=== PATIENT | male | born 1945 | race Caucasian/White ===

== ENCOUNTER 2018-09-30 06:46 | Inpatient (IN) ==
--- NOTE | 2018-09-22 10:57 | Anesthesiology Consultation ---
Date of Service September 22, 2018 Assessment & Plan (1) Encounter for pre-operative examination: Cardiology clearance 09/19/2018: Patient asymptomatic with no prior history of structural or heart disease or symptoms with exercise tolerance well above 5 METS high level exercise capacity. 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 No additional cardiac testing warranted. Proceed with surgery as planned with usual precautions. Chart Review Chart Review: Acceptable Risk for Surgery and Patient seen in Pre Admission Testing Teaching & Discussion Instructed NPO after midnight before surgery, except medications with 15 cc of water. Medication instructions provided according to the PAT guidelines. History Surgery Operation Date: 09/30/18 08:20 Proposed Procedures p Laparoscopic Assisted Low Anterior Resection with Protective Ileostomy - Vivek Roberts MD Height/Weight Height: 6 ft 1 in Weight: 101.4 kg Allergies Allergy/AdvReac Type Severity Reaction Status Date / Time No Known Allergies Allergy Verified 09/17/18 13:45 Medications Home Medications Medication Instructions Recorded Confirmed Last Taken Centrum Silver Men 1 tab PO QAM 05/19/18 09/17/18 Unknown acetaminophen [Acetaminophen Extra 500 mg PO Q4 PRN 05/19/18 09/17/18 05/17/18 Strength] albuterol sulfate [Ventolin HFA] 2 puff INHALATION Q4 PRN 05/19/18 09/17/18 Unknown azelastine 2 spray INTRANASAL Q12H 05/19/18 09/17/18 05/20/18 fluticasone propionate [Flonase 2 spray INTRANASAL BID 05/19/18 09/17/18 05/20/18 08:30 Allergy Relief] [id number]-[id number]-nyl C-Mn 1 cap PO QAM 05/19/18 09/17/18 Unknown guaifenesin [Mucinex] 600 mg PO BID 05/19/18 09/17/18 05/17/18 lansoprazole 15 mg PO QAM 05/19/18 09/17/18 05/20/18 08:30 lisinopril 20 mg PO QAM 05/19/18 09/17/18 05/20/18 08:15 loratadine 10 mg PO QAM 05/19/18 09/17/18 Unknown montelukast 10 mg PO PM 05/19/18 09/17/18 05/19/18 simvastatin 40 mg PO HS 05/19/18 09/17/18 05/19/18 docusate sodium 100 mg capsule 100 mg PO QPM 07/28/18 09/17/18 Unknown Past Medical History Medical History Arthritis (Acute) Asthma inhaler prn, mostly assc with seasonal allergies, has not used since July BPH (benign prostatic hyperplasia) Cervical stenosis of spine Chronic back pain GERD (gastroesophageal reflux disease) Glaucoma History of GI bleed Off and on 2/2 malignancy, no blood transfusions per pt History of IBS History of stomach ulcers Hyperlipidemia Hypertension Osteoarthritis Vertigo Exercise / Class Metabolic Activity III < 4 Walking/Shop/Light housework (Uses walker or two canes for ambulation 2/2 gait instability from spine surgery, denies CP or SOB with ambulation) Past Family History Family History Grandfather (Maternal) , age 73 of bladder cancer No problems noted. Grandmother (Maternal) , age 83 of [place] No problems noted. Grandmother (Paternal) , of heart attack No problems noted. Grandfather (Paternal) , of motor vehicle collision No problems noted. Father , age 69 of heart attack No problems noted. Mother , age 98 of kidney failure No problems noted. Sister Age: 70 Cancer malignant ovarian tumor removed Daughter Age: 44 No problems noted. Daughter Age: 41 Bipolar disorder Other FHx: cancer No family history of adverse response to anesthesia Past Surgical History Surgical History History of colonoscopy History of esophagogastroduodenoscopy (EGD) History of fusion of cervical spine c6-t1; needs support with neck, pt states he can move his neck back History of lumbar spinal fusion History of lumbar surgery TO REMOVE SPINAL CYST History of tonsillectomy and adenoidectomy History of tooth extraction INFECTED TOOTH POST ROOT CANCAL History of wisdom tooth extraction Past Anesthesia History No Hx of Anesthesia Complications and No Family Hx of Anesthesia Complications Some post-op urinary retention. History of PONV No Hx of PONV and No Hx of Motion Sickness Social History Smoking Status: Never smoker Do You Dip or Chew Tobacco: No Hx Alcohol Use: No Hx Substance Use: No substance use type: does not use Review of Systems Pt denies any recent chest pain, shortness of breath, palpitations, cough, fever or URI. +sinus congestion 2/2 allergies Physical Exam Vital Signs BP: 147/79 P: 72bpm SPO2: 94% RA T: 97.7 F R: 16 ENMT Mouth: + dental restorations (many crowns); no dentures, no chipped teeth and no loose teeth Thyromental Distance: > or= 3.5 Finger Breadths (4) Mallampati Class: I Neck normal visual inspection; neck extension not limited Respiratory normal respiratory effort Auscultation: lungs clear to auscultation bilaterally and + diminished lung sounds (R lung base) Cardiovascular Rate/Rhythm: regular rate and regular rhythm Heart Sounds: no murmur Vessels: no carotid bruit Extremities: no edema Testing Laboratory Results 09/22/18 11:24 Blood Type O Positive 09/22/18 11:24 Antibody Screen NEGATIVE 09/22/18 11:24 08/13/18 SODIUM: 139 POTASSIUM: 4.0 CHLORIDE: 106 CO2: 26 BUN: 13 CREATININE: 1.09 GLUCOSE: 103 Electrocardiogram Date: 09/19/18 Findings: + NSR @ (81bpm) Left axis deviation. Septal infarct, age undetermined. *Per Dr. López's interpretation noted in cardiac clearance, "baseline EKG reveals chronic left anterior fascicular block (interpreted as septal infarct) unchanged from March 2014 with past negative stress testing. Chest X-Ray Date: 09/22/18 Findings: + NAD Stress Test Date: 09/24/14 Resting EF: 55-60% Stress echo is negative for inducible ischemia. Occasional PVCs with exercise. Hypertensive BP response to exercise. Average exercise tolerance. At rest, normal LV chamber size and wall thickness. Normal LV systolic function without regional wall motion normality. Grade 1 diastolic dysfunction. Mild mitral regurgitation.
--- NOTE | 2018-09-22 11:00 | PAT Medication Instructions ---
Medication Instructions Date of Service September 22, 2018 Home Medications Centrum Silver Men 1 tab PO QAM acetaminophen [Acetaminophen Extra Strength] 500 mg PO Q4 PRN albuterol sulfate [Ventolin HFA] 2 puff INHALATION Q4 PRN azelastine 2 spray INTRANASAL Q12H fluticasone propionate [Flonase Allergy Relief] 2 spray INTRANASAL BID [id number]-[id number]-gwe C-Mn 1 cap PO QAM guaifenesin [Mucinex] 600 mg PO BID lansoprazole 15 mg PO QAM lisinopril 20 mg PO QAM loratadine 10 mg PO QAM montelukast 10 mg PO PM simvastatin 40 mg PO HS docusate sodium 100 mg capsule 100 mg PO QPM STOP taking 2 weeks before surgery If surgery is within 2 weeks, stop taking as soon as possible. [id number]-[id number]-bub C-Mn 1 cap PO QAM DO NOT take the morning of surgery Centrum Silver Men 1 tab PO QAM guaifenesin [Mucinex] 600 mg PO BID lisinopril 20 mg PO QAM loratadine 10 mg PO QAM Take morning of surgery With a small sip of water, OTHERWISE NOTHING TO EAT OR DRINK AFTER MIDNIGHT: acetaminophen [Acetaminophen Extra Strength] 500 mg PO Q4 PRN (if needed, may be taken up to four hours before surgery) albuterol sulfate [Ventolin HFA] 2 puff INHALATION Q4 PRN (if needed, and bring with you to the hospital) azelastine 2 spray INTRANASAL Q12H fluticasone propionate [Flonase Allergy Relief] 2 spray INTRANASAL BID lansoprazole 15 mg PO QAM Take evening before surgery acetaminophen [Acetaminophen Extra Strength] 500 mg PO Q4 PRN (if needed) albuterol sulfate [Ventolin HFA] 2 puff INHALATION Q4 PRN (if needed) azelastine 2 spray INTRANASAL Q12H fluticasone propionate [Flonase Allergy Relief] 2 spray INTRANASAL BID guaifenesin [Mucinex] 600 mg PO BID montelukast 10 mg PO PM simvastatin 40 mg PO HS docusate sodium 100 mg capsule 100 mg PO QPM Other Notes If you have any questions please call us at [phone] or [phone] or [phone] or [phone]
--- NOTE | 2018-09-22 11:50 | XRay Report ---
XR chest Pre-admission PA/Lat CLINICAL HISTORY: Preoperative chest COMPARISON STUDY: 05/11/2015 FINDINGS: The cardiac and mediastinal contours are normal. There is no evidence of focal pulmonary co nsolidation. There is no evidence of failure. No pleural effusions are visualized.[Moderately advance d degenerative changes are present within the dorsal spine. There are postsurgical changes present wi thin the cervical spine. IMPRESSION: No active disease in the chest. Electronically signed by: Darci Cantor M.D. 09/22/2018 11:49 AM
[2018-09-22 13:37] LABS: Basophils # (auto) 0.03 K/uL (0-0.2); Basophils % (auto) 0.7 %; Eosinophils # (auto) 0.29 K/uL (0-0.5); Eosinophils % (auto) 6.5 %; Hematocrit (blood only) 37.5 % (42-52); Hemoglobin 12.9 g/dL (14.0-18.0); Immature Granulocytes # (auto) 0.01 K/uL (0.00-0.02); Immature Granulocytes % (auto) 0.2 %; Lymphocytes # (auto) 0.73 K/uL (1.2-3.4); Lymphocytes % (auto) 16.3 %; Mean Corpuscular Hemoglobin 27.9 pg (25-34); Mean Corpuscular Hgb Conc 34.4 g/dL (32-36); Mean Platelet Volume 9.2 fL (7.4-10.4); Monocytes # (auto) 0.56 K/uL (0.11-0.59); Monocytes % (auto) 12.5 %; Neutrophils # (auto) 2.85 K/uL (1.4-6.5); Neutrophils % (auto) 63.8 %; Platelet Count 240 K/uL (130-400); RDW Coefficient of Variation 16.5 % (11.5-14.5); RDW Standard Deviation 48.9 fL (36.4-46.3); Red Blood Count 4.63 M/uL (4.7-6.1); White Blood Count 4.47 K/uL (4.8-10.8)
[~2018-09-30 06:46] MED LIST: LR 15ML/HR IV SCH
[2018-09-30] MEDS ORDERED: LIDOCAINE HCL 2% 2 ML VIAL/AMP(20MG/ML) INFIL ONE ×4 (08:22→10:41)
[2018-09-30] MEDS ORDERED: MIDAZOLAM HCL 1 MG/ML 2ML VIAL ONE ×2 (08:22→08:40)
[2018-09-30] MEDS ORDERED: ONDANSETRON INJ 2 MG/ML 2 ML VIAL ONE ×4 (08:22→13:09)
[2018-09-30] MEDS ORDERED: fentaNYL citrate 100 MCG/2 ML VIAL ONE ×4 (08:22→11:25)
[2018-09-30] MEDS ORDERED: DEXAMETHASONE SOD INJ 4 MG/ML VIAL ONE ×3 (08:22→10:41)
[2018-09-30] MEDS ORDERED: PROPOFOL IV EMULSION 10 MG/ML 20 ML VIAL IV ONE ×3 (08:22→10:41)
--- NOTE | 2018-09-30 08:25 | History & Physical Bridge Note ---
Date of Service September 30, 2018 History & Physical Bridge Note I have examined the patient, reviewed the History & Physical and in the interval since the performance of the History & Physical I have noted the following changes of clinical significance: no changes noted so at bedside all questions answered
[2018-09-30] MEDS ORDERED: BUPIVACAINE 0.5 % 5 MG/1 ML MPF 30ML VIAL ONE (09:07)
[2018-09-30] MEDS ORDERED: KETAMINE HCL INJ 50 MG/ML 10 ML VIAL ONE (09:55)
[2018-09-30] MEDS ORDERED: ROCURONIUM BROMIDE 10 MG/ML 5 ML VIAL ONE ×6 (10:04→13:09)
[2018-09-30] MEDS ORDERED: HYDROmorphone INJ 2 MG/ML SYR/VIAL ONE (10:14)
[2018-09-30] MEDS ORDERED: NALOXONE HCL 0.4 MG/1 ML VIAL/CARP IV PRN ×2 (10:28→14:31)
[2018-09-30] MEDS ORDERED: ATROPINE SULFATE 0.1 MG/ML 10ML SYR IV PRN (10:28)
[2018-09-30] MEDS ORDERED: FLUMAZENIL 0.1 MG/1 ML 10 ML VIAL IV PRN (10:28)
[2018-09-30] MEDS ORDERED: PROMETHAZINE HCL 12.5 MG in SODIUM CHLORIDE 0.9% 50 ML IV PRN (10:28)
[2018-09-30] MEDS ORDERED: ePHEDrine sulfate 50 MG/ML AMP IV PRN (10:28)
[2018-09-30] MEDS ORDERED: ONDANSETRON INJ 2 MG/ML 2 ML VIAL IV PRN (10:28)
[2018-09-30] MEDS ORDERED: LABETALOL HCL IV 5 MG/ML 20ML IV ONE (11:04)
[2018-09-30] MEDS ORDERED: NEOSTIGMINE METHYLSULFATE 5 MG/5 ML SYR ONE (12:13)
[2018-09-30] MEDS ORDERED: GLYCOPYRROLATE 0.2 MG/ML VIAL ONE (12:13)
--- NOTE | 2018-09-30 12:39 | Post Operative Brief Note ---
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 Procedure Operation Date: 09/30/18 08:20 Actual Procedures p Laparoscopic Assisted Low Anterior Resection with Protective Ileostomy, Appe ndectomy(Not Applicable) - Vivek Roberts MD Surgeon Vivek Roberts MD Assembler Billiard Table k Rick OWEN, Ariel owen Estimated Blood Loss 200 Findings Consistent with Post-Op Diagnosis Specimens Specimen Description: Fresh A.) descending colon, long suture oakes proximal descending colon Frozen 1.) rectal sigmoid colon, suture is distal line of resection Permanent A.) Appendix Urine 1.) Urine Culture Drains Philipp Drain (19 fr), Martines Catheter (16f) and Sayre Drain (1/4 inch)
[2018-09-30] MEDS ORDERED: cefOXitin 2,000 MG in DEXTROSE 5% 50 ML IV STA (12:51)
--- NOTE | 2018-09-30 12:53 | Operative Report ---
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 Procedure Operation Date: 09/30/18 08:20 Actual Procedures p Laparoscopic Assisted Low Anterior Resection with Protective Ileostomy, Appendectomy(Not Applicable) - Vivek Roberts MD The patient was brought into the operating room theater under general trach anesthesia in lithotomy position Martines catheter been inserted the abdomen was prepped and draped with Betadine solution systemic antibiotics given a timeout was had a small incision supraumbilically sufficient for a Veress needle followed by 5 mm trocar CO2 was insufflated camera was inserted patient was able to identify a very redundant sigmoid colon went down towards the pelvic area could not see any tattooing the patient had a rectal: Lesion we then inspected the abdomen more thoroughly with the scope circumferentially the liver was free of any miliary implants as was the omentum we then placed two 5 mm trochars one in the left upper quadrant one in the right lower quadrant and then we scored a white line of Toldt on the left side freeing up any peritoneal attachments onto the colon with all the way up after almost to the splenic flexure. We then we were able that is once is been added and we had enough mobility I elected at this point just to convert to an open procedure Bookwalter was placed after we made a lower midline incision extending approximately 4 inches long anesthesia we entered the peritoneal cavity once a Bookwalter was inserted we are able to identify the patient has stated a really redundant colon we then were able to mobilize it try to identify the ureters which we did eventually the left and right there was encircled with vessel loop I divided the mesentery order: Right the distal left colon sigmoid area that we had enough mobility. At this point we continued the dissection by dividing the mesentery ligated with 2-0 silk we went down to the bowels are higher as fascia and 3 mobilized all this we then were able to easily palpate the tumor which was the peritoneal reflection or below it. We freed up circumferentially around it dissecting and elevate in the morning the wound till we were able to place a right angle clamp inferior to the area that we felt the limit of the tumor when we divided this to send it to pathology and the grossly centimeter by 4 cm below the tumor. We at this point then the staple line proximally was oversewn but it was still some redundancy and some diverticular problem and that descending sigmoid colon therefore resected the back another 10 cm also used another application of the MORENA oversewn the staple line with 3-0 silk suture we did a side and anastomoses with our layer 3-0 chromic interlayer the anastomosis checked for patency appear satisfactory. We at this point placed a Philipp drain down the pelvic area to the stab wound left lower quadrant attached to skin edge with 2-0 silk the drain was a 19 round. We accomplished this we then turned our attention to an area that we would do the protective ileostomy since the patient had radiation we mobilized the cecum and identified a very redundant long appendix which I divided the mesentery ligating it and ligated appendix with 2-0 silk at its base cauterized the mucosa and diverting a 3 oh pursestring of silk the terminal ileum was followed proximally and about 10 cm x 10 inches from the ileocecal valve we passed a vessel loop with right through the antimesenteric area to spencer the area we then made a 25% piece of skin incision removed jail between the iliac crest and the umbilical area and in the lateral rectus right lower quadrant dissected out enough to accommodate 2 fingers as we divided the cr uciate anterior and posterior fascia. The the vessel loop was then brought through there making sure that we did not twist the loop ileostomy which we control twice and appeared to be in good position at this point we will closed the abdominal incision later running 3-0 chromic for the peritoneum and interrupted #1 PDS idhurj-jk-swqdk for anterior fascia Tripp was placed in the subcu zack for skin edges the colostomy with ileostomy was then matured by making a curvilinear incision in the trap for fashion in the anterior surface after we have placed the plastic bridge underneath the area where the vessel loop was to suspend the ill vessel loop the ileostomy 3-0 chromic was then used circumferentially to tack down the mucosal onto the skin bag was placed the procedure was tolerated well by the patient estimated blood loss 200 cc the patient was taken recovery in good condition addendum Ariel owen and Veronika Carreon were present throughout the procedure and helped with exposure re traction and wound closure and camera work. Surgeon Vivek Roberts MD It Infrastructure Specialist mariaelena OWEN, Ariel owen Estimated Blood Loss 200 Findings Consistent with Post-Op Diagnosis Specimens colon appendix Description of Procedure danielle I attest to the content of the Intraoperative Record and any orders documented therein. Any exceptions are noted below.
[2018-09-30] MEDS: LABETALOL HCL IV 5 MG/ML 20ML IV PRN ×2 (13:20→13:26)
[2018-09-30] MEDS: HYDROmorphone INJ 1 MG/ML SYRINGE IV PRN ×5 (13:20→13:40)
--- NOTE | 2018-09-30 13:51 | Anesthesiology Progress Note ---
Date of Service September 30, 2018 Anesthesia Post Procedure Vital Signs Vital Signs: Temp Pulse Pulse Resp BP Pulse Ox 09/30/18 13:45 36.3 C L 687 H 14 144/88 H 94 09/30/18 13:35 68 14 134/90 98 09/30/18 13:25 70 14 169/92 H 98 09/30/18 13:15 80 12 179/93 H 99 09/30/18 13:05 73 12 174/95 H 98 09/30/18 12:57 36.2 C L 71 12 165/91 H 98 09/30/18 07:32 36.8 C 78 20 95 Pain Intensity Abdomen: Pain Intensity: 6 Transfer of Care Handoff Completed per policy Notes Mental Status: alert / awake / arousable Patient Amnestic to Procedure: Yes Nausea / Vomiting: adequately controlled Pain: adequately controlled Airway Patency, RR, SpO2: stable & adequate BP & HR: stable & adequate Hydration State: stable & adequate Anesthetic Complications: no major complications apparent
[2018-09-30] MEDS ORDERED: ALBUTEROL HFA 8 GM INHALER INH PRN (14:31)
[2018-09-30] MEDS ORDERED: HYDROmorphone HCL 0.5MG/ML 50 ML CASSETTE IV PRN (14:31)
[2018-09-30 15:30] LABS: Hematocrit (blood only) 40.5 % (42-52); Hemoglobin 14.2 g/dL (14.0-18.0); Mean Corpuscular Hemoglobin 28.6 pg (25-34); Mean Corpuscular Hgb Conc 35.1 g/dL (32-36); Mean Corpuscular Volume 81.5 fL (80-100); Mean Platelet Volume 8.8 fL (7.4-10.4); Platelet Count 207 K/uL (130-400); RDW Coefficient of Variation 15.5 % (11.5-14.5); RDW Standard Deviation 45.8 fL (36.4-46.3); Red Blood Count 4.97 M/uL (4.7-6.1); White Blood Count 10.75 K/uL (4.8-10.8)
[2018-09-30 15:39] LABS: INR 1.1 (0.9-1.1); Prothrombin Time 10.8 Seconds (9.0-12.0)
[2018-09-30] MEDS: LACTATED RINGER'S 1,000 ML IV SCH ×2 (16:14→22:08)
[2018-09-30] MEDS: cefOXitin 2,000 MG in DEXTROSE 5% 50 ML IV SCH ×2 (17:20→22:01)
[2018-09-30] MEDS: SODIUM CHLORIDE 0.9% 1000ML 1,000 ML IV SCH (17:24)
[2018-09-30] MEDS: ACETAMINOPHEN 1,000 MG/100 ML VIAL IV PRN (19:33)
[2018-09-30] MEDS: HEPARIN SOD 5,000 UNIT/0.5 ML VIAL SQ SCH (21:56)
[2018-10-01] MEDS: cefOXitin 2,000 MG in DEXTROSE 5% 50 ML IV SCH ×2 (05:05→10:32)
[2018-10-01] MEDS: HEPARIN SOD 5,000 UNIT/0.5 ML VIAL SQ SCH ×3 (05:05→20:51)
[2018-10-01] MEDS: LACTATED RINGER'S 1,000 ML IV SCH ×3 (05:05→20:51)
[2018-10-01 07:19] LABS: Basophils # (auto) 0.01 K/uL (0-0.2); Basophils % (auto) 0.1 %; Hematocrit (blood only) 37.8 % (42-52); Hemoglobin 12.9 g/dL (14.0-18.0); Immature Granulocytes # (auto) 0.02 K/uL (0.00-0.02); Immature Granulocytes % (auto) 0.2 %; Lymphocytes # (auto) 0.82 K/uL (1.2-3.4); Lymphocytes % (auto) 7.5 %; Mean Corpuscular Hemoglobin 27.7 pg (25-34); Mean Corpuscular Hgb Conc 34.1 g/dL (32-36); Mean Corpuscular Volume 81.3 fL (80-100); Mean Platelet Volume 9.1 fL (7.4-10.4); Monocytes # (auto) 1.43 K/uL (0.11-0.59); Monocytes % (auto) 13.1 %; Neutrophils # (auto) 8.66 K/uL (1.4-6.5); Neutrophils % (auto) 79.1 %; Platelet Count 239 K/uL (130-400); RDW Coefficient of Variation 15.6 % (11.5-14.5); RDW Standard Deviation 45.9 fL (36.4-46.3); Red Blood Count 4.65 M/uL (4.7-6.1); White Blood Count 10.94 K/uL (4.8-10.8)
--- NOTE | 2018-10-01 07:43 | Surgery Progress Note ---
Date of Service October 01, 2018 Assessment & Plan (1) Malignant neoplasm of rectosigmoid (colon): Advance diet to clear liquids today Keep goetz catheter for today; urine output improved this AM Will follow up on AM labs Continue to ambulate as tolerated Will ask rn field case manager to evaluate patient for potential placement upon discharge GARRETT to bulb suction Subjective Patient awake/alert this AM, states that he feels well. Has some abdominal/i ncisional pain that is being managed with dilaudid WHEEL TRUER and prn IV Tylenol. He denies any nausea/vomiting. He has already walked two laps in the halls this AM. States that he had some bladder pressure overnight, that is relieved after goetz catheter was adjusted is and now draining. Wishes to speak to a rn field case manager to discuss rehab options upon discharge prior to going home. Physical Exam Constitutional: well developed and well nourished; no acute distress Respiratory: normal respiratory effort (on room air) Gastrointestinal (Abdomen): Inspection/Auscultation: + abdominal surgical incision (Dry dressings over midline incision covering mark. ) and + abdominal surgical drain present (Philipp drain in left abdomen draining serosanguineous output) Ileostomy viable. Ostomy bag with serosang. output Results & Data Vital Signs (Past 12 Hours) Vital Signs Temp Pulse Resp BP Pulse Ox 10/01/18 03:10 37 C 95 H 16 146/72 H 92 09/30/18 23:50 36.8 C 98 H 16 148/79 H 92 09/30/18 20:30 36.7 C 82 18 153/90 H 94 PG Care Time/CCT Total # of Minutes Spent Total Time Spent with Patient: Total time spent is greater than 50% in coordination of care (as documented) at patient's floor/unit and/or counseling patient:
[2018-10-01 07:53] LABS: BUN Creatinine Ratio 9.8 (10-20); Calcium 8.5 mg/dl (8.5-10.1); Creatinine Clr Calc Pharmacy 64.6 ml/min; Est GFR (African American) 65.2; Est GFR (Non-African American) 56.2; Potassium 4.7 mmol/L (3.5-5.1)
--- NOTE | 2018-10-01 08:26 | Anesthesiology Progress Note ---
Date of Service October 01, 2018 Anesthesia Post Procedure Vital Signs Vital Signs: Temp Pulse Pulse Resp BP Pulse Ox Pulse Ox 10/01/18 03:10 37 C 95 H 16 146/72 H 92 09/30/18 23:50 36.8 C 98 H 16 148/79 H 92 09/30/18 20:30 36.7 C 82 18 153/90 H 94 09/30/18 19:23 36.3 C L 98 H 16 164/99 H 96 09/30/18 18:33 36.7 C 92 H 16 153/96 H 96 09/30/18 17:36 36.6 C 93 H 18 153/88 H 98 09/30/18 17:22 36.6 C 90 16 153/95 H 97 09/30/18 16:33 85 20 168/89 H 98 09/30/18 16:23 36.3 C L 87 18 165/98 H 99 09/30/18 15:15 36.3 C L 85 16 163/90 H 99 09/30/18 14:42 72 16 164/95 H 99 09/30/18 14:15 36.5 C 76 18 165/94 H 98 98 09/30/18 13:45 36.3 C L 687 H 14 144/88 H 94 09/30/18 13:35 68 14 134/90 98 09/30/18 13:25 70 14 169/92 H 98 09/30/18 13:15 80 12 179/93 H 99 09/30/18 13:05 73 12 174/95 H 98 09/30/18 12:57 36.2 C L 71 12 165/91 H 98 Pain Intensity Abdomen: Pain Intensity: 6 Notes Mental Status: alert / awake / arousable and participated in evaluation Patient Amnestic to Procedure: Yes Nausea / Vomiting: adequately controlled Pain: adequately controlled Airway Patency, RR, SpO2: stable & adequate BP & HR: stable & adequate Hydration State: stable & adequate Anesthetic Complications: no major complications apparent and Pt Satisfied with anesthetic care
[2018-10-01] MEDS: PANTOprazole 40 MG TAB PO SCH (08:43)
[2018-10-01] MEDS: SODIUM CHLORIDE 0.9% 1000ML 1,000 ML IV SCH (13:38)
[2018-10-01] MEDS: COUGH DROP (SUGAR FREE) LOZ 24 LOZ/1 BOX BUCCAL PRN (16:02)
[2018-10-01] MEDS: ONDANSETRON INJ 2 MG/ML 2 ML VIAL IV PRN (21:00)
[2018-10-02] MEDS: ONDANSETRON INJ 2 MG/ML 2 ML VIAL IV PRN ×4 (02:14→21:21)
[2018-10-02] MEDS: LACTATED RINGER'S 1,000 ML IV SCH ×3 (02:15→18:14)
[2018-10-02] MEDS: HEPARIN SOD 5,000 UNIT/0.5 ML VIAL SQ SCH ×3 (05:39→21:21)
--- NOTE | 2018-10-02 06:49 | Surgery Progress Note ---
Date of Service October 02, 2018 Assessment & Plan (1) Malignant neoplasm of rectosigmoid (colon): POD #2 op findings and rx explained to pt yesterday will back off oral intake for now recheck lab Advance diet to clear liquids today Keep goetz catheter for today; urine output improved this AM Will follow up on AM labs Continue to ambulate as tolerated Will ask human services case manager to evaluate patient for potential placement upon discharge GARRETT to bulb suction Subjective rough night last night had emesis better now Review of Systems Review of Systems: minimal to no nausea drinking some Stephy Priscilla Physical Exam Physical Exam: sitting up in chair no acute issues abd soft with expected tenderness along incision ileostomy viable with bilious drainage Results & Data Vital Signs (Past 12 Hours) Vital Signs Temp Pulse Resp BP Pulse Ox 10/02/18 02:50 36.5 C 103 H 16 161/99 H 91 10/01/18 23:20 37 C 100 H 16 164/95 H 91 10/01/18 21:05 91 H 163/92 H 10/01/18 19:11 36.5 C 105 H 18 174/93 H 92 PG Care Time/CCT Total # of Minutes Spent Total Time Spent with Patient: Total time spent is greater than 50% in coordination of care (as documented) at patient's floor/unit and/or counseling patient:
[2018-10-02 07:37] LABS: Basophils # (auto) 0.02 K/uL (0-0.2); Basophils % (auto) 0.2 %; Eosinophils # (auto) 0.03 K/uL (0-0.5); Eosinophils % (auto) 0.3 %; Hematocrit (blood only) 42.3 % (42-52); Hemoglobin 14.3 g/dL (14.0-18.0); Immature Granulocytes # (auto) 0.05 K/uL (0.00-0.02); Immature Granulocytes % (auto) 0.5 %; Lymphocytes # (auto) 0.67 K/uL (1.2-3.4); Lymphocytes % (auto) 6.4 %; Mean Corpuscular Hemoglobin 27.8 pg (25-34); Mean Corpuscular Hgb Conc 33.8 g/dL (32-36); Mean Corpuscular Volume 82.3 fL (80-100); Mean Platelet Volume 9.1 fL (7.4-10.4); Monocytes # (auto) 1.12 K/uL (0.11-0.59); Monocytes % (auto) 10.7 %; Neutrophils # (auto) 8.57 K/uL (1.4-6.5); Neutrophils % (auto) 81.9 %; Platelet Count 259 K/uL (130-400); RDW Coefficient of Variation 15.4 % (11.5-14.5); RDW Standard Deviation 46.1 fL (36.4-46.3); Red Blood Count 5.14 M/uL (4.7-6.1); White Blood Count 10.46 K/uL (4.8-10.8)
[2018-10-02 08:17] LABS: BUN Creatinine Ratio 11.1 (10-20); Calcium 8.9 mg/dl (8.5-10.1); Creatinine Clr Calc Pharmacy 76.7 ml/min; Est GFR (African American) 80.3; Est GFR (Non-African American) 69.3; Potassium 4.4 mmol/L (3.5-5.1)
[2018-10-02] MEDS: PANTOprazole 40 MG TAB PO SCH (08:44)
[2018-10-02] MEDS: CALCIUM CARBONATE 500 MG CHEWABLE TAB PO PRN (14:14)
[2018-10-02] MEDS: SODIUM CHLORIDE 0.9% 1000ML 1,000 ML IV SCH (14:24)
[2018-10-03] MEDS: LACTATED RINGER'S 1,000 ML IV SCH ×2 (01:56→10:24)
[2018-10-03] MEDS: CALCIUM CARBONATE 500 MG CHEWABLE TAB PO PRN ×2 (04:16→22:35)
[2018-10-03] MEDS: ONDANSETRON INJ 2 MG/ML 2 ML VIAL IV PRN (04:42)
[2018-10-03] MEDS: HEPARIN SOD 5,000 UNIT/0.5 ML VIAL SQ SCH ×3 (05:03→21:05)
[2018-10-03 07:33] LABS: Basophils # (auto) 0.01 K/uL (0-0.2); Basophils % (auto) 0.2 %; Eosinophils # (auto) 0.11 K/uL (0-0.5); Eosinophils % (auto) 1.7 %; Hematocrit (blood only) 38.5 % (42-52); Hemoglobin 13.2 g/dL (14.0-18.0); Immature Granulocytes # (auto) 0.01 K/uL (0.00-0.02); Immature Granulocytes % (auto) 0.2 %; Lymphocytes # (auto) 0.61 K/uL (1.2-3.4); Lymphocytes % (auto) 9.6 %; Mean Corpuscular Hemoglobin 27.9 pg (25-34); Mean Corpuscular Hgb Conc 34.3 g/dL (32-36); Mean Corpuscular Volume 81.4 fL (80-100); Mean Platelet Volume 8.9 fL (7.4-10.4); Monocytes # (auto) 1.41 K/uL (0.11-0.59); Monocytes % (auto) 22.3 %; Neutrophils # (auto) 4.18 K/uL (1.4-6.5); Platelet Count 238 K/uL (130-400); RDW Coefficient of Variation 15.1 % (11.5-14.5); RDW Standard Deviation 44.8 fL (36.4-46.3); Red Blood Count 4.73 M/uL (4.7-6.1); White Blood Count 6.33 K/uL (4.8-10.8)
--- NOTE | 2018-10-03 07:33 | Surgery Progress Note ---
Date of Service October 03, 2018 Assessment & Plan (1) Malignant neoplasm of rectosigmoid (colon): POD 3 lap assisted LAR, protective ileostomy labs pending hold on NG for now, consider KUB/NG later if not making progress restart lisinopril Subjective hiccups, vomited early this morning but ileostomy starting to have output Physical Exam Gastrointestinal (Abdomen): Inspection/Auscultation: + abdominal surgical incision (some mark drainage, no erythema) and + abdominal surgical drain present (330 cc overnight mostly serous); abdomen not distended Percussion/Palpation: abdomen soft UOP 550 overnight Results & Data Vital Signs (Past 12 Hours) Vital Signs Temp Pulse Resp BP Pulse Ox 10/03/18 04:05 37.0 C 100 H 16 152/91 H 92 10/02/18 23:03 37.4 C 89 16 145/92 H 92 10/02/18 22:08 99 H 155/97 H 10/02/18 20:18 36.8 C 118 H 18 163/77 H 93 PG Care Time/CCT Total # of Minutes Spent Total Time Spent with Patient: Total time spent is greater than 50% in coordination of care (as documented) at patient's floor/unit and/or counseling patient:
[2018-10-03 08:01] LABS: BUN Creatinine Ratio 12.1 (10-20); Calcium 8.7 mg/dl (8.5-10.1); Creatinine Clr Calc Pharmacy 69.5 ml/min; Est GFR (African American) 71.3; Est GFR (Non-African American) 61.5; Potassium 4.7 mmol/L (3.5-5.1)
[2018-10-03] MEDS: PANTOprazole 40 MG TAB PO SCH (08:56)
[2018-10-03] MEDS: LISINOPRIL 20 MG TAB PO SCH (10:23)
[2018-10-03] MEDS: SODIUM CHLOR 0.45% + 20MEQ KCL 20 MEQ/1,000 ML BAG IV SCH ×2 (13:48→20:57)
[2018-10-03] MEDS: SODIUM CHLORIDE 0.9% 1000ML 1,000 ML IV SCH (13:55)
--- NOTE | 2018-10-03 14:20 | XRay Report ---
XR KUB/Abdomen 1 view CLINICAL HISTORY: Bowel distention. Possible postoperative ileus COMPARISON STUDY: No previous studies for comparison. FINDINGS: There are pelvic zack. There is a pelvic drain present. There are postsurgical changes p resent within the lumbar spine. There is a dilated mid abdominal small bowel measuring 5 cm. There is a relative paucity of colonic gas. IMPRESSION: Nonspecific bowel gas pattern with mildly dilated small bowel loops measuring up to 5 cm in diameter Electronically signed by: Darci Cantor M.D. 10/03/2018 2:19 PM
[2018-10-03] MEDS ORDERED: MONTELUKAST SODIUM 10 MG TABLET PO SCH (21:00)
[2018-10-03] MEDS: guaiFENesin 600 MG TABCR PO SCH (21:02)
[2018-10-03] MEDS: FLUTICASONE PROPIONATE NA SPR 16 GM BTL NAE SCH (21:02)
[2018-10-04] MEDS: ONDANSETRON INJ 2 MG/ML 2 ML VIAL IV PRN ×2 (00:50→04:19)
[2018-10-04] MEDS: SODIUM CHLOR 0.45% + 20MEQ KCL 20 MEQ/1,000 ML BAG IV SCH (05:05)
[2018-10-04] MEDS: CALCIUM CARBONATE 500 MG CHEWABLE TAB PO PRN (05:05)
[2018-10-04] MEDS ORDERED: PROMETHAZINE HCL 25 MG in SODIUM CHLORIDE 0.9% 50 ML IV PRN (05:17)
[2018-10-04] MEDS ORDERED: ONDANSETRON INJ 2 MG/ML 2 ML VIAL IV PRN (05:19)
[2018-10-04] MEDS: HEPARIN SOD 5,000 UNIT/0.5 ML VIAL SQ SCH ×3 (05:34→20:46)
[2018-10-04 08:17] LABS: BUN Creatinine Ratio 14.9 (10-20); Creatinine Clr Calc Pharmacy 74.6 ml/min; Est GFR (African American) 77.6; Potassium 4.8 mmol/L (3.5-5.1)
[2018-10-04 08:20] LABS: Albumin Globulin Ratio 0.8 (0.9-2); Bilirubin,Total 0.7 mg/dl (0.2-1); Globulin 3.8 gm/dl (2.5-4.0); Total Protein 6.8 gm/dl (6.4-8.2)
--- NOTE | 2018-10-04 08:27 | XRay Report ---
XR chest 1V portable CLINICAL HISTORY: Acute mental status change, rales. Status post low anterior resection September 30. COMPARISON STUDY: Chest radiograph September 22, 2018. FINDINGS: Spinal fusion hardware is partially imaged. Lung volumes are diminished. There is mild left basilar opacity. There is no evidence for pulmonary edema. No pneumothorax or pleural effusion is no godfrey. Enlargement of the cardiac silhouette is accentuated on this hypoventilatory exam. There may be trace pneumoperitoneum. IMPRESSION: 1. Low lung volumes with left basilar opacity which may reflect atelectasis or consolidation. 2. Suspected trace pneumoperitoneum which is not unexpected given recent abdominal surgery. 3. No evidence for pulmonary edema. Electronically signed by: Masood Villanueva M.D. 10/04/2018 8:25 AM
[2018-10-04] MEDS ORDERED: CONSULT PHARMACY STA (08:30)
[2018-10-04] MEDS: SODIUM CHLORIDE 0.9% 1000ML 1,000 ML IV SCH ×2 (08:30→11:53)
[2018-10-04 08:36] LABS: Base Excess ABG -1.4 mEq/L (-9-1.8); HCO3 ABG 21 mmol/L (19-24); Oxygen Saturation ABG 95.6 % (90-95); PCO2 ABG 30 mmHg (35-46); PO2 ABG 76 mm/Hg (80-95); pH ABG 7.46 (7.35-7.45)
[2018-10-04] MEDS ORDERED: FUROSEMIDE 40 MG/4 ML VIAL IV ONE (08:39)
[2018-10-04] MEDS ORDERED: PIPERACILLIN/TAZOBACTAM 4.5 GM in DEXTROSE 5% 100 ML IV ONE (08:45)
[2018-10-04] MEDS ORDERED: PIPERACILL/TAZOBAC CONSULT ACTIVE PRN (08:51)
[2018-10-04] MEDS ORDERED: VANCOMYCIN CONSULT ACTIVE PRN (08:52)
[2018-10-04] MEDS ORDERED: fentaNYL citrate 100 MCG/2 ML VIAL ONE (08:57)
[2018-10-04] MEDS ORDERED: MIDAZOLAM HCL 1 MG/ML 2ML VIAL ONE (08:57)
[2018-10-04] MEDS ORDERED: NiCARDipine HCL INJ 2.5 MG/ML 10 ML AMP ONE (08:58)
[2018-10-04] MEDS ORDERED: NITROGLYCERIN/D5W 100MCG/ML 20ML SYR ONE (08:58)
[2018-10-04] MEDS ORDERED: HEPARIN (PORCINE) 1000 UNIT/ML 10 ML (CATH LAB USE ONLY) ONE (08:58)
[2018-10-04] MEDS ORDERED: LORATADINE 10 MG TAB PO SCH (09:00)
--- NOTE | 2018-10-04 09:04 | Consultation ---
Date of Consultation October 04, 2018 Assessment & Plan (1) Sepsis: Clinical picture is consistent with sepsis. Likely source is hospital- acquired pneumonia, however, an intra-abdominal process such as abscess is possible. He had evidence of a post-op ileus yesterday, however, no NGT was pl aced and he subsequently had persistent nausea overnight. He has hiccups currently, which was noted yesterday on notes. He has had emesis over the last couple of days, but no known emesis overnight. Other cause considered was PE. Blood cultures pending, CBC pending, troponin negative, blood gas is consistent with tachypnea and hypoxia in setting of pneumonia. Lactate was 1.6. CT chest to rule out PE and CT abd/pelvis with IV contrast are pending. Surgery is aware and Dr. Roberts was notified. Various providers attempted to contact this morning with no answer. He was transferred to the ICU for further management. (2) Hospital acquired PNA: Vanc/Zosyn, blood cultures pending. Cont sepsis treatment in the ICU. (3) Acute metabolic encephalopathy: 2/2 infectious process above. (4) Post-operative state: POD 4 with a known post-op ileus seen yesterday on KUB and persistent nausea without vomiting overnight. Surgery is aware of the case. No NGT indicated at this time as he is not vomiting. CT abd/pelvis pending. (5) Malignant neoplasm of rectosigmoid (colon): s/p protective ileostomy POD 4 in the setting of h/o XRT treatment. (6) DVT prophylaxis: heparin Full Code Dispo-[facility] History of Present Illness Reason for Consultation: encephalopathy Attending Physician: Vivek Roberts MD History of Present Illness 73 yo M with acute mental status change overnight is now tachypneic, febrile (40 6 C) and tachycardic with a rate in the 140s. He is POD 4 s/p laparoscopic-assisted low anterior resection with protective ileostomy for adenocarcinoma of the colon. The operation was performed by Dr. Roberts and the operation was uneventful so he had radiation as the lower radiation was not like to call with an estimated blood loss of 200 cc. The following day he was doing well and was ambulating independently. He had some emesis and diet was decreased to clear liquids on POD 2. On postop day 3 he persistently had hiccups and emesis and a KUB was performed revealing some dilated loops of small bowel consistent with a postoperative ileus. Overnight he received 2 doses of Zofran that were ineffective for his nausea and subsequently received Phenergan around 530 this morning. Per nursing around 7 AM he became diaphoretic was doubled over on the side of the bed and was ill-appearing. Vitals at that time revealed an afebrile patient with a pulse of 110 and a blood pressure of 137/89. Oxygen saturation was not reported, however he subsequently became hypoxic. On arrival to the bedside he is unable to give an history secondary to encephalopathy. He is ill-appearing, diaphoretic with a heart rate of 140. He is febrile and hypoxic. A code purple was called. He was bolused 1 L of normal saline and lab work was ordered. Broad-spectrum antibiotics including vancomycin and Zosyn were started. The ICU was notified. An EKG revealed a possible inferior injury pattern and a heart alert was called, however, this was canceled after the extractor operator reviewed the EKG and felt this was inconsistent with ischemia. A chest x-ray was performed revealing a left lower lobe consolidation. He was transferred to the ICU for further care. Allergies Allergy/AdvReac Type Severity Reaction Status Date / Time pollen extracts Allergy Unknown Verified 09/30/18 11:44 Home Medications Home Medications Medication Instructions Recorded Confirmed Type Centrum Silver Men 1 tab PO QAM 05/19/18 09/30/18 History acetaminophen [Acetaminophen Extra 500 mg PO Q4 PRN 05/19/18 09/30/18 History Strength] albuterol sulfate [Ventolin HFA] 2 puff INHALATION Q4 PRN 05/19/18 09/30/18 History azelastine 2 spray INTRANASAL Q12H 05/19/18 09/30/18 History fluticasone propionate [Flonase 2 spray INTRANASAL BID 05/19/18 09/30/18 History Allergy Relief] [id number] C-Mn 1 cap PO QAM 05/19/18 09/30/18 History guaifenesin [Mucinex] 600 mg PO BID 05/19/18 09/30/18 History lansoprazole 15 mg PO QAM 05/19/18 09/30/18 History lisinopril 20 mg PO QAM 05/19/18 09/30/18 History loratadine 10 mg PO QAM 05/19/18 09/30/18 History montelukast 10 mg PO PM 05/19/18 09/30/18 History simvastatin 40 mg PO HS 05/19/18 09/30/18 History docusate sodium 100 mg capsule 100 mg PO QPM 07/28/18 09/30/18 History Patient History Medical History History of GI bleed Off and on 2/2 malignancy, no blood transfusions per pt History of IBS Arthritis (Acute) Asthma inhaler prn, mostly assc with seasonal allergies, has not used since July BPH (benign prostatic hyperplasia) Cervical stenosis of spine Chronic back pain GERD (gastroesophageal reflux disease) Glaucoma History of stomach ulcers Hyperlipidemia Hypertension Osteoarthritis Vertigo Surgical History History of colonoscopy History of esophagogastroduodenoscopy (EGD) History of fusion of cervical spine c6-t1; needs support with neck, pt states he can move his neck back History of lumbar spinal fusion History of lumbar surgery TO REMOVE SPINAL CYST History of tonsillectomy and adenoidectomy History of tooth extraction INFECTED TOOTH POST ROOT CANCAL History of wisdom tooth extraction S/P colon resection Laparoscopic Assisted Low Anterior Resection with Protective Ileostomy, Appendectomy Dr. Roberts 09/30/18 Family History Grandfather (Maternal) , age 73 of bladder cancer No problems noted. Grandmother (Maternal) , age 83 of [place] No problems noted. Grandmother (Paternal) , of heart attack No problems noted. Grandfather (Paternal) , of motor vehicle collision No problems noted. Father , age 69 of heart attack No problems noted. Mother , age 98 of kidney failure No problems noted. Sister Age: 70 Cancer malignant ovarian tumor removed Daughter Age: 44 No problems noted. Daughter Age: 41 Bipolar disorder Other FHx: cancer No family history of adverse response to anesthesia Social History Preferred Language: Faroese Communication Ability: Effective Utility Operator Required: No Beliefs That Will Affect Care: None marital status: Current Living Situation: Spouse and Family Current Living Situation Comment: Lives with and daughter Feels Safe at Home: Yes Safety Concerns: Feels Safe At This Time Smoking Status: Never smoker Do You Dip or Chew Tobacco: No ; Second Hand Exposure: Yes ; Hx Alcohol Use: No Hx Substance Use: No Review of Systems 2 Review of Systems: Unobtainable due to cognitive status Physical Exam Physical Exam: CONSTITUTIONAL: WNWD, vitals as above, generally ill- appearing, diaphoretic EYES: pupils are equal and reactive bilaterally, normal conjunctivae, no scleral icterus ENT: Oxymask in place NECK: trachea midline RESPIRATORY: increased respiratory effort, good air movement with limited exam as patient not able to follow instructions, some rhonchi heard at the bases (limited exam) CARDIOVASCULAR: tachy rate and reg rhythm, S1 and 2 heard without murmurs, gallops or rubs, no JVD, no peripheral edema CHEST: inspection of chest was normal GASTROINTESTINAL: soft, slightly distended, ileostomy in place with output noted, stoma appears normal MUSCULOSKELETAL: head is normocephalic and atraumatic SKIN: warm and diaphoretic NEUROLOGIC: altered, making unintelligible Results & Data Vital Signs (Past 12 Hours) Vital Signs Temp Pulse Resp BP Pulse Ox 10/04/18 06:55 36.4 C L 110 H 18 157/89 H 10/04/18 02:49 36.9 C 63 16 136/71 91 10/03/18 23:15 36.9 C 91 H 16 114/72 94 Laboratory Results Short CBC 09/22/18 Range/Units 11:24 Blood Type O Positive Antibody Screen NEGATIVE BMP 10/04/18 07:38 Sodium 131 L Potassium 4.8 Chloride 96 L Carbon Dioxide 27 BUN 16 Creatinine 1.09 Glucose 114 H Calcium 9.0 Cardiac Enzymes 10/04/18 Range/Units 08:32 Troponin I < 0.015 (0-0.045) ng/ml Liver Function 10/04/18 Range/Units 07:38 Total Bilirubin 0.7 (0.2-1) mg/dl AST 17 (15-37) U/L ALT 16 (12-78) U/L Alkaline Phosphatase 73 (45-117) U/L Albumin 3.0 L (3.4-5.0) gm/dl Diagnostic Findings XR chest 1V portable CLINICAL HISTORY: Acute mental status change, rales. Status post low anterior resection September 30, 2018. COMPARISON STUDY: Chest radiograph September 22, 2018. FINDINGS: Spinal fusion hardware is partially imaged. Lung volumes are diminished. There is mild left basilar opacity. There is no evidence for pulmonary edema. No pneumothorax or pleural effusion is noted. Enlargement of the cardiac silhouette is accentuated on this hypoventilatory exam. There may be trace pneumoperitoneum. IMPRESSION: 1. Low lung volumes with left basilar opacity which may reflect atelectasis or consolidation. 2. Suspected trace pneumoperitoneum which is not unexpected given recent ab dominal surgery. 3. No evidence for pulmonary edema. ECG Additional Comments: inferior injury pattern with 1mm ST elevation in inferior leads, incomplete RBBB and known LAFB.
[2018-10-04] MEDS ORDERED: FUROSEMIDE 40 MG/4 ML VIAL IV STA (09:08)
[2018-10-04] MEDS ORDERED: OPTIRAY 320 125ml IV PRN (09:12)
[2018-10-04] MEDS ORDERED: VANCOMYCIN HCL 2,500 MG in SODIUM CHLORIDE 0.9% 500 ML IV SCH (09:15)
[2018-10-04 09:20] LABS: Allen Test Pos (Pos)
--- NOTE | 2018-10-04 09:27 | CT Scan Report ---
CT ANGIOGRAPHY OF THE CHEST, PULMONARY EMBOLUS PROTOCOL CLINICAL HISTORY: Mental status change. Recent surgery. Chest CT June 11, 2018. COMPARISON STUDY: Chest radiograph September 22, 2018 and October 04, 2018. TECHNIQUE: Following IV administration of Optiray-320, helical axial images of the chest were obtaine d utilizing the pulmonary embolus protocol. Maximal intensity projections and sagittal and coronal r eformats were viewed on an independent 3D workstation. IV contrast was administered without complica tion. Automated exposure control was utilized for the study. A dose lowering technique was utilized adhering to the principles of ALARA. CT DOSE: 2412.28 mGy.cm FINDINGS: No pulmonary emboli are identified although the segmental and subsegmental pulmonary arter ies are suboptimally assessed due to respiratory motion. The heart is mildly enlarged. There is no pe ricardial effusion. No enlarged thoracic lymph nodes are present. Postoperative findings within the c ervicothoracic spine are noted. Small left pleural effusion is noted. There is no pneumothorax. There is extensive left lower lobe consolidation. Subpleural right lower lobe opacity favors atelectasis. There are suspected secretions within the left lower lobe bronchus and segmental bronchi of the left lower lobe. Lungs are suboptimally assessed given respiratory motion. Bony thorax is unremarkable. Sm all amount of pneumoperitoneum is noted. IMPRESSION: 1. No pulmonary emboli identified although segmental and subsegmental pulmonary arteries suboptimally assessed given respiratory motion. 2. Extensive left lower lobe consolidation which favors pneumonia. Secretions within the left lower l obe bronchus and segmental bronchi of the left lower lobe raise the possibility of aspiration. 3. Mild cardiomegaly. 4. Pneumoperitoneum which is expected in the early postoperative setting. Electronically signed by: Masood Villanueva M.D. 10/04/2018 9:25 AM
--- NOTE | 2018-10-04 09:39 | CT Scan Report ---
CT OF THE ABDOMEN AND PELVIS WITH CONTRAST CLINICAL HISTORY: Tachycardia and rigors status post low anterior resection COMPARISON STUDY: CT of the abdomen and pelvis May 29, 2018. TECHNIQUE: Following IV administration of Optiray-320, axial images of the abdomen and pelvis were ob tained from the lung bases to the proximal femurs. Images were reviewed in the axial, sagittal, and c oronal planes. IV contrast was administered without complication. Automated exposure control was uti lized for the study. A dose lowering technique was utilized adhering to the principles of ALARA. FINDINGS: Please note that the chest will be reported separately. Extensive left basilar consolidatio n is noted. There are secretions within the left lower lobe bronchi. Small amount of pneumoperitoneum is noted. A few hypodense hepatic lesions are unchanged since CT of May 29, 2018. These are benign . Stomach is moderately distended. Several loops of mildly dilated fluid-filled jejunum are noted. No discrete transition point is identified. The spleen, adrenal glands, kidneys and pancreas are normal . There is no biliary or pancreatic ductal dilatation. The patient is status post low anterior resect ion with right lower quadrant ileostomy. Surgical drains are in place. There is no rim-enhancing flui d collection to suggest abscess. Perirectal infiltration fluid and trace gas is expected in the early postoperative setting. A small amount of gas within the left inguinal canal and adjacent to the peni s is postsurgical. There is no portal venous gas. No pneumatosis is present. There is slight enlargem ent of the rectus sheaths. No suspicious osseous lesions are noted. Postoperative findings within the lumbar spine are present. IMPRESSION: 1. Status post low anterior resection with right lower quadrant ileostomy. No abscess. Small pneumope ritoneum and infiltration and fluid within the operative bed which are expected in the early postoper ative setting. 2. Mildly dilated fluid-filled jejunal loops without discrete transition point. An ileus is favored. A partial small bowel obstruction could appear similar although is considered less likely. Moderate d istention of the stomach. 3. Left basilar consolidation which favors pneumonia. 4. Mild enlargement of the rectus sheaths. This may be due to small rectus sheath hematomas or edema. Electronically signed by: Masood Villanueva M.D. 10/04/2018 9:38 AM
[2018-10-04 09:44] LABS: Basophils # (auto) 0.01 K/uL (0-0.2); Basophils % (auto) 0.3 %; Eosinophils # (auto) 0.04 K/uL (0-0.5); Eosinophils % (auto) 1.1 %; Hematocrit (blood only) 38.1 % (42-52); Hemoglobin 13.4 g/dL (14.0-18.0); Immature Granulocytes # (auto) 0.05 K/uL (0.00-0.02); Immature Granulocytes % (auto) 1.3 %; Lymphocytes # (auto) 0.33 K/uL (1.2-3.4); Lymphocytes % (auto) 8.8 %; Mean Corpuscular Hemoglobin 28.4 pg (25-34); Mean Corpuscular Volume 80.7 fL (80-100); Mean Platelet Volume 9.3 fL (7.4-10.4); Monocytes # (auto) 0.36 K/uL (0.11-0.59); Monocytes % (auto) 9.6 %; Neutrophils # (auto) 2.97 K/uL (1.4-6.5); Neutrophils % (auto) 78.9 %; Platelet Count 258 K/uL (130-400); RDW Coefficient of Variation 14.8 % (11.5-14.5); RDW Standard Deviation 43.8 fL (36.4-46.3); Red Blood Count 4.72 M/uL (4.7-6.1); White Blood Count 3.76 K/uL (4.8-10.8)
[2018-10-04 09:52] LABS: Mean Corpuscular Hgb Conc 35.2 g/dL (32-36)
[2018-10-04] MEDS ORDERED: ACETAMINOPHEN 1,000 MG/100 ML VIAL IV STA (09:56)
[2018-10-04] MEDS ORDERED: LACTATED RINGER'S 1,000 ML IV ONE ×2 (10:01→14:16)
--- NOTE | 2018-10-04 10:42 | Critical Care Consultation ---
Date of Consultation October 04, 2018 Assessment & Plan (1) Admitted to intensive care unit: Patient is currently in the ICU. Continue broad-spectrum antibiotics with vancomycin and Zosyn. Patient likely developed a postoperative pneumonia on the left side. There may be some component of aspiration, however, this would be unusual for left-sided infiltrate. Cardiology reviewed the EKG and does not feel that there is any evidence of acute ischemia currently. Troponin pending. Lactate is negative. 1 L fluids given on the floor. Will give another liter of fluids here. IV bolus fluids as needed. IV Tylenol as needed for high-grade fever. Blood cultures, urine cultures, sputum cultures ordered. Hold all mind altering medications due to acute metabolic encephalopathy that is secondary to sepsis. Stop DETECTIVE CAPTAIN drip. If any evidence of bowel obstruction on CT abdomen, will place NGT to intermittent suction. Keep n.p.o. Continue heparin 3 times daily for DVT prophylaxis. Family was contacted by surgery and internal medicine. No family immediately available at bedside. Present on Admission?: No (2) Hospital acquired PNA: Present on Admission?: No (3) Sepsis: Present on Admission?: No (4) Post-operative state: Present on Admission?: No (5) Acute hypoxemic respiratory failure: History of Present Illness Attending Physician: Vivek Roberts MD 73-year-old male with past medical history of adenocarcinoma of the colon who is postop day 4 status post laparoscopic assisted lower anterior resection with protective ileostomy. I was called by surgery to evaluate the patient for ICU transfer due to altered mental status and tachycardia. Upon evaluation the patient, he appeared to be diaphoretic, tachypneic and confused. He had an oxygen mask on at 15 L and was saturating in the low 90s. His heart rate was 140 and blood pressure was 130s over 70s. He was receiving 1 L of fluids. Vancomycin and Zosyn was ordered. Patient was unable to give much history due to encephalopathy. Apparently yesterday he had some persistent nausea. There was some mention of possible dilated bowel loops on a prior ab dominal x-ray. He has had no emesis overnight. Today he has a fever of 104. Chest x-ray shows some cardiomegaly, vascular congestion and left lower lobe infiltrate. CT chest does not show any obvious PE on my interpretation. There is a left lower lobe consolidation. There is some pneumoperitoneum noted on the x-ray prior to the CT. CT abdomen interpretation is pending lactate is 1.6. CBC with no evidence of leukocytosis. Blood gas demonstrating a respiratory alkalosis with hypoxemia. Blood cultures were drawn. He has settled out admit in ICU and his heart rate is starting to trend down. Of note, on the floor heart code was called due to concerns of inferior wall ischemia pattern on the EKG. Cardiology evaluated EKG did not feel there was any acute ischemia. Troponin was ordered. Allergies Allergy/AdvReac Type Severity Reaction Status Date / Time pollen extracts Allergy Unknown Verified 09/30/18 11:44 Home Medications Home Medications Medication Instructions Recorded Confirmed Type Centrum Silver Men 1 tab PO QAM 05/19/18 09/30/18 History acetaminophen [Acetaminophen Extra 500 mg PO Q4 PRN 05/19/18 09/30/18 History Strength] albuterol sulfate [Ventolin HFA] 2 puff INHALATION Q4 PRN 05/19/18 09/30/18 History azelastine 2 spray INTRANASAL Q12H 05/19/18 09/30/18 History fluticasone propionate [Flonase 2 spray INTRANASAL BID 05/19/18 09/30/18 History Allergy Relief] [id number] C-Mn 1 cap PO QAM 05/19/18 09/30/18 History guaifenesin [Mucinex] 600 mg PO BID 05/19/18 09/30/18 History lansoprazole 15 mg PO QAM 05/19/18 09/30/18 History lisinopril 20 mg PO QAM 05/19/18 09/30/18 History loratadine 10 mg PO QAM 05/19/18 09/30/18 History montelukast 10 mg PO PM 05/19/18 09/30/18 History simvastatin 40 mg PO HS 05/19/18 09/30/18 History docusate sodium 100 mg capsule 100 mg PO QPM 07/28/18 09/30/18 History Patient History Medical History History of GI bleed Off and on 2/2 malignancy, no blood transfusions per pt History of IBS Arthritis (Acute) Asthma inhaler prn, mostly assc with seasonal allergies, has not used since July BPH (benign prostatic hyperplasia) Cervical stenosis of spine Chronic back pain GERD (gastroesophageal reflux disease) Glaucoma History of stomach ulcers Hyperlipidemia Hypertension Osteoarthritis Vertigo Surgical History History of colonoscopy History of esophagogastroduodenoscopy (EGD) History of fusion of cervical spine c6-t1; needs support with neck, pt states he can move his neck back History of lumbar spinal fusion History of lumbar surgery TO REMOVE SPINAL CYST History of tonsillectomy and adenoidectomy History of tooth extraction INFECTED TOOTH POST ROOT CANCAL History of wisdom tooth extraction S/P colon resection Laparoscopic Assisted Low Anterior Resection with Protective Ileostomy, Appendectomy Dr. Roberts 09/30/18 Family History Grandfather (Maternal) , age 73 of bladder cancer No problems noted. Grandmother (Maternal) , age 83 of [place] No problems noted. Grandmother (Paternal) , of heart attack No problems noted. Grandfather (Paternal) , of motor vehicle collision No problems noted. Father , age 69 of heart attack No problems noted. Mother , age 98 of kidney failure No problems noted. Sister Age: 70 Cancer malignant ovarian tumor removed Daughter Age: 44 No problems noted. 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 Beliefs That Will Affect Care: None marital status: Current Living Situation: Spouse and Family Current Living Situation Comment: Lives with and daughter Feels Safe at Home: Yes Safety Concerns: Feels Safe At This Time Smoking Status: Never smoker Do You Dip or Chew Tobacco: No ; Second Hand Exposure: Yes ; Hx Alcohol Use: No Hx Substance Use: No Review of Systems Review of Systems: Unobtainable due to reduced consciousness Results & Data Vital Signs (Past 12 Hours) Vital Signs Temp Pulse Resp BP Pulse Ox 10/04/18 08:30 104.0 F H 140 H 127/76 94 10/04/18 08:15 143 H 22 94 10/04/18 08:00 103.8 F H 140 H 149/99 H 84 L 10/04/18 06:55 97.5 F L 110 H 18 157/89 H 10/04/18 02:49 98.4 F 63 16 136/71 91 10/03/18 23:15 98.4 F 91 H 16 114/72 94 Laboratory Results 10/04/18 08:22 10/04/18 07:[address] chest reviewed which demonstrates left lower lobe pneumonia. No pulmonary embolism seen. PG Care Time/CCT Total # of Minutes Spent Total Time Spent with Patient: Total time spent is greater than 50% in coordination of care (as documented) at patient's floor/unit and/or counseling patient: 45 min (1) Sepsis Sepsis type: sepsis due to unspecified organism Sepsis acute organ dysfunction status: with acute organ dysfunction Severe sepsis acute organ dysfunction type: acute respiratory failure
[2018-10-04] MEDS ORDERED: LACTATED RINGER'S 500 ML IV ONE (10:47)
--- NOTE | 2018-10-04 11:15 | Surgery Progress Note ---
Date of Service October 04, 2018 Assessment & Plan (1) Malignant neoplasm of rectosigmoid (colon): Postoperative day 4 status post low anterior resection with protective ileostomy Patient developed sepsis syndrome CT of the abdomen does not demonstrate an intra-abdominal source however CT of the chest and chest x-ray are suggestive of left lower lobe pneumonia with a CT suggestive of possible aspiration. I consulted Dr. Valle. Because of his hypoxia and tachycardia he was transferred to the intensive care unit. Was placed on IV antibiotics. Would keep n.p.o. for now Respiratory care as per intensive care unit team Subjective Postoperative day #4 status post low anterior resection with formation of contact of ileostomy Nursing reports that around 530 this morning he was responsive and answering questions appropriately. With her next visit however he appeared confused. He was noted to have pulse oximeter reading is on room air of 84% and his heart rate increased to between 120 and 140. He was lethargic at that time. Upon my arrival his condition was as described above. His ileostomy did begin functioning yesterday but the nurses report that he had been burping. His temperature was noted to increase to 40 C Physical Exam Respiratory: normal respiratory effort Auscultation: + rhonchi (Scattered throughout) Gastrointestinal (Abdomen): Inspection/Auscultation: + abdominal surgical incision (Clean, dry and intact) Percussion/Palpation: abdomen soft; abdomen nontender Results & Data Vital Signs (Past 12 Hours) Vital Signs Temp Pulse Resp BP Pulse Ox 10/04/18 08:30 40.0 C H 140 H 127/76 94 10/04/18 08:15 143 H 22 94 10/04/18 08:00 39.9 C H 140 H 149/99 H 84 L 10/04/18 06:55 36.4 C L 110 H 18 157/89 H 10/04/18 02:49 36.9 C 63 16 136/71 91 10/03/18 23:15 36.9 C 91 H 16 114/72 94 Laboratory Results 10/04/18 10/04/18 10/04/18 Range/Units 10:32 09:30 08:44 WBC (4.8-10.8) K/uL RBC (4.7-6.1) M/uL Hgb (14.0-18.0) g/dL Hct (42-52) % MCV (80-100) fL MCH (25-34) pg MCHC (32-36) g/dL RDW Std Deviation (36.4-46.3) fL RDW Coeff of Jean-Claude (11.5-14.5) % Plt Count (130-400) K/uL MPV (7.4-10.4) fL Immature Gran % (Auto) % Neut % (Auto) % Lymph % (Auto) % Sawyer % (Auto) % Eos % (Auto) % Baso % (Auto) % Immature Gran # (Auto) (0.00-0.02) K/uL Neut # (Auto) (1.4-6.5) K/uL Lymph # (Auto) (1.2-3.4) K/uL [place]yer # (Auto) (0.11-0.59) K/uL Eos # (Auto) (0-0.5) K/uL Baso # (Auto) (0-0.2) K/uL ABG pH (7.35-7.45) ABG pCO2 (35-46) mmHg ABG pO2 (80-95) mm/Hg ABG HCO3 (19-24) mmol/L ABG O2 Saturation (90-95) % ABG Base Excess (-9-1.8) mEq/L Titi Test (Pos) Barometric Pressure mm/Hg Oxygen Given Sodium (136-145) mmol/L Potassium (3.5-5.1) mmol/L Chloride (98-107) mmol/L Carbon Dioxide (21-32) mmol/L Anion Gap (3-11) BUN (7-18) mg/dl Creatinine (0.6-1.4) mg/dl Est Cr Clr Drug Dosing ml/min Est GFR ( Amer) Est GFR (Non-Af Amer) BUN/Creatinine Ratio (10-20) Glucose (70-99) mg/dl POC Glucose (70-99) Lactate 1.6 (0.4-2.0) mmol/L Calcium (8.5-10.1) mg/dl Total Bilirubin (0.2-1) mg/dl AST (15-37) U/L ALT (12-78) U/L Alkaline Phosphatase (45-117) U/L Troponin I (0-0.045) ng/ml Total Protein (6.4-8.2) gm/dl Albumin (3.4-5.0) gm/dl Globulin (2.5-4.0) gm/dl Albumin/Globulin Ratio (0.9-2) Procalcitonin Pending Nasal Screen MRSA (PCR) Pending 10/04/18 10/04/18 10/04/18 Range/Units 08:32 08:31 08:22 WBC 3.76 L (4.8-10.8) K/uL RBC 4.72 (4.7-6.1) M/uL Hgb 13.4 L (14.0-18.0) g/dL Hct 38.1 L (42-52) % MCV 80.7 (80-100) fL MCH 28.4 (25-34) pg MCHC 35.2 (32-36) g/dL RDW Std Deviation 43.8 (36.4-46.3) fL RDW Coeff of Jean-Claude 14.8 H (11.5-14.5) % Plt Count 258 (130-400) K/uL MPV 9.3 (7.4-10.4) fL Immature Gran % (Auto) 1.3 % Neut % (Auto) 78.9 % Lymph % (Auto) 8.8 % Sawyer % (Auto) 9.6 % Eos % (Auto) 1.1 % Baso % (Auto) 0.3 % Immature Gran # (Auto) 0.05 H (0.00-0.02) K/uL Neut # (Auto) 2.97 (1.4-6.5) K/uL Lymph # (Auto) 0.33 L (1.2-3.4) K/uL Sawyer # (Auto) 0.36 (0.11-0.59) K/uL Eos # (Auto) 0.04 (0-0.5) K/uL Baso # (Auto) 0.01 (0-0.2) K/uL ABG pH (7.35-7.45) ABG pCO2 (35-46) mmHg ABG pO2 (80-95) mm/Hg ABG HCO3 (19-24) mmol/L ABG O2 Saturation (90-95) % ABG Base Excess (-9-1.8) mEq/L Titi Test (Pos) Barometric Pressure mm/Hg Oxygen Given Sodium (136-145) mmol/L Potassium (3.5-5.1) mmol/L Chloride (98-107) mmol/L Carbon Dioxide (21-32) mmol/L Anion Gap (3-11) BUN (7-18) mg/dl Creatinine (0.6-1.4) mg/dl Est Cr Clr Drug Dosing ml/min Est GFR ( Amer) Est GFR (Non-Af Amer) BUN/Creatinine Ratio (10-20) Glucose (70-99) mg/dl POC Glucose 133 H (70-99) Lactate (0.4-2.0) mmol/L Calcium (8.5-10.1) mg/dl Total Bilirubin (0.2-1) mg/dl AST (15-37) U/L ALT (12-78) U/L Alkaline Phosphatase (45-117) U/L Troponin I < 0.015 (0-0.045) ng/ml Total Protein (6.4-8.2) gm/dl Albumin (3.4-5.0) gm/dl Globulin (2.5-4.0) gm/dl Albumin/Globulin Ratio (0.9-2) Procalcitonin Nasal Screen MRSA (PCR) 10/04/18 10/04/18 Range/Units 08:22 07:38 WBC (4.8-10.8) K/uL RBC (4.7-6.1) M/uL Hgb (14.0-18.0) g/dL Hct (42-52) % MCV (80-100) fL MCH (25-34) pg MCHC (32-36) g/dL RDW Std Deviation (36.4-46.3) fL RDW Coeff of Jean-Claude (11.5-14.5) % Plt Count (130-400) K/uL MPV (7.4-10.4) fL Immature Gran % (Auto) % Neut % (Auto) % Lymph % (Auto) % Sawyer % (Auto) % Eos % (Auto) % Baso % (Auto) % Immature Gran # (Auto) (0.00-0.02) K/uL Neut # (Auto) (1.4-6.5) K/uL Lymph # (Auto) (1.2-3.4) K/uL [place]yer # (Auto) (0.11-0.59) K/uL Eos # (Auto) (0-0.5) K/uL Baso # (Auto) (0-0.2) K/uL ABG pH 7.46 H (7.35-7.45) ABG pCO2 30 L (35-46) mmHg ABG pO2 76 L (80-95) mm/Hg ABG HCO3 21 (19-24) mmol/L ABG O2 Saturation 95.6 H (90-95) % ABG Base Excess -1.4 (-9-1.8) mEq/L Titi Test Pos (Pos) Barometric Pressure 738.0 mm/Hg Oxygen Given 15 Sodium 131 L (136-145) mmol/L Potassium 4.8 (3.5-5.1) mmol/L Chloride 96 L (98-107) mmol/L Carbon Dioxide 27 (21-32) mmol/L Anion Gap 7.0 (3-11) BUN 16 (7-18) mg/dl Creatinine 1.09 (0.6-1.4) mg/dl Est Cr Clr Drug Dosing 74.6 ml/min Est GFR ( Amer) 77.6 Est GFR (Non-Af Amer) 67.0 BUN/Creatinine Ratio 14.9 (10-20) Glucose 114 H (70-99) mg/dl POC Glucose (70-99) Lactate (0.4-2.0) mmol/L Calcium 9.0 (8.5-10.1) mg/dl Total Bilirubin 0.7 (0.2-1) mg/dl AST 17 (15-37) U/L ALT 16 (12-78) U/L Alkaline Phosphatase 73 (45-117) U/L Troponin I (0-0.045) ng/ml Total Protein 6.8 (6.4-8.2) gm/dl Albumin 3.0 L (3.4-5.0) gm/dl Globulin 3.8 (2.5-4.0) gm/dl Albumin/Globulin Ratio 0.8 L (0.9-2) Procalcitonin Nasal Screen MRSA (PCR) Diagnostic Findings CXR FINDINGS: Spinal fusion hardware is partially imaged. Lung volumes are diminished. There is mild left basilar opacity. There is no evidence for pulmonary edema. No pneumothorax or pleural effusion is noted. Enlargement of the cardiac silhouette is accentuated on this hypoventilatory exam. There may be trace pneumoperitoneum. IMPRESSION: 1. Low lung volumes with left basilar opacity which may reflect atelectasis or consolidation. 2. Suspected trace pneumoperitoneum which is not unexpected given recent abdominal surgery. 3. No evidence for pulmonary edema. CT ABDOMEN AND PELVIS WITH IV CONTRAST FINDINGS: Please note that the chest will be reported separately. Extensive left basilar consolidation is noted. There are secretions within the left lower lobe bronchi. Small amount of pneumoperitoneum is noted. A few hypodense hepatic lesions are unchanged since CT of May 29, 2018. These are benign. Stomach is moderately distended. Several loops of mildly dilated fluid-filled jejunum are noted. No discrete transition point is identified. The spleen, adrenal glands, kidneys and pancreas are normal. There is no biliary or pancreatic ductal dilatation. The patient is status post low anterior resection with right lower quadrant ileostomy. Surgical drains are in place. There is no rim-enhancing fluid collection to suggest abscess. Perirectal infiltration fluid and trace gas is expected in the early postoperative setting. A small amount of gas within the left inguinal canal and adjacent to the penis is postsurgical. There is no portal venous gas. No pneumatosis is present. There is slight enlargement of the rectus sheaths. No suspicious osseous lesions are noted. Postoperative findings within the lumbar spine are present. IMPRESSION: 1. Status post low anterior resection with right lower quadrant ileostomy. No abscess. Small pneumoperitoneum and infiltration and fluid within the operative bed which are expected in the early postoperative setting. 2. Mildly dilated fluid-filled jejunal loops without discrete transition point. An ileus is favored. A partial small bowel obstruction could appear similar although is considered less likely. Moderate distention of the stomach. 3. Left basilar consolidation which favors pneumonia. 4. Mild enlargement of the rectus sheaths. This may be due to small rectus sheath hematomas or edema. CT CHEST FINDINGS: No pulmonary emboli are identified although the segmental and subsegmental pulmonary arteries are suboptimally assessed due to respiratory motion. The heart is mildly enlarged. There is no pericardial effusion. No enlarged thoracic lymph nodes are present. Postoperative findings within the cervicothoracic spine are noted. Small left pleural effusion is noted. There is no pneumothorax. There is extensive left lower lobe consolidation. Subpleural right lower lobe opacity favors atelectasis. There are suspected secretions within the left lower lobe bronchus and segmental bronchi of the left lower lobe. Lungs are suboptimally assessed given respiratory motion. Bony thorax is unremarkable. Small amount of pneumoperitoneum is noted. IMPRESSION: 1. No pulmonary emboli identified although segmental and subsegmental pulmonary arteries suboptimally assessed given respiratory motion. 2. Extensive left lower lobe consolidation which favors pneumonia. Secretions within the left lower lobe bronchus and segmental bronchi of the left lower lobe raise the possibility of aspiration. 3. Mild cardiomegaly. 4. Pneumoperitoneum which is expected in the early postoperative setting.
[2018-10-04] MEDS: FLUTICASONE PROPIONATE NA SPR 16 GM BTL NAE SCH ×2 (11:53→20:45)
[2018-10-04] MEDS: PANTOprazole 40 MG TAB PO SCH (12:07)
[2018-10-04] MEDS: LISINOPRIL 20 MG TAB PO SCH (12:07)
[2018-10-04] MEDS: guaiFENesin 600 MG TABCR PO SCH (12:07)
[2018-10-04 12:50] LABS: Appearance Urine Clear (Clear); Bilirubin Urine Negative (Negative); Blood Urine Negative (Negative); Color Urine Yellow; Glucose Urine UA Negative (Negative); Ketones Urine Negative (Negative); Leukocyte Esterase Urine Negative (Negative); Nitrite Urine Negative (Negative); Protein Urine Negative (Negative); Specific Gravity Urine > 1.045 (1.000-1.030); Urobilinogen Urine Negative (Negative)
[2018-10-04] MEDS: PIPERACILLIN/TAZOBACTAM 4.5 GM in DEXTROSE 5% 100 ML IV SCH ×2 (15:02→21:00)
[2018-10-04] MEDS: NOREPINEPHRINE (Adult) 8 MG in DEXTROSE 5% 500 ML IV SCH (17:03)
[2018-10-04] MEDS: VANCOMYCIN HCL 1,500 MG in SODIUM CHLORIDE 0.9% 500 ML IV SCH (18:07)
[2018-10-04] MEDS: ACETAMINOPHEN 1,000 MG/100 ML VIAL IV PRN (20:45)
[2018-10-05 04:26] LABS: Basophils # (auto) 0.01 K/uL (0-0.2); Basophils % (auto) 0.1 %; Eosinophils # (auto) 0.27 K/uL (0-0.5); Hematocrit (blood only) 35.3 % (42-52); Hemoglobin 11.9 g/dL (14.0-18.0); Immature Granulocytes # (auto) 0.13 K/uL (0.00-0.02); Immature Granulocytes % (auto) 1.4 %; Lymphocytes # (auto) 0.55 K/uL (1.2-3.4); Lymphocytes % (auto) 6.1 %; Mean Corpuscular Hemoglobin 27.7 pg (25-34); Mean Corpuscular Hgb Conc 33.7 g/dL (32-36); Mean Corpuscular Volume 82.1 fL (80-100); Mean Platelet Volume 9.2 fL (7.4-10.4); Monocytes # (auto) 1.03 K/uL (0.11-0.59); Monocytes % (auto) 11.4 %; Neutrophils # (auto) 7.06 K/uL (1.4-6.5); Platelet Count 233 K/uL (130-400); RDW Coefficient of Variation 15.2 % (11.5-14.5); RDW Standard Deviation 45.6 fL (36.4-46.3); White Blood Count 9.05 K/uL (4.8-10.8)
[2018-10-05] MEDS: COUGH DROP (SUGAR FREE) LOZ 24 LOZ/1 BOX BUCCAL PRN (04:39)
[2018-10-05 04:44] LABS: Est GFR (African American) 68.4; Potassium 4.5 mmol/L (3.5-5.1)
[2018-10-05 04:45] LABS: Calcium 8.8 mg/dl (8.5-10.1); Creatinine Clr Calc Pharmacy 67.2 ml/min; Phosphorus 3.7 mg/dl (2.5-4.9)
[2018-10-05] MEDS: VANCOMYCIN HCL 1,500 MG in SODIUM CHLORIDE 0.9% 500 ML IV SCH ×2 (04:45→17:03)
[2018-10-05] MEDS: PIPERACILLIN/TAZOBACTAM 4.5 GM in DEXTROSE 5% 100 ML IV SCH ×3 (04:46→22:04)
[2018-10-05] MEDS: ACETAMINOPHEN 1,000 MG/100 ML VIAL IV PRN ×3 (04:46→20:44)
[2018-10-05] MEDS ORDERED: ALBUT/IPRATROP 3MG/0.5MG NEB 3 ML VIAL NEB PRN (04:56)
[2018-10-05] MEDS: NORMOSOL-R 1,000 ML IV SCH ×3 (05:04→22:04)
[2018-10-05] MEDS ORDERED: ICU PROTOCOL FOR HYPERGLYCEMIA PRN (05:32)
[2018-10-05] MEDS ORDERED: NORMOSOL-R 500 ML IV ONE ×3 (05:38→06:40)
[2018-10-05] MEDS: ONDANSETRON HCL 8 MG in DEXTROSE 5% 50 ML IV PRN (05:48)
[2018-10-05] MEDS: HEPARIN SOD 5,000 UNIT/0.5 ML VIAL SQ SCH ×3 (05:58→20:19)
[2018-10-05] MEDS ORDERED: KETOROLAC TROMETHAMINE 15 MG/ML VIAL IV ONE (06:40)
[2018-10-05] MEDS ORDERED: KETOROLAC TROMETHAMINE 15 MG/ML VIAL ONE (06:42)
--- NOTE | 2018-10-05 07:10 | XRay Report ---
XR chest 1V portable, XR KUB/Abdomen 1 view HISTORY: 73 years-old Male f/u follow-up study in a patient with acute shortness of breath COMPARISON: Chest radiograph and CT abdomen and pelvis 10/04/2018 TECHNIQUE: Portable AP view of the chest with KUB radiograph FINDINGS: Cardiac silhouette is mildly enlarged. Mild pulmonary vascular congestion with progressive bibasilar and right perihilar opacities. No pneumothorax, pleural effusion or overt pulmonary edema. Degenerati ve changes of the shoulders and spine. Fusion hardware of the cervical spine with inferior left pedic le screw possibly fractured along its midportion. Enteric tube is present. KUB: Dilated air-filled loops of small bowel are noted measuring up to 4.4 cm which appears generally stab le from comparison. Small amount pneumoperitoneum redemonstrated. Enteric tube distal tip terminates in the region of the stomach. Surgical drainage catheter with skin zack noted about the pelvis. Fu primo hardware of the lower lumbar spine. No urolith. No pneumatosis. IMPRESSION: 1. Progressive bibasilar and right perihilar opacities suggestive of an admixture of atelectasis with pneumonia. 2. Cardiomegaly with pulmonary vascular congestion. 3. Enteric tube distal tip terminates in the region of the stomach. 4. Persistent dilated air-filled loops of small bowel suggestive of probable postoperative ileus. Con tinued follow-up recommended. 5. Pneumoperitoneum. The above report was generated using voice recognition software. It may contain grammatical, syntax o r spelling errors. Electronically signed by: Julio Thakur M.D. 10/05/2018 7:08 AM
[2018-10-05] MEDS: NOREPINEPHRINE (Adult) 8 MG in DEXTROSE 5% 500 ML IV SCH ×2 (07:17→18:45)
--- NOTE | 2018-10-05 09:18 | Critical Care Progress Note ---
Date of Service October 05, 2018 Assessment & Plan (1) Admitted to intensive care unit: Patient has MRSA screen that is positive. Continue vancomycin and Zosyn. He likely has postop aspiration pneumonia. He also has some degree of ileus and currently has a nasogastric tube. Continue low intermittent suction. Appreciate surgery assistance. Continue IV fluids for now. He is going to have significant insensible loss with his high-grade fevers. He continues to have episodes of tachycardia and confusion during his febrile episodes. Obtain liver function tests and lipase. Repeat procalcitonin tomorrow morning. Given his condition I think it is prudent to keep him in the ICU for at least another day.. (2) Hospital acquired PNA: (3) Sepsis: (4) Post-operative state: (5) Acute hypoxemic respiratory failure: (6) Postoperative ileus: Subjective Patient is awake and bit more alert today. He still seems lethargic. He denies any significant cough. He denies any nausea but reportedly per the nursing staff he did vomit and a nasogastric tube was placed. He had 2 L of output from the nasogastric tube. He was febrile overnight to 104 F. He continues to have ostomy output and had about 200 mL's out this morning. Physical Exam Constitutional: + ill appearing Eyes: PERRL, conjunctivae normal, anicteric sclerae no conjunctival abnor mality ENMT: Nasogastric tube in place. Otherwise normal oropharynx. Neck: trachea midline, no thyromegaly Respiratory: Bibasilar crackles noted. Mild tachypnea. Cardiovascular: Rate/Rhythm: + tachycardic No murmurs rubs or gallops. Gastrointestinal (Abdomen): Colostomy bag attached ostomy site. Bandages over abdominal incision noted. No obvious drainage. No tenderness on palpation. Musculoskeletal: no cyanosis or clubbing, extremities motor strength 5/5 Neurologic: CN's II-XI intact bilaterally Results & Data Vital Signs (Past 12 Hours) Vital Signs Temp Pulse Pulse Resp BP Pulse Ox 10/05/18 06:31 132 H 29 H 129/79 96 10/05/18 06:01 135 H 28 H 133/75 96 10/05/18 05:31 140 H 20 124/71 94 10/05/18 05:18 113 H 20 91 10/05/18 05:01 99 H 27 H 152/76 H 96 10/05/18 04:38 115 H 24 151/85 H 96 10/05/18 04:31 115 H 25 H 186/147 H 96 10/05/18 04:01 103 H 24 129/72 96 10/05/18 03:31 100 H 28 H 147/75 H 95 10/05/18 03:01 92 H 28 H 136/68 95 10/05/18 02:31 96 H 32 H 142/86 H 94 10/05/18 02:01 91 H 23 140/73 92 10/05/18 01:31 91 H 22 122/68 90 10/05/18 01:01 90 26 H 123/64 95 10/05/18 00:31 93 H 26 H 114/58 L 96 10/05/18 00:01 98.2 F 96 H 21 124/63 96 10/05/18 00:00 94 H 10/04/18 23:32 97 H 14 136/72 91 10/04/18 23:01 94 H 25 H 110/65 94 10/04/18 22:31 92 H 23 121/72 95 10/04/18 22:01 96 H 14 128/66 96 10/04/18 21:31 96 H 14 107/67 95 Laboratory Results 10/05/18 04:13 10/05/18 04:13 Diagnostic Findings Chest x-ray and KUB reviewed. Normal infiltrates on the right lung consistent with bilateral aspiration. He has persistent dilated air filled loops of small bowel likely suggestive of an ileus. PG Care Time/CCT Total # of Minutes Spent Total Time Spent with Patient: Total time spent is greater than 50% in c oordination of care (as documented) at patient's floor/unit and/or counseling patient: 32 (1) Sepsis Sepsis type: sepsis due to unspecified organism Sepsis acute organ dysfunction status: with acute organ dysfunction Severe sepsis acute organ dys function type: acute respiratory failure
--- NOTE | 2018-10-05 09:42 | Surgery Progress Note ---
Date of Service October 05, 2018 Assessment & Plan (1) Malignant neoplasm of rectosigmoid (colon): Postoperative day #5, status post low anterior resection with formation of ileostomy Sepsis syndrome successfully treated This may be related to aspiration pneumonia Appears that may have ileus as well although the ileostomy is functioning Would continue NG tube for now Follow respiratory status with management as per rn field team Subjective Postoperative day #5 status post low anterior resection with formation of ileostomy Mental status greatly improved. He is awake and oriented. NG tube had 2 L of bilious material out initially Ileostomy has had 500 cc of clear green output over the last 8 hours Physical Exam Gastrointestinal (Abdomen): Inspection/Auscultation: + abdomen distended (Mild), + abdominal surgical incision (Clean, dry and intact) and + hypoactive bowel sounds (Absent) Percussion/Palpation: abdomen soft Results & Data Vital Signs (Past 12 Hours) Vital Signs Temp Pulse Pulse Resp BP Pulse Ox 10/05/18 06:31 132 H 29 H 129/79 96 10/05/18 06:01 135 H 28 H 133/75 96 10/05/18 05:31 140 H 20 124/71 94 10/05/18 05:18 113 H 20 91 10/05/18 05:01 99 H 27 H 152/76 H 96 10/05/18 04:38 115 H 24 151/85 H 96 10/05/18 04:31 115 H 25 H 186/147 H 96 10/05/18 04:01 103 H 24 129/72 96 10/05/18 03:31 100 H 28 H 147/75 H 95 10/05/18 03:01 92 H 28 H 136/68 95 10/05/18 02:31 96 H 32 H 142/86 H 94 10/05/18 02:01 91 H 23 140/73 92 10/05/18 01:31 91 H 22 122/68 90 10/05/18 01:01 90 26 H 123/64 95 10/05/18 00:31 93 H 26 H 114/58 L 96 10/05/18 00:01 36.8 C 96 H 21 124/63 96 10/05/18 00:00 94 H 10/04/18 23:32 97 H 14 136/72 91 10/04/18 23:01 94 H 25 H 110/65 94 10/04/18 22:31 92 H 23 121/72 95 10/04/18 22:01 96 H 14 128/66 96 Laboratory Results 10/05/18 10/05/18 10/04/18 Range/Units 04:13 04:13 23:18 WBC 9.05 (4.8-10.8) K/uL RBC 4.30 L (4.7-6.1) M/uL Hgb 11.9 L (14.0-18.0) g/dL Hct 35.3 L (42-52) % MCV 82.1 (80-100) fL MCH 27.7 (25-34) pg MCHC 33.7 (32-36) g/dL RDW Std Deviation 45.6 (36.4-46.3) fL RDW Coeff of Jean-Claude 15.2 H (11.5-14.5) % Plt Count 233 (130-400) K/uL MPV 9.2 (7.4-10.4) fL Immature Gran % (Auto) 1.4 % Neut % (Auto) 78.0 % Lymph % (Auto) 6.1 % [facility] % (Auto) 11.4 % Eos % (Auto) 3.0 % Baso % (Auto) 0.1 % Immature Gran # (Auto) 0.13 H (0.00-0.02) K/uL Neut # (Auto) 7.06 H (1.4-6.5) K/uL Lymph # (Auto) 0.55 L (1.2-3.4) K/uL [facility] # (Auto) 1.03 H (0.11-0.59) K/uL Eos # (Auto) 0.27 (0-0.5) K/uL Baso # (Auto) 0.01 (0-0.2) K/uL Sodium 133 L (136-145) mmol/L Potassium 4.5 (3.5-5.1) mmol/L Chloride 98 (98-107) mmol/L Carbon Dioxide 29 (21-32) mmol/L Anion Gap 6.0 (3-11) BUN 18 (7-18) mg/dl Creatinine 1.21 (0.6-1.4) mg/dl Est Cr Clr Drug Dosing 67.2 ml/min Est GFR ( Amer) 68.4 Est GFR (Non-Af Amer) 59.0 BUN/Creatinine Ratio 15.0 (10-20) Glucose 111 H (70-99) mg/dl POC Glucose 110 H (70-99) Calcium 8.8 (8.5-10.1) mg/dl Phosphorus 3.7 (2.5-4.9) mg/dl Magnesium 2.0 (1.8-2.4) mg/dl Procalcitonin (0-0.5) ng/ml Urine Color Urine Appearance (Clear) Urine pH (4.5-7.5) Ur Specific [place] (1.000-1.030) Urine Protein (Negative) Urine Glucose (UA) (Negative) Urine Ketones (Negative) Urine Blood (Negative) Urine Nitrite (Negative) Urine Bilirubin (Negative) Urine Urobilinogen (Negative) Ur Leukocyte Esterase (Negative) Nasal Screen MRSA (PCR) (Negative) 10/04/18 10/04/18 10/04/18 Range/Units 17:19 12:32 10:32 WBC (4.8-10.8) K/uL RBC (4.7-6.1) M/uL Hgb (14.0-18.0) g/dL Hct (42-52) % MCV (80-100) fL MCH (25-34) pg MCHC (32-36) g/dL RDW Std Deviation (36.4-46.3) fL RDW Coeff of Jean-Claude (11.5-14.5) % Plt Count (130-400) K/uL MPV (7.4-10.4) fL Immature Gran % (Auto) % Neut % (Auto) % Lymph % (Auto) % [facility] % (Auto) % Eos % (Auto) % Baso % (Auto) % Immature Gran # (Auto) (0.00-0.02) K/uL Neut # (Auto) (1.4-6.5) K/uL Lymph # (Auto) (1.2-3.4) K/uL [facility] # (Auto) (0.11-0.59) K/uL Eos # (Auto) (0-0.5) K/uL Baso # (Auto) (0-0.2) K/uL Sodium (136-145) mmol/L Potassium (3.5-5.1) mmol/L Chloride (98-107) mmol/L Carbon Dioxide (21-32) mmol/L Anion Gap (3-11) BUN (7-18) mg/dl Creatinine (0.6-1.4) mg/dl Est Cr Clr Drug Dosing ml/min Est GFR ( Amer) Est GFR (Non-Af Amer) BUN/Creatinine Ratio (10-20) Glucose (70-99) mg/dl POC Glucose 116 H (70-99) Calcium (8.5-10.1) mg/dl Phosphorus (2.5-4.9) mg/dl Magnesium (1.8-2.4) mg/dl Procalcitonin 14.68 H (0-0.5) ng/ml Urine Color Yellow Urine Appearance Clear (Clear) Urine pH 6.0 (4.5-7.5) Ur Specific [place] > 1.045 H (1.000-1.030) Urine Protein Negative (Negative) Urine Glucose (UA) Negative (Negative) Urine Ketones Negative (Negative) Urine Blood Negative (Negative) Urine Nitrite Negative (Negative) Urine Bilirubin Negative (Negative) Urine Urobilinogen Negative (Negative) Ur Leukocyte Esterase Negative (Negative) Nasal Screen MRSA (PCR) (Negative) 10/04/18 10/04/18 Range/Units 09:30 08:22 WBC 3.76 L (4.8-10.8) K/uL RBC 4.72 (4.7-6.1) M/uL Hgb 13.4 L (14.0-18.0) g/dL Hct 38.1 L (42-52) % MCV 80.7 (80-100) fL MCH 28.4 (25-34) pg MCHC 35.2 (32-36) g/dL RDW Std Deviation 43.8 (36.4-46.3) fL RDW Coeff of Jean-Claude 14.8 H (11.5-14.5) % Plt Count 258 (130-400) K/uL MPV 9.3 (7.4-10.4) fL Immature Gran % (Auto) 1.3 % Neut % (Auto) 78.9 % Lymph % (Auto) 8.8 % [facility] % (Auto) 9.6 % Eos % (Auto) 1.1 % Baso % (Auto) 0.3 % Immature Gran # (Auto) 0.05 H (0.00-0.02) K/uL Neut # (Auto) 2.97 (1.4-6.5) K/uL Lymph # (Auto) 0.33 L (1.2-3.4) K/uL [facility] # (Auto) 0.36 (0.11-0.59) K/uL Eos # (Auto) 0.04 (0-0.5) K/uL Baso # (Auto) 0.01 (0-0.2) K/uL Sodium (136-145) mmol/L Potassium (3.5-5.1) mmol/L Chloride (98-107) mmol/L Carbon Dioxide (21-32) mmol/L Anion Gap (3-11) BUN (7-18) mg/dl Creatinine (0.6-1.4) mg/dl Est Cr Clr Drug Dosing ml/min Est GFR ( Amer) Est GFR (Non-Af Amer) BUN/Creatinine Ratio (10-20) Glucose (70-99) mg/dl POC Glucose (70-99) Calcium (8.5-10.1) mg/dl Phosphorus (2.5-4.9) mg/dl Magnesium (1.8-2.4) mg/dl Procalcitonin (0-0.5) ng/ml Urine Color Urine Appearance (Clear) Urine pH (4.5-7.5) Ur Specific [place] (1.000-1.030) Urine Protein (Negative) Urine Glucose (UA) (Negative) Urine Ketones (Negative) Urine Blood (Negative) Urine Nitrite (Negative) Urine Bilirubin (Negative) Urine Urobilinogen (Negative) Ur Leukocyte Esterase (Negative) Nasal Screen MRSA (PCR) Positive A (Negative)
[2018-10-05] MEDS: FLUTICASONE PROPIONATE NA SPR 16 GM BTL NAE SCH ×2 (09:49→20:19)
[2018-10-05 10:59] LABS: Albumin Level 2.1 gm/dl (3.4-5.0); Bilirubin Direct 0.3 mg/dl (0-0.2); Bilirubin,Total 0.8 mg/dl (0.2-1); Total Protein 5.4 gm/dl (6.4-8.2)
--- NOTE | 2018-10-05 16:52 | Pharmacy Report ---
Pharmacy Abx Initial Consult - Date of Service October 05, 2018 - Pharmacy Dosing Scope Date of Consult: 10/04/18 Consultation requested by: Dr. Valle Pharmacy is consulted to initiate Vancomycin and Zosyn IV dosing therapy, order appropriate labs and adjust drug dose/frequency. - Subjective The patient is a 73 year old M admitted on 09/30/18 13:05. - Objective Height: 6 ft 1 in Weight: 98.7 kg Vital Signs (Past 12hrs): Vital Signs Pulse Pulse Resp BP Pulse Ox 10/05/18 08:00 107 H 10/05/18 06:31 132 H 29 H 129/79 96 10/05/18 06:01 135 H 28 H 133/75 96 10/05/18 05:31 140 H 20 124/71 94 10/05/18 05:18 113 H 20 91 10/05/18 05:01 99 H 27 H 152/76 H 96 Lab Results (24hrs): Laboratory Tests (24 Hours) 10/05/18 10/05/18 04:13 04:13 WBC 9.05 Neut # (Auto) 7.06 H Creatinine 1.21 Est Cr Clr Drug Dosing 67.2 Micro Results: 09/30/18 Unknown Urine Culture - Final Urine,Straight Cath No growth - less than 1,000 colonies/mL. - Assessment & Plan Assessment 73 year old M having episodes of tachycardia and confusion during febrile episodes. Most likely due to postop aspiration pneumonia. MRSA nasal swab is + Plan Vancomycin and Zosyn for treatment of Aspiration PNA with +MRSA nasal swab Vancomycin IV * Estimated PK Parameters: Vd 0.7 L/kg, Jarad 0.06 hr-1, t1/2 11.5 hr * Loading dose: 2500 mg (25 mg/kg) * Maintenance dose: 1500 mg IV (15 mg/kg) every 12 hours * Goal trough level for PNA: 15 to 20 mcg/mL * Trough level ordered for 10/06/18 at 0530 Piperacillin/tazobactam * 4.5 g bolus administered over 30 minutes, then 4.5 g IV extended infusion every 8 hours for CrCl greater than 20 mL/min Pharmacy will continue to follow and will adjust dose/frequency as necessary. Thank you.
--- NOTE | 2018-10-05 19:42 | Hospitalist Progress Note ---
Date of Service October 05, 2018 Assessment & Plan (1) Sepsis: Sepsis Sepsis probably due to pneumonia (multi-lobar, hospital-acquired, possible aspiration). Cultures pending. Management per CCM. Receiving IV vancomycin and piperacillin / tazobactam. Altered mental status Probable encephalopathy secondary to sepsis. Postop ileus Management per Surgery. Nutrition Consider TPN if ileus does not improve. 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 VTE prophylaxis Receiving SQ heparin. Disposition To be determined. Family Medicine follow-up with Dr. Leon. Thank you for this consultation. We will follow the patient with you during their hospital stay. My cell # is [phone]. You can reach a member of the [facility] Medicine Team 03/09 via pager @ [phone]. Subjective Recheck for multiple problems. Patient seen in their room around 1500. Transferred to ICU yesterday for sepsis, probably secondary to pneumonia. Somnolent at time of my assessment. Received update from RN. Runs of narrow-complex tachycardia on monitor. Maintaining O2 sats with NC. Experiencing hiccoughs earlier. Review of Systems Review of Systems: Unobtainable due to cognitive status Physical Exam Constitutional: + ill appearing and + lethargic; no acute distress Eyes: + anicteric sclerae ENMT: Nose: + external nose abnormality (NGT) Respiratory: + tachypneic; no respiratory distress Auscultation: + rhonchi Cardiovascular: Rate/Rhythm: + tachycardic Heart Sounds: no gallop Vessels: no JVD Extremities: no calf tenderness and no edema Gastrointestinal (Abdomen): Inspection/Auscultation: + abdomen distended; + abdomen abnormal to inspection (right-sided ostomy; surgical dressing mid abdomen) and + abnormal bowel sounds (quiet) Musculoskeletal: Extremities: extremities normal to inspection (SCD's applied); no cyanosis Skin: no rashes, warm and dry Psychiatric: Orientation: + not alert Results & Data Vital Signs (Past 12 Hours) Vital Signs Pulse Resp BP Pulse Ox 10/05/18 17:00 129 H 16 103/59 L 90 10/05/18 16:00 108 H 13 107/62 93 10/05/18 15:00 105 H 15 114/60 94 10/05/18 14:00 111 H 16 117/53 L 91 10/05/18 13:00 94 H 25 H 124/67 96 10/05/18 12:00 114 H 18 131/65 96 10/05/18 11:00 110 H 16 146/96 H 95 10/05/18 10:00 112 H 23 113/64 95 10/05/18 09:00 97 H 16 120/70 95 10/05/18 08:00 114 H 16 108/69 93 Laboratory Results Laboratory Results - last 24 hr 10/04/18 10/05/18 10/05/18 23:18 04:13 04:13 WBC 9.05 RBC 4.30 L Hgb 11.9 L Hct 35.3 L MCV 82.1 MCH 27.7 MCHC 33.7 RDW Std Deviation 45.6 RDW Coeff of Jean-Claude 15.2 H Plt Count 233 MPV 9.2 Immature Gran % (Auto) 1.4 Neut % (Auto) 78.0 Lymph % (Auto) 6.1 [place] % (Auto) 11.4 Eos % (Auto) 3.0 Baso % (Auto) 0.1 Immature Gran # (Auto) 0.13 H Neut # (Auto) 7.06 H Lymph # (Auto) 0.55 L [place] # (Auto) 1.03 H Eos # (Auto) 0.27 Baso # (Auto) 0.01 Sodium 133 L Potassium 4.5 Chloride 98 Carbon Dioxide 29 Anion Gap 6.0 BUN 18 Creatinine 1.21 Est Cr Clr Drug Dosing 67.2 Est GFR ( Amer) 68.4 Est GFR (Non-Af Amer) 59.0 BUN/Creatinine Ratio 15.0 Glucose 111 H POC Glucose 110 H Calcium 8.8 Phosphorus 3.7 Magnesium 2.0 Total Bilirubin Direct Bilirubin AST ALT Alkaline Phosphatase Total Protein Albumin Lipase 10/05/18 10:02 WBC RBC Hgb Hct MCV MCH MCHC RDW Std Deviation RDW Coeff of Jean-Claude Plt Count MPV Immature Gran % (Auto) Neut % (Auto) Lymph % (Auto) [place] % (Auto) Eos % (Auto) Baso % (Auto) Immature Gran # (Auto) Neut # (Auto) Lymph # (Auto) [place] # (Auto) Eos # (Auto) Baso # (Auto) Sodium Potassium Chloride Carbon Dioxide Anion Gap BUN Creatinine Est Cr Clr Drug Dosing Est GFR ( Amer) Est GFR (Non-Af Amer) BUN/Creatinine Ratio Glucose POC Glucose Calcium Phosphorus Magnesium Total Bilirubin 0.8 Direct Bilirubin 0.3 H AST 11 L ALT 12 Alkaline Phosphatase 65 Total Protein 5.4 L D Albumin 2.1 L Lipase 61 L Diagnostic Findings PORTABLE CHEST X-RAY + KUB FINDINGS: Cardiac silhouette is mildly enlarged. Mild pulmonary vascular congestion with progressive bibasilar and right perihilar opacities. No pneumothorax, pleural effusion or overt pulmonary edema. Degenerative changes of the shoulders and spine. Fusion hardware of the cervical spine with inferior left pedicle screw possibly fractured along its midportion. Enteric tube is present. KUB: Dilated air-filled loops of small bowel are noted measuring up to 4.4 cm which appears generally stable from comparison. Small amount pneumoperitoneum redemonstrated. Enteric tube distal tip terminates in the region of the stomach. Surgical drainage catheter with skin zack noted about the pelvis. Fusion hardware of the lower lumbar spine. No urolith. No pneumatosis. IMPRESSION: 1. Progressive bibasilar and right perihilar opacities suggestive of an admixture of atelectasis with pneumonia. 2. Cardiomegaly with pulmonary vascular congestion. 3. Enteric tube distal tip terminates in the region of the stomach. 4. Persistent dilated air-filled loops of small bowel suggestive of probable postoperative ileus. Continued follow-up recommended. 5. Pneumoperitoneum. The above report was generated using voice recognition software. It may contain grammatical, syntax or spelling errors. Electronically signed by: Julio Thakur M.D. 10/05/2018 7:08 AM (1) Sepsis Sepsis acute organ dysfunction status: with acute organ dysfunction Sepsis type: sepsis due to unspecified organism Severe sepsis acute organ dysfunction type: acute respiratory failure
[2018-10-06] MEDS: PIPERACILLIN/TAZOBACTAM 4.5 GM in DEXTROSE 5% 100 ML IV SCH ×3 (05:20→21:20)
[2018-10-06] MEDS: ACETAMINOPHEN 1,000 MG/100 ML VIAL IV PRN ×3 (05:20→20:59)
[2018-10-06] MEDS: HEPARIN SOD 5,000 UNIT/0.5 ML VIAL SQ SCH ×3 (05:23→20:59)
[2018-10-06] MEDS: NOREPINEPHRINE (Adult) 8 MG in DEXTROSE 5% 500 ML IV SCH (05:24)
[2018-10-06] MEDS ORDERED: VANCOMYCIN TROUGH ONE (05:30)
[2018-10-06 05:52] LABS: Basophils # (auto) 0.02 K/uL (0-0.2); Basophils % (auto) 0.2 %; Eosinophils # (auto) 0.53 K/uL (0-0.5); Eosinophils % (auto) 4.7 %; Hematocrit (blood only) 30.4 % (42-52); Hemoglobin 10.3 g/dL (14.0-18.0); Immature Granulocytes # (auto) 0.22 K/uL (0.00-0.02); Lymphocytes # (auto) 0.66 K/uL (1.2-3.4); Lymphocytes % (auto) 5.9 %; Mean Corpuscular Hemoglobin 27.8 pg (25-34); Mean Corpuscular Hgb Conc 33.9 g/dL (32-36); Mean Corpuscular Volume 81.9 fL (80-100); Mean Platelet Volume 9.3 fL (7.4-10.4); Monocytes # (auto) 1.21 K/uL (0.11-0.59); Monocytes % (auto) 10.8 %; Neutrophils # (auto) 8.61 K/uL (1.4-6.5); Neutrophils % (auto) 76.4 %; Platelet Count 233 K/uL (130-400); RDW Coefficient of Variation 15.2 % (11.5-14.5); RDW Standard Deviation 45.2 fL (36.4-46.3); Red Blood Count 3.71 M/uL (4.7-6.1); White Blood Count 11.25 K/uL (4.8-10.8)
--- NOTE | 2018-10-06 06:06 | Critical Care Progress Note ---
Date of Service October 06, 2018 Assessment & Plan (1) Acute hypoxemic respiratory failure: Reason Critically Ill: 73-year-old male here with a PMHx significant for colon adenocarcinoma w/ intermittent GIB s/p lap low anterior resection and ileostomy on 10/01/18, asthma, GERD, glaucoma, stomach ulcers, HLD, HTN, and osteoarthritis who presented with post operative altered mental status, tachycardia, diaphoresis, and hypoxemic respiratory alkalosis and who was admitted to the ICU for L postoperative pneumonia. Neuro - [facility] ICU: NEGATIVE Previously lethargic, with AMS. Mental status improved, oriented x3 Appears at/near mental baseline today Cardiac - Atrial tachycardia overnight. Asymptomatic, but may benefit from low dose B- frederic once clinically stable. 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 - NGT draining ~300cc - Ileostomy <100cc output Q8H, 825cc total overnight - No nutrition since 10/01. Hesitant to start TPN in setting of acute infection, defer until after upper GI series as below - Upper GI w/ small bowel follow-through today, Normosol 100cc/hr GERD/Hx GIB in setting of adenocarcinoma - Clinically stable, no signs of GIB at this time - CBC daily - NPO, protonix IV restriction due to shortage. No evidence of acute GIB RENAL/LYTES - Hypophosphatemia to 2.0 - neutraphos 15mm IV x1 Potassium 3.6 - KCL IV 10meq x2 -Replace lytes as needed. - Maldonado in place, draining clear yellow urine. 1365cc out per 24 hrs ENDO - BSG wnl. No acute concerns HEME - - Hgb 10.3, tending down from 11.9, 13.4 - CBC daily - Will monitor for any drops in the setting of Heparin prophylaxis ID - LLL Pneumonia, suspect postop aspiration - MRSA screen positive - CT-C LLL consolidation/infiltrate - Continue Vanc/Zosyn abx day Abx Day #2/7 Febrile to 40*C overnight. Continue APAP 1g Q8H IV PRN for fever/discomfort Monitor fever curve. INTEGUMENTARY - No acute concerns. Ostomy bag in place and surgical incisions c/d/i as above. LINES/IV ACCESS - 2x upper extremity (1x left, 1x right) PIVs intact. DVT PROPHYLAXIS - Continue heparin SQ 5000u Q8H Thank you for allowing us to be part of this patient's care. Please refer to Dr. Mcmahon's documentation for any further recommendations. (2) Admitted to intensive care unit: (3) Acute metabolic encephalopathy: (4) DVT prophylaxis: (5) Hospital acquired PNA: (6) Postoperative ileus: (7) Sepsis: (8) Post-operative state: Supervising Physician Co-Signing Physician Notes Dr. Hunter was resident physician during care of patient. I separately evaluated patient for mcknight portions of the history and the exam. I was present during the critical portion of medical decision making, and I discussed the case with the resident. I generally agree with the findings and plan. Patient still has high NG output but this is decreasing as well as ileostomy output. He is going to go for a small bowel follow-through study today. Discussed parenteral nutrition with Dr. Red Roca, we are holding off at this time. Patient continues to be febrile sent fungal cultures as well as repeat blood cultures however anticipate blood cultures being sterile given Zosyn administration along with vancomycin however fungal culture obtained prior to Diflucan and starting Diflucan today. I have personally spent 40 minutes of critical care time in the direct management of this patient. This is a life/limb threatening event. This includes time spent evaluating patient, direct bedside care, chart review, placing orders, interpretation of diagnostic studies, discussion with consultants, patient, and/or family members regarding treatment decisions, as well as other required patient management activities. This time is exclusive of all separately billable procedures, and teaching time and separate from and in addition to any other critical care service time. Subjective Juan Manuel reports he feels more alert today. He is mildly nauseus and has some hiccupts/belching. No emesis, NGT placed to intermittent suction. atrial tachycardia overnight per tele. He denies chest pain, chest pressure, lightheadedness, dizziness, syncope, presyncope, abdominal pain. BM drainng dark brown/green fluid. No SoB laying in bed at rest. Review of Systems Review of Systems: Constitutional: Denies fever, chills Eyes: Denies vision change ENT: Denies hearing difficulty, endorses some irritation by NGT. Cardiovascular: Denies Chest pain, chest pressure, palpitations, extremity swelling Respiratory: Denies shortness of breath, cough, difficulty breathing Gastrointestinal: Denies abdominal pain, vomiting. Endorses nausea Genitourinary: Maldonado in place. No low pelvic pain or dysuria. Musculoskeletal: Denies weakness, muscle aches/pain, joint aches/pain Integumentary:Denies rash, lesions Neurological: Denies headache, focal weakness Physical Exam Physical Exam: General: A&Ox3. NAD. Cooperative. HEENT: Atraumatic, normocephalic. NGT in place, 350cc output/8hr Pulm: Bilateral lower lobe rales. -wheezes, -rhonchi. On 2L NCO2, Symmetrical chest rise. No increase work of breathing. No respiratory distress. Cardiac: tachycardic with regular rate, rhythm -mrg. Radial pulses intact and symmetrical. Per tele atrial tach overnight. No JVD. Abdominal: Nontender, nondistended, soft. hypoactive bowel sounds. Ileostomy bag in place, <100cc dark green/brown fluid with 825cc overnight per report. Dressing in place, surgical incision C/D/I. Extremity: Warm, dry. Strength 5/5 in all distal extremities. Bilateral lower arm IVs in place. Results & Data Vital Signs (Past 12 Hours) Vital Signs Temp Pulse Resp BP Pulse Ox 10/06/18 03:30 100 H 24 95 10/06/18 03:01 120 H 22 140/70 97 10/06/18 02:01 108 H 14 126/60 94 10/06/18 01:01 101 H 22 112/74 92 10/06/18 00:01 121 H 17 122/92 91 10/06/18 00:00 125 H 10/05/18 23:01 104 H 15 111/77 92 10/05/18 22:01 100 H 21 133/69 90 10/05/18 21:01 122 H 31 H 118/80 91 10/05/18 20:01 109 H 23 127/61 91 10/05/18 19:01 36.8 C 111 H 26 H 129/72 95 PG Care Time/CCT Total # of Minutes Spent Total Time Spent with Patient: Total time spent is greater than 50% in coordination of care (as documented) at patient's floor/unit and/or counseling patient: Resident Activity Tracking Resident Involvement: Resident Care Provided Care Provided: Adult Hospital Medicine (1) Sepsis Sepsis acute organ dysfunction status: with acute organ dysfunction Sepsis type: sepsis due to unspecified organism Severe sepsis acute organ dysfunction type: acute respiratory failure
[2018-10-06 06:30] LABS: Albumin Level 1.9 gm/dl (3.4-5.0); BUN Creatinine Ratio 15.1 (10-20); Bilirubin Direct 0.2 mg/dl (0-0.2); Bilirubin,Total 0.6 mg/dl (0.2-1); Creatinine Clr Calc Pharmacy 96.8 ml/min; Est GFR (African American) 100.7; Est GFR (Non-African American) 86.9; Magnesium 2.1 mg/dl (1.8-2.4); Potassium 3.6 mmol/L (3.5-5.1); Total Protein 5.2 gm/dl (6.4-8.2)
[2018-10-06] MEDS: VANCOMYCIN HCL 1,500 MG in SODIUM CHLORIDE 0.9% 500 ML IV SCH (06:37)
[2018-10-06] MEDS: NORMOSOL-R 1,000 ML IV SCH ×2 (06:39→17:30)
[2018-10-06] MEDS ORDERED: POTASSIUM PHOS 3 MMOL/1 ML INFUSION IV STA (07:19)
--- NOTE | 2018-10-06 07:39 | Hospitalist Progress Note ---
Date of Service October 06, 2018 Assessment & Plan (1) Sepsis: Sepsis Sepsis probably due to pneumonia (multi-lobar, hospital-acquired, possible aspiration). Cultures pending, negative so far. Hemodynamically stable. Today's procalcitonin pending. Management per [facility]. Receiving IV vancomycin and piperacillin / tazobactam. Altered mental status Probable encephalopathy secondary to sepsis. Improved. 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 Postop ileus Management per Surgery. Nutrition Consider TPN if ileus does not improve. Arrhythmias Runs of narrow-complex tachycardia, suspect PAT. Asymptomatic. Lytes OK. Consider starting beta frederic if hemodynamics allow. GI prophylaxis Famotidine. VTE prophylaxis Receiving SQ heparin. Disposition To be determined. Family Medicine follow-up with Dr. Leon. Thank you for this consultation. We will follow the patient with you during their hospital stay. My cell # is [phone]. You can reach a member of the [facility] Medicine Team 03/09 via pager @ [phone]. Subjective Recheck for multiple problems. Patient seen in their room around 0700. Doing better. Temp down. Cough improved. Has some postop abdominal discomfort. Still has NG tube. Nauseated. Not passing any flatus or stool yet. More alert. Review of Systems: Constitutional- as noted above. Cardiac- no chest pain. Pulmonary- as noted above. GI- as noted above. - Martines cath. Otherwise, as noted above. Physical Exam Constitutional: no acute distress Eyes: + anicteric sclerae ENMT: Nose: + external nose abnormality (NGT) Respiratory: no respiratory distress Auscultation: + rales (coarse, bibasilar) Cardiovascular: Rate/Rhythm: regular rate and regular rhythm Heart Sounds: no gallop Vessels: no JVD Extremities: no calf tenderness and no edema Gastrointestinal (Abdomen): Inspection/Auscultation: + abdomen distended; + abdomen abnormal to inspection (right-sided ostomy; surgical dressing mid abdomen) and + abnormal bowel sounds (quiet) Musculoskeletal: Extremities: extremities normal to inspection (SCD's applied); no cyanosis Skin: no rashes, warm and dry Psychiatric: Orientation: alert and oriented x 3 Results & Data Vital Signs (Past 12 Hours) Vital Signs Pulse Resp BP Pulse Ox 10/06/18 06:01 134 H 17 139/82 95 10/06/18 05:01 113 H 18 157/77 H 95 10/06/18 04:01 130 H 15 142/77 H 96 10/06/18 03:30 100 H 24 95 10/06/18 03:01 120 H 22 140/70 97 10/06/18 02:01 108 H 14 126/60 94 10/06/18 01:01 101 H 22 112/74 92 10/06/18 00:01 121 H 17 122/92 91 10/06/18 00:00 125 H 10/05/18 23:01 104 H 15 111/77 92 10/05/18 22:01 100 H 21 133/69 90 10/05/18 21:01 122 H 31 H 118/80 91 10/05/18 20:01 109 H 23 127/61 91 Laboratory Results Laboratory Results - last 24 hr 10/05/18 10/05/18 10/06/18 10:02 20:47 05:39 WBC RBC Hgb Hct MCV MCH MCHC RDW Std Deviation RDW Coeff of Jean-Claude Plt Count MPV Immature Gran % (Auto) Neut % (Auto) Lymph % (Auto) [place] % (Auto) Eos % (Auto) Baso % (Auto) Immature Gran # (Auto) Neut # (Auto) Lymph # (Auto) [place] # (Auto) Eos # (Auto) Baso # (Auto) Sodium Potassium Chloride Carbon Dioxide Anion Gap BUN Creatinine Est Cr Clr Drug Dosing Est GFR ( Amer) Est GFR (Non-Af Amer) BUN/Creatinine Ratio Glucose POC Glucose 84 Calcium Phosphorus Magnesium Total Bilirubin 0.8 Direct Bilirubin 0.3 H AST 11 L ALT 12 Alkaline Phosphatase 65 Total Protein 5.4 L D Albumin 2.1 L Lipase 61 L Procalcitonin Vancomycin Trough 13.4 10/06/18 10/06/18 10/06/18 05:39 05:39 05:39 WBC 11.25 H RBC 3.71 L Hgb 10.3 L Hct 30.4 L MCV 81.9 MCH 27.8 MCHC 33.9 RDW Std Deviation 45.2 RDW Coeff of Jean-Claude 15.2 H Plt Count 233 MPV 9.3 Immature Gran % (Auto) 2.0 Neut % (Auto) 76.4 Lymph % (Auto) 5.9 [place] % (Auto) 10.8 Eos % (Auto) 4.7 Baso % (Auto) 0.2 Immature Gran # (Auto) 0.22 H Neut # (Auto) 8.61 H Lymph # (Auto) 0.66 L [place] # (Auto) 1.21 H Eos # (Auto) 0.53 H Baso # (Auto) 0.02 Sodium 135 L Potassium 3.6 D Chloride 100 Carbon Dioxide 26 Anion Gap 9.0 BUN 13 Creatinine 0.84 D Est Cr Clr Drug Dosing 96.8 Est GFR ( Amer) 100.7 Est GFR (Non-Af Amer) 86.9 BUN/Creatinine Ratio 15.1 Glucose 86 POC Glucose Calcium 8.0 L Phosphorus 2.0 L D Magnesium 2.1 Total Bilirubin 0.6 Direct Bilirubin 0.2 AST 7 L ALT 10 L Alkaline Phosphatase 65 Total Protein 5.2 L Albumin 1.9 L Lipase Procalcitonin Pending Vancomycin Trough Microbiology 10/04/18 08:49 Blood Aerobic Blood Culture - Preliminary No growth in Aerobic bottle after 24 hours. 10/04/18 08:49 Blood Anaerobic Blood Culture - Preliminary No growth in Anaerobic bottle after 24 hours. 10/04/18 08:44 Blood Aerobic Blood Culture - Preliminary No growth in Aerobic bottle after 24 hours. 10/04/18 08:44 Blood Anaerobic Blood Culture - Preliminary No growth in Anaerobic bottle after 24 hours. 09/30/18 Unknown Urine,Straight Cath Urine Culture - Final No growth - less than 1,000 colonies/mL. (1) Sepsis Sepsis type: sepsis due to unspecified organism Sepsis acute organ dysfunction status: with acute organ dysfunction Severe sepsis acute organ dysfunction type: acute respiratory failure
[2018-10-06] MEDS ORDERED: POTASSIUM PHOSPHATE 15 MMOL in SODIUM CHLORIDE 0.9% 250 ML IV ONE (07:45)
[2018-10-06] MEDS: FAMOTIDINE 20 MG in SYRINGE 3 ML IV SCH ×2 (07:55→20:02)
[2018-10-06] MEDS: FLUTICASONE PROPIONATE NA SPR 16 GM BTL NAE SCH ×2 (07:55→20:02)
--- NOTE | 2018-10-06 07:57 | Surgery Progress Note ---
Date of Service October 06, 2018 Assessment & Plan (1) Malignant neoplasm of rectosigmoid (colon): POD #6 path discussed with pt events since last seen saturday reviewed discussed case yesterday with Dr Simon(who was covering) at this time will irrigate NG tube get UGI with SBFT discussed case with intensive team may hold off hyper al today pending UGI with SBFT suspect issues related to ileus post (not unexpected) but r/o possibility of bowel obstruction intermittent all plans discussed with pt POD 3 lap assisted LAR, protective ileostomy labs pending hold on NG for now, consider KUB/NG later if not making progress restart lisinopril Subjective pt feels fine no acute issues except hiccups Review of Systems Review of Systems: no abd discomfort, no productive coughing, hiccups Physical Exam Physical Exam: alert coherent in no distress ng in place(drained 400cc over night none since canister emptied hiccupping abd soft minimally distended incision intact no cellulitis sub cut drain removed ileostomy with bilious drainage eric 100cc in bag recently emptied Results & Data Vital Signs (Past 12 Hours) Vital Signs Pulse Resp BP Pulse Ox 10/06/18 07:00 108 H 13 111/64 95 10/06/18 06:01 134 H 17 139/82 95 10/06/18 05:01 113 H 18 157/77 H 95 10/06/18 04:01 130 H 15 142/77 H 96 10/06/18 03:30 100 H 24 95 10/06/18 03:01 120 H 22 140/70 97 10/06/18 02:01 108 H 14 126/60 94 10/06/18 01:01 101 H 22 112/74 92 10/06/18 00:01 121 H 17 122/92 91 10/06/18 00:00 125 H 10/05/18 23:01 104 H 15 111/77 92 10/05/18 22:01 100 H 21 133/69 90 10/05/18 21:01 122 H 31 H 118/80 91 10/05/18 20:01 109 H 23 127/61 91 PG Care Time/CCT Total # of Minutes Spent Total Time Spent with Patient: Total time spent is greater than 50% in coordination of care (as documented) at patient's floor/unit and/or counseling patient:
[2018-10-06] MEDS: POTASSIUM CHLORIDE / WTR 10 MEQ/100 ML PLCT IV SCH ×2 (08:29→09:43)
--- NOTE | 2018-10-06 08:43 | Pharmacy Report ---
Pharmacy Abx Dose Short Note - Date of Service October 06, 2018 - Assessment & Plan Assessment 73 year old M receiving vancomycin/zosyn for treatment of pneumonia Day # 3 of antimicrobial therapy. Plan Vancomycin * Trough level of 13.4 mcg/mL is subtherapeutic, however previous dose was given ~ 1 hour earlier, trough at 12.5 hours, reviewing admin times, administration has not been consistent 12 hours, as patient continues to be febrile with increasing white count, will adjust dose with close monitoring * Change to 1500 mg IV every 10 hours * Goal trough level 15-20 mcg/mL * Trough ordered for 10/07 @0230 Pharmacy will continue to follow and will adjust dose/frequency as necessary. Thank you.
--- NOTE | 2018-10-06 12:54 | Fluoroscopy Report ---
FL GI w/air small bowel RTN CLINICAL HISTORY: 73 years-old Male presenting with right lower quadrant ileostomy, post op ileus vs obstruction. 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 Subsequently, a modified water-soluble cont rast upper GI series was then performed. Spot images of the esophagus, stomach, and small bowel were recorded in multiple obliquities with upright and prone. COMPARISON: CT from 10/04/2018. FINDINGS: The abdominal bee farmer radiograph demonstrates a nonobstructive bowel gas pattern. Nasogastric tube and sidehole terminating in the gastric lumen within the gastric body. A surgical drain projects over the left lower quadrant. Skin zack in place in the midline. A temperature probe may be in place withi n the urinary bladder or rectum. Fusion hardware noted in the lumbar spine. The patient was administered water-soluble non-diluted contrast in the nasogastric tube. The stomach is normal in configuration and demonstrates normal distensibility. No mass or ulceration is identifie d. There was slight delayed emptying of the contrast in the stomach. The duodenal sweep opacified tho ugh in a slightly delayed fashion. Jejunum noted to be dilated with progressive dilution of oral cont rast as a consequence of fluid retained in the dilated small bowel. The degree of small bowel distent ion appears slightly increased since most recent CT though this could be affected by magnification. On the small bowel follow-through, at 1 hour, mid to distal small bowel was opacified with contrast. Contrast appeared dilute degrading evaluation. Contrast did not reach the ileostomy at the terminatio n of the exam. Fluoroscopy dosage (mGy): Not available. Fluoroscopy time: 1.3 minutes. Number or time of high level fluoroscopy (HLF), digital spot, or digital subtraction images: 21. IMPRESSION: Persistent small bowel distention most compatible with ileus as seen on recent CT. Due to the degree of small bowel distention and intraluminal fluid, resulting in dilution of contrast resulted in a deg raded examination. A small bowel obstruction cannot be excluded based on this exam. Overall the degre e of distention is stable to worsened from prior though magnification may result in exaggerated sever ity of small bowel distention. Electronically signed by: Jamel Miguel M.D. 10/06/2018 12:52 PM
[2018-10-06] MEDS: FLUCONAZOLE 200 MG/100 ML BAG IV SCH ×2 (16:35→17:28)
[2018-10-06] MEDS ORDERED: VANCOMYCIN HCL 1,500 MG in SODIUM CHLORIDE 0.9% 500 ML IV SCH (17:00)
--- NOTE | 2018-10-06 22:42 | Ultrasound Report ---
US venous doppler LE BI HISTORY: Pain. Edema. eval for dvt COMPARISON STUDY: None. FINDINGS: There is normal compressibility, flow, and augmentation within the bilateral lower extremit y deep venous systems. IMPRESSION: No DVT within the right or left lower extremity. The above report was generated using voice recognition software. It may contain grammatical, syntax or spelling errors. Electronically signed by: Cordell Apple M.D. 10/06/2018 10:40 PM
[2018-10-07] MEDS ORDERED: VANCOMYCIN TROUGH ONE (02:30)
[2018-10-07 02:47] LABS: Hematocrit (blood only) 29.5 % (42-52); Mean Corpuscular Hemoglobin 27.9 pg (25-34); Mean Corpuscular Hgb Conc 33.9 g/dL (32-36); Mean Corpuscular Volume 82.2 fL (80-100); Mean Platelet Volume 9.2 fL (7.4-10.4); Platelet Count 247 K/uL (130-400); RDW Coefficient of Variation 15.2 % (11.5-14.5); RDW Standard Deviation 46.5 fL (36.4-46.3); Red Blood Count 3.59 M/uL (4.7-6.1); White Blood Count 13.54 K/uL (4.8-10.8)
[2018-10-07 03:09] LABS: Calcium 8.1 mg/dl (8.5-10.1); Creatinine Clr Calc Pharmacy 98.4 ml/min; Est GFR (African American) 100.7; Est GFR (Non-African American) 86.9; Potassium 3.8 mmol/L (3.5-5.1)
[2018-10-07 03:11] LABS: Albumin Globulin Ratio 0.6 (0.9-2); Bilirubin,Total 0.5 mg/dl (0.2-1); Globulin 3.5 gm/dl (2.5-4.0); Total Protein 5.5 gm/dl (6.4-8.2)
[2018-10-07 03:18] LABS: Basophils # (auto) 0.05 K/uL (0-0.2); Basophils % (auto) 0.4 %; Dohle Bodies 1+; Eosinophils % (auto) 5.2 %; Immature Granulocytes # (auto) 0.94 K/uL (0.00-0.02); Immature Granulocytes % (auto) 6.9 %; Lymphocytes # (auto) 0.63 K/uL (1.2-3.4); Lymphocytes % (auto) 4.7 %; Monocytes % (auto) 11.8 %; Neutrophils # (auto) 9.62 K/uL (1.4-6.5); Toxic Granulation 1+; Toxic Vacuolation 1+
[2018-10-07] MEDS: NORMOSOL-R 1,000 ML IV SCH ×2 (04:11→14:22)
[2018-10-07 04:57] LABS: Magnesium 2.2 mg/dl (1.8-2.4); Phosphorus 2.2 mg/dl (2.5-4.9)
[2018-10-07] MEDS: PIPERACILLIN/TAZOBACTAM 4.5 GM in DEXTROSE 5% 100 ML IV SCH ×3 (05:12→21:50)
[2018-10-07] MEDS: ACETAMINOPHEN 1,000 MG/100 ML VIAL IV PRN ×3 (05:33→23:42)
[2018-10-07] MEDS: HEPARIN SOD 5,000 UNIT/0.5 ML VIAL SQ SCH ×3 (05:34→21:57)
--- NOTE | 2018-10-07 06:01 | Critical Care Progress Note ---
Date of Service October 07, 2018 Assessment & Plan (1) Acute hypoxemic respiratory failure: Reason Critically Ill: 73-year-old male here with a PMHx significant for colon adenocarcinoma w/ intermittent GIB s/p lap low anterior resection and ileostomy on 10/01/18, asthma, GERD, glaucoma, stomach ulcers, HLD, HTN, and osteoarthritis who presented with post operative altered mental status, tachycardia, diaphoresis, and hypoxemic respiratory alkalosis and who was admitted to the ICU for L postoperative pneumonia. Neuro - [facility] ICU: NEGATIVE No acute mentation concerns Cardiac - Hx Atrial arrythmia - Asymptomatic, without hemodynamic compromise - Normal rate this morning History of HTN - [employer] lisinopril 20mg qAM HLD - [employer] simvastatin 40mg qHS Respiratory - Acute hypoxic RF, suspect post operative aspiration pneumonia - LLL consolidation/infiltrate noted on CT-C - Weaned to room air with SpO2 > 90% - Abx as below Hx Asthma - Albuterol Q4H PRN - [employer] montelukast 10mg qPM GI - Post-operative Ileus 2/2 anterior colon resection with ileostomy 10/01 due to adenocarcinoma - NGT with decreasing output (890/24hr, 100cc since midnight), ileostomy with increasing output (1.5L/24hr, 700cc overnight) - Hypoactive bowel sounds on exam. - Clears started per GI - Normosol 50cc/hr - Parental nutrition orders place by primary surgical service GERD/Hx GIB in setting of adenocarcinoma - Clinically stable, no signs of GIB at this time - CBC daily - NPO, protonix IV restriction due to shortage. No evidence of acute GIB RENAL/LYTES - Hypophosphatemia to 2.2 - KPhos 18mmol x1 Potassium 3.8 -Replace lytes as needed. - Martines in place, draining clear yellow urine. - I:4.4L, O:3.3L, net +1.3L with .42mL/kg/hr UOP ENDO - BSG wnl. No acute concerns HEME - - Hgb stable at 10.0 - CBC daily - Monitor for any drops in the setting of Heparin prophylaxis ID - LLL Pneumonia, suspect postop aspiration ?fungal etiology - MRSA screen positive - CT-C LLL consolidation/infiltrate - Continue Vanc/Zosyn abx total course 7 days - Continue diflucan 400mg QD total course 7 days - Continues to be febrile, Monitor fever curve. - Fungitell ordered - Procal 21.3 from 33.8 INTEGUMENTARY - No acute concerns. Ostomy bag in place and surgical incisions c/d/i as above. LINES/IV ACCESS - 2x upper extremity (1x left, 1x right) PIVs intact. DVT PROPHYLAXIS - Continue heparin SQ 5000u Q8H Disposition: Stable for downgrade Thank you for allowing us to be part of this patient's care. Please refer to Dr. Mcmahon's documentation for any further recommendations. Supervising Physician Co-Signing Physician Notes Dr. Hunter was resident physician during care of patient. I separately evaluated patient for mcknight portions of the history and the exam. I was present during the critical portion of medical decision making, and I discussed the case with the resident. I generally agree with the findings and plan. NG tube discontinued by general surgery, there was a definite decrease in amount of NG output. Patient was up to chair and ambulated yesterday as well as today. Patient feels much improved, still continues with fevers. Venous duplexes are negative. Blood cultures remain negative, patient remains febrile, no obvious leak on small bowel follow-through, technically limited study. Patient has been started on clears per general surgery this morning. White count increasing, no oxygen requirement, Martines still present, would discontinue today. Patient has known tachyarrhythmia, he does not feel the tach arrhythmia however is not causing hemodynamic embarrassment. Orders for TPN placed by general surgery. In my opinion parenteral nutrition not supported by risk- benefit ratio. Patient stable for downgrade out of ICU. Would continue antibiotics for 7 days empirically as well as antifungals. Jami Zambrano is seen at the bedside this morning. He reports he still has hiccups, but they are less intense than yesterday. Endorses mild incisional pain at his surgical site, otherwise denies abdominal pain, cramping, stomach pain, nausea, vomiting this morning. No fevers, chills, sweats overnight. Occasional nonproductive cough. He inquires about increasing PT and ambulation. No other questions/concerns at time of visit. Review of Systems Review of Systems: Constitutional: Denies fever, chills Eyes: Denies vision change ENT: Continues to have some irritation by NGT. Cardiovascular: Denies chest pain, chest pressure, palpitations, extremity swelling Respiratory: Denies shortness of breath, cough, difficulty breathing Gastrointestinal: Endorses incisional pain as noted in HPI, otherwise denies pain/nausa this morning. Genitourinary: Martines in place. No low pelvic pain or dysuria. Musculoskeletal: Denies weakness, muscle aches/pain, joint aches/pain Integumentary:Denies rash, lesions Neurological: Denies headache, focal weakness Physical Exam Physical Exam: General: A&Ox3. NAD. Cooperative. HEENT: Atraumatic, normocephalic. NGT in place Pulm: Bilateral lower lobe crackles. -wheezes, -rhonchi. On room air. Symmetrical chest rise. No increase work of breathing. No respiratory distress. Cardiac: tachycardic with regular rate, rhythm -mrg. Radial pulses intact and symmetrical. Abdominal: Nontender, nondistended, soft. hypoactive bowel sounds. Ileostomy bag in place. Dressing in place, surgical incision C/D/I. GARRETT drain in place, minimal serosanguinous fluid. Extremity: Warm, dry. Strength 5/5 in all distal extremities. Bilateral lower arm IVs in place. Results & Data Vital Signs (Past 12 Hours) Vital Signs Temp Pulse Resp BP Pulse Ox 10/07/18 04:00 38 C H 89 22 147/73 H 95 10/07/18 02:01 84 18 136/74 92 10/07/18 00:00 37.4 C 82 20 167/99 H 94 10/06/18 22:00 38 C H 82 17 144/81 H 93 10/06/18 20:00 38.1 C H 84 24 159/73 H 95 PG Care Time/CCT Total # of Minutes Spent Total Time Spent with Patient: Total time spent is greater than 50% in coordination of care (as documented) at patient's floor/unit and/or counseling patient: Resident Activity Tracking Resident Involvement: Resident Care Provided Care Provided: Adult Hospital Medicine
--- NOTE | 2018-10-07 06:39 | Surgery Progress Note ---
Date of Service October 07, 2018 Assessment & Plan (1) Malignant neoplasm of rectosigmoid (colon): POD #7 will pull ng tube and start liquid will ask for PIC line for hyperal since i suspect pt may need few more days before gi function maximized and also pt has poor veins discussed with intensive team will reevaluate later this pm for possible transfer to step down unit POD #6 path discussed with pt events since last seen saturday reviewed discussed case yesterday with Dr Simon(who was covering) at this time will irrigate NG tube get UGI with SBFT discussed case with intensive team may hold off hyper al today pending UGI with SBFT suspect issues related to ileus post (not unexpected) but r/o possibility of bowel obstruction intermittent all plans discussed with pt POD 3 lap assisted LAR, protective ileostomy labs pending hold on NG for now, consider KUB/NG later if not making progress restart lisinopril Subjective feels fine had a good night no further hiccups no abd pain Physical Exam Physical Exam: alert coherent wants to get out of bed and looking forward to pt well hydrated abd completely benign minimal luis fernando drainage ng output 100 cc overnight and 100 cc prior shift ileostomy 400cc ext neg Results & Data Vital Signs (Past 12 Hours) Vital Signs Temp Pulse Resp BP Pulse Ox 10/07/18 06:00 38.2 C H 89 18 150/68 H 93 10/07/18 04:00 38 C H 89 22 147/73 H 95 10/07/18 02:01 84 18 136/74 92 10/07/18 00:00 37.4 C 82 20 167/99 H 94 10/06/18 22:00 38 C H 82 17 144/81 H 93 10/06/18 20:00 38.1 C H 84 24 159/73 H 95 ugi with sbft used gastro and poor quality no definite obstruction but contrast diluted out before reaching ileostomy PG Care Time/CCT Total # of Minutes Spent Total Time Spent with Patient: Total time spent is greater than 50% in coordination of care (as documented) at patient's floor/unit and/or counseling patient:
[2018-10-07] MEDS: VANCOMYCIN HCL 1,500 MG in SODIUM CHLORIDE 0.9% 500 ML IV SCH ×3 (07:41→17:15)
[2018-10-07] MEDS: FLUTICASONE PROPIONATE NA SPR 16 GM BTL NAE SCH ×2 (07:43→20:04)
[2018-10-07] MEDS: FAMOTIDINE 20 MG in SYRINGE 3 ML IV SCH ×2 (07:44→20:05)
--- NOTE | 2018-10-07 07:44 | XRay Report ---
XR chest 1V portable CLINICAL HISTORY: 73 years-old Male presenting with f/u. TECHNIQUE: Portable upright AP view of the chest was obtained. COMPARISON: 10/05/2018. FINDINGS: Nasogastric tube descends below the diaphragm, terminus not visualized. Cardiac silhouette borderline enlarged. Pulmonary vascular prominence similar to prior. Bronchial wall cuffing is also suggested. Stable perihilar predominant and bibasilar opacities. Heterogeneity of lung parenchyma. No large effu primo or pneumothorax. Cervical fusion hardware noted. Lucency subjacent to the right hemidiaphragm as on prior exam concerning for pneumoperitoneum. IMPRESSION: 1. Pneumoperitoneum. Please correlate with the recent history of surgery. 2. Stable degree of volume overload and congestive change with perihilar predominant edema. 3. Nasogastric tube descends below the diaphragm, terminus now visualized. Electronically signed by: Jamel Miguel M.D. 10/07/2018 7:43 AM
[2018-10-07] MEDS ORDERED: POTASSIUM PHOSPHATE 18 MMOL in SODIUM CHLORIDE 0.9% 500 ML IV ONE (09:00)
[2018-10-07] MEDS ORDERED: TPN/PPN CONSULT PHARMACY PRN (09:37)
[2018-10-07] MEDS ORDERED: DEXTROSE 10% 1,000 ML IV SCH ×2 (13:30)
--- NOTE | 2018-10-07 14:03 | Pharmacy Report ---
Pharmacy PN Initial Consult - Date of Service October 07, 2018 - Scope Pharmacy has been consulted to manage parenteral nutrition orders and order appropriate labs. As part of the Nutrition Support Team guidelines, pharmacy will work in conjunction with dietary when determining the patients caloric needs. - Subjective The patient is a 73 year old M admitted on 09/30/18 13:05 for Adenocarinoma Colon. Patient is to receive parenteral nutrition for npo status >7 days, possible ileus. Pertinent PMH: Laparoscopic Assisted Low Anterior Resection with Protective Ileostomy, POD #7 - Objective Height: 6 ft 1 in Weight: 105.4 kg Intake & Output (Last 24Hrs): Intake & Output 10/05/18 10/06/18 10/07/18 10/08/18 06:59 06:59 06:59 06:59 Intake Total 6760.667 / 6760.667 5146.666 / 5146.666 4290.000 / 4290.000 650 / 650 Output Total 4485 / 4485 4060 / 4060 4255 / 4255 725 / 725 Balance 2275.667 / 2275.667 1086.666 / 1086.666 35.000 / 35.000 -75 / -75 Weight 98.7 kg 102.1 kg 105.4 kg 105.4 kg Laboratory Data (Last 24 Hrs):: 10/07/18 02:35 Sodium 138 Potassium 3.8 Chloride 102 Carbon Dioxide 28 BUN 11 Creatinine 0.84 Glucose 90 Calcium 8.1 L Phosphorus 2.2 L Magnesium 2.2 Total Bilirubin 0.5 AST 11 L ALT 12 Alkaline Phosphatase 75 Albumin 2.0 L Nutrition Assessment:: Please refer to the Notes section of the EMR for the most recent racing car driver note. - Assessment 73 year old male post-op day 7 s/p colon resection with ileostomy. Patient has been NPO for 7 days, starting clears today. TPN ordered per general surgery. Patient is currently on fluconazole, vancomycin,cefepime for possible infection. Risks of starting tpn were discussed with general surgery prior to starting, who would still like to proceed. PICC line placed. F: Normosol @100 ml/hr E: WNL except phos 2.2- replaced with 18 mmol kphos N: NPO previous 7 days, started clears this morning Plan: Nutrition goal for TPN per racing car driver 125 gm AA, 200 gm dextrose, 50 gm lipids. to provide ~1680 kcal. Will initiate TPN ~50% of goal. Per Dr. Roberts wants to start tpn at 50 ml/hr and adjust additional fluid to maintain 100 ml/hr. Will start tpn with 75 gm AA, 100 gm dextrose, 25 gm lipids @ 50 ml/hr and adjust normosol to 50 ml/hr when tpn starts. - Plan For day 1 of PN administration, the following will be ordered: Macronutrients Amino acids [] grams/day Dextrose [] grams/day Lipids [] grams/day Micronutrients Combined electrolytes [ ] mL - contains 35 mEq Na, 20 meq K, 4.5 mEq Ca, 5 mEq Mg, 35 mEq Cl, 29.5 mEq acetate per 20 mL Sodium phosphate [] MMol Sodium chloride [] mEq Sodium acetate [] mEq Potassium phosphate [] mMol Potassium chloride [] mEq Potassium acetate [] mEq Magnesium sulfate [] mEq Calcium gluconate [] mEq Multivitamins 10 mL Trace Elements 10 mL Additional additives: Total volume [] mL to be infused over [] hrs will provide [] kcal/day Final osmolarity [] mOsm/L (maximum for PPN is 900 mOsm/L) Labs to be ordered per PN order protocol Pharmacy will follow and adjust parenteral nutrition orders on a daily basis. Thank you.
--- NOTE | 2018-10-07 15:11 | Pharmacy Report ---
Pharmacy Abx Dose Short Note - Date of Service October 07, 2018 - Assessment & Plan Assessment 73 year old M receiving vancomycin/zosyn/fluconazole for possible infection/sepsis Day # 05/18 of antimicrobial therapy of vancomycin/zosyn, 03/20 for fluconazole Patient's white count continues to increases, have been intermittently febrile, tmax 38.6 Plan Vancomycin * Trough level of 13.8 mcg/ml is slightly therapeutic, this was drawn at 10 hours, however this was after one dose at this timeframe and dosing has been variably. Unfortunately the order fell off and patient was delayed getting next dose, therefore will continue current frequency and recheck trough after 3 doses. * Continue dose of 1500 mg q10H * Goal trough level 15-20mcg/mL * Trough ordered for 10/08 @1230 Pharmacy will continue to follow and will adjust dose/frequency as necessary. Thank you.
[2018-10-07] MEDS: FLUCONAZOLE 200 MG/100 ML BAG IV SCH ×2 (17:57→19:09)
--- NOTE | 2018-10-07 22:20 | Hospitalist Progress Note ---
Date of Service October 07, 2018 Assessment & Plan (1) Sepsis: Sepsis Sepsis probably due to pneumonia (multi-lobar, hospital-acquired, possible aspiration). Blood cultures pending, negative so far. Hemodynamically stable. Receiving IV vancomycin and piperacillin / tazobactam. Altered mental status Probable encephalopathy secondary to sepsis. Resolved. Malignant neoplasm of rectosigmoid (colon) S/P resection, POD # 7. Postop ileus Management per Surgery. Nutrition Starting clear liquids. Arrhythmias Runs of narrow-complex tachycardia, suspect PAT. Asymptomatic. Lytes OK. Discussed starting beta frederic with patient; he would like to discuss with Cardiology. Hypertension Usually takes lisinopril at home, which is being held. Consider beta frederic for hypertension + PAT. GI prophylaxis Famotidine. VTE prophylaxis Receiving SQ heparin. Ambulate as able. Disposition To be determined. Family Medicine follow-up with Dr. Leon. Thank you for this consultation. We will follow the patient with you during their hospital stay. My cell # is [phone]. You can reach a member of the [facility] Team 03/09 via pager @ [phone]. Subjective Recheck for multiple problems. Patient seen in their room around 1640. Doing better, but fatigued. Still having fevers. Passing flatus and stool via ostomy. NGT removed. Started on clear liquids for lunch. Transferred from ICU to Telemetry Unit. Still having frequent runs of PAT- no associated CP, SOB, lightheadedness Review of Systems: Constitutional- as noted above. Cardiac- as noted above. Pulmonary- as noted above. GI- as noted above. - Martines cath. Otherwise, as noted above. Physical Exam Constitutional: no acute distress Eyes: + anicteric sclerae Respiratory: no respiratory distress Auscultation: + rales (coarse, bibasilar) Cardiovascular: Rate/Rhythm: regular rate, regular rhythm and + tachycardic (intermittent runs) Heart Sounds: no gallop Vessels: no JVD Extremities: no calf tenderness and no edema Gastrointestinal (Abdomen): Inspection/Auscultation: + abdomen distended (less) and normal bowel sounds; + abdomen abnormal to inspection (right-sided ostomy; surgical dressing mid abdomen) Percussion/Palpation: abdomen soft Musculoskeletal: Extremities: extremities normal to inspection (SCD's applied); no cyanosis Skin: no rashes, warm and dry Psychiatric: Orientation: alert and oriented x 3 Results & Data Vital Signs (Past 12 Hours) Vital Signs Temp Pulse Pulse Resp BP BP BP 10/07/18 19:55 37.6 C H 10/07/18 19:21 90 18 167/93 H 10/07/18 16:30 82 10/07/18 16:15 71 18 169/82 H 10/07/18 15:13 86 10/07/18 15:00 90 21 147/75 H 10/07/18 14:00 101 H 21 128/89 10/07/18 13:00 91 H 23 163/81 H 10/07/18 12:00 83 17 180/100 H 10/07/18 11:10 81 34 H 173/113 H Pulse Ox 10/07/18 19:55 10/07/18 19:21 93 10/07/18 16:30 10/07/18 16:15 94 10/07/18 15:13 10/07/18 15:00 93 10/07/18 14:00 94 10/07/18 13:00 94 10/07/18 12:00 98 10/07/18 11:10 96 Laboratory Results 10/07/18 02:35 10/07/18 02:35 (1) Sepsis Sepsis acute organ dysfunction status: with acute organ dysfunction Sepsis type: sepsis due to unspecified organism Severe sepsis acute organ dysfunction type: acute respiratory failure
[2018-10-08] MEDS: NORMOSOL-R 1,000 ML IV SCH ×2 (02:00→21:36)
[2018-10-08] MEDS: VANCOMYCIN HCL 1,500 MG in SODIUM CHLORIDE 0.9% 500 ML IV SCH ×4 (02:00→22:00)
[2018-10-08] MEDS: PIPERACILLIN/TAZOBACTAM 4.5 GM in DEXTROSE 5% 100 ML IV SCH ×3 (05:15→21:39)
[2018-10-08] MEDS: HEPARIN SOD 5,000 UNIT/0.5 ML VIAL SQ SCH ×3 (05:16→21:37)
[2018-10-08 06:52] LABS: Hemoglobin 10.9 g/dL (14.0-18.0); Mean Corpuscular Hemoglobin 27.8 pg (25-34); Mean Corpuscular Hgb Conc 34.1 g/dL (32-36); Mean Corpuscular Volume 81.6 fL (80-100); Mean Platelet Volume 8.9 fL (7.4-10.4); Platelet Count 257 K/uL (130-400); RDW Coefficient of Variation 15.4 % (11.5-14.5); RDW Standard Deviation 45.7 fL (36.4-46.3); Red Blood Count 3.92 M/uL (4.7-6.1); White Blood Count 13.15 K/uL (4.8-10.8)
--- NOTE | 2018-10-08 07:22 | Surgery Progress Note ---
Date of Service October 08, 2018 Assessment & Plan (1) Malignant neoplasm of rectosigmoid (colon): POD#8 will get acute abd series may need ugi with SBFT with Barium i am concerned why pt still has ileus vs partial bowel obstruction hopefully will not need reoperation will keep npo except meds POD #7 will pull ng tube and start liquid will ask for PIC line for hyperal since i suspect pt may need few more days before gi function maximized and also pt has poor veins discussed with intensive team will reevaluate later this pm for possible transfer to step down unit POD #6 path discussed with pt events since last seen saturday reviewed discussed case yesterday with Dr Simon(who was covering) at this time will irrigate NG tube get UGI with SBFT discussed case with intensive team may hold off hyper al today pending UGI with SBFT suspect issues related to ileus post (not unexpected) but r/o possibility of bowel obstruction intermittent all plans discussed with pt POD 3 lap assisted LAR, protective ileostomy labs pending hold on NG for now, consider KUB/NG later if not making progress restart lisinopril Subjective feels ok this am had some pressure last night lower abd and catheter repositioned no nausea Review of Systems Review of Systems: no nausea yesterday ileostomy working well no abd pain other than what mentioned above Physical Exam Physical Exam: was sleeping when i saw him this am no hiccups once awakened after a while started hiccups he is alert coherent in no distress no abd pain abd softly distended incision intact no tenderness ileostomy with bilious output +1 pedal edema Results & Data Vital Signs (Past 12 Hours) Vital Signs Temp Pulse Resp BP Pulse Ox 10/08/18 03:40 37.4 C 88 19 151/94 H 91 10/08/18 01:27 37.2 C 10/07/18 23:20 37.8 C H 89 18 148/42 H 92 10/07/18 19:55 37.6 C H 10/07/18 19:21 90 18 167/93 H 93 PG Care Time/CCT Total # of Minutes Spent Total Time Spent with Patient: Total time spent is greater than 50% in coordination of care (as documented) at patient's floor/unit and/or counseling patient:
[2018-10-08 07:27] LABS: Albumin Level 1.9 gm/dl (3.4-5.0); BUN Creatinine Ratio 9.5 (10-20); Creatinine Clr Calc Pharmacy 101.6 ml/min; Est GFR (African American) 101.7; Est GFR (Non-African American) 87.7; Magnesium 2.2 mg/dl (1.8-2.4); Potassium 3.6 mmol/L (3.5-5.1)
[2018-10-08 07:30] LABS: Albumin Globulin Ratio 0.5 (0.9-2); Bilirubin,Total 0.5 mg/dl (0.2-1); Globulin 3.7 gm/dl (2.5-4.0); Total Protein 5.6 gm/dl (6.4-8.2)
[2018-10-08 07:46] LABS: ALC (manual) 0.57 K/uL (1.2-3.4); ANC (manual) 9.03 K/uL (1.4-6.5); Basophils # (manual) 0.12 K/uL (0-0.2); Basophils % (manual) 0.9 %; Dohle Bodies 1+; Eosinophils # (manual) 0.92 K/uL (0-0.5); Lymphocytes # (manual) 0.57 K/uL (1.2-3.4); Lymphocytes % (manual) 4.3 %; Metamyelocytes # (manual) 0.68 K/uL (0-0); Metamyelocytes % (manual) 5.2 %; Monocytes # (manual) 1.37 K/uL (0.11-0.59); Monocytes % (manual) 10.4 %; Myelocytes # (manual) 0.46 K/uL (0-0); Myelocytes % (manual) 3.5 %; Neutrophils # (manual) 9.03 K/uL (1.4-6.5); Neutrophils % (manual) 68.7 %; Toxic Granulation 1+; Toxic Vacuolation 1+
[2018-10-08] MEDS ORDERED: POTASSIUM PHOS 3 MMOL/1 ML INFUSION IV STA (08:12)
[2018-10-08] MEDS ORDERED: POTASSIUM PHOSPHATE 15 MMOL in SODIUM CHLORIDE 0.9% 250 ML IV ONE (08:30)
--- NOTE | 2018-10-08 08:45 | XRay Report ---
XR abdomen min 2V CLINICAL HISTORY: 73 years-old Male presenting with post op ileus. TECHNIQUE: Single supine view of the abdomen was obtained. COMPARISON: 10/05/2018. FINDINGS: Gaseous distention of small bowel in the left midabdomen with an apparent diameter of over 4 cm thoug h this is likely affected by magnification. The degree of distention is similar to prior. There is murphy ggestion of small bowel wall thickening, which is new from prior. Skin zack in place in the midlin e of the lower abdomen as on prior exam. A surgical drain remains within the superior pelvis. Tempera ture probe projects over the pelvis. Small pneumoperitoneum is suggested on left lateral decubitus vi ew. Allowing for bowel gas and stool, no calcifications to suggest nephrolithiasis. Degenerative changes of the spine. Posterior lumbar fusion hardware. Coarsened lung markings at the l michelle bases could suggest scarring or chronic lung disease. IMPRESSION: 1. Persistent small bowel distention unchanged in severity. This could represent ileus or obstructio n. 2. New small bowel wall thickening suggested concerning for nonspecific edema or enteritis. 3. Small pneumoperitoneum, which could be consistent with the postoperative setting depending on the time course of recent surgery. Electronically signed by: Jamel Miguel M.D. 10/08/2018 8:44 AM
[2018-10-08] MEDS: FLUTICASONE PROPIONATE NA SPR 16 GM BTL NAE SCH ×2 (08:48→20:18)
[2018-10-08 08:54] LABS: Albumin Level 1.9 gm/dl (3.4-5.0); Bilirubin Direct 0.1 mg/dl (0-0.2); Bilirubin,Total 0.3 mg/dl (0.2-1); Total Protein 5.4 gm/dl (6.4-8.2)
[2018-10-08] MEDS: FAMOTIDINE 20 MG in SYRINGE 3 ML IV SCH ×2 (08:55→20:17)
--- NOTE | 2018-10-08 10:47 | Cardiology Consultation ---
Date of Consultation October 08, 2018 Assessment & Plan (1) Paroxysmal atrial tachycardia: Patient is setting of acute illness postsurgical state had paroxysmal atrial tachycardia documented. No recent recurrence sotalol chronic hypertension is elevated. Remains unable to take oral medications. Blood pressure previously well controlled with lisinopril. Given transient atrial arrhythmias would recommend initiating IV metoprolol at 2.5 mg every 4 hours for blood pressure and rhythm control Would recommend supplementing potassium to greater than 4 Continue treating underlying medical issues and pulmonary issues We will follow in hospital History of Present Illness Attending Physician: Vivek Roberts MD History of Present Illness Patient is a 73-year-old male his past history is notable for 1. Hypertension controlled with lisinopril and 2. Left anterior fascicular block 3. Hyperlipidemia on therapy Patient is referred now postoperatively having undergone bowel resection for colon malignancy course complicated by pneumonia slow bowel return to function. During the course of treatments patient had asymptomatic runs of paroxysmal atrial tachycardia observed. Last episode 1300 on 10/06/2018 Patient without cardiac complaint currently. No dizziness or lightness. Receiving IV antibiotics and parenteral nutrition. Denies chest pains worsening shortness of breath still with low-grade cough but improving. No fevers chills. No abdominal pain or discomfort other than 3 incisional discomfort Allergies Allergy/AdvReac Type Severity Reaction Status Date / Time pollen extracts Allergy Unknown Verified 09/30/18 11:44 Home Medications Home Medications Medication Instructions Recorded Confirmed Type Centrum Silver Men 1 tab PO QAM 05/19/18 09/30/18 History acetaminophen [Acetaminophen Extra 500 mg PO Q4 PRN 05/19/18 09/30/18 History Strength] albuterol sulfate [Ventolin HFA] 2 puff INHALATION Q4 PRN 05/19/18 09/30/18 History azelastine 2 spray INTRANASAL Q12H 05/19/18 09/30/18 History fluticasone propionate [Flonase 2 spray INTRANASAL BID 05/19/18 09/30/18 History Allergy Relief] [id number] C-Mn 1 cap PO QAM 05/19/18 09/30/18 History guaifenesin [Mucinex] 600 mg PO BID 05/19/18 09/30/18 History lansoprazole 15 mg PO QAM 05/19/18 09/30/18 History lisinopril 20 mg PO QAM 05/19/18 09/30/18 History loratadine 10 mg PO QAM 05/19/18 09/30/18 History montelukast 10 mg PO PM 05/19/18 09/30/18 History simvastatin 40 mg PO HS 05/19/18 09/30/18 History docusate sodium 100 mg capsule 100 mg PO QPM 07/28/18 09/30/18 History Patient History Medical History History of GI bleed Off and on 2/2 malignancy, no blood transfusions per pt History of IBS Arthritis (Acute) Asthma inhaler prn, mostly assc with seasonal allergies, has not used since July BPH (benign prostatic hyperplasia) Cervical stenosis of spine Chronic back pain GERD (gastroesophageal reflux disease) Glaucoma History of stomach ulcers Hyperlipidemia Hypertension Osteoarthritis Vertigo Surgical History History of colonoscopy History of esophagogastroduodenoscopy (EGD) History of fusion of cervical spine c6-t1; needs support with neck, pt states he can move his neck back History of lumbar spinal fusion History of lumbar surgery TO REMOVE SPINAL CYST History of tonsillectomy and adenoidectomy History of tooth extraction INFECTED TOOTH POST ROOT CANCAL History of wisdom tooth extraction S/P colon resection Laparoscopic Assisted Low Anterior Resection with Protective Ileostomy, Appendectomy Dr. Roberts 09/30/18 Family History Grandfather (Maternal) , age 73 of bladder cancer No problems noted. Grandmother (Maternal) , age 83 of MS No problems noted. Grandmother (Paternal) , of heart attack No problems noted. Grandfather (Paternal) , of motor vehicle collision No problems noted. Father , age 69 of heart attack No problems noted. Mother , age 98 of kidney failure No problems noted. Sister Age: 70 Cancer malignant ovarian tumor removed Daughter Age: 44 No problems noted. Daughter Age: 41 Bipolar disorder Other FHx: cancer No family history of adverse response to anesthesia Social History Preferred Language: Arabic Communication Ability: Effective Weatherization Technician Required: No Beliefs That Will Affect Care: None marital status: Current Living Situation: Spouse and Family Current Living Situation Comment: Lives with and daughter Feels Safe at Home: Yes Safety Concerns: Feels Safe At This Time Smoking Status: Never smoker Do You Dip or Chew Tobacco: No ; Second Hand Exposure: Yes ; Hx Alcohol Use: No Hx Substance Use: No Review of Systems Review of Systems: All systems reviewed & are unremarkable except as noted in HPI & below Physical Exam Constitutional: WD/WN, vitals as above Eyes: PERRL, conjunctivae normal, anicteric sclerae ENMT: NG in place Neck: trachea midline, no thyromegaly Respiratory: Few crackles at left base mildly diminished breath sounds otherwise clear Cardiovascular: RRR, no murmur, no edema Extremities: no edema Chest (Breasts): Chest: normal inspection of chest Gastrointestinal (Abdomen): Inspection/Auscultation: + abnormal bowel sounds Percussion/Palpation: abdomen soft Ostomy in right lower quadrant pink Results & Data Vital Signs (Past 12 Hours) Vital Signs Temp Pulse Resp BP Pulse Ox 10/08/18 07:49 37.4 C 80 20 150/81 H 93 10/08/18 03:40 37.4 C 88 19 151/94 H 91 10/08/18 01:27 37.2 C 10/07/18 23:20 37.8 C H 89 18 148/42 H 92 Laboratory Results Laboratory Results - last 24 hr 10/07/18 10/07/18 10/07/18 11:27 11:55 16:55 WBC RBC Hgb Hct MCV MCH MCHC RDW Std Deviation RDW Coeff of Jean-Claude Plt Count MPV Neutrophils % (Manual) Lymphocytes % (Manual) Monocytes % (Manual) Eosinophils % (Manual) Basophils % (Manual) Metamyelocytes % (Man) Myelocytes % (Man) Neutrophils # (Manual) Total Absolute Neuts Lymphocytes # (Manual) Total Abs Lymphocytes Monocytes # (Manual) Eosinophils # (Manual) Basophils # (Manual) Metamyelocytes # (Man) Myelocytes # (Manual) Toxic Granulation Toxic Vacuolation Dohle Bodies Sodium Potassium Chloride Carbon Dioxide Anion Gap BUN Creatinine Est Cr Clr Drug Dosing Est GFR ( Amer) Est GFR (Non-Af Amer) BUN/Creatinine Ratio Glucose POC Glucose 124 H 105 H Calcium Phosphorus Magnesium Total Bilirubin Direct Bilirubin AST ALT Alkaline Phosphatase Total Protein Albumin Globulin Albumin/Globulin Ratio Triglycerides Beta-(1,3)-D-Glucan Pending B-(1,3)-D-Glucan Intrp Pending 10/07/18 10/08/18 10/08/18 23:59 05:11 06:41 WBC 13.15 H RBC 3.92 L Hgb 10.9 L Hct 32.0 L MCV 81.6 MCH 27.8 MCHC 34.1 RDW Std Deviation 45.7 RDW Coeff of Jean-Claude 15.4 H Plt Count 257 MPV 8.9 Neutrophils % (Manual) 68.7 Lymphocytes % (Manual) 4.3 Monocytes % (Manual) 10.4 Eosinophils % (Manual) 7.0 Basophils % (Manual) 0.9 Metamyelocytes % (Man) 5.2 Myelocytes % (Man) 3.5 Neutrophils # (Manual) 9.03 H Total Absolute Neuts 9.03 H Lymphocytes # (Manual) 0.57 L Total Abs Lymphocytes 0.57 L Monocytes # (Manual) 1.37 H Eosinophils # (Manual) 0.92 H Basophils # (Manual) 0.12 Metamyelocytes # (Man) 0.68 H Myelocytes # (Manual) 0.46 H Toxic Granulation 1+ Toxic Vacuolation 1+ Dohle Bodies 1+ Sodium Potassium Chloride Carbon Dioxide Anion Gap BUN Creatinine Est Cr Clr Drug Dosing Est GFR ( Amer) Est GFR (Non-Af Amer) BUN/Creatinine Ratio Glucose POC Glucose 132 H 138 H Calcium Phosphorus Magnesium Total Bilirubin Direct Bilirubin AST ALT Alkaline Phosphatase Total Protein Albumin Globulin Albumin/Globulin Ratio Triglycerides Beta-(1,3)-D-Glucan B-(1,3)-D-Glucan Intrp 10/08/18 10/08/18 06:41 06:41 WBC RBC Hgb Hct MCV MCH MCHC RDW Std Deviation RDW Coeff of Jean-Claude Plt Count MPV Neutrophils % (Manual) Lymphocytes % (Manual) Monocytes % (Manual) Eosinophils % (Manual) Basophils % (Manual) Metamyelocytes % (Man) Myelocytes % (Man) Neutrophils # (Manual) Total Absolute Neuts Lymphocytes # (Manual) Total Abs Lymphocytes Monocytes # (Manual) Eosinophils # (Manual) Basophils # (Manual) Metamyelocytes # (Man) Myelocytes # (Manual) Toxic Granulation Toxic Vacuolation Dohle Bodies Sodium 139 Potassium 3.6 Chloride 105 Carbon Dioxide 28 Anion Gap 6.0 BUN 8 Creatinine 0.82 Est Cr Clr Drug Dosing 101.6 Est GFR ( Amer) 101.7 Est GFR (Non-Af Amer) 87.7 BUN/Creatinine Ratio 9.5 L Glucose 137 H POC Glucose Calcium 8.0 L Phosphorus 2.0 L Magnesium 2.2 Total Bilirubin 0.5 0.3 Direct Bilirubin 0.1 AST 13 L 14 L ALT 13 13 Alkaline Phosphatase 86 83 Total Protein 5.6 L 5.4 L Albumin 1.9 L 1.9 L Globulin 3.7 Albumin/Globulin Ratio 0.5 L Triglycerides 197 H Beta-(1,3)-D-Glucan B-(1,3)-D-Glucan Intrp
[2018-10-08] MEDS: METOPROLOL TARTRATE 1 MG/ML VIAL IV SCH ×4 (12:06→23:42)
[2018-10-08] MEDS ORDERED: VANCOMYCIN TROUGH ONE (12:30)
--- NOTE | 2018-10-08 12:52 | Hospitalist Progress Note ---
Date of Service October 08, 2018 Assessment & Plan (1) Sepsis: Possible secondary to pneumonia (multi-lobar, hospital-acquired, possible aspiration) CT chest extensive left lower lobe consolidation which favors pneumonia, possible aspiration precaution Blood cultures negative so far Continue IV vancomycin and piperacillin / tazobactam. Clinically stable Altered mental status Probable encephalopathy secondary to sepsis. Resolved. Malignant neoplasm of rectosigmoid (colon) S/P resection, POD # 8 Postop ileus KUB showed persistent small bowel distention unchanged in severity. Continue NG tube Will keep NPO except meds for now Management per Surgery. Arrhythmias Runs of narrow-complex tachycardia, suspect PAT. Asymptomatic. cardiology on board starting on low dose beta frederic Will keep K above 4 and Mg above 2 Continue monitor in tele Hypertension Will resume Lisinopril Continue monitor BP GI prophylaxis Famotidine. VTE prophylaxis Receiving SQ heparin. Ambulate as able. Disposition To be determined. Family Medicine follow-up with Dr. Leon. Thank you for this consultation. We will follow the patient with you during their hospital stay. You can reach a member of the [facility] Medicine Team 03/09 via pager @ [phone]. Subjective Pt was seen and examined Lying in bed with no distress Pt said that he is passing a lot of gas He said that he has not had a BM yet Denies any chest pain, palpitation and SOB Physical Exam Physical Exam: General- No acute distress Head- atraumatic Eyes- PERRL, EOMI, ENT- NG tube in place Neck- supple, no JVD Lungs- clear to auscultation Heart- regular rhythm; no murmur Abdomen- +mild abdomen distended, +right-sided ostomy with surgical dressing Extremities- no calf tenderness Neuro- alert, oriented x 3; PERRL, EOMI; no facial palsy; no dysarthria Skin- warm & dry Results & Data Vital Signs (Past 12 Hours) Vital Signs Temp Pulse Pulse Resp BP BP Pulse Ox 10/08/18 12:06 93 H 158/90 H 10/08/18 12:04 37.7 C H 93 H 18 158/90 H 94 10/08/18 07:49 37.4 C 80 20 150/81 H 93 10/08/18 03:40 37.4 C 88 19 151/94 H 91 10/08/18 01:27 37.2 C (1) Sepsis Sepsis acute organ dysfunction status: with acute organ dysfunction Sepsis type: sepsis due to unspecified organism Severe sepsis acute organ dysfunction type: acute respiratory failure
--- NOTE | 2018-10-08 14:44 | Pharmacy Report ---
Pharmacy Abx Dose Short Note - Date of Service October 08, 2018 - Assessment & Plan Assessment * 73 year old M receiving VANCOMYCIN + ZOSYN + FLUCONAZOLE IV for treatment of sepsis likely secondary to pneumonia, possible intraab infxn * Day #5 of VANCOMYCIN + ZOSYN, Day # 3 FLUCONAZOLE * No growth in cx's thus far, + fever * + MRSA nasal swab * Renal fxn stable; UOP has increased Plan Vancomycin * Currently receiving 1500mg IV Q 10 hrs * Trough level of 12.9 mcg/mL is subtherapeutic. * Change to 1500 mg (~15mg/kg) IV every 8 hours * Goal trough level for pulm infxn / sepsis : 15 to 20 mcg/mL * Trough level ordered for: 10/10/18 w/ AM dose Zosyn * continue more aggressive regimen of 4.5gm IV ext-infusion Q 8 hrs, eCrCl > 20 Pharmacy will continue to follow and will adjust dose/frequency as necessary. Thank you.
[2018-10-08] MEDS: FLUCONAZOLE 200 MG/100 ML BAG IV SCH ×2 (16:33→17:39)
[2018-10-08] MEDS: ACETAMINOPHEN 1,000 MG/100 ML VIAL IV PRN (18:32)
[2018-10-09] MEDS ORDERED: PANTOprazole 40 MG in SYRINGE 0 ML IV ONE (00:15)
[2018-10-09] MEDS: METOPROLOL TARTRATE 1 MG/ML VIAL IV SCH ×2 (04:58→07:54)
[2018-10-09] MEDS: HEPARIN SOD 5,000 UNIT/0.5 ML VIAL SQ SCH ×3 (06:06→21:42)
[2018-10-09] MEDS: PIPERACILLIN/TAZOBACTAM 4.5 GM in DEXTROSE 5% 100 ML IV SCH ×3 (06:06→21:42)
[2018-10-09] MEDS: VANCOMYCIN HCL 1,500 MG in SODIUM CHLORIDE 0.9% 500 ML IV SCH ×3 (06:06→21:42)
--- NOTE | 2018-10-09 06:29 | Surgery Progress Note ---
Date of Service October 09, 2018 Assessment & Plan (1) Malignant neoplasm of rectosigmoid (colon): POD#9 starting to immobilize fluids(had eric 2 liter per goetz last night) will increase hyperal start clear liquids need to watch fluid status from ileostomy output will go slow with diet increase over next few days POD#8 will get acute abd series may need ugi with SBFT with Barium i am concerned why pt still has ileus vs partial bowel obstruction hopefully will not need reoperation will keep npo except meds POD #7 will pull ng tube and start liquid will ask for PIC line for hyperal since i suspect pt may need few more days before gi function maximized and also pt has poor veins discussed with intensive team will reevaluate later this pm for possible transfer to step down unit POD #6 path discussed with pt events since last seen saturday reviewed discussed case yesterday with Dr Simon(who was covering) at this time will irrigate NG tube get UGI with SBFT discussed case with intensive team may hold off hyper al today pending UGI with SBFT suspect issues related to ileus post (not unexpected) but r/o possibility of bowel obstruction intermittent all plans discussed with pt POD 3 lap assisted LAR, protective ileostomy labs pending hold on NG for now, consider KUB/NG later if not making progress restart lisinopril Subjective feels better had good night occ hiccup no nausea Physical Exam Physical Exam: alert coherent in no distress tongue moist abd softer than yesterday no tenderness incision solid ileostomy with good output serous drainage per luis fernando drain ankle no pedal edema Results & Data Vital Signs (Past 12 Hours) Vital Signs Temp Pulse Pulse Resp BP BP Pulse Ox 10/09/18 04:58 177/97 H 10/09/18 03:24 36.8 C 86 19 146/89 H 94 10/08/18 23:42 162/92 H 10/08/18 23:36 36.8 C 82 18 162/92 H 96 10/08/18 22:20 74 10/08/18 19:08 37.7 C H 77 18 160/85 H 94 PG Care Time/CCT Total # of Minutes Spent Total Time Spent with Patient: Total time spent is greater than 50% in coordination of care (as documented) at patient's floor/unit and/or counseling patient:
[2018-10-09 07:08] LABS: Hematocrit (blood only) 32.6 % (42-52); Hemoglobin 10.9 g/dL (14.0-18.0); Mean Corpuscular Hemoglobin 27.5 pg (25-34); Mean Corpuscular Hgb Conc 33.4 g/dL (32-36); Mean Corpuscular Volume 82.1 fL (80-100); Mean Platelet Volume 9.3 fL (7.4-10.4); Platelet Count 265 K/uL (130-400); RDW Coefficient of Variation 15.5 % (11.5-14.5); RDW Standard Deviation 46.2 fL (36.4-46.3); Red Blood Count 3.97 M/uL (4.7-6.1); White Blood Count 12.05 K/uL (4.8-10.8)
[2018-10-09 07:34] LABS: ALC (manual) 0.63 K/uL (1.2-3.4); ANC (manual) 9.77 K/uL (1.4-6.5); Eosinophils # (manual) 0.72 K/uL (0-0.5); Lymphocytes # (manual) 0.63 K/uL (1.2-3.4); Lymphocytes % (manual) 5.2 %; Monocytes # (manual) 0.52 K/uL (0.11-0.59); Monocytes % (manual) 4.3 %; Myelocytes # (manual) 0.41 K/uL (0-0); Myelocytes % (manual) 3.4 %; Neutrophils # (manual) 9.77 K/uL (1.4-6.5); Neutrophils % (manual) 81.1 %; Toxic Granulation 1+
[2018-10-09 07:49] LABS: BUN Creatinine Ratio 14.6 (10-20); Calcium 8.1 mg/dl (8.5-10.1); Creatinine Clr Calc Pharmacy 122.5 ml/min; Est GFR (African American) 109.8; Est GFR (Non-African American) 94.7; Potassium 3.7 mmol/L (3.5-5.1)
[2018-10-09] MEDS: FAMOTIDINE 20 MG in SYRINGE 3 ML IV SCH ×2 (07:51→19:39)
[2018-10-09 07:52] LABS: Albumin Globulin Ratio 0.6 (0.9-2); Bilirubin,Total 0.6 mg/dl (0.2-1); Globulin 3.5 gm/dl (2.5-4.0); Phosphorus 2.3 mg/dl (2.5-4.9); Total Protein 5.5 gm/dl (6.4-8.2)
[2018-10-09] MEDS: FLUTICASONE PROPIONATE NA SPR 16 GM BTL NAE SCH ×2 (07:52→19:40)
--- NOTE | 2018-10-09 09:05 | Cardiology Progress Note ---
Date of Service October 09, 2018 Assessment & Plan (1) Paroxysmal atrial tachycardia: Patient is setting of acute illness postsurgical state had paroxysmal atrial tachycardia documented. Brief run of SVT this morning, asymptomatic Now slowly increasing p.o. intake Plan: Discontinue IV metoprolol begin oral metoprolol 25 mg p.o. twice daily. Resume antihypertensive therapy with lisinopril at reduced dose of 5 mg p.o. daily Subjective Patient seen and examined, chart, telemetry, medications reviewed. No cardiac symptoms overnight. Had liquid breakfast today with only complaints of hiccups. Is having ostomy output. Telemetry revealed one short run less than 10 beats of SVT at 707 this morning, asymptomatic Blood pressures are trending higher Urinary outputs are increasing Physical Exam Constitutional: WD/WN, vitals as above Eyes: PERRL, conjunctivae normal, anicteric sclerae Neck: trachea midline, no thyromegaly Cardiovascular: RRR, no murmur, no edema Extremities: no edema Chest (Breasts): Chest: normal inspection of chest Gastrointestinal (Abdomen): Percussion/Palpation: abdomen soft; abdomen nontender Ostomy pink with output Results & Data Vital Signs (Past 12 Hours) Vital Signs Temp Pulse Pulse Resp BP BP Pulse Ox 10/09/18 08:13 37.8 C H 93 H 16 163/82 H 93 10/09/18 07:54 86 177/97 H 10/09/18 04:58 177/97 H 10/09/18 03:24 36.8 C 86 19 146/89 H 94 10/08/18 23:42 162/92 H 10/08/18 23:36 36.8 C 82 18 162/92 H 96 10/08/18 22:20 74
[2018-10-09] MEDS: LISINOPRIL 5 MG TAB PO SCH (10:00)
[2018-10-09] MEDS: METOPROLOL TARTRATE 25 MG TAB PO SCH ×2 (10:00→19:39)
--- NOTE | 2018-10-09 11:03 | Pharmacy Report ---
PHA: Parenteral Nutrition Con - Date of Service October 09, 2018 - Scope Pharmacy was consulted on 10/07/18 to manage parenteral nutrition orders for this patient. - Subjective The patient is currently on day # 3 of central parenteral nutrition for prolonged NPO s/p lap assisted LAR, protective ileostomy - Objective Height: 6 ft 1 in Weight: 104 kg Diet: Clear Liquid (not tolerating very well) Vascular Access:: PICC Intake & Output (24hrs):: Intake & Output 10/07/18 10/08/18 10/09/18 10/10/18 06:59 06:59 06:59 06:59 Intake Total 4290.000 / 4290.000 4887.667 / 4887.667 3355 / 3355 650 / 650 Output Total 4255 / 4255 4240 / 4240 5360 / 5360 Balance 35.000 / 35.000 647.667 / 647.667 -2004 / 650 / 650 Weight 105.4 kg 104 kg Additional Fluid Losses/Gains:: Significant GI losses Laboratory Data (Last 24 Hr):: 10/09/18 06:52 Sodium 138 Potassium 3.7 Chloride 105 Carbon Dioxide 27 BUN 10 Creatinine 0.68 Glucose 151 H Calcium 8.1 L Phosphorus 2.3 L Magnesium 2.0 Total Bilirubin 0.6 AST 22 ALT 21 Alkaline Phosphatase 101 Albumin 2.0 L Nutrition Assessment:: Please refer to the Notes section of the EMR for the most recent dairy chemist note. - Assessment * Discussed nutrition with Dr Roberts - he would like macros advanced to goal. He said that he wanted the TPN to run at 100ml/hr but this would just increase the amount of sterile water in the bag and not necessarily macros. He just wants goal macros. * for micronutrients: * K+ should be maintained above 4 * Mg should be maintained above 2 * this is to prevent exacerbation of cardiac arrhythmias * Will adjust accordingly to daily labs - Plan For day # 3of PN administration, the following will be ordered: Macronutrients Amino acids 125 grams/day Dextrose 200 grams/day Lipids 50 grams/day Micronutrients Combined electrolytes 20 mL - contains 35 mEq Na, 20 meq K, 4.5 mEq Ca, 5 mEq Mg, 35 mEq Cl, 29.5 mEq acetate per 20 mL Sodium phosphate 15 MMol Sodium chloride 50 mEq Sodium acetate 10 mEq Potassium phosphate 30 mMol Potassium chloride 30 mEq Magnesium sulfate 8.12 mEq Multivitamins 10 mL Trace Elements 1 mL Additional additives: Total volume 1873.71 mL to be infused over 24 hrs will provide 1680 kcal/day Pt is also receiving Normosol @ 50ml/hr Labs, as indicated, will be ordered per protocol Pharmacy will continue to follow and adjust parenteral nutrition orders on a daily basis. Thank you for allowing us to participate in the care of this patient.
[2018-10-09] MEDS: ONDANSETRON HCL 8 MG in DEXTROSE 5% 50 ML IV PRN (12:05)
[2018-10-09] MEDS: TRIAMCINOLONE ACET 0.025% CR 15 GM TUBE EXT SCH ×2 (14:10→19:40)
--- NOTE | 2018-10-09 15:02 | Hospitalist Progress Note ---
Date of Service October 09, 2018 Assessment & Plan (1) Sepsis: Possible secondary to pneumonia (multi-lobar, hospital-acquired, possible aspiration) CT chest extensive left lower lobe consolidation which favors pneumonia, possible aspiration precaution Blood cultures negative so far Continue IV vancomycin and piperacillin / tazobactam. Clinically stable Altered mental status Probable encephalopathy secondary to sepsis. Resolved. 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 NG tube removed Starting on clear liquid diet Management per Surgery. Arrhythmias Runs of narrow-complex tachycardia, suspect PAT. Asymptomatic. cardiology on board starting on low dose beta frederic Continue monitor in tele Hypertension Continue Lisinopril Continue monitor BP GI prophylaxis Famotidine. VTE prophylaxis Receiving SQ heparin. Ambulate as able. Disposition To be determined. Family Medicine follow-up with Dr. Leon. Thank you for this consultation. We will follow the patient with you during their hospital stay. You can reach a member of the [facility] Medicine Team 03/09 via pager @ [phone]. Subjective Pt was seen and examined Sitting in the chair with no distress He said that his abdominal discomfort improves He had a small BM today that was diarrhea He said that he develops a rash in his back since Saturday He had a brief run SVT this morning Denies any chest pain, palpitation, dizziness and SOB Physical Exam Physical Exam: General- No acute distress Head- atraumatic Eyes- PERRL, EOMI, ENT- oropharynx clear Neck- supple, no JVD Lungs- clear to auscultation Heart- regular rhythm; no murmur Abdomen- normal bowel sounds, soft, nontender Extremities- no calf tenderness Neuro- alert, oriented x 3; PERRL, EOMI; no facial palsy; no dysarthria Skin- warm & dry Results & Data Vital Signs (Past 12 Hours) Vital Signs Temp Pulse Pulse Resp BP BP Pulse Ox 10/09/18 11:39 36.7 C 72 18 147/90 H 92 10/09/18 08:13 37.8 C H 93 H 16 163/82 H 93 10/09/18 07:54 86 177/97 H 10/09/18 04:58 177/97 H 10/09/18 03:24 36.8 C 86 19 146/89 H 94 (1) Sepsis Sepsis acute organ dysfunction status: with acute organ dysfunction Sepsis type: sepsis due to unspecified organism Severe sepsis acute organ dysfunction type: acute respiratory failure
[2018-10-09] MEDS ORDERED: POTASSIUM PHOS 3 MMOL/1 ML INFUSION IV STA (15:40)
[2018-10-09] MEDS ORDERED: POTASSIUM PHOSPHATE 15 MMOL in SODIUM CHLORIDE 0.9% 250 ML IV ONE (15:45)
[2018-10-09] MEDS: FLUCONAZOLE 200 MG/100 ML BAG IV SCH ×2 (17:13→18:07)
[2018-10-09 17:53] LABS: Fungitell (1-3)-B-D-Glucan 104 pg/mL
[2018-10-09] MEDS: NORMOSOL-R 1,000 ML IV SCH (18:06)
[2018-10-09] MEDS: ACETAMINOPHEN 1,000 MG/100 ML VIAL IV PRN (23:53)
[2018-10-10 05:15] LABS: Hematocrit (blood only) 29.2 % (42-52); Hemoglobin 9.7 g/dL (14.0-18.0); Mean Corpuscular Hemoglobin 27.5 pg (25-34); Mean Corpuscular Hgb Conc 33.2 g/dL (32-36); Mean Corpuscular Volume 82.7 fL (80-100); Mean Platelet Volume 9.2 fL (7.4-10.4); Platelet Count 290 K/uL (130-400); RDW Coefficient of Variation 15.7 % (11.5-14.5); RDW Standard Deviation 47.4 fL (36.4-46.3); Red Blood Count 3.53 M/uL (4.7-6.1); White Blood Count 9.33 K/uL (4.8-10.8)
[2018-10-10] MEDS ORDERED: VANCOMYCIN TROUGH ONE (05:30)
[2018-10-10 05:32] LABS: ALC (manual) 0.49 K/uL (1.2-3.4); Eosinophils # (manual) 0.82 K/uL (0-0.5); Eosinophils % (manual) 8.8 %; Lymphocytes # (manual) 0.49 K/uL (1.2-3.4); Lymphocytes % (manual) 5.3 %; Metamyelocytes # (manual) 0.33 K/uL (0-0); Metamyelocytes % (manual) 3.5 %; Monocytes # (manual) 0.24 K/uL (0.11-0.59); Monocytes % (manual) 2.6 %; Myelocytes # (manual) 0.24 K/uL (0-0); Myelocytes % (manual) 2.6 %; Neutrophils % (manual) 77.2 %; RBC Morphology Unremarkable
[2018-10-10] MEDS: VANCOMYCIN HCL 1,500 MG in SODIUM CHLORIDE 0.9% 500 ML IV SCH ×3 (05:52→21:34)
[2018-10-10] MEDS: PIPERACILLIN/TAZOBACTAM 4.5 GM in DEXTROSE 5% 100 ML IV SCH ×3 (05:52→21:47)
[2018-10-10 05:53] LABS: Albumin Level 1.8 gm/dl (3.4-5.0); BUN Creatinine Ratio 17.2 (10-20); Calcium 8.1 mg/dl (8.5-10.1); Creatinine Clr Calc Pharmacy 114.1 ml/min; Est GFR (African American) 106.7; Magnesium 2.3 mg/dl (1.8-2.4); Potassium 4.2 mmol/L (3.5-5.1)
[2018-10-10] MEDS: HEPARIN SOD 5,000 UNIT/0.5 ML VIAL SQ SCH ×3 (05:53→21:45)
[2018-10-10 06:03] LABS: Albumin Globulin Ratio 0.5 (0.9-2); Bilirubin,Total 0.4 mg/dl (0.2-1); Globulin 3.5 gm/dl (2.5-4.0); Phosphorus 3.2 mg/dl (2.5-4.9); Total Protein 5.3 gm/dl (6.4-8.2)
[2018-10-10] MEDS: FAMOTIDINE 20 MG in SYRINGE 3 ML IV SCH ×2 (09:05→21:39)
[2018-10-10] MEDS: METOPROLOL TARTRATE 25 MG TAB PO SCH ×2 (09:06→21:43)
[2018-10-10] MEDS: TRIAMCINOLONE ACET 0.025% CR 15 GM TUBE EXT SCH ×2 (09:06→21:39)
[2018-10-10] MEDS: LISINOPRIL 5 MG TAB PO SCH ×2 (09:06→21:44)
[2018-10-10] MEDS: FLUTICASONE PROPIONATE NA SPR 16 GM BTL NAE SCH ×2 (09:07→21:38)
--- NOTE | 2018-10-10 09:11 | Cardiology Progress Note ---
Date of Service October 10, 2018 Assessment & Plan (1) Paroxysmal atrial tachycardia: Patient is setting of acute illness postsurgical state had paroxysmal atrial tachycardia documented. No further arrhythmias past 24 hours. We will continue oral metoprolol 25 mill grams twice per day. Blood pressure still elevated, will increase lisinopril to 5 mill grams twice per day no notable patient taking 20 mg at home Suspect blood pressures will begin to change as IV fluids are reduced Subjective Patient seen and examined, chart, medications, telemetry reviewed. Feels improved today small bowel movement yesterday no nausea or abdominal pain no hiccups. Telemetry reveals no arrhythmias. Blood pressure still trending high Physical Exam Constitutional: WD/WN, vitals as above Eyes: PERRL, conjunctivae normal, anicteric sclerae Neck: trachea midline, no thyromegaly Respiratory: normal respiratory effort, lungs clear to auscultation Cardiovascular: RRR, no murmur, no edema Extremities: no edema Chest (Breasts): Chest: normal inspection of chest Gastrointestinal (Abdomen): Inspection/Auscultation: + abnormal bowel sounds Percussion/Palpation: abdomen soft; abdomen nontender Musculoskeletal: no cyanosis or clubbing, extremities motor strength 5/5 Results & Data Vital Signs (Past 12 Hours) Vital Signs Temp Pulse Pulse Resp BP Pulse Ox 10/10/18 08:00 36.8 C 86 16 173/90 H 95 10/10/18 03:29 36.8 C 81 17 149/88 H 91 10/09/18 23:42 37.4 C 83 18 170/90 H 93 10/09/18 22:20 81 Laboratory Results Laboratory Results - last 24 hr 10/07/18 10/09/18 10/10/18 11:27 11:37 05:04 WBC 9.33 RBC 3.53 L Hgb 9.7 L Hct 29.2 L MCV 82.7 MCH 27.5 MCHC 33.2 RDW Std Deviation 47.4 H RDW Coeff of Jean-Claude 15.7 H Plt Count 290 MPV 9.2 Neutrophils % (Manual) 77.2 Lymphocytes % (Manual) 5.3 Monocytes % (Manual) 2.6 Eosinophils % (Manual) 8.8 Metamyelocytes % (Man) 3.5 Myelocytes % (Man) 2.6 Neutrophils # (Manual) 7.20 H Total Absolute Neuts 7.20 H Lymphocytes # (Manual) 0.49 L Total Abs Lymphocytes 0.49 L Monocytes # (Manual) 0.24 Eosinophils # (Manual) 0.82 H Metamyelocytes # (Man) 0.33 H Myelocytes # (Manual) 0.24 H RBC Morphology Unremarkable Sodium Potassium Chloride Carbon Dioxide Anion Gap BUN Creatinine Est Cr Clr Drug Dosing Est GFR ( Amer) Est GFR (Non-Af Amer) BUN/Creatinine Ratio Glucose POC Glucose 125 H Calcium Phosphorus Magnesium Total Bilirubin AST ALT Alkaline Phosphatase Total Protein Albumin Globulin Albumin/Globulin Ratio Vancomycin Trough Beta-(1,3)-D-Glucan 104 H B-(1,3)-D-Glucan Intrp POSITIVE A 10/10/18 10/10/18 10/10/18 05:04 05:04 06:00 WBC RBC Hgb Hct MCV MCH MCHC RDW Std Deviation RDW Coeff of Jean-Claude Plt Count MPV Neutrophils % (Manual) Lymphocytes % (Manual) Monocytes % (Manual) Eosinophils % (Manual) Metamyelocytes % (Man) Myelocytes % (Man) Neutrophils # (Manual) Total Absolute Neuts Lymphocytes # (Manual) Total Abs Lymphocytes Monocytes # (Manual) Eosinophils # (Manual) Metamyelocytes # (Man) Myelocytes # (Manual) RBC Morphology Sodium 139 Potassium 4.2 Chloride 108 H Carbon Dioxide 27 Anion Gap 4.0 BUN 13 Creatinine 0.73 Est Cr Clr Drug Dosing 114.1 Est GFR ( Amer) 106.7 Est GFR (Non-Af Amer) 92.0 BUN/Creatinine Ratio 17.2 Glucose 136 H POC Glucose 131 H Calcium 8.1 L Phosphorus 3.2 Magnesium 2.3 Total Bilirubin 0.4 AST 58 H ALT 67 Alkaline Phosphatase 137 H Total Protein 5.3 L Albumin 1.8 L Globulin 3.5 Albumin/Globulin Ratio 0.5 L Vancomycin Trough 18.1 Beta-(1,3)-D-Glucan B-(1,3)-D-Glucan Intrp
--- NOTE | 2018-10-10 10:15 | Surgery Progress Note ---
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 over the weekend POD#9 starting to immobilize fluids(had eric 2 liter per goetz last night) will increase hyperal start clear liquids need to watch fluid status from ileostomy output will go slow with diet increase over next few days POD#8 will get acute abd series may need ugi with SBFT with Barium i am concerned why pt still has ileus vs partial bowel obstruction hopefully will not need reoperation will keep npo except meds POD #7 will pull ng tube and start liquid will ask for PIC line for hyperal since i suspect pt may need few more days before gi function maximized and also pt has poor veins discussed with intensive team will reevaluate later this pm for possible transfer to step down unit POD #6 path discussed with pt events since last seen saturday reviewed discussed case yesterday with Dr Simon(who was covering) at this time will irrigate NG tube get UGI with SBFT discussed case with intensive team may hold off hyper al today pending UGI with SBFT suspect issues related to ileus post (not unexpected) but r/o possibility of bowel obstruction intermittent all plans discussed with pt POD 3 lap assisted LAR, protective ileostomy labs pending hold on NG for now, consider KUB/NG later if not making progress restart lisinopril Supervising Physician Co-Signing Physician Notes Dr. Hunter was resident physician during care of patient. I separately evaluated patient for mcknight portions of the history and the exam. I was present during the critical portion of medical decision making, and I discussed the case with the resident. I generally agree with the findings and plan. NG tube discontinued by general surgery, there was a definite decrease in amount of NG output. Patient was up to chair and ambulated yesterday as well as today. Patient feels much improved, still continues with fevers. Venous duplexes are negative. Blood cultures remain negative, patient remains febrile, no obvious leak on small bowel follow-through, technically limited study. Patient has been started on clears per general surgery this morning. White count increasing, no oxygen requirement, Goetz still present, would discontinue today. Patient has known tachyarrhythmia, he does not feel the tach arrhythmia however is not causing hemodynamic embarrassment. Orders for TPN placed by general surgery. In my opinion parenteral nutrition not supported by risk- benefit ratio. Patient stable for downgrade out of ICU. Would continue antibiotics for 7 days empirically as well as antifungals. Subjective Patient awake and alert this AM and states that he feels more clear each day. He has been tolerating a clear liquid diet without nausea/abdominal pain and his hiccups have stopped. States he ambulated yesterday with assistance and sat in the chair for a good portion of the day. Abdominal pain has been well managed, only bothers him when he coughs. Endorses having a small BM per rectum yesterday. Review of Systems Review of Systems: no nausea yesterday ileostomy working well no abd pain other than what mentioned above Physical Exam Physical Exam: alert and no acute distress Constitutional: no acute distress and not ill appearing Gastrointestinal (Abdomen): Inspection/Auscultation: + abdominal surgical incision (midline zack in place, clean, dry, and intact) and + abdominal surgical drain present (GARRETT drain in LLQ with minimal serosangineous output) Percussion/Palpation: + abdomen tender (minimal tenderness layne-incisionally) and abdomen soft Ileostomy viable with liquid output Results & Data Vital Signs (Past 12 Hours) Vital Signs Temp Pulse Pulse Resp BP Pulse Ox 10/10/18 08:00 36.8 C 86 16 173/90 H 95 10/10/18 03:29 36.8 C 81 17 149/88 H 91 10/09/18 23:42 37.4 C 83 18 170/90 H 93 10/09/18 22:20 81 PG Care Time/CCT Total # of Minutes Spent Total Time Spent with Patient: Total time spent is greater than 50% in coordination of care (as documented) at patient's floor/unit and/or counseling patient:
[2018-10-10] MEDS: ACETAMINOPHEN 1,000 MG/100 ML VIAL IV PRN ×2 (13:03→21:31)
--- NOTE | 2018-10-10 15:13 | Pharmacy Report ---
Pharmacy Abx Dose Short Note - Date of Service October 10, 2018 - Assessment & Plan Assessment 73 year old M receiving vancomycin, zosyn, and fluconazole for treatment of sepsis likely secondary to pneumonia and possible IAI Day # 7 of vanc and zosyn, day #5 of fluconazole -> vanc and zosyn will discontinue on 10/11 AM Cultures are negative to date, + nasal MRSA swab Plan Vancomycin * Trough level of 18.1 mcg/mL is therapeutic * Continue dose of 1500 mg IV every 8 hours * Goal trough level : 15 to 20 mcg/mL * No further trough levels will be obtained unless duration of therapy is extended Zosyn * continue more aggressive regimen of 4.5gm IV ext-infusion Q 8 hrs, eCrCl > 20
--- NOTE | 2018-10-10 15:45 | Hospitalist Progress Note ---
Date of Service October 10, 2018 Assessment & Plan (1) Sepsis: Possible secondary to pneumonia (multi-lobar, hospital-acquired, possible aspiration) CT chest extensive left lower lobe consolidation which favors pneumonia, possible aspiration precaution Blood cultures negative so far Continue IV vancomycin and piperacillin / tazobactam. Clinically stable Altered mental status Probable encephalopathy secondary to sepsis. Resolved. Malignant neoplasm of rectosigmoid (colon) S/P resection, POD # 10 Postop ileus KUB showed persistent small bowel distention unchanged in severity. NG tube removed Diet advanced as tolerated had a small BM yesterday Continue TPN supplement for today Management per Surgery. Arrhythmias Runs of narrow-complex tachycardia, suspect PAT. Asymptomatic. cardiology on board starting on low dose beta frederic Continue monitor in tele Hypertension Continue Lisinopril Continue monitor BP GI prophylaxis Famotidine. VTE prophylaxis Receiving SQ heparin. Ambulate as able. Disposition To be determined. Family Medicine follow-up with Dr. Leon. Thank you for this consultation. We will follow the patient with you during their hospital stay. You can reach a member of the [facility] Medicine Team 03/09 via pager @ [phone]. Subjective P was seen and examined Sitting in chair with no distress Pt said that pain slightly improves He was walking with therapy today He said that he had a small bowel movement yesterday Denies any chest pain, palpitation, dizziness and SOB Physical Exam Physical Exam: General- No acute distress Head- atraumatic Eyes- PERRL, EOMI, ENT- NG tube in place Neck- supple, no JVD Lungs- clear to auscultation Heart- regular rhythm; no murmur Abdomen- +mild abdomen tenderness with palpation, +right-sided ostomy with surgical dressing Extremities- no calf tenderness Neuro- alert, oriented x 3; PERRL, EOMI; no facial palsy; no dysarthria Skin- warm & dry Results & Data Vital Signs (Past 12 Hours) Vital Signs Temp Pulse Resp BP Pulse Ox 10/10/18 11:53 36.8 C 83 16 164/93 H 92 10/10/18 08:00 36.8 C 86 16 173/90 H 95 (1) Sepsis Sepsis acute organ dysfunction status: with acute organ dysfunction Sepsis type: sepsis due to unspecified organism Severe sepsis acute organ dysfunction type: acute respiratory failure
[2018-10-10] MEDS: FLUCONAZOLE 200 MG/100 ML BAG IV SCH ×2 (16:53→18:28)
[2018-10-11 06:08] LABS: Hematocrit (blood only) 31.8 % (42-52); Hemoglobin 10.6 g/dL (14.0-18.0); Mean Corpuscular Hgb Conc 33.3 g/dL (32-36); Mean Corpuscular Volume 84.1 fL (80-100); Mean Platelet Volume 10.3 fL (7.4-10.4); Platelet Count 354 K/uL (130-400); RDW Coefficient of Variation 15.7 % (11.5-14.5); RDW Standard Deviation 48.5 fL (36.4-46.3); Red Blood Count 3.78 M/uL (4.7-6.1); White Blood Count 10.39 K/uL (4.8-10.8)
[2018-10-11] MEDS: PIPERACILLIN/TAZOBACTAM 4.5 GM in DEXTROSE 5% 100 ML IV SCH (06:14)
[2018-10-11] MEDS: VANCOMYCIN HCL 1,500 MG in SODIUM CHLORIDE 0.9% 500 ML IV SCH (06:14)
[2018-10-11] MEDS: HEPARIN SOD 5,000 UNIT/0.5 ML VIAL SQ SCH ×3 (06:16→21:50)
[2018-10-11 06:42] LABS: Albumin Level 1.9 gm/dl (3.4-5.0); Calcium 8.4 mg/dl (8.5-10.1); Creatinine Clr Calc Pharmacy 118.2 ml/min; Est GFR (African American) 108.5; Est GFR (Non-African American) 93.6; Potassium 4.4 mmol/L (3.5-5.1)
[2018-10-11 06:45] LABS: Albumin Globulin Ratio 0.5 (0.9-2); Bilirubin,Total 0.4 mg/dl (0.2-1); Globulin 3.7 gm/dl (2.5-4.0); Total Protein 5.6 gm/dl (6.4-8.2)
[2018-10-11 06:47] LABS: ALC (manual) 0.28 K/uL (1.2-3.4); ANC (manual) 8.16 K/uL (1.4-6.5); Eosinophils # (manual) 0.56 K/uL (0-0.5); Eosinophils % (manual) 5.4 %; Lymphocytes # (manual) 0.28 K/uL (1.2-3.4); Lymphocytes % (manual) 2.7 %; Monocytes # (manual) 0.74 K/uL (0.11-0.59); Monocytes % (manual) 7.1 %; Myelocytes # (manual) 0.65 K/uL (0-0); Myelocytes % (manual) 6.3 %; Neutrophils # (manual) 8.16 K/uL (1.4-6.5); Neutrophils % (manual) 78.5 %; Toxic Granulation 2+
[2018-10-11] MEDS: LISINOPRIL 5 MG TAB PO SCH (09:26)
[2018-10-11] MEDS: TRIAMCINOLONE ACET 0.025% CR 15 GM TUBE EXT SCH ×2 (09:26→21:50)
[2018-10-11] MEDS: FLUTICASONE PROPIONATE NA SPR 16 GM BTL NAE SCH ×2 (09:26→21:49)
[2018-10-11] MEDS: METOPROLOL TARTRATE 25 MG TAB PO SCH ×2 (09:27→21:50)
[2018-10-11] MEDS: FAMOTIDINE 20 MG in SYRINGE 3 ML IV SCH ×2 (09:28→21:49)
[2018-10-11] MEDS: ACETAMINOPHEN 1,000 MG/100 ML VIAL IV PRN ×2 (09:32→21:55)
--- NOTE | 2018-10-11 09:48 | Cardiology Progress Note ---
Date of Service October 11, 2018 Assessment & Plan (1) Paroxysmal atrial tachycardia: Patient is setting of acute illness postsurgical state had paroxysmal atrial tachycardia documented. We will continue current dose of metoprolol increase lisinopril slightly to usual baseline dosing at 10 mg twice per day Subjective Patient seen and examined, chart, medications, telemetry reviewed. Taking full diet this morning sitting out of bed chair yesterday. Brisk diuresis spontaneously overnight. One 5 beat run of SVT last evening asymptomatic Physical Exam Constitutional: WD/WN, vitals as above Eyes: PERRL, conjunctivae normal, anicteric sclerae Neck: trachea midline, no thyromegaly Respiratory: normal respiratory effort, lungs clear to auscultation Cardiovascular: RRR, no murmur, no edema Extremities: no edema Chest (Breasts): Chest: normal inspection of chest Gastrointestinal (Abdomen): Inspection/Auscultation: + abnormal bowel sounds Percussion/Palpation: abdomen soft; abdomen nontender Musculoskeletal: no cyanosis or clubbing, extremities motor strength 5/5 Results & Data Vital Signs (Past 12 Hours) Vital Signs Temp Pulse Pulse Resp BP Pulse Ox 10/11/18 07:15 36.8 C 90 16 155/88 H 93 10/11/18 04:15 36.6 C 81 17 158/84 H 93 10/10/18 23:58 36.6 C 77 18 153/84 H 95 10/10/18 22:20 84 Laboratory Results Laboratory Results - last 24 hr 10/10/18 10/10/18 10/11/18 11:56 23:59 04:58 WBC 10.39 RBC 3.78 L Hgb 10.6 L Hct 31.8 L MCV 84.1 MCH 28.0 MCHC 33.3 RDW Std Deviation 48.5 H RDW Coeff of Jean-Claude 15.7 H Plt Count 354 MPV 10.3 Neutrophils % (Manual) 78.5 Lymphocytes % (Manual) 2.7 Monocytes % (Manual) 7.1 Eosinophils % (Manual) 5.4 Myelocytes % (Man) 6.3 Neutrophils # (Manual) 8.16 H Total Absolute Neuts 8.16 H Lymphocytes # (Manual) 0.28 L Total Abs Lymphocytes 0.28 L Monocytes # (Manual) 0.74 H Eosinophils # (Manual) 0.56 H Myelocytes # (Manual) 0.65 H Toxic Granulation 2+ Sodium Potassium Chloride Carbon Dioxide Anion Gap BUN Creatinine Est Cr Clr Drug Dosing Est GFR ( Amer) Est GFR (Non-Af Amer) BUN/Creatinine Ratio Glucose POC Glucose 146 H 136 H Calcium Total Bilirubin AST ALT Alkaline Phosphatase Total Protein Albumin Globulin Albumin/Globulin Ratio 10/11/18 10/11/18 04:58 07:18 WBC RBC Hgb Hct MCV MCH MCHC RDW Std Deviation RDW Coeff of Jean-Claude Plt Count MPV Neutrophils % (Manual) Lymphocytes % (Manual) Monocytes % (Manual) Eosinophils % (Manual) Myelocytes % (Man) Neutrophils # (Manual) Total Absolute Neuts Lymphocytes # (Manual) Total Abs Lymphocytes Monocytes # (Manual) Eosinophils # (Manual) Myelocytes # (Manual) Toxic Granulation Sodium 139 Potassium 4.4 Chloride 106 Carbon Dioxide 28 Anion Gap 5.0 BUN 13 Creatinine 0.70 Est Cr Clr Drug Dosing 118.2 Est GFR ( Amer) 108.5 Est GFR (Non-Af Amer) 93.6 BUN/Creatinine Ratio 19.0 Glucose 127 H POC Glucose 130 H Calcium 8.4 L Total Bilirubin 0.4 AST 85 H ALT 122 H Alkaline Phosphatase 165 H Total Protein 5.6 L Albumin 1.9 L Globulin 3.7 Albumin/Globulin Ratio 0.5 L
--- NOTE | 2018-10-11 10:39 | Surgery Progress Note ---
Date of Service October 11, 2018 Assessment & Plan (1) Malignant neoplasm of rectosigmoid (colon): Bowel function returned. Will d/c tpn today. Continue low fiber diet. Will d/c goetz. Continue to work with PT to improve strength/ mobility. Pneumonia - improved. (2) Paroxysmal atrial tachycardia: Cardiology following. On beta frederic. Subjective Feels OK but very weak. Tolerated low fiber diet. Ostomy functioning. Unable to ambulate without assistance. No nausea or vomiting. continuing to diurese. Physical Exam Constitutional: no acute distress Respiratory: normal respiratory effort, lungs clear to auscultation Cardiovascular: Rate/Rhythm: regular rate and regular rhythm Gastrointestinal (Abdomen): Inspection/Auscultation: normal bowel sounds; abdomen not distended Percussion/Palpation: abdomen soft; abdomen nontender ostomy working with gas/ stool. GARRETT drain minimal output Psychiatric: A+Ox3, euthymic affect Results & Data Vital Signs (Past 12 Hours) Vital Signs Temp Pulse Resp BP Pulse Ox 10/11/18 07:15 36.8 C 90 16 155/88 H 93 10/11/18 04:15 36.6 C 81 17 158/84 H 93 10/10/18 23:58 36.6 C 77 18 153/84 H 95
[2018-10-11] MEDS: FLUCONAZOLE 200 MG/100 ML BAG IV SCH ×2 (17:01→18:14)
--- NOTE | 2018-10-11 17:21 | Hospitalist Progress Note ---
Date of Service October 11, 2018 Assessment & Plan (1) Sepsis: Possible secondary to pneumonia (multi-lobar, hospital-acquired, possible aspiration) CT chest extensive left lower lobe consolidation which favors pneumonia, possible aspiration precaution Blood cultures negative so far Continue IV vancomycin and piperacillin / tazobactam. Clinically stable Altered mental status Probable encephalopathy secondary to sepsis. Resolved. Malignant neoplasm of rectosigmoid (colon) S/P resection, POD # 11 Postop ileus KUB showed persistent small bowel distention unchanged in severity. NG tube removed Tolerated low fiber diet had a BM yesterday Discontinued TPN supplement for today Management per Surgery. Arrhythmias Runs of narrow-complex tachycardia, suspect PAT. Asymptomatic. cardiology on board starting on low dose beta frederic Continue monitor in tele Hypertension BP not at goal Lisinopril increased to 10mg BID Continue monitor BP GI prophylaxis Famotidine. VTE prophylaxis Receiving SQ heparin. Ambulate as able. Disposition To be determined. Family Medicine follow-up with Dr. Leon. Thank you for this consultation. We will follow the patient with you during their hospital stay. You can reach a member of the [facility] Medicine Team 03/09 via pager @ [phone]. Subjective Pt was seen and examined Sitting in chair with no distress getting ready to watch the game He said that he had a BM yesterday Denies any chest pain, palpitation, dizziness and SOB Physical Exam Physical Exam: General- No acute distress Head- atraumatic Eyes- PERRL, EOMI, ENT- NG tube in place Neck- supple, no JVD Lungs- clear to auscultation Heart- regular rhythm; no murmur Abdomen- +mild abdomen tenderness with palpation, +right-sided ostomy with surgical dressing Extremities- no calf tenderness Neuro- alert, oriented x 3; PERRL, EOMI; no facial palsy; no dysarthria Skin- warm & dry Results & Data Vital Signs (Past 12 Hours) Vital Signs Temp Pulse Resp BP Pulse Ox 10/11/18 15:00 36.5 C 82 16 167/86 H 93 10/11/18 11:36 36.8 C 79 18 144/84 H 94 10/11/18 07:15 36.8 C 90 16 155/88 H 93 (1) Sepsis Sepsis acute organ dysfunction status: with acute organ dysfunction Sepsis type: sepsis due to unspecified organism Severe sepsis acute organ dysfunction type: acute respiratory failure
[2018-10-11] MEDS: LISINOPRIL 10 MG TAB PO SCH (21:50)
[2018-10-12] MEDS: HEPARIN SOD 5,000 UNIT/0.5 ML VIAL SQ SCH ×3 (06:40→20:10)
[2018-10-12] MEDS: LISINOPRIL 10 MG TAB PO SCH ×2 (08:27→20:11)
[2018-10-12] MEDS: FLUTICASONE PROPIONATE NA SPR 16 GM BTL NAE SCH ×2 (08:27→20:09)
[2018-10-12] MEDS: TRIAMCINOLONE ACET 0.025% CR 15 GM TUBE EXT SCH ×2 (08:27→20:09)
[2018-10-12] MEDS: METOPROLOL TARTRATE 25 MG TAB PO SCH ×3 (08:27→20:11)
[2018-10-12] MEDS: FAMOTIDINE 20 MG in SYRINGE 3 ML IV SCH ×2 (08:45→20:16)
--- NOTE | 2018-10-12 10:04 | Cardiology Progress Note ---
Date of Service October 12, 2018 Assessment & Plan (1) Paroxysmal atrial tachycardia: Patient is setting of acute illness postsurgical state had paroxysmal atrial tachycardia documented. Plan increase metoprolol to 25 mg 3 times daily continue current dosing of lisinopril Subjective Patient seen and examined, chart, medications, telemetry reviewed. Overall feels improved. Off parenteral nutrition Martines catheter out. Still with good diuresis. Transient run of PAT last evening asymptomatic Physical Exam Constitutional: WD/WN, vitals as above Eyes: PERRL, conjunctivae normal, anicteric sclerae Neck: trachea midline, no thyromegaly Respiratory: normal respiratory effort, lungs clear to auscultation Cardiovascular: RRR, no murmur, no edema Extremities: no edema Chest (Breasts): Chest: normal inspection of chest Gastrointestinal (Abdomen): Inspection/Auscultation: + abnormal bowel sounds Percussion/Palpation: abdomen soft; abdomen nontender Musculoskeletal: no cyanosis or clubbing, extremities motor strength 5/5 Results & Data Vital Signs (Past 12 Hours) Vital Signs Temp Pulse Pulse Resp BP Pulse Ox 10/12/18 07:15 36.6 C 83 16 149/88 H 92 10/12/18 03:51 36.9 C 79 16 155/97 H 93 10/11/18 23:17 36.9 C 87 16 147/83 H 96 10/11/18 22:20 85 Laboratory Results Laboratory Results - last 24 hr 10/11/18 10/11/18 10/11/18 11:05 16:20 20:22 POC Glucose 137 H 104 H 100 H 10/12/18 07:15 POC Glucose 122 H
--- NOTE | 2018-10-12 11:00 | Surgery Progress Note ---
Date of Service October 12, 2018 Assessment & Plan (1) Malignant neoplasm of rectosigmoid (colon): POD#12 LAR/ ostomy. Doing well. TPN stopped yesterday. Martines removed. GARRETT drain removed today. Continue low fiber diet. Plans for rehab early next week. Subjective continues to diurese well. Catheter removed yesterday - using bedside urinal. Feels well. Tolerating diet. Low appetite. Ostomy bag changed this morning. Physical Exam Constitutional: WD/WN, vitals as above Respiratory: normal respiratory effort, lungs clear to auscultation Gastrointestinal (Abdomen): normal bowel sounds, soft, nontender, no hepatosplenomegaly ostomy viable with gas/ stool in bag. GARRETT drain - no output for 2 days Neurologic: moves all extremities Psychiatric: A+Ox3, euthymic affect Results & Data Vital Signs (Past 12 Hours) Vital Signs Temp Pulse Resp BP Pulse Ox 10/12/18 07:15 36.6 C 83 16 149/88 H 92 10/12/18 03:51 36.9 C 79 16 155/97 H 93 10/11/18 23:17 36.9 C 87 16 147/83 H 96
--- NOTE | 2018-10-12 14:36 | Hospitalist Progress Note ---
Date of Service October 12, 2018 Assessment & Plan (1) Sepsis: Possible secondary to pneumonia (multi-lobar, hospital-acquired, possible aspiration) CT chest extensive left lower lobe consolidation which favors pneumonia, possible aspiration precaution Blood cultures negative for bacteria and antifungal Completed course of antibiotic Has been on IV fluconazole since 10/06, will discontinue it today Clinically stable Altered mental status Probable encephalopathy secondary to sepsis. Resolved. Malignant neoplasm of rectosigmoid (colon) S/P resection, POD # 12 Postop ileus KUB showed persistent small bowel distention unchanged in severity. NG tube removed Tolerated low fiber diet had a BM yesterday Discontinued TPN supplement for today Management per Surgery. Arrhythmias Runs of narrow-complex tachycardia, suspect PAT. Asymptomatic. cardiology on board Continue Metoprolol 25mg TID Continue monitor in tele Hypertension BP not at goal Continue Lisinopril to 10mg BID Continue monitor BP GI prophylaxis Famotidine. VTE prophylaxis Receiving SQ heparin. Ambulate as able. Disposition Family Medicine follow-up with Dr. Leon. Will need placement to rehab Thank you for this consultation. We will follow the patient with you during their hospital stay. You can reach a member of the [facility] Medicine Team 03/09 via pager @ [phone]. Subjective Pt was seen and examined Sitting in chair with no distress He said that he is feeling much better He tolerated diet He had a brief episode of transient tachycardia Denies any chest pain, palpitation and SOB Physical Exam Physical Exam: General- No acute distress Head- atraumatic Eyes- PERRL, EOMI, ENT- NG tube in place Neck- supple, no JVD Lungs- clear to auscultation Heart- regular rhythm; no murmur Abdomen- +mild abdomen tenderness with deep palpation, +right-sided ostomy Extremities- no calf tenderness Neuro- alert, oriented x 3; PERRL, EOMI; no facial palsy; no dysarthria Skin- warm & dry Results & Data Vital Signs (Past 12 Hours) Vital Signs Temp Pulse Resp BP Pulse Ox 10/12/18 11:18 36.8 C 78 16 154/90 H 94 10/12/18 07:15 36.6 C 83 16 149/88 H 92 10/12/18 03:51 36.9 C 79 16 155/97 H 93 (1) Sepsis Sepsis acute organ dysfunction status: with acute organ dysfunction Sepsis type: sepsis due to unspecified organism Severe sepsis acute organ dysfunction type: acute respiratory failure
[2018-10-12] MEDS: ACETAMINOPHEN 1,000 MG/100 ML VIAL IV PRN ×2 (14:52→22:57)
[2018-10-13] MEDS: HEPARIN SOD 5,000 UNIT/0.5 ML VIAL SQ SCH ×3 (05:15→21:28)
[2018-10-13] MEDS: FAMOTIDINE 20 MG in SYRINGE 3 ML IV SCH (08:20)
[2018-10-13] MEDS: LISINOPRIL 10 MG TAB PO SCH ×2 (08:20→21:28)
[2018-10-13] MEDS: METOPROLOL TARTRATE 25 MG TAB PO SCH ×3 (08:21→21:28)
[2018-10-13] MEDS: FLUTICASONE PROPIONATE NA SPR 16 GM BTL NAE SCH ×2 (08:21→21:27)
[2018-10-13] MEDS: TRIAMCINOLONE ACET 0.025% CR 15 GM TUBE EXT SCH ×2 (08:22→21:27)
--- NOTE | 2018-10-13 10:36 | Cardiology Progress Note ---
Date of Service October 13, 2018 Assessment & Plan (1) Paroxysmal atrial tachycardia: Continue subcutaneous heparin 5000 units every 8 hours for DVT prophylaxis.Telemetry reveals predominant rhythm of sinus rhythm in the 80 bpm range. This morning at just after 7 AM there was a short mckenzie of paroxysmal atrial tachycardia, around 20 beats in duration with rate of 120 bpm. 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 Continue metoprolol 25 mg p.o. 3 times daily. Hypertension: Continue metoprolol and lisinopril 10 mg twice daily (home dose was 20 mg by mouth daily). Other diuresis noted with patient having had 7.9 L of urine output on 10/11/2018, 5.3 L of urinary output on 10/12/2018, and 4.4 L as far in the last 24 hours. We will therefore hold off on further treatment of his systolic blood pressures in the 150s until his volume status equilibrates. Subjective Chief complaint: Follow-up paroxysmal atrial tachycardia Subjective: Patient awake and conversant. He is tolerating solid food and even had santiago this morning. He has no complaints at present. Vital signs are stable. Review of Systems Review of Systems: All systems reviewed & are unremarkable except as noted in HPI & below Physical Exam Physical Exam: Temp Pulse Resp BP Pulse Ox 36.8 C 80 20 156/84 H 98 10/13/18 07:29 10/13/18 07:29 10/13/18 07:29 10/13/18 07:29 10/13/18 07:29 Constitutional: WD/WN, vitals as above Respiratory: normal respiratory effort, lungs clear to auscultation Cardiovascular: RRR, no murmur, no edema Gastrointestinal (Abdomen): Inspection/Auscultation: normal bowel sounds; abdomen not distended Percussion/Palpation: abdomen nontender Neurologic: PERRL, EOMI, accommodation nl, no face palsy, no dysarthria Results & Data Vital Signs (Past 12 Hours) Vital Signs Temp Pulse Pulse Resp BP Pulse Ox 10/13/18 07:29 36.8 C 80 20 156/84 H 98 10/13/18 04:26 36.8 C 88 16 144/82 H 91 10/13/18 00:07 37.1 C 80 17 136/81 92 10/12/18 23:08 90 Laboratory Results Intake and Output 10/12/18 10/13/18 10/13/18 22:59 06:59 14:59 Intake Total 340 / 1040 100 / 1040 Output Total 1050 / 4425 700 / 4425 Balance -710 / -3385 -600 / -3385 Intake: IV 100 / 200 100 / 200 OFIRMEV 1,000 mg In 100 ml @ 100 / 200 100 / 200 400 mls/hr IV Q8H PRN Rx#: [id number] Oral 240 / 840 Output: Urine 650 / 3150 400 / 3150 Stool 300 / 475 Gastric Drainage 400 / 800 Ileostomy/Colostomy 400 / 800 Other: Weight 97.8 kg Medications Administered Current Inpatient Medications Albuterol (Ventolin Hfa) 2 puffs INH Q4 PRN PRN Reason: Shortness Of Breath Stop: 10/30/18 14:30 Albuterol (Duoneb) 3 ml NEB Q4R PRN PRN Reason: Wheezing Stop: 11/04/18 04:55 Last Admin: 10/05/18 05:19 Dose: 3 ml Documented by: Fluticasone Propionate (Flonase) 2 sprays GIUSEPPE BID ROBERT Stop: 11/02/18 20:59 Last Admin: 10/13/18 08:21 Dose: 2 sprays Documented by: Heparin Sodium (Beef Lung) (Heparin Sod 10 Unit/Ml Flush) 5 ml FLUSH PRN PRN PRN Reason: Flush Stop: 11/10/18 01:55 Last Admin: 10/12/18 08:45 Dose: 5 ml Documented by: Heparin Sodium (Porcine) (Heparin Sodium (Porcine)) 5,000 units SQ Q8 ROBERT Stop: 10/30/18 21:59 Last Admin: 10/13/18 05:15 Dose: 5,000 units Documented by: Acetaminophen (Ofirmev) 1,000 mg in 100 mls @ 400 mls/hr IV Q8H PRN PRN Reason: MILD Pain (Scale 1,2,3) Stop: 10/30/18 14:30 Last Infusion: 10/12/18 23:24 Dose: Infused Documented by: Ondansetron HCl 8 mg/ Dextrose 54 mls @ 216 mls/hr IV Q4H PRN PRN Reason: Nausea Stop: 11/03/18 05:21 Last Infusion: 08/29/19 12:20 Dose: Infused Documented by: Famotidine 20 mg/ Syringe 5 mls @ 2.5 mls/min IV Q12 ON LICENSE OF [facility] Stop: 11/05/18 08:59 Last Admin: 10/13/18 08:20 Dose: 2.5 mls/min Documented by: Lisinopril (Zestril) 10 mg PO BID ON LICENSE OF [facility] Stop: 11/10/18 20:59 Last Admin: 10/13/18 08:20 Dose: 10 mg Documented by: Menthol (Nice) 1 stephen BUCCAL PRN PRN PRN Reason: Sore Throat Stop: 10/31/18 15:53 Last Admin: 10/05/18 04:39 Dose: 1 stephen Documented by: Metoprolol Tartrate (Lopressor) 25 mg PO TID ON LICENSE OF [facility] Stop: 11/11/18 13:59 Last Admin: 10/13/18 08:21 Dose: 25 mg Documented by: Naloxone HCl (Narcan) 0.1 mg IV Q5M PRN; Protocol PRN Reason: Oversedation/Resp Depression Stop: 10/14/18 14:30 Triamcinolone Acetonide (Kenalog 0.025%) 1 appln EXT BID ON LICENSE OF [facility] Stop: 11/08/18 12:59 Last Admin: 10/13/18 08:22 Dose: 1 appln Documented by:
--- NOTE | 2018-10-13 11:06 | Surgery Progress Note ---
Date of Service October 13, 2018 Assessment & Plan (1) Malignant neoplasm of rectosigmoid (colon): Postoperative day #13, status post low anterior resection with formation of ileostomy Patient is doing well Tolerating diet Undergoing physical therapy Plan is for transfer to rehabilitation facility Subjective Postoperative day #13, low anterior resection with formation of ileostomy Awake and alert Feels well Denies abdominal pain Tolerating fiber diet No nausea or vomiting Ileostomy is functioning Physical Exam Gastrointestinal (Abdomen): Inspection/Auscultation: normal bowel sounds and + abdominal surgical incision (Clean, dry and intact); abdomen not distended Percussion/Palpation: abdomen soft; abdomen nontender Ileostomy is pink with gas and liquid stool in the bag Results & Data Vital Signs (Past 12 Hours) Vital Signs Temp Pulse Pulse Resp BP Pulse Ox 10/13/18 07:29 36.8 C 80 20 156/84 H 98 10/13/18 04:26 36.8 C 88 16 144/82 H 91 10/13/18 00:07 37.1 C 80 17 136/81 92 10/12/18 23:08 90
--- NOTE | 2018-10-13 18:54 | Hospitalist Progress Note ---
Date of Service October 13, 2018 Assessment & Plan (1) Sepsis: Possible secondary to pneumonia (multi-lobar, hospital-acquired, possible aspiration) CT chest extensive left lower lobe consolidation which favors pneumonia, possible aspiration precaution Blood cultures negative for bacteria and antifungal Completed course of antibiotic Received fluconazole from 10/06 to 10/12 Clinically stable Altered mental status Probable encephalopathy secondary to sepsis. Resolved. Malignant neoplasm of rectosigmoid (colon) S/P resection, POD # 13 Postop ileus KUB showed persistent small bowel distention unchanged in severity. NG tube removed Tolerated low fiber diet had a BM yesterday Discontinued TPN supplement for today Management per Surgery. Arrhythmias Runs of narrow-complex tachycardia, suspect PAT. Asymptomatic. cardiology on board Continue Metoprolol 25mg TID Continue monitor in tele Hypertension BP not at goal Continue Lisinopril to 10mg BID Continue monitor BP GI prophylaxis Famotidine. VTE prophylaxis Receiving SQ heparin. Ambulate as able. Disposition Family Medicine follow-up with Dr. Leon. Will need placement to rehab Thank you for this consultation. We will follow the patient with you during their hospital stay. You can reach a member of the [facility] Medicine Team 03/09 via pager @ [phone]. Subjective Pt was seen and examined Lying in bed with no distress Pt said that he feels ok Denies any chest pain, palpitation, dizziness and SOB Physical Exam Physical Exam: General- No acute distress Head- atraumatic Eyes- PERRL, EOMI, ENT- NG tube in place Neck- supple, no JVD Lungs- clear to auscultation Heart- regular rhythm; no murmur Abdomen- +mild abdomen tenderness with deep palpation, +right-sided ostomy Extremities- no calf tenderness Neuro- alert, oriented x 3; PERRL, EOMI; no facial palsy; no dysarthria Skin- warm & dry Results & Data Vital Signs (Past 12 Hours) Vital Signs Temp Pulse Pulse Resp BP Pulse Ox 10/13/18 15:48 84 10/13/18 15:09 37.2 C 80 20 155/85 H 94 10/13/18 11:59 36.7 C 85 18 151/95 H 94 10/13/18 07:29 36.8 C 80 20 156/84 H 98 (1) Sepsis Sepsis acute organ dysfunction status: with acute organ dysfunction Sepsis type: sepsis due to unspecified organism Severe sepsis acute organ dysfunction type: acute respiratory failure
[2018-10-13] MEDS: ACETAMINOPHEN 1,000 MG/100 ML VIAL IV PRN (19:48)
[2018-10-14] MEDS: HEPARIN SOD 5,000 UNIT/0.5 ML VIAL SQ SCH ×2 (05:54→12:48)
--- NOTE | 2018-10-14 06:31 | Surgery Progress Note ---
Date of Service October 14, 2018 Assessment & Plan (1) Malignant neoplasm of rectosigmoid (colon): POD#14 plan to d/c to [facility] today if ok with med and cardiology plan to see back in office 1 week and then plan to check anastomosis with contrast will need ileostomy reversal but would like to wait until recovered from this hospitalization will remove zack and bridge under ileostomy prior to d/c (Philipp drain removed per DR Vasquez over weekend) motrin or tylenol should be enough for pain POD#10 Patient continues to mobilize fluid with good UOP per goetz Continue clear liquids with slow advancement Continue TPN until taking more meaningful nutrition orally Ongoing monitoring of ileostomy output Encourage ambulating with assistance and out of bed as tolerated Appreciate Cardiology and Medicine following along [facility] surgery group varying exceptionalities teacher over the weekend POD#9 starting to immobilize fluids(had eric 2 liter per goetz last night) will increase hyperal start clear liquids need to watch fluid status from ileostomy output will go slow with diet increase over next few days POD#8 will get acute abd series may need ugi with SBFT with Barium i am concerned why pt still has ileus vs partial bowel obstruction hopefully will not need reoperation will keep npo except meds POD #7 will pull ng tube and start liquid will ask for PIC line for hyperal since i suspect pt may need few more days before gi function maximized and also pt has poor veins discussed with intensive team will reevaluate later this pm for possible transfer to step down unit POD #6 path discussed with pt events since last seen saturday reviewed discussed case yesterday with Dr Simon(who was covering) at this time will irrigate NG tube get UGI with SBFT discussed case with intensive team may hold off hyper al today pending UGI with SBFT suspect issues related to ileus post (not unexpected) but r/o possibility of bowel obstruction intermittent all plans discussed with pt POD 3 lap assisted LAR, protective ileostomy labs pending hold on NG for now, consider KUB/NG later if not making progress restart lisinopril Subjective feels well tolerating reg diet, voiding well minimal abd discomfort Physical Exam Physical Exam: alert coherent comfortable well hydrated abd neg incision intact no cellulitis, ileostomy with good output Results & Data Vital Signs (Past 12 Hours) Vital Signs Temp Pulse Pulse Resp BP Pulse Ox 10/14/18 03:56 36.8 C 76 18 130/75 90 10/14/18 00:00 85 10/13/18 23:41 36.7 C 84 18 144/71 H 92 10/13/18 20:25 37.7 C H 79 20 139/73 94 PG Care Time/CCT Total # of Minutes Spent Total Time Spent with Patient: Total time spent is greater than 50% in coordination of care (as documented) at patient's floor/unit and/or counseling patient:
[2018-10-14 07:38] VITALS: BP 144/78; PULSE 90; TEMP 99.3; O2SAT 95
[2018-10-14] MEDS ORDERED: PANTOprazole 40 MG TAB PO SCH (09:00)
[2018-10-14] MEDS: FLUTICASONE PROPIONATE NA SPR 16 GM BTL NAE SCH (09:19)
[2018-10-14] MEDS: METOPROLOL TARTRATE 25 MG TAB PO SCH (09:20)
[2018-10-14] MEDS: LISINOPRIL 10 MG TAB PO SCH (09:21)
[2018-10-14] MEDS: TRIAMCINOLONE ACET 0.025% CR 15 GM TUBE EXT SCH ×2 (09:21→09:30)
--- NOTE | 2018-10-14 10:44 | Cardiology Progress Note ---
Date of Service October 14, 2018 Assessment & Plan (1) Paroxysmal atrial tachycardia: Continue subcutaneous heparin 5000 units every 8 hours for DVT prophylaxis. Telemetry reveals predominant rhythm of sinus rhythm in the 80 bpm range. He had recurrent runs of Paroxysmal atrial tachycardia this morning. For ease of medication administration and ongoing hypertension, increase metoprolol to 50 mg BID on discharge. Hypertension: Continue metoprolol and lisinopril 10 mg twice daily (home dose was 20 mg by mouth daily). Supervising Physician Co-Signing Physician Notes Patient seen and examined with Priscilla Atwood PA-C. Agree with findings and assessment as above. Remains asymptomatic from PSVT standpoint. Metoprolol bid and and cont'd lisinopril as above. Ok for d/c from cardiac standpoint. General: Awake, alert and oriented x 3. No acute distress. HEENT: Normocephalic, atraumatic. Pupils equal, round and reactive to light and accommodation. Extraocular muscles are intact. Anicteric sclera. Moist mucous membranes. Neck: No JVD. No bruit. Cardiovascular: Regular. Positive S-4. Normal S-1 and S-2. No S-3. No murmurs or rubs. Pulmonary: Clear to auscultation B/L. No rales, rhonchi or wheezing Abdomen: Bowel sounds x 4, soft. No rebound, guarding or tenderness. No organomegaly. Extremities: No clubbing, cyanosis or edema. +2 pedal pulses bilaterally. Skin: Warm and dry. Subjective Patient resting in bed. Feeling well. Looking forward to discharge to rehab today. Denies symptoms of palpitations, tachycardia, dizziness. no chest pain or SOB. Abdominal pain improved. Had several non sustained runs of atrial tachycardia this morning, longest lasting 15-20 beats. He is asymptomatic. Review of Systems Review of Systems: All systems reviewed & are unremarkable except as noted in HPI & below Physical Exam Physical Exam: General: NAD. A+Ox3. HEENT: Normocephalic. Atraumatic. PERRL. EOMI. Conjunctiva and sclera clear. NECK: No carotid bruits. No JVD. Carotid upstrokes are brisk. Heart: RRR. S1 and S2 noted without murmur, rubs, gallops. PMI non displaced. Lungs: Clear to auscultation and percussion. No wheezes, rhonchi, rales. Abdomen: Normal bowel sounds. Soft. Nontender. No masses or organomegaly. No abdominal bruits. Extremities: No edema. No clubbing or cyanosis. Pulses: radial=2/4, posterior tibial=2/4, dorsalis pedis = 2/4. NEURO: No focal deficits. PSYCH: Normal. Results & Data Vital Signs (Past 12 Hours) Vital Signs Temp Pulse Pulse Resp BP Pulse Ox 10/14/18 07:37 37.4 C 90 18 144/78 H 95 10/14/18 03:56 36.8 C 76 18 130/75 90 10/14/18 00:00 85 10/13/18 23:41 36.7 C 84 18 144/71 H 92 Diagnostic Findings Telemetry reviewed - Predominant rhyhtm is normal sinus in the 80's. Multiple runs of non sustained atrial tachycardia noted. Longest lasting approx 15-20 beats. Medications Administered Current Inpatient Medications Albuterol (Ventolin Hfa) 2 puffs INH Q4 PRN PRN Reason: Shortness Of Breath Stop: 10/30/18 14:30 Albuterol (Duoneb) 3 ml NEB Q4R PRN PRN Reason: Wheezing Stop: 11/04/18 04:55 Last Admin: 10/05/18 05:19 Dose: 3 ml Documented by: Fluticasone Propionate (Flonase) 2 sprays GIUESPPE BID [facility] Stop: 11/02/18 20:59 Last Admin: 10/14/18 09:19 Dose: 2 sprays Documented by: Heparin Sodium (Beef Lung) (Heparin Sod 10 Unit/Ml Flush) 5 ml FLUSH PRN PRN PRN Reason: Flush Stop: 11/10/18 01:55 Last Admin: 10/12/18 08:45 Dose: 5 ml Documented by: Heparin Sodium (Porcine) (Heparin Sodium (Porcine)) 5,000 units SQ Q8 ROBERT Stop: 10/30/18 21:59 Last Admin: 10/14/18 05:54 Dose: 5,000 units Documented by: Acetaminophen (Ofirmev) 1,000 mg in 100 mls @ 400 mls/hr IV Q8H PRN PRN Reason: MILD Pain (Scale 1,2,3) Stop: 10/30/18 14:30 Last Infusion: 10/13/18 20:05 Dose: Infused Documented by: Ondansetron HCl 8 mg/ Dextrose 54 mls @ 216 mls/hr IV Q4H PRN PRN Reason: Nausea Stop: 11/03/18 05:21 Last Infusion: 10/09/18 12:20 Dose: Infused Documented by: Lisinopril (Zestril) 10 mg PO BID [facility] Stop: 11/10/18 20:59 Last Admin: 10/14/18 09:21 Dose: 10 mg Documented by: Menthol (Nice) 1 stephen BUCCAL PRN PRN PRN Reason: Sore Throat Stop: 10/31/18 15:53 Last Admin: 10/05/18 04:39 Dose: 1 stephen Documented by: Metoprolol Tartrate (Lopressor) 25 mg PO TID [facility] Stop: 11/11/18 13:59 Last Admin: 10/14/18 09:20 Dose: 25 mg Documented by: Naloxone HCl (Narcan) 0.1 mg IV Q5M PRN; Protocol PRN Reason: Oversedation/Resp Depression Stop: 10/14/18 14:30 Pantoprazole Sodium (Protonix) 40 mg PO QAM [facility] Stop: 11/13/18 08:59 Last Admin: 10/14/18 09:20 Dose: 40 mg Documented by: Triamcinolone Acetonide (Kenalog 0.025%) 1 appln EXT BID [facility] Stop: 11/08/18 12:59 Last Admin: 10/14/18 09:30 Dose: 1 appln Documented by:
[2018-10-14] MEDS ORDERED: METOPROLOL TARTRATE 25 MG TAB PO ONE (11:15)
--- NOTE | 2018-10-14 12:11 | Hospitalist Progress Note ---
Date of Service October 14, 2018 Assessment & Plan (1) Sepsis: Possible secondary to pneumonia (multi-lobar, hospital-acquired, possible aspiration) CT chest extensive left lower lobe consolidation which favors pneumonia, possible aspiration precaution Blood cultures negative for bacteria and antifungal Completed course of antibiotic Received fluconazole from 10/06 to 10/12 Clinically stable Altered mental status Probable encephalopathy secondary to sepsis. Resolved. Malignant neoplasm of rectosigmoid (colon) S/P resection, POD # 14 Postop ileus KUB showed persistent small bowel distention unchanged in severity. NG tube removed Discontinued TPN supplement Tolerated low fiber diet Management per Surgery. Arrhythmias Runs of narrow-complex tachycardia, suspect PAT. Asymptomatic. cardiology on board Metoprolol increased to 50mg BID on discharge Case discussed with cardiology and ok from cardiac standpoint to discharge to [facility] today Follow up with cardiology in 2-4 weeks Hypertension BP improves Continue Lisinopril to 10mg BID Continue monitor BP Weakness Continue PT/OT Fall precaution Will go to rehab today GI prophylaxis On Famotidine. VTE prophylaxis Receiving SQ heparin. Ambulate as able. Disposition Family Medicine follow-up with Dr. Leon. Will discharge to [facility] for rehab Thank you for this consultation. We will follow the patient with you during their hospital stay. You can reach a member of the [facility] Medicine Team 03/09 via pager @ [phone]. Subjective Pt was seen and examined Sitting in chair with no distress He walked with therapy this morning He had a brief episodes of atrial tachycardia this morning noted on tele monitor Denies any chest pain, palpitation, dizziness sand SOB Physical Exam Physical Exam: General- No acute distress Head- atraumatic Eyes- PERRL, EOMI, ENT- NG tube in place Neck- supple, no JVD Lungs- clear to auscultation Heart- regular rhythm; no murmur Abdomen- +mild abdomen tenderness with deep palpation, +right-sided ostomy +staple Extremities- no calf tenderness Neuro- alert, oriented x 3; PERRL, EOMI; no facial palsy; no dysarthria Skin- warm & dry Results & Data Vital Signs (Past 12 Hours) Vital Signs Temp Pulse Resp BP Pulse Ox 10/14/18 07:37 37.4 C 90 18 144/78 H 95 10/14/18 03:56 36.8 C 76 18 130/75 90 (1) Sepsis Sepsis acute organ dysfunction status: with acute organ dysfunction Sepsis type: sepsis due to unspecified organism Severe sepsis acute organ dysfunction type: acute respiratory failure
[2018-10-14] MEDS: ACETAMINOPHEN 1,000 MG/100 ML VIAL IV PRN (12:55)
[2018-10-14] MEDS ORDERED: METOPROLOL TARTRATE 50 MG TAB PO SCH (21:00)
--- NOTE | 2018-10-15 11:44 | Hospitalist Progress Note ---
Date of Service October 15, 2018 Subjective received call from Physician assistance form [facility] - Mr Juan Manuel Hooks was discharged to [facility] rehab yesterday 10/14/[address] Turcios ( off service today ) [facility] concerned as Pt's noted to have significant leukocytosis 18 K with left shift ( was 10 K on 10/11/18 ) febrile , tachycardic HR in 100, hypotensive SBP in low 100 's ( was 144/78 prior to discharge yesterday ) given pt's change in status concern for possible infection [facility] is advised to send pt to ER for evaluation ER updated Marge Lopez MD
--- NOTE | 2018-10-18 16:24 | Discharge Summary ---
PRIMARY DISCHARGE DIAGNOSES: 1. Rectosigmoid adenocarcinoma. 2. Postoperative ileus. 3. Hospital-acquired pneumonia, likely aspiration. 4. Paroxysmal atrial tachycardia. PROCEDURE PERFORMED: Laparoscopic low anterior resection with protective ileostomy and appendectomy. CONSULTATIONS: 1. [facility] Front End Software Engineer. 2. [facility] Hospitalist. 3. [facility] Cardiology. HOSPITAL COURSE: The patient is a 73-year-old male with adenocarcinoma of the rectosigmoid, taken to the Operating Room for low anterior resection. The procedure was well tolerated. He was transferred to the surgical floor. He was doing well the next morning and began clear liquids but then developed some nausea overnight. By day 3, he was having output from the ileostomy, but continued to have nausea and some distention. He had some vomiting and on day 4 he became tachycardic and hypoxic. He was transferred to the Intensive Care and started on broad spectrum antibiotics for SIRS. Chest CT showed left lower lobe pneumonia. Abdominal CT showed postoperative findings and apparent ileus. An NG tube was inserted. He began improving within 24 hours. On postoperative day 6, he was taken for small bowel follow through which showed delayed passage of contrast. By day 7, he had some returning bowel function, but a PICC line was placed for TPN given his overall slow progress. He was transferred to PCU. There he had an episode of paroxysmal atrial tachycardia. Cardiology was consulted and started on metoprolol and titrated this over the next several days. By day 9, he was having increasing ileostomy output, was started back on a clear liquid diet. He is able to tolerate advancing diet on day 10. TPN was discontinued the following day. He continued to make progress over the next several days. GARRETT drain was removed. He was making some progress with physical therapy, although rehab was recommended. On day 14, he was stable for transfer to [facility]. DISCHARGE INSTRUCTIONS: Continue low residue diet. Follow up with Dr. Roberts in 1 week. DISCHARGE MEDICATIONS: Metoprolol 50 mg p.o. b.i.d., lisinopril 10 mg p.o. b.i.d., Tylenol 325 mg as needed, simvastatin 40 mg at bedtime, montelukast 10 mg daily, loratadine 10 mg daily, lansoprazole 15 mg p.o. daily, Mucinex 600 mg b.i.d., glucosamine supplement, Flonase 2 sprays as needed, Astelin nasal spray as needed, Ventolin HFA 2 puffs q. 4 hours as needed and multivitamin. MTDD
--- NOTE | 2018-10-21 05:16 | Coding Query ---
CODING QUERY To promote full compliance with coding requirements relating to patient care, provider participation is requested in all cases of wheat grower uncertainty. Please assist us with the question(s) below: Coding Question(s): Patient developed an Ileus 3 days postop. Please check below the phrase that describes the Ileus. Thanks for your help! NAHED Esquivel [facility] [place] Physician's Response(s): ____x___ The postoperative Ileus is an expected occurrence after this surgery The postoperative ileus is a complication of the surgery Cannot clinically correlate if the postoperative ileus is a complication or expected occurrence Other/ Please document: Principal Diagnosis: "that condition established after study, to be chiefly responsible for occasioning the admission of the patient to the hospital for care." Co-Existing Principal Diagnosis: "when two or more diagnoses equally meet the criteria for principal diagnosis as determined by the circumstances of admission, diagnostic work up, and/or therapy provided, and the Alphabetic Index, Tabular List, or another coding guideline does not provide sequencing direction, any one of the diagnoses may be sequenced first." "When the physician has documented what appears to be a current diagnosis in the body of the record, but has not included the diagnosis in the final diagnostic statement, the physician should be asked whether the diagnosis should be added." (Source [facility]oding [facility] 2 QTR90. p3-4) MICHELLE
== END 2018-10-14 14:30 | DRG 329 ==
LOC: ASU 06:46 → 3W 13:05 → 1E 10-04 09:22 → 2E 10-07 16:23

== ENCOUNTER 2018-10-15 12:37 | Inpatient (IN) ==
[2018-10-15] MEDS ORDERED: SODIUM CHLORIDE 0.9% 1000ML 1,000 ML IV ONE ×2 (12:53→18:17)
--- NOTE | 2018-10-15 13:09 | XRay Report ---
XR chest 1V portable CLINICAL HISTORY: Sepsis COMPARISON STUDY: 10/07/2018 FINDINGS: The heart is enlarged. There is mild pulmonary vascular congestion. There are increasing le ft lower lobe airspace opacities, focal edema versus pneumonia. Postsurgical changes are present with in the cervical spine[ IMPRESSION: 1. Cardiomegaly and mild pulmonary vascular congestion 2. Increasing left lower lung zone airspace opacities, focal edema versus pneumonia. Clinical and rad iographic follow-up is recommended Electronically signed by: Darci Cantor M.D. 10/15/2018 1:08 PM
[2018-10-15 13:28] LABS: Hematocrit (blood only) 34.5 % (42-52); Hemoglobin 11.7 g/dL (14.0-18.0); Mean Corpuscular Hgb Conc 33.9 g/dL (32-36); Mean Corpuscular Volume 83.3 fL (80-100); Mean Platelet Volume 9.3 fL (7.4-10.4); Nucleated RBC # (auto) 0.08 K/uL (0-0); Nucleated RBC % (auto) 0.4 %; Platelet Count 541 K/uL (130-400); RDW Coefficient of Variation 15.2 % (11.5-14.5); RDW Standard Deviation 46.6 fL (36.4-46.3); Red Blood Count 4.14 M/uL (4.7-6.1); White Blood Count 19.17 K/uL (4.8-10.8)
[2018-10-15 13:29] LABS: Base Excess VBG -0.8 mEq/L; HCO3 VBG 24 mmol/L; Oxygen Saturation VBG < 60.0 %; PCO2 VBG 40 mmHg (38-50); PO2 VBG 27 mmHg
[2018-10-15 13:38] LABS: iSTAT Creatinine 1.6 mg/dl (0.6-1.3); iSTAT Hemoglobin 12.2 g/dl (14.0-18.0); iSTAT Ionized Calcium 1.22 mmol/l (1.12-1.32); iSTAT Potassium 4.9 mEq/L (3.3-5.0)
[2018-10-15 13:52] LABS: Albumin Level 2.4 gm/dl (3.4-5.0); BUN Creatinine Ratio 17.4 (10-20); Basophils # (auto) 0.05 K/uL (0-0.2); Basophils % (auto) 0.3 %; Bilirubin Direct 0.5 mg/dl (0-0.2); Calcium 9.7 mg/dl (8.5-10.1); Creatinine Clr Calc Pharmacy 49.5 ml/min; Eosinophils # (auto) 0.01 K/uL (0-0.5); Eosinophils % (auto) 0.1 %; Est GFR (African American) 49.6; Est GFR (Non-African American) 42.8; Immature Granulocytes # (auto) 0.14 K/uL (0.00-0.02); Immature Granulocytes % (auto) 0.7 %; Lymphocytes # (auto) 0.66 K/uL (1.2-3.4); Lymphocytes % (auto) 3.4 %; Magnesium 2.3 mg/dl (1.8-2.4); Monocytes # (auto) 2.31 K/uL (0.11-0.59); Monocytes % (auto) 12.1 %; Neutrophils % (auto) 83.4 %; Potassium 4.9 mmol/L (3.5-5.1)
[2018-10-15 13:54] LABS: Albumin Globulin Ratio 0.5 (0.9-2); Bilirubin,Total 1.3 mg/dl (0.2-1); Globulin 4.9 gm/dl (2.5-4.0); Phosphorus 4.2 mg/dl (2.5-4.9); Total Protein 7.3 gm/dl (6.4-8.2)
[2018-10-15] MEDS ORDERED: VANCOMYCIN CONSULT ACTIVE PRN ×2 (15:23→20:13)
[2018-10-15] MEDS ORDERED: PIPERACILLIN/TAZOBACTAM 4.5 GM/120 ML BAG IV ONE (15:23)
[2018-10-15] MEDS ORDERED: VANCOMYCIN HCL 2,000 MG in SODIUM CHLORIDE 0.9% 500 ML IV ONE (15:23)
[2018-10-15] MEDS ORDERED: ACETAMINOPHEN 1,000 MG/100 ML VIAL IV STA (15:24)
[2018-10-15 16:09] LABS: INR 1.2 (0.9-1.1); Partial Thromboplastin Ratio 1.2; Partial Thromboplastin Time 31.2 Seconds (21.0-31.0)
[2018-10-15 16:09] LABS: Appearance Urine Clear (Clear); Bacteria Urine Automated Negative (Negative); Blood Urine Negative (Negative); Color Urine Orange; Glucose Urine UA Negative (Negative); Ketones Urine Negative (Negative); Leukocyte Esterase Urine Trace (Negative); Nitrite Urine Positive (Negative); Protein Urine Negative (Negative); RBC Urine Automated 0-4 /hpf (0-4); Specific Gravity Urine 1.027 (1.000-1.030); Urobilinogen Urine Negative (Negative)
[2018-10-15 16:10] LABS: Bilirubin Urine 1+ (Negative)
[2018-10-15 16:11] LABS: Ictotest Urine Positive (Negative)
--- NOTE | 2018-10-15 16:31 | CT Scan Report ---
CT abd pelvis wo con CLINICAL HISTORY: 73 years-old Male presenting with generalized abdominal pain, Ams, leukocytosis, s/ p bowel resection. TECHNIQUE: Multidetector CT of the abdomen and pelvis was performed without the use of intravenous co ntrast. IV contrast: None. One or more dose lowering techniques were used consistent with the princip les of ANGELICA (as low as reasonably achievable), including automatic exposure control, mA or kV adjust ment to individual patient size, and/or use of iterative reconstruction. COMPARISON: 10/04/2018. CT DOSE (mGy.cm): The estimated cumulative dose is 1089.62 mGycm. 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 Lung bases: Normal heart size. Coronary artery and aortic valve calcification. No pericardial or pleu ral effusion. Extensive solid consolidation in the lower lobes increased from prior. Liver: Normal morphology. Normal density. Well-defined hypodense lesion near the hepatic dome likely hepatic cyst. Biliary: No gross biliary ductal dilatation allowing for noncontrast technique. Normal gallbladder. Pancreas: Mild parenchymal atrophy. Spleen: Normal noncontrast appearance. Adrenal glands: Normal noncontrast appearance. Kidneys and ureters: Mild bilateral perinephric fat infiltration, nonspecific. Normal noncontrast eric earance of the renal parenchyma. No nephrolithiasis or hydronephrosis. Ureters nondistended. Bladder: Circumferential bladder wall thickening. Focus of intraluminal gas likely relates to recent catheterization. Pelvic organs: Prostate enlargement likely secondary to benign prostatic hyperplasia. Bowel: Circumferential wall thickening of the mid to lower rectum with diffuse mild fatty infiltratio n of the nasal: An associated mild fluid in the presacral region and slight fascial thickening of the mesorectal fascia. A end to side or side to side colocolonic anastomosis is noted at the upper rectu m. There is mild focal wall thickening in this region along the left lateral aspect (series 3 image 3 [id number]). The colon is diffusely decompressed with a double barrel ileostomy in the right lower quadrant. No bowel obstruction. Peritoneal cavity: Trace free fluid in the pelvis. No free intraperitoneal gas. Lymph nodes: No gross lymphadenopathy allowing for noncontrast technique. Vasculature: Atherosclerosis of the normal caliber abdominal aorta. Abdominal wall: Postsurgical changes of the infraumbilical abdominal wall with mild fluid and inflamm atory change within an incision site. The prior surgical drain has been removed as have the skin stap les. No well-defined fluid collection to suggest abscess allowing for noncontrast technique. Trace fl uid superficial to the peritoneal lining anteriorly in the lower abdomen. Foci of gas in the anterior abdominal wall likely relates to the recent surgical drains. Right mid abdominal double barrel ileos xiomy as mentioned. Musculoskeletal: Extensive multilevel degenerative changes of the spine. Posterior lumbar fusion hard bodlen. IMPRESSION: 1. Extensive bilateral lower lobe consolidation increased from prior. While this may represent a sig nificant atelectatic component, this is suspicious for underlying pneumonia. Aspiration pneumonia not excluded. 2. Circumferential wall thickening of the mid to lower rectum concerning for proctitis, either infec tious or related to prior radiation. 3. Possible wall thickening along the left lateral aspect of the upper rectum at the site of a coloc olonic anastomosis. This is indeterminate and an underlying lesion is not excluded. Gastroenterology consultation is recommended on a nonurgent basis. 4. 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 No bowel obstruction. 5. Postsurgical changes of the infra umbilical anterior abdominal wall with extensive fluid and infl ammatory change in the incision site as well as soft tissue emphysema in the subcutaneous fat. No dis crete abscess allowing for the lack of intravenous contrast. Correlate clinically to exclude incision site infection. 6. 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 Electronically signed by: Jamel Miguel M.D. 10/15/2018 4:29 PM
--- NOTE | 2018-10-15 17:53 | History & Physical Report ---
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 Possible sepsis 2/2 hospital acquired PNA, possible aspiration -Developed HAP vs. aspiration PNA during previous admission, completed course of zosyn and vanc during admission (started on 10/04) as well as receiving fluconazole from 10/06 to 10/12 -Blood cultures negative for bacteria and antifungal prior to discharge to [facility] -Presenting today with lethargy and worsening dyspnea on exertion with SBP in 90s-100, HR of 92, leukocytosis of 19. Procalcitonin elevated at 2.62. Lactate level normal -CXR with increasing left lower lung zone airspace opacities, focal edema versus pneumonia -Blood cultures collected. 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 Roberts -Post op course complicated by ileus, was tolerating low fiber diet prior to discharge -No abdominal pain today, has liquid output from colostomy -CT abd/pelvis with possible wall thickening along the left lateral aspect of the upper rectum at the site of a colocolonic anastomosis. This is indeterminate and an underlying lesion is not excluded. 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 No bowel obstruction. No evidence of abscess -Routine gen surg consult to evaluate surgical site and ostomy -C diff ordered Acute kidney injury -Cr elevated at 1.58 (baseline Cr ~0.7) -In setting of poor PO intake -Renal ultrasound pending -Gentle fluids, hold lisinopril Paroxysmal Atrial Tachycardia -Had asymptomatic runs of narrow-complex tachycardia during previous admission -Evaluated by cardiology. Metoprolol increased to 50mg BID on discharge -Will continue metoprolol with hold parameters Hypertension -BP on lower side with SBP 90s-100s -Hold lisinopril for now, also with NABIL DVT Ppx: SQ heparin Code status: FULL PCP: Carolyn Dispo: Observation telemetry. Plan to return home once medically stable. Patient seen in collaboration with Dr. Muir. Please see addendum. 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 Patient was recently admitted from September 30-October 14 for colon resection by Dr. Roberts. Postop course was complicated by ileus and left lobar pneumonia with concern for aspiration, treated with full course of Vanco and Zosyn. During admission, patient was seen by cardiology service for paroxysmal atrial tachycardia and was started on low-dose beta-frederic. Patient was discharged yesterday to [facility] but repeat lab work done at their facility today revealed leukocytosis, tachycardia and low systolic blood pressure in the 90s. Due to abnormal labwork and vitals, along with dyspnea on exertion and lethargy, patient was sent to ED for further evaluation. Patient afebrile with initial BP of 132/78 but now 94/53. HR of 87, leukocytosis of 19, lactic normal at 1.6, procalcitonin elevated 2.62. Creatinine elevated 1.58 (baseline~ 0.7). CXR with increasing left lower lung zone airspace opacities, focal edema versus pneumonia. CT abd/pelvis with possible wall thickening along the left lateral aspect of the upper rectum at the site of a colocolonic anastomosis. This is indeterminate and an underlying lesion is not excluded. 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 No bowel obstruction. No evidence of abscess. Patient's main complaint is fatigue. Also feels short of breath compared to yesterday. Has a nonproductive cough. Denies fever, chills, lightheadedness, visual changes, chest pain, palpitations, nausea, vomiting, abdominal pain, dysuria or lower extremity swelling. Has had liquid output from colostomy bag. Allergies Allergy/AdvReac Type Severity Reaction Status Date / Time pollen extracts Allergy Unknown Verified 09/30/18 11:44 Home Medications Home Medications Medication Instructions Recorded Confirmed Type Centrum Silver Men 1 tab PO QAM 05/19/18 10/15/18 History albuterol sulfate [Ventolin HFA] 2 puff INHALATION Q4 PRN 05/19/18 10/15/18 History azelastine 2 spray INTRANASAL Q12H 05/19/18 10/15/18 History fluticasone propionate [Flonase 2 spray INTRANASAL BID 05/19/18 10/15/18 History Allergy Relief] tbufyncvmba-krsxudtfi-lar C-Mn 1 cap PO QAM 05/19/18 10/15/18 History guaifenesin [Mucinex] 600 mg PO BID 05/19/18 10/15/18 History lansoprazole 15 mg PO QAM 05/19/18 10/15/18 History loratadine 10 mg PO QAM 05/19/18 10/15/18 History montelukast 10 mg PO PM 05/19/18 10/15/18 History simvastatin 40 mg PO HS 05/19/18 10/15/18 History acetaminophen [Tylenol] 325 mg PO Q6H PRN #30 tab 10/14/18 10/15/18 Rx lisinopril 10 mg PO BID 30 Days #60 tab 10/14/18 10/15/18 Rx metoprolol tartrate 50 mg PO BID 30 Days #60 tab 10/14/18 10/15/18 Rx triamcinolone acetonide 1 applic EXT BID 30 Days #1 tube 10/14/18 10/15/18 Rx Past Med/Surg History Medical History Paroxysmal atrial tachycardia Postoperative ileus Acute hypoxemic respiratory failure Admitted to intensive care unit Acute metabolic encephalopathy Hospital acquired PNA Vertigo (Chronic) Vomiting (Acute) Anemia History of colon polyps Malignant neoplasm of rectosigmoid (colon) (Chronic) Arthritis (Acute) Asthma inhaler prn, mostly assc with seasonal allergies, has not used since July BPH (benign prostatic hyperplasia) Cervical stenosis of spine Chronic back pain GERD (gastroesophageal reflux disease) Glaucoma History of GI bleed Off and on 2/2 malignancy, no blood transfusions per pt History of IBS History of stomach ulcers Hyperlipidemia Hypertension Osteoarthritis Vertigo Surgical History History of colonoscopy History of esophagogastroduodenoscopy (EGD) History of fusion of cervical spine c6-t1; needs support with neck, pt states he can move his neck back History of lumbar spinal fusion History of lumbar surgery TO REMOVE SPINAL CYST History of tonsillectomy and adenoidectomy History of tooth extraction INFECTED TOOTH POST ROOT CANCAL History of wisdom tooth extraction S/P colon resection Laparoscopic Assisted Low Anterior Resection with Protective Ileostomy, Appendectomy Dr. Roberts 09/30/18 Family History Grandfather (Maternal) , age 73 of bladder cancer No problems noted. Grandmother (Maternal) , age 83 of [place] No problems noted. Grandmother (Paternal) , of heart attack No problems noted. Grandfather (Paternal) , of motor vehicle collision No problems noted. Father , age 69 of heart attack No problems noted. Mother , age 98 of kidney failure No problems noted. Sister Age: 70 Cancer malignant ovarian tumor removed Daughter Age: 44 No problems noted. Daughter Age: 41 Bipolar disorder Other FHx: cancer No family history of adverse response to anesthesia Social History Preferred Language: Icelandic Communication Ability: Effective Mdm Developer Required: No Beliefs That Will Affect Care: None marital status: Current Living Situation: Spouse Current Living Situation Comment: Lives with and daughter current occupational status: retired Other Information That Helps Us Care for You: Yes Feels Safe at Home: Yes Safety Concerns: Feels Safe At This Time Smoking Status: Never smoker Do You Dip or Chew Tobacco: No ; Second Hand Exposure: Yes ; Hx Alcohol Use: No Hx Substance Use: No Review of Systems Review of Systems: At least ten systems reviewed and negative except as noted in the HPI. Physical Exam Physical Exam: General Appearance: WD/WN, vitals as above, NAD, appears lethargic but opens eyes and answers questions appropriately when asked, conversing easily Head: normocephalic, atraumatic Eyes: normal inspection, PERRL, conjunctivae normal, anicteric sclerae ENT: external ear and nose normal, oropharynx normal (dry mucous membranes) Neck: trachea midline, no thyromegaly normal visual inspection Respiratory: normal respiratory effort, left lower lung with rales, poor air movement throughout lung ramon. No wheezes or rhonchi. No accessory muscle use, O2 sat 92% on room air Cardiovascular: regular rate, rhythm, no murmur, normal peripheral pulses. Vessels: no JVD or carotid bruit Chest: normal inspection of chest Abdomen/GI: normal bowel sounds, soft, nontender, no hepatosplenomegaly,+Ostomy Extremities/Musculoskelatal: no cyanosis or clubbing, extremities motor strength 5/5 Neurologic: PERRL, EOMI, accommodation nl, no face palsy, no dysarthria CN's II-XI intact bilaterally and moves all extremities Psychiatric: A+Ox3, euthymic affect Skin: no rashes, normal color, warm/dry Results & Data Vital Signs (Past 12 Hours) Vital Signs Temp Pulse Resp BP Pulse Ox 10/15/18 17:45 87 15 94/53 L 92 10/15/18 17:30 88 15 111/53 L 94 10/15/18 17:15 88 15 99/55 L 93 10/15/18 17:00 86 14 107/55 L 93 10/15/18 16:45 86 12 109/55 L 93 10/15/18 16:37 37.4 C 87 14 103/54 L 92 10/15/18 16:30 94 H 16 10/15/18 16:00 92 H 16 114/55 L 92 10/15/18 15:45 96 H 18 115/62 10/15/18 15:30 97 H 23 129/62 10/15/18 15:15 105 H 22 134/71 92 10/15/18 15:00 94 H 19 122/63 95 10/15/18 14:31 94 H 18 133/115 H 96 10/15/18 14:30 94 H 19 96 10/15/18 14:15 92 H 20 112/61 96 10/15/18 14:01 95 H 23 95 10/15/18 14:00 98 H 30 H 145/74 H 96 10/15/18 13:45 90 18 116/63 96 10/15/18 13:30 91 H 19 111/62 95 10/15/18 13:15 90 20 95 10/15/18 13:03 97 10/15/18 13:02 92 H 22 100 10/15/18 12:50 94 10/15/18 12:46 36.7 C 90 18 132/78 90 10/15/18 12:44 90 25 H 132/78 99 Laboratory Results Short CBC 10/15/18 Range/Units 13:12 WBC 19.17 H (4.8-10.8) K/uL Hgb 11.7 L (14.0-18.0) g/dL Hct 34.5 L (42-52) % Plt Count 541 H (130-400) K/uL BMP 10/15/18 13:12 Sodium 134 L Potassium 4.9 Chloride 100 Carbon Dioxide 24 BUN 28 H Creatinine 1.58 H Glucose 122 H Calcium 9.7 Liver Function 10/15/18 Range/Units 13:12 Total Bilirubin 1.3 H (0.2-1) mg/dl Direct Bilirubin 0.5 H (0-0.2) mg/dl AST 34 (15-37) U/L ALT 136 H (12-78) U/L Alkaline Phosphatase 208 H (45-117) U/L Albumin 2.4 L (3.4-5.0) gm/dl Urine 10/15/18 Range/Units 16:00 Urine Color [place] Urine Appearance Clear (Clear) Urine pH 5.0 (4.5-7.5) Ur Specific [place] 1.027 (1.000-1.030) Urine Protein Negative (Negative) Urine Glucose (UA) Negative (Negative) Diagnostic Findings CXR: IMPRESSION: 1. Cardiomegaly and mild pulmonary vascular congestion 2. Increasing left lower lung zone airspace opacities, focal edema versus pneumonia. Clinical and radiographic follow-up is recommended CT abd/pelvis: IMPRESSION: 1. Extensive bilateral lower lobe consolidation increased from prior. While this may represent a significant atelectatic component, this is suspicious for underlying pneumonia. Aspiration pneumonia not excluded. 2. Circumferential wall thickening of the mid to lower rectum concerning for proctitis, either infectious or related to prior radiation. 3. Possible wall thickening along the left lateral aspect of the upper rectum at the site of a colocolonic anastomosis. This is indeterminate and an underlying lesion is not excluded. Gastroenterology consultation is recommended on a nonurgent basis. 4. 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 No bowel obstruction. 5. Postsurgical changes of the infra umbilical anterior abdominal wall with extensive fluid and inflammatory change in the incision site as well as soft tissue emphysema in the subcutaneous fat. No discrete abscess allowing for the lack of intravenous contrast. Correlate clinically to exclude incision site infection. 6. 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 Supervising Physician Co-Signing Physician Notes Patient is a 73 yr male with history of malignant neoplasm of the sigmoid who recently was admitted at [facility], underwent colon resection, treated for multilobular pneumonia, postop ileus and was discharged to rehab facility presents with progressive worsening shortness of breath on exertion, lethargy. Patient was noted to have an elevated white blood cell count and was hypotensive , tachycardic while evaluated at rehab facility. Patient was sent to ED for further evaluation. Please review HPI for complete details of presentation. CT abdomen suggestive of extensive bilateral lower lobe consolidation which is slightly progressed from prior. Also noted findings suggestive of chronic bladder outlet obstruction secondary to prostatomegaly. Labs showed white count of 19 K, procalcitonin elevated at 2.6. Also noted elevated ALT at 136, alkaline phosphatase 208. On exam patient is moderately built and nourished, no apparent distress, normocephalic atraumatic, lungs--coarse breath sounds, basal crackles, S1-S2, no murmur, abdomen soft nontender,+ ostomy bag with feces, no pedal edema, grossly no focal neurological deficits. Patient is admitted for management of sepsis secondary to healthcare associated pneumonia, NABIL. Agree with broad-spectrum antibiotics--Vanco, Zosyn. Blood cultures obtained. IV fluids. Requested speech evaluation for possible aspiration. Also requested surgery evaluation for ostomy site wound check. Avoid nephrotoxic agents as able. Check renal ultrasound to rule out obstruction. Bladder scan PRN. Repeat LFTs in a.m. I personally reviewed the record. Patient is interviewed and examined at bedside. Patient's care is coordinated with Kalpana Vuong PA-C. Please refer to the documentation above for details of patient's presentation and for discussion of other issues.
[2018-10-15] MEDS ORDERED: ALBUTEROL HFA 8 GM INHALER INH PRN (20:10)
[2018-10-15] MEDS ORDERED: ONDANSETRON INJ 2 MG/ML 2 ML VIAL IV PRN (20:10)
[2018-10-15] MEDS ORDERED: ALBUT/IPRATROP 3MG/0.5MG NEB 3 ML VIAL NEB PRN (20:10)
[2018-10-15] MEDS ORDERED: PIPERACILL/TAZOBAC CONSULT ACTIVE PRN (20:14)
[2018-10-15] MEDS: SODIUM CHLORIDE 0.9% 1000ML 1,000 ML IV SCH (20:22)
--- NOTE | 2018-10-15 20:50 | Pharmacy Report ---
Pharmacy Abx Initial Consult - Date of Service October 15, 2018 - Pharmacy Dosing Scope Date of Consult: 10/15/18 Consultation requested by: Kalpana Vuong Pharmacy is consulted to initiate Vancomycin and zosyn IV/PO dosing therapy, order appropriate labs and adjust drug dose/frequency. - Subjective The patient is a 73 year old M admitted on 10/15/18 18:40. - Objective Height: 5 ft 11 in Weight: 91.9 kg Vital Signs (Past 12hrs): Vital Signs Temp Pulse Pulse Resp BP BP Pulse Ox 10/15/18 20:05 36.7 C 95 H 20 132/52 L 93 10/15/18 19:43 89 18 126/60 94 10/15/18 17:45 87 15 94/53 L 92 10/15/18 17:30 88 15 111/53 L 94 10/15/18 17:15 88 15 99/55 L 93 10/15/18 17:00 86 14 107/55 L 93 10/15/18 16:45 86 12 109/55 L 93 10/15/18 16:37 37.4 C 87 14 103/54 L 92 10/15/18 16:30 94 H 16 10/15/18 16:00 92 H 16 114/55 L 92 10/15/18 15:45 96 H 18 115/62 10/15/18 15:30 97 H 23 129/62 10/15/18 15:15 105 H 22 134/71 92 10/15/18 15:00 94 H 19 122/63 95 10/15/18 14:31 94 H 18 133/115 H 96 10/15/18 14:30 94 H 19 96 10/15/18 14:15 92 H 20 112/61 96 10/15/18 14:01 95 H 23 95 10/15/18 14:00 98 H 30 H 145/74 H 96 10/15/18 13:45 90 18 116/63 96 10/15/18 13:30 91 H 19 111/62 95 10/15/18 13:15 90 20 95 10/15/18 13:03 97 10/15/18 13:02 92 H 22 100 10/15/18 12:50 94 10/15/18 12:46 36.7 C 90 18 132/78 90 10/15/18 12:44 90 25 H 132/78 99 Lab Results (24hrs): Laboratory Tests (24 Hours) 10/15/18 10/15/18 10/15/18 13:12 13:12 13:12 WBC 19.17 H Neut # (Auto) 16.00 H Creatinine 1.58 H Est Cr Clr Drug Dosing 49.5 Procalcitonin 2.62 H Micro Results: 10/15/18 13:12 Aerobic Blood Culture - Pending Blood Anaerobic Blood Culture - Pending 10/15/18 13:00 Aerobic Blood Culture - Pending Blood Anaerobic Blood Culture - Pending - Risk Factors for Resistance * Resident in a [facility]ci or extended-care facility ([facility]) * Hospitalization for 48 hours or more within the past 90 days * Antimicrobial use within the last 90 days : mefoxin - Assessment & Plan Assessment 73 year old M admitted for HCAP vs aspiration. * Pt in NABIL. Baseline Scr ~0.8 mg/dL. * Anticipate renal function improving with hydration. Estimated PK parameters based on baseline Scr. My need to adjust dose if elevated Scr persists. * Blood cultures pending Plan Vancomycin and zosyn for treatment of HCAP vs aspiration pneumonia. Vancomycin IV * Estimated PK Parameters: Vd 0.7 L/kg, Jarad 0.086 hr-1, t1/2 8hr (based on baseline SCr of 0.8mg/dL) * Loading dose: 2000 mg (22 mg/kg) * Maintenance dose: 1500 mg IV (16 mg/kg) every 12 hours * Goal trough level for HCAP : 15 to 20 mcg/mL * Trough/Random level ordered for 10/17/18 @1530 Piperacillin/tazobactam * 4.5 g bolus administered over 30 minutes, then 3.375 g IV extended infusion every 8 hours for CrCl greater than 20 mL/min Pharmacy will continue to follow and will adjust dose/frequency as necessary. Thank you.
--- NOTE | 2018-10-15 21:11 | Emergency Department Note ---
Entered by Kelly Burgess acting as a scribe for Demetri Steen MD History of Present Illness General Chief complaint: Lethargic Stated complaint: lethargic / [facility] Time Seen by Provider: 10/15/18 12:48 Source: patient History of Present Illness Onset (ago): day(s) (today) Location: head Pain Consistency: + other (episode) Quality: + other (lethargy) Associated symptoms: + denies other symptoms (any pain) and + other (tired) The patient is a 73 year old male who presents to the Emergency Room with complaints of an episode of lethargy starting today. Nursing staff states that the patient is coming from [facility] after being there for 1 day following a colon resection for colon cancer done on the 30 of September. The patients family states that after the surgery he developed a pneumonia and was moved to the ICU for 4 days. They state that he then was moved to the [facility] till yesterday when they transferred him to [facility]. They report that when he left yesterday he would respond to commands and would talk to you, but today he doesnt respond hardly at all. They note that when he does, he is very groggy and falls asleep while talking to you. They note that he has been receiving Tylenol at [facility], but he had been on a Diluadid pump in the hospital. The patient complains of feeling tired. The patient denies any pain. Home Medications Home Medications Medication Instructions Recorded Confirmed Type Centrum Silver Men 1 tab PO QAM 05/19/18 10/15/18 History albuterol sulfate [Ventolin HFA] 2 puff INHALATION Q4 PRN 05/19/18 10/15/18 H istory azelastine 2 spray INTRANASAL Q12H 05/19/18 10/15/18 History fluticasone propionate [Flonase 2 spray INTRANASAL BID 05/19/18 10/15/18 History Allergy Relief] khchnelgwjr-yvdzwwxhj-tat C-Mn 1 cap PO QAM 05/19/18 10/15/18 History guaifenesin [Mucinex] 600 mg PO BID 05/19/18 10/15/18 History lansoprazole 15 mg PO QAM 05/19/18 10/15/18 History loratadine 10 mg PO QAM 05/19/18 10/15/18 History montelukast 10 mg PO PM 05/19/18 10/15/18 History simvastatin 40 mg PO HS 05/19/18 10/15/18 History acetaminophen [Tylenol] 325 mg PO Q6H PRN #30 tab 10/14/18 10/15/18 Rx lisinopril 10 mg PO BID 30 Days #60 tab 10/14/18 10/15/18 Rx metoprolol tartrate 50 mg PO BID 30 Days #60 tab 10/14/18 10/15/18 Rx triamcinolone acetonide 1 applic EXT BID 30 Days #1 tube 10/14/18 10/15/18 Rx Allergies Allergy/AdvReac Type Severity Reaction Status Date / Time pollen extracts Allergy Unknown Verified 09/30/18 11:44 Past Med/Surg History Medical History Paroxysmal atrial tachycardia Postoperative ileus Acute hypoxemic respiratory failure Admitted to intensive care unit Acute metabolic encephalopathy Hospital acquired PNA Vertigo (Chronic) Vomiting (Acute) Anemia History of colon polyps Malignant neoplasm of rectosigmoid (colon) (Chronic) Arthritis (Acute) Asthma inhaler prn, mostly assc with seasonal allergies, has not used since July BPH (benign prostatic hyperplasia) Cervical stenosis of spine Chronic back pain GERD (gastroesophageal reflux disease) Glaucoma History of GI bleed Off and on 2/2 malignancy, no blood transfusions per pt History of IBS History of stomach ulcers Hyperlipidemia Hypertension Osteoarthritis Vertigo Surgical History History of colonoscopy History of esophagogastroduodenoscopy (EGD) History of fusion of cervical spine c6-t1; needs support with neck, pt states he can move his neck back History of lumbar spinal fusion History of lumbar surgery TO REMOVE SPINAL CYST History of tonsillectomy and adenoidectomy History of tooth extraction INFECTED TOOTH POST ROOT CANCAL History of wisdom tooth extraction S/P colon resection Laparoscopic Assisted Low Anterior Resection with Protective Ileostomy, Appendectomy Dr. Roberts 09/30/18 Family History Grandfather (Maternal) , age 73 of bladder cancer No problems noted. Grandmother (Maternal) , age 83 of [place] No problems noted. Grandmother (Paternal) , of heart attack No problems noted. Grandfather (Paternal) , of motor vehicle collision No problems noted. Father , age 69 of heart attack No problems noted. Mother , age 98 of kidney failure No problems noted. Sister Age: 70 Cancer malignant ovarian tumor removed Daughter Age: 44 No problems noted. 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 and A total of 10 systems reviewed and were otherwise negative Physical Exam Vital Signs Vital Signs - 24 hr 10/15/18 12:44 10/15/18 12:46 10/15/18 12:50 Temperature 36.7 C Temperature Source Oral Sepsis Recent Fever Within 48 Hours No Sepsis Action Taken by Nursing No Action Required Pulse Rate 90 90 Pulse Rate from SpO2 Sensor 90 Respiratory Rate 25 H 18 Respiratory Effort / Characteristics Non-Labored Respiratory Depth Normal Blood Pressure 132/78 132/78 Blood Pressure Mean 96 96 Pulse Oximetry 99 90 94 Oxygen Delivery Method Room Air Nasal Cannula Oxygen Flow Rate 2 10/15/18 13:02 10/15/18 13:03 10/15/18 13:15 Temperature Temperature Source Sepsis Recent Fever Within 48 Hours Sepsis Action Taken by Nursing Pulse Rate 92 H 90 Pulse Rate from SpO2 Sensor 91 H 90 Respiratory Rate 22 20 Respiratory Effort / Characteristics Respiratory Depth Blood Pressure Blood Pressure Mean Pulse Oximetry 100 97 95 Oxygen Delivery Method Nasal Cannula Oxygen Flow Rate 2 10/15/18 13:30 10/15/18 13:45 10/15/18 14:00 Temperature Temperature Source Sepsis Recent Fever Within 48 Hours Sepsis Action Taken by Nursing Pulse Rate 91 H 90 98 H Pulse Rate from SpO2 Sensor 91 H 90 98 H Respiratory Rate 19 18 30 H Respiratory Effort / Characteristics Respiratory Depth Blood Pressure 111/62 116/63 145/74 H Blood Pressure Mean 78 80 97 Pulse Oximetry 95 96 96 Oxygen Delivery Method Oxygen Flow Rate 10/15/18 14:01 10/15/18 14:15 10/15/18 14:30 Temperature Temperature Source Sepsis Recent Fever Within 48 Hours Sepsis Action Taken by Nursing Pulse Rate 95 H 92 H 94 H Pulse Rate from SpO2 Sensor 94 H 90 93 H Respiratory Rate 23 20 19 Respiratory Effort / Characteristics Respiratory Depth Blood Pressure 112/61 Blood Pressure Mean 78 Pulse Oximetry 95 96 96 Oxygen Delivery Method Oxygen Flow Rate 10/15/18 14:31 10/15/18 15:00 10/15/18 15:15 Temperature Temperature Source Sepsis Recent Fever Within 48 Hours Sepsis Action Taken by Nursing Pulse Rate 94 H 94 H 105 H Pulse Rate from SpO2 Sensor 94 H 93 H 102 H Respiratory Rate 18 19 22 Respiratory Effort / Characteristics Respiratory Depth Blood Pressure 133/115 H 122/63 134/71 Blood Pressure Mean 121 82 92 Pulse Oximetry 96 95 92 Oxygen Delivery Method Oxygen Flow Rate 10/15/18 15:30 10/15/18 15:45 10/15/18 16:00 Temperature Temperature Source Sepsis Recent Fever Within 48 Hours Sepsis Action Taken by Nursing Pulse Rate 97 H 96 H 92 H Pulse Rate from SpO2 Sensor 92 H Respiratory Rate 23 18 16 Respiratory Effort / Characteristics Respiratory Depth Blood Pressure 129/62 115/62 114/55 L Blood Pressure Mean 84 79 74 Pulse Oximetry 92 Oxygen Delivery Method Oxygen Flow Rate 10/15/18 16:30 10/15/18 16:37 10/15/18 16:45 Temperature 37.4 C Temperature Source Oral Sepsis Recent Fever Within 48 Hours Sepsis Action Taken by Nursing Pulse Rate 94 H 87 86 Pulse Rate from SpO2 Sensor 88 84 Respiratory Rate 16 14 12 Respiratory Effort / Characteristics Respiratory Depth Blood Pressure 103/54 L 109/55 L Blood Pressure Mean 70 73 Pulse Oximetry 92 93 Oxygen Delivery Method Oxygen Flow Rate 10/15/18 17:00 10/15/18 17:15 10/15/18 17:30 Temperature Temperature Source Sepsis Recent Fever Within 48 Hours Sepsis Action Taken by Nursing Pulse Rate 86 88 88 Pulse Rate from SpO2 Sensor 87 88 88 Respiratory Rate 14 15 15 Respiratory Effort / Characteristics Respiratory Depth Blood Pressure 107/55 L 99/55 L 111/53 L Blood Pressure Mean 72 69 72 Pulse Oximetry 93 93 94 Oxygen Delivery Method Oxygen Flow Rate 09/04/19 17:45 Temperature Temperature Source Sepsis Recent Fever Within 48 Hours Sepsis Action Taken by Nursing Pulse Rate 87 Pulse Rate from SpO2 Sensor 85 Respiratory Rate 15 Respiratory Effort / Characteristics Respiratory Depth Blood Pressure 94/53 L Blood Pressure Mean 66 Pulse Oximetry 92 Oxygen Delivery Method Oxygen Flow Rate GENERAL: Alert to voices, ill-appearing, in no distress HENT: Normocephalic, atraumatic. Oropharynx with dry mucous membranes and otherwise unremarkable. EYES: Normal conjunctiva. Sclera non-icteric. EOMI. No nystamgus. PEARRL. NECK: Supple. No nuchal rigidity. FROM. No JVD. RESPIRATORY: Diminished BS at bases bilaterally with scant intermittent rhonchi.. CARDIAC: Regular rate, normal rhythm. Extremities warm and well perfused. Pulses equal. ABDOMEN: Soft, non-distended. No tenderness to palpation. No rebound or guarding. No masses. RECTAL: Deferred. MUSCULOSKELETAL: Chest examination reveals no tenderness. The back is symmetrical on inspection without obvious abnormality. There is no CVA tenderness to palpation. No joint edema. LOWER EXTREMITIES: Calves are equal size bilaterally and non-tender. No edema. No discoloration. NEURO: Normal sensorium. No sensory or motor deficits noted. Moving all e xtremities equally. Alert to voice. Follows commands. SKIN: No rash or jaundice noted. Course 1248: Past medical records reviewed. The patient was evaluated in room B3B. A complete history and physical exam was performed. 1520: Nursing staff informed me that the patient is complaining of abdominal pain and groaning. 1702: I reevaluated the patient and updated him and his family on his test results. I discussed the treatment plan with them. They verbally agree and understand. 1710: I discussed the patient's case with OTIS Santos. She will evaluate the patient for further management. Consultations Consultation #1: I discussed the patient's case with OTIS Santos. She will evaluate the patient for further management. Time: 17:10 Administered Medications Acetaminophen (Tylenol) 650 mg PO Q4H PRN PRN Reason: Pain or Fever Stop: 11/14/18 20:09 Last Admin: 10/15/18 21:15 Dose: 650 mg Documented by: [id number] Fluticasone Propionate (Flonase) 2 sprays GIUSEPPE BID ROBERT Stop: 11/14/18 20:59 Last Admin: 10/15/18 21:15 Dose: 2 sprays Documented by: [id number] Guaifenesin (Mucinex) 600 mg PO BID ROBERT Stop: 11/14/18 20:59 Last Admin: 10/15/18 21:16 Dose: 600 mg Documented by: [id number] Sodium Chloride (Nss 1000ml) 1,000 mls @ 100 mls/hr IV .Q10H ROBERT Stop: 11/14/18 20:09 Last Admin: 10/15/18 20:22 Dose: 100 mls/hr Documented by: [id number] Piperacillin Sod/Tazobactam (Sod 3.375 gm/ Dextrose) 115 mls @ 28.75 mls/hr IV Q8H [facility]; Protocol Stop: 10/22/18 21:59 Last Infusion: 10/16/18 01:39 Dose: 0 mls/hr Documented by: [id number] Admin: 10/15/18 21:15 Dose: 28.8 mls/hr Documented by: [id number] Metoprolol Tartrate (Lopressor) 50 mg PO BID ROBERT Stop: 11/14/18 20:59 Last Admin: 10/15/18 21:17 Dose: 50 mg Documented by: [id number] Miscellaneous (Order Awaiting Action) 1 ea N/A QS ROBERT Stop: 11/15/18 00:00 Last Admin: 10/16/18 01:34 Dose: Not Given Documented by: [id number] Montelukast Sodium (Singulair) 10 mg PO PM ROBERT Stop: 11/14/18 20:59 Last Admin: 10/15/18 21:16 Dose: 10 mg Documented by: [id number] Simvastatin (Zocor) 40 mg PO HS ROBERT Stop: 11/14/18 20:59 Last Admin: 10/15/18 21:16 Dose: 40 mg Documented by: [id number] Triamcinolone Acetonide (Kenalog 0.025%) 1 appln EXT BID ROBERT Stop: 11/14/18 20:59 Last Admin: 10/15/18 21:17 Dose: 1 appln Documented by: [id number] Discontinued Medications Sodium Chloride (Nss 1000ml) 1,000 mls @ 999 mls/hr IV .Q1H1M ONE Stop: 10/15/18 13:53 Last Infusion: 10/15/18 14:24 Dose: 0 mls/hr Documented by: [id number] Admin: 10/15/18 13:18 Dose: 999 mls/hr Documented by: [id number] Piperacillin Sod/Tazobactam Sod (Zosyn) 4.5 gm in 120 mls @ 30 mls/hr IV NOW ONE Stop: 10/15/18 19:22 Last Infusion: 10/15/18 19:45 Dose: 0 mls/hr Documented by: [id number] Admin: 10/15/18 16:35 Dose: 30 mls/hr Documented by: [id number] Vancomycin HCl 2,000 mg/ (Sodium Chloride) 540 mls @ 200 mls/hr IV NOW ONE Stop: 10/15/18 18:04 Last Infusion: 10/15/18 19:45 Dose: 0 mls/hr Documented by: [id number] Admin: 10/15/18 16:32 Dose: 200 mls/hr Documented by: [id number] Acetaminophen (Ofirmev) 1,000 mg in 100 mls @ 400 mls/hr IV NOW STA Stop: 10/15/18 15:38 Last Infusion: 10/15/18 16:01 Dose: 0 mls/hr Documented by: [id number] Admin: 10/15/18 15:28 Dose: 400 mls/hr Documented by: [id number] Sodium Chloride (Nss 1000ml) 1,000 mls @ 999 mls/hr IV .Q1H1M ONE Stop: 10/15/18 19:17 Last Infusion: 10/15/18 19:45 Dose: 0 mls/hr Documented by: [id number] Admin: 10/15/18 18:17 Dose: 999 mls/hr Documented by: [id number] Medical Decision Making Differential Diagnosis Differential Diagnosis includes but is not limited to dehydration, stroke, anemia, hypoglycemia, hyponatremia, hypernatremia, urinary tract infection, pneumonia, bronchitis, sepsis, gastroenteritis, additional abdominal pathology, metabolic abnormalities and infections. Medical Records Attestation: I reviewed the patient's medical records. Home Medications Current Medication List: was personally reviewed by me Laboratory Data Attestation: I reviewed the patient's lab results. Result diagrams: 10/15/18 13:12 10/15/18 13:12 Lab Results 10/15/18 10/15/18 10/15/18 Range/Units 13:12 13:12 13:12 WBC 19.17 H (4.8-10.8) K/uL RBC 4.14 L (4.7-6.1) M/uL Hgb 11.7 L (14.0-18.0) g/dL POC Hgb (14.0-18.0) g/dl Hct 34.5 L (42-52) % POC Hct (42-52) % MCV 83.3 (80-100) fL MCH 28.3 (25-34) pg MCHC 33.9 (32-36) g/dL RDW Std Deviation 46.6 H (36.4-46.3) fL RDW Coeff of Jean-Claude 15.2 H (11.5-14.5) % Plt Count 541 H (130-400) K/uL MPV 9.3 (7.4-10.4) fL Immature Gran % (Auto) 0.7 % Neut % (Auto) 83.4 % Lymph % (Auto) 3.4 % [place] % (Auto) 12.1 % Eos % (Auto) 0.1 % Baso % (Auto) 0.3 % Immature Gran # (Auto) 0.14 H (0.00-0.02) K/uL Neut # (Auto) 16.00 H (1.4-6.5) K/uL Lymph # (Auto) 0.66 L (1.2-3.4) K/uL [place] # (Auto) 2.31 H (0.11-0.59) K/uL Eos # (Auto) 0.01 (0-0.5) K/uL Baso # (Auto) 0.05 (0-0.2) K/uL Absolute Nucleated RBC 0.08 H (0-0) K/uL Nucleated RBC % (auto) 0.4 % PT Cancelled INR Cancelled APTT Cancelled PTT Ratio Cancelled VBG pH (7.36-7.41) VBG pCO2 (38-50) mmHg VBG pO2 mmHg VBG HCO3 mmol/L VBG O2 Saturation % VBG Base Excess mEq/L Barometric Pressure mm/Hg POC Sodium (135-144) mEq/L Sodium 134 L (136-145) mmol/L POC Potassium (3.3-5.0) mEq/L Potassium 4.9 (3.5-5.1) mmol/L POC Chloride (101-112) mEq/L Chloride 100 (98-107) mmol/L Carbon Dioxide 24 (21-32) mmol/L POC Total CO2 (24-31) mEq/l Anion Gap 9.0 (3-11) POC Anion Gap (16-25) mmol/L POC BUN (7-18) mg/dl BUN 28 H (7-18) mg/dl Creatinine 1.58 H (0.6-1.4) mg/dl POC Creatinine (0.6-1.3) mg/dl Est Cr Clr Drug Dosing 49.5 ml/min Est GFR ( Amer) 49.6 Est GFR (Non-Af Amer) 42.8 BUN/Creatinine Ratio 17.4 (10-20) Glucose 122 H (70-99) mg/dl POC Glucose (other) (70-99) mg/dl Lactate (0.4-2.0) mmol/L Calcium 9.7 (8.5-10.1) mg/dl POC Ioniz Calcium Krystyna (1.12-1.32) mmol/l Phosphorus 4.2 (2.5-4.9) mg/dl Magnesium 2.3 (1.8-2.4) mg/dl Total Bilirubin 1.3 H (0.2-1) mg/dl Direct Bilirubin 0.5 H (0-0.2) mg/dl AST 34 (15-37) U/L ALT 136 H (12-78) U/L Alkaline Phosphatase 208 H (45-117) U/L Total Protein 7.3 (6.4-8.2) gm/dl Albumin 2.4 L (3.4-5.0) gm/dl Globulin 4.9 H (2.5-4.0) gm/dl Albumin/Globulin Ratio 0.5 L (0.9-2) Procalcitonin (0-0.5) ng/ml Urine Color Urine Appearance (Clear) Urine pH (4.5-7.5) Ur Specific [place] (1.000-1.030) Urine Protein (Negative) Urine Glucose (UA) (Negative) Urine Ketones (Negative) Urine Blood (Negative) Urine Nitrite (Negative) Urine Bilirubin (Negative) Urine Urobilinogen (Negative) Ur Leukocyte Esterase (Negative) Urine WBC (Auto) (0-5) /hpf Urine RBC (Auto) (0-4) /hpf U Hyaline Cast (Auto) (0-5) /lpf U Epithel Cells (Auto) (0-5) /lpf Urine Bacteria (Auto) (Negative) 10/15/18 10/15/18 10/15/18 Range/Units 13:12 13:12 13:12 WBC (4.8-10.8) K/uL RBC (4.7-6.1) M/uL Hgb (14.0-18.0) g/dL POC Hgb (14.0-18.0) g/dl Hct (42-52) % POC Hct (42-52) % MCV (80-100) fL MCH (25-34) pg MCHC (32-36) g/dL RDW Std Deviation (36.4-46.3) fL RDW Coeff of Jean-Claude (11.5-14.5) % Plt Count (130-400) K/uL MPV (7.4-10.4) fL Immature Gran % (Auto) % Neut % (Auto) % Lymph % (Auto) % [place] % (Auto) % Eos % (Auto) % Baso % (Auto) % Immature Gran # (Auto) (0.00-0.02) K/uL Neut # (Auto) (1.4-6.5) K/uL Lymph # (Auto) (1.2-3.4) K/uL [place] # (Auto) (0.11-0.59) K/uL Eos # (Auto) (0-0.5) K/uL Baso # (Auto) (0-0.2) K/uL Absolute Nucleated RBC (0-0) K/uL Nucleated RBC % (auto) % PT INR APTT PTT Ratio VBG pH 7.40 (7.36-7.41) VBG pCO2 40 (38-50) mmHg VBG pO2 27 mmHg VBG HCO3 24 mmol/L VBG O2 Saturation < 60.0 % VBG Base Excess -0.8 mEq/L Barometric Pressure 730.4 mm/Hg POC Sodium (135-144) mEq/L Sodium (136-145) mmol/L POC Potassium (3.3-5.0) mEq/L Potassium (3.5-5.1) mmol/L POC Chloride (101-112) mEq/L Chloride (98-107) mmol/L Carbon Dioxide (21-32) mmol/L POC Total CO2 (24-31) mEq/l Anion Gap (3-11) POC Anion Gap (16-25) mmol/L POC BUN (7-18) mg/dl BUN (7-18) mg/dl Creatinine (0.6-1.4) mg/dl POC Creatinine (0.6-1.3) mg/dl Est Cr Clr Drug Dosing ml/min Est GFR ( Amer) Est GFR (Non-Af Amer) BUN/Creatinine Ratio (10-20) Glucose (70-99) mg/dl POC Glucose (other) (70-99) mg/dl Lactate 1.6 (0.4-2.0) mmol/L Calcium (8.5-10.1) mg/dl POC Ioniz Calcium Krystyna (1.12-1.32) mmol/l Phosphorus (2.5-4.9) mg/dl Magnesium (1.8-2.4) mg/dl Total Bilirubin (0.2-1) mg/dl Direct Bilirubin (0-0.2) mg/dl AST (15-37) U/L ALT (12-78) U/L Alkaline Phosphatase (45-117) U/L Total Protein (6.4-8.2) gm/dl Albumin (3.4-5.0) gm/dl Globulin (2.5-4.0) gm/dl Albumin/Globulin Ratio (0.9-2) Procalcitonin 2.62 H (0-0.5) ng/ml Urine Color Urine Appearance (Clear) Urine pH (4.5-7.5) Ur Specific [place] (1.000-1.030) Urine Protein (Negative) Urine Glucose (UA) (Negative) Urine Ketones (Negative) Urine Blood (Negative) Urine Nitrite (Negative) Urine Bilirubin (Negative) Urine Urobilinogen (Negative) Ur Leukocyte Esterase (Negative) Urine WBC (Auto) (0-5) /hpf Urine RBC (Auto) (0-4) /hpf U Hyaline Cast (Auto) (0-5) /lpf U Epithel Cells (Auto) (0-5) /lpf Urine Bacteria (Auto) (Negative) 10/15/18 10/15/18 10/15/18 Range/Units 13:25 14:52 15:52 WBC (4.8-10.8) K/uL RBC (4.7-6.1) M/uL Hgb (14.0-18.0) g/dL POC Hgb 12.2 L (14.0-18.0) g/dl Hct (42-52) % POC Hct 36 L (42-52) % MCV (80-100) fL MCH (25-34) pg MCHC (32-36) g/dL RDW Std Deviation (36.4-46.3) fL RDW Coeff of Jean-Claude (11.5-14.5) % Plt Count (130-400) K/uL MPV (7.4-10.4) fL Immature Gran % (Auto) % Neut % (Auto) % Lymph % (Auto) % [place] % (Auto) % Eos % (Auto) % Baso % (Auto) % Immature Gran # (Auto) (0.00-0.02) K/uL Neut # (Auto) (1.4-6.5) K/uL Lymph # (Auto) (1.2-3.4) K/uL [place] # (Auto) (0.11-0.59) K/uL Eos # (Auto) (0-0.5) K/uL Baso # (Auto) (0-0.2) K/uL Absolute Nucleated RBC (0-0) K/uL Nucleated RBC % (auto) % PT Cancelled 12.0 INR Cancelled 1.2 H APTT Cancelled 31.2 H PTT Ratio Cancelled 1.2 VBG pH (7.36-7.41) VBG pCO2 (38-50) mmHg VBG pO2 mmHg VBG HCO3 mmol/L VBG O2 Saturation % VBG Base Excess mEq/L Barometric Pressure mm/Hg POC Sodium 132 L (135-144) mEq/L Sodium (136-145) mmol/L POC Potassium 4.9 (3.3-5.0) mEq/L Potassium (3.5-5.1) mmol/L POC Chloride 99 L (101-112) mEq/L Chloride (98-107) mmol/L Carbon Dioxide (21-32) mmol/L POC Total CO2 24 (24-31) mEq/l Anion Gap (3-11) POC Anion Gap 15.0 L (16-25) mmol/L POC BUN 28 H (7-18) mg/dl BUN (7-18) mg/dl Creatinine (0.6-1.4) mg/dl POC Creatinine 1.6 H (0.6-1.3) mg/dl Est Cr Clr Drug Dosing ml/min Est GFR ( Amer) Est GFR (Non-Af Amer) BUN/Creatinine Ratio (10-20) Glucose (70-99) mg/dl POC Glucose (other) 131 H (70-99) mg/dl Lactate (0.4-2.0) mmol/L Calcium (8.5-10.1) mg/dl POC Ioniz Calcium Krystyna 1.22 (1.12-1.32) mmol/l Phosphorus (2.5-4.9) mg/dl Magnesium (1.8-2.4) mg/dl Total Bilirubin (0.2-1) mg/dl Direct Bilirubin (0-0.2) mg/dl AST (15-37) U/L ALT (12-78) U/L Alkaline Phosphatase (45-117) U/L Total Protein (6.4-8.2) gm/dl Albumin (3.4-5.0) gm/dl Globulin (2.5-4.0) gm/dl Albumin/Globulin Ratio (0.9-2) Procalcitonin (0-0.5) ng/ml Urine Color Urine Appearance (Clear) Urine pH (4.5-7.5) Ur Specific [place] (1.000-1.030) Urine Protein (Negative) Urine Glucose (UA) (Negative) Urine Ketones (Negative) Urine Blood (Negative) Urine Nitrite (Negative) Urine Bilirubin (Negative) Urine Urobilinogen (Negative) Ur Leukocyte Esterase (Negative) Urine WBC (Auto) (0-5) /hpf Urine RBC (Auto) (0-4) /hpf U Hyaline Cast (Auto) (0-5) /lpf U Epithel Cells (Auto) (0-5) /lpf Urine Bacteria (Auto) (Negative) 10/15/18 Range/Units 16:00 WBC (4.8-10.8) K/uL RBC (4.7-6.1) M/uL Hgb (14.0-18.0) g/dL POC Hgb (14.0-18.0) g/dl Hct (42-52) % POC Hct (42-52) % MCV (80-100) fL MCH (25-34) pg MCHC (32-36) g/dL RDW Std Deviation (36.4-46.3) fL RDW Coeff of Jean-Claude (11.5-14.5) % Plt Count (130-400) K/uL MPV (7.4-10.4) fL Immature Gran % (Auto) % Neut % (Auto) % Lymph % (Auto) % [place] % (Auto) % Eos % (Auto) % Baso % (Auto) % Immature Gran # (Auto) (0.00-0.02) K/uL Neut # (Auto) (1.4-6.5) K/uL Lymph # (Auto) (1.2-3.4) K/uL [place] # (Auto) (0.11-0.59) K/uL Eos # (Auto) (0-0.5) K/uL Baso # (Auto) (0-0.2) K/uL Absolute Nucleated RBC (0-0) K/uL Nucleated RBC % (auto) % PT INR APTT PTT Ratio VBG pH (7.36-7.41) VBG pCO2 (38-50) mmHg VBG pO2 mmHg VBG HCO3 mmol/L VBG O2 Saturation % VBG Base Excess mEq/L Barometric Pressure mm/Hg POC Sodium (135-144) mEq/L Sodium (136-145) mmol/L POC Potassium (3.3-5.0) mEq/L Potassium (3.5-5.1) mmol/L POC Chloride (101-112) mEq/L Chloride (98-107) mmol/L Carbon Dioxide (21-32) mmol/L POC Total CO2 (24-31) mEq/l Anion Gap (3-11) POC Anion Gap (16-25) mmol/L POC BUN (7-18) mg/dl BUN (7-18) mg/dl Creatinine (0.6-1.4) mg/dl POC Creatinine (0.6-1.3) mg/dl Est Cr Clr Drug Dosing ml/min Est GFR ( Amer) Est GFR (Non-Af Amer) BUN/Creatinine Ratio (10-20) Glucose (70-99) mg/dl POC Glucose (other) (70-99) mg/dl Lactate (0.4-2.0) mmol/L Calcium (8.5-10.1) mg/dl POC Ioniz Calcium Krystyna (1.12-1.32) mmol/l Phosphorus (2.5-4.9) mg/dl Magnesium (1.8-2.4) mg/dl Total Bilirubin (0.2-1) mg/dl Direct Bilirubin (0-0.2) mg/dl AST (15-37) U/L ALT (12-78) U/L Alkaline Phosphatase (45-117) U/L Total Protein (6.4-8.2) gm/dl Albumin (3.4-5.0) gm/dl Globulin (2.5-4.0) gm/dl Albumin/Globulin Ratio (0.9-2) Procalcitonin (0-0.5) ng/ml Urine Color [place] Urine Appearance Clear (Clear) Urine pH 5.0 (4.5-7.5) Ur Specific [place] 1.027 (1.000-1.030) Urine Protein Negative (Negative) Urine Glucose (UA) Negative (Negative) Urine Ketones Negative (Negative) Urine Blood Negative (Negative) Urine Nitrite Positive A (Negative) Urine Bilirubin 1+ H (Negative) Urine Urobilinogen Negative (Negative) Ur Leukocyte Esterase Trace H (Negative) Urine WBC (Auto) 1-5 (0-5) /hpf Urine RBC (Auto) 0-4 (0-4) /hpf U Hyaline Cast (Auto) 5-10 H (0-5) /lpf U Epithel Cells (Auto) 5-10 H (0-5) /lpf Urine Bacteria (Auto) Negative (Negative) Imaging Data Radiologist's Impression: Radiology results as stated below per my review and the radiologist's interpretation: XR chest 1V portable CLINICAL HISTORY: Sepsis COMPARISON STUDY: 10/07/2018 FINDINGS: The heart is enlarged. There is mild pulmonary vascular congestion. There are increasing left lower lobe airspace opacities, focal edema versus pneumonia. Postsurgical changes are present within the cervical spine[ IMPRESSION: 1. Cardiomegaly and mild pulmonary vascular congestion 2. Increasing left lower lung zone airspace opacities, focal edema versus pneumonia. Clinical and radiographic follow-up is recommended Electronically signed by: Darci Cantor M.D. 10/15/2018 1:[address] abd pelvis wo con CLINICAL HISTORY: 73 years-old Male presenting with generalized abdominal pain, Ams, leukocytosis, s/p bowel resection. TECHNIQUE: Multidetector CT of the abdomen and pelvis was performed without the use of intravenous contrast. IV contrast: None. One or more dose lowering techniques were used consistent with the principles of ALARA (as low as reason ably achievable), including automatic exposure control, mA or kV adjustment to individual patient size, and/or use of iterative reconstruction. COMPARISON: 10/04/2018. CT DOSE (mGy.cm): The estimated cumulative dose is 1089.62 mGycm. 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 Lung bases: Normal heart size. Coronary artery and aortic valve calcification. No pericardial or pleural effusion. Extensive solid consolidation in the lower lobes increased from prior. Liver: Normal morphology. Normal density. Well-defined hypodense lesion near the hepatic dome likely hepatic cyst. Biliary: No gross biliary ductal dilatation allowing for noncontrast technique. Normal gallbladder. Pancreas: Mild parenchymal atrophy. Spleen: Normal noncontrast appearance. Adrenal glands: Normal noncontrast appearance. Kidneys and ureters: Mild bilateral perinephric fat infiltration, nonspecific. Normal noncontrast appearance of the renal parenchyma. No nephrolithiasis or hydronephrosis. Ureters nondistended. Bladder: Circumferential bladder wall thickening. Focus of intraluminal gas likely relates to recent catheterization. Pelvic organs: Prostate enlargement likely secondary to benign prostatic hyperplasia. Bowel: Circumferential wall thickening of the mid to lower rectum with diffuse mild fatty infiltration of the nasal: An associated mild fluid in the presacral region and slight fascial thickening of the mesorectal fascia. A end to side or side to side colocolonic anastomosis is noted at the upper rectum. There is mild focal wall thickening in this region along the left lateral aspect (series 3 image [id number]). The colon is diffusely decompressed with a double barrel ileostomy in the right lower quadrant. No bowel obstruction. Peritoneal cavity: Trace free fluid in the pelvis. No free intraperitoneal gas. Lymph nodes: No gross lymphadenopathy allowing for noncontrast technique. Vasculature: Atherosclerosis of the normal caliber abdominal aorta. Abdominal wall: Postsurgical changes of the infraumbilical abdominal wall with mild fluid and inflammatory change within an incision site. The prior surgical drain has been removed as have the skin zack. No well-defined fluid col lection to suggest abscess allowing for noncontrast technique. Trace fluid superficial to the peritoneal lining anteriorly in the lower abdomen. Foci of gas in the anterior abdominal wall likely relates to the recent surgical drains. Right mid abdominal double barrel ileostomy as mentioned. Musculoskeletal: Extensive multilevel degenerative changes of the spine. Posterior lumbar fusion hardware. IMPRESSION: 1. Extensive bilateral lower lobe consolidation increased from prior. While this may represent a significant atelectatic component, this is suspicious for underlying pneumonia. Aspiration pneumonia not excluded. 2. Circumferential wall thickening of the mid to lower rectum concerning for proctitis, either infectious or related to prior radiation. 3. Possible wall thickening along the left lateral aspect of the upper rectum at the site of a colocolonic anastomosis. This is indeterminate and an underlying lesion is not excluded. Gastroenterology consultation is recommended on a nonurgent basis. 4. 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 No bowel obstruction. 5. Postsurgical changes of the infra umbilical anterior abdominal wall with e xtensive fluid and inflammatory change in the incision site as well as soft tissue emphysema in the subcutaneous fat. No discrete abscess allowing for the lack of intravenous contrast. Correlate clinically to exclude incision site infection. 6. 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 Electronically signed by: Jamel Miguel M.D. 10/15/2018 4:29 PM ECG Data Attestation: I personally reviewed and interpreted this ECG as follows: Indication: altered mental status Rate (beats per minute): 90 Rhythm: normal sinus Findings: + other (left posterior fasicular block) and + RBBB; no ST depression, no ST elevation and no acute ischemic change Comparison ECG Date: from (10/05/2018) Change: no significant change Blood Pressure Blood Pressure Findings: Elevated blood pressure Blood Pressure Disposition: further management by hospitalist NAINA Barcenas The patient is a pleasant 73-year-old gentleman with a past medical history of recent admission for adenocarcinoma of colon status post resection and colostomy, complicated by pneumonia who presents emergency department from [facility] with worsening mental status over the past 24 hours where he was minimally responsive per hpi. On arrival patient is ill-appearing but no acute distress, temperature 37.7 with heart rate in the 90s and vital signs otherwise stable. He appears clinically dry. Diminished BS at bases with scant rhonchi. Patient's colostomy site is clean dry and intact. His incision site is without erythema warmth, tenderness or crepitus. He has no tenderness to palpation of the abdomen. He is moving all extremities equally and following commands to voice though he does appear drowsy. EKG without overt acute ischemia. Chest x- ray demonstrates increasing left lower lung zone airspace opacities suspicious for pneumonia. WBC 19.1, newly elevated since his admission. H/H 11.7/34.5 increased since last admission. Platelets 500 also increased from last ad mission. Given elevation of all CBC values likely component of hemoconcentration in the setting of pneumonia. VBG without acidemia. Chemistry without acidosis. Lactate within normal limits. Creatinine is newly elevated at 1.5 with BUN of 28 consistent with the patient's clinically dry appearance. ALT elevated at 136 however similar to recent admission. UA with positive nitrites from straight cath however without WBCs or bacteria. CT abdomen pelvis was performed and demonstrated further characterization of pneumonia with extensive bibasilar opacities. Additional findings most likely related to the patient's recent surgery/adenocarcinoma including circumferential wall thickening of the mid to lower rectum and possible wall thickening along the left lateral aspect of the upper rectum at the site of a colocolonic anastomosis. Postsurgical changes of the infra umbilical anterior abdominal wall incision site with extensive fluid and inflammatory change as well as soft tissue emphysema, however no clinical evidence of infection at this time. Given the patient's worsening clinical status in the setting of worsening pneumonia reasonable to admit the patient for further management. Patient was treated initially with empiric doses of Zosyn and vancomycin. Case was discussed with Sherry Santos PA-C, who evaluate the patient for admission. Impression & Plan Pneumonia, Dehydration, Altered mental status Critical Care Time Critical Care Time: Yes Total Critical Care Time: 35 I have personally spent greater than 35 minutes of critical care time in the direct management of this patient. This includes bedside care, interpretation of diagnostic studies, and testing, discussion with consultants, patient, and family members, and other required patient management activities. This 35 minutes is in excess of all separately billable procedures. Discharge Plan Visit Data *Final* Discharge Date/Time: 10/15/18 19:43 Chief Complaint: Lethargic Stated Complaint: lethargic / [facility] ED Provider: Demetri Steen Discharge Problem: Pneumonia, Dehydration, Altered mental status Patient Disposition: Admitted As Inpatient Discharge Instructions Interventions: ED Discharge Assessment Last Done: 10/15/18 19:43 Discharge Problem: Pneumonia Qualifiers: Pneumonia type: due to unspecified organism Laterality: unspecified laterality Lung location: unspecified part of lung Qualified Code(s): J18.9 - Pneumonia, unspecified organism Altered mental status Qualifiers: Altered mental status type: unspecified Qualified Code(s): R41.82 - Altered mental status, unspecified The scribe's documentation has been prepared under my direction and personally reviewed by me in its entirety. I confirm that the note above accurately reflects all work, treatment, procedures, and medical decision making performed by me.
[2018-10-15] MEDS: PIPERACILLIN/TAZOBACTAM 3.375 GM in DEXTROSE 5% 100 ML IV SCH (21:15)
[2018-10-15] MEDS: FLUTICASONE PROPIONATE NA SPR 16 GM BTL NAE SCH (21:15)
[2018-10-15] MEDS: ACETAMINOPHEN 325 MG TAB PO PRN (21:15)
[2018-10-15] MEDS: MONTELUKAST SODIUM 10 MG TABLET PO SCH (21:16)
[2018-10-15] MEDS: SIMVASTATIN 40 MG TAB PO SCH (21:16)
[2018-10-15] MEDS: guaiFENesin 600 MG TABCR PO SCH (21:16)
[2018-10-15] MEDS: TRIAMCINOLONE ACET 0.025% CR 15 GM TUBE EXT SCH (21:17)
[2018-10-15] MEDS: METOPROLOL TARTRATE 50 MG TAB PO SCH (21:17)
[2018-10-16] MEDS: VANCOMYCIN HCL 1,500 MG in SODIUM CHLORIDE 0.9% 500 ML IV SCH ×2 (04:25→17:03)
[2018-10-16] MEDS: PIPERACILLIN/TAZOBACTAM 3.375 GM in DEXTROSE 5% 100 ML IV SCH ×3 (05:27→21:14)
[2018-10-16] MEDS: SODIUM CHLORIDE 0.9% 1000ML 1,000 ML IV SCH ×2 (05:28→17:03)
[2018-10-16 06:33] LABS: Hemoglobin 9.6 g/dL (14.0-18.0); Mean Corpuscular Hgb Conc 33.1 g/dL (32-36); Mean Corpuscular Volume 83.6 fL (80-100); Mean Platelet Volume 9.3 fL (7.4-10.4); Platelet Count 495 K/uL (130-400); RDW Coefficient of Variation 15.1 % (11.5-14.5); RDW Standard Deviation 46.4 fL (36.4-46.3); Red Blood Count 3.47 M/uL (4.7-6.1); White Blood Count 16.23 K/uL (4.8-10.8)
[2018-10-16 07:13] LABS: Est GFR (African American) 69.8; Est GFR (Non-African American) 60.2; Potassium 4.6 mmol/L (3.5-5.1)
[2018-10-16 07:14] LABS: Albumin Level 1.9 gm/dl (3.4-5.0); BUN Creatinine Ratio 23.1 (10-20); Calcium 8.7 mg/dl (8.5-10.1); Creatinine Clr Calc Pharmacy 63.9 ml/min
[2018-10-16 07:20] LABS: Bilirubin Direct 1.5 mg/dl (0-0.2); Bilirubin,Total 2.3 mg/dl (0.2-1); Total Protein 6.4 gm/dl (6.4-8.2)
[2018-10-16] MEDS: guaiFENesin 600 MG TABCR PO SCH ×2 (08:03→21:15)
[2018-10-16] MEDS: METOPROLOL TARTRATE 50 MG TAB PO SCH ×2 (08:03→21:16)
[2018-10-16] MEDS: LANSOPRAZOLE 15 MG SOLTAB PO SCH (08:03)
[2018-10-16] MEDS: CEROVITE ADV FORMULA TAB PO SCH (08:03)
[2018-10-16] MEDS: FLUTICASONE PROPIONATE NA SPR 16 GM BTL NAE SCH ×2 (08:03→21:15)
[2018-10-16] MEDS: LORATADINE 10 MG TAB PO SCH (08:03)
[2018-10-16] MEDS: ACETAMINOPHEN 325 MG TAB PO PRN ×3 (08:05→21:24)
[2018-10-16] MEDS ORDERED: GLUCOSAMINE CHONDROIT VIT C MN PO SCH (09:00)
[2018-10-16] MEDS: TRIAMCINOLONE ACET 0.025% CR 15 GM TUBE EXT SCH ×2 (10:07→21:18)
--- NOTE | 2018-10-16 11:14 | Surgery Consultation ---
Date of Consultation October 16, 2018 Assessment & Plan (1) History of low anterior resection of rectum: This is a 73y M who presents to [facility] from [facility] with leukocytosis and lethargy one day after his discharge from his hospitalization where he underwent a laparoscopic assisted low anterior resection with protective ileostomy. Work up thus far has revealed worsening bilateral lower lobe opacities concerning for pneumonia as well as a positive urinalysis. Agree with continuing broad spectrum antibiotics for treatment as well as trending WBC. Okay with additional IV hydration for elevated Cr. Continue to monitor output from ileostomy and urine output. From a surgical standpoint patient is tolerating a diet without nausea/vomiting, surgical incisions are healing well without sign of infection, and ostomy is functioning. Would continue supportive care and appreciate Medicine's ongoing input. At this time there are no acute surgical issues and we will continue to follow along with you. This patient was seen and examined with Dr. Roberts. History of Present Illness Attending Physician: Chon Golden MD History of Present Illness This is a 73y M who presents to the [facility] ED on 10/15 from [facility] with an elevated WBC and lethargy. The patient recently underwent a laparoscopic assisted low anterior resection and creation of ileostomy with Dr. Roberts on 09/30/18 for history of malignant neoplasm of rectosigmoid colon. Patient's post operative course was complicated by pneumonia for which he completed a course of antibiotics, paroxysmal atrial tachycardia of which cardiology was consulted, and an ileus requiring temporary TPN. Upon discharge on 10/14 patient's ileostomy was functioning well, pain well controlled, he was making good urine, and was out of bed with assistance. Patient's PICC line was removed as he finished a full course of antibiotics for his pneumonia and no longer required hyperalimentation. The patient states that since arriving to rehab he felt pain along his back along the upper left side and has been feeling "washed out". Per chart review on 10/15 patient developed progressive shortness of breath, dyspnea on exertion, and lethargy. Patient was tachycardic, hypotensive, and blood work obtained revealed leukocytosis which prompted rehab to send the patient to the ED for further evaluation. In the ED patient was found to have a WBC of 19 and elevated Cr to 1.55. A UA was sent returning as positive for nitrites and leukocyte esterase. CT revealed worsened bilateral lower lobe consolidation susp icious for pneumonia as well as some post surgical changes. Allergies Allergy/AdvReac Type Severity Reaction Status Date / Time pollen extracts Allergy Unknown Verified 09/30/18 11:44 Home Medications Home Medications Medication Instructions Recorded Confirmed Type Skyler Silver Men 1 tab PO QAM 05/19/18 10/15/18 History albuterol sulfate [Ventolin HFA] 2 puff INHALATION Q4 PRN 05/19/18 10/15/18 History azelastine 2 spray INTRANASAL Q12H 05/19/18 10/15/18 History fluticasone propionate [Flonase 2 spray INTRANASAL BID 05/19/18 10/15/18 History Allergy Relief] [id number] C-Mn 1 cap PO QAM 05/19/18 10/15/18 History guaifenesin [Mucinex] 600 mg PO BID 05/19/18 10/15/18 History lansoprazole 15 mg PO QAM 05/19/18 10/15/18 History loratadine 10 mg PO QAM 05/19/18 10/15/18 History montelukast 10 mg PO PM 05/19/18 10/15/18 History simvastatin 40 mg PO HS 05/19/18 10/15/18 History acetaminophen [Tylenol] 325 mg PO Q6H PRN #30 tab 10/14/18 10/15/18 Rx lisinopril 10 mg PO BID 30 Days #60 tab 10/14/18 10/15/18 Rx metoprolol tartrate 50 mg PO BID 30 Days #60 tab 10/14/18 10/15/18 Rx triamcinolone acetonide 1 applic EXT BID 30 Days #1 tube 10/14/18 10/15/18 Rx Patient History Medical History Paroxysmal atrial tachycardia Postoperative ileus Acute hypoxemic respiratory failure Admitted to intensive care unit Acute metabolic encephalopathy Hospital acquired PNA Vertigo (Chronic) Vomiting (Acute) Anemia History of colon polyps Malignant neoplasm of rectosigmoid (colon) (Chronic) Arthritis (Acute) Asthma inhaler prn, mostly assc with seasonal allergies, has not used since July BPH (benign prostatic hyperplasia) Cervical stenosis of spine Chronic back pain GERD (gastroesophageal reflux disease) Glaucoma History of GI bleed Off and on 2/2 malignancy, no blood transfusions per pt History of IBS History of stomach ulcers Hyperlipidemia Hypertension Osteoarthritis Vertigo Surgical History History of colonoscopy History of esophagogastroduodenoscopy (EGD) History of fusion of cervical spine c6-t1; needs support with neck, pt states he can move his neck back History of lumbar spinal fusion History of lumbar surgery TO REMOVE SPINAL CYST History of tonsillectomy and adenoidectomy History of tooth extraction INFECTED TOOTH POST ROOT CANCAL History of wisdom tooth extraction S/P colon resection Laparoscopic Assisted Low Anterior Resection with Protective Ileostomy, Appendectomy Dr. Roberts 09/30/18 Family History Grandfather (Maternal) , age 73 of bladder cancer No problems noted. Grandmother (Maternal) , age 83 of PR No problems noted. Grandmother (Paternal) , of heart attack No problems noted. Grandfather (Paternal) , of motor vehicle collision No problems noted. Father , age 69 of heart attack No problems noted. Mother , age 98 of kidney failure No problems noted. Sister Age: 70 Cancer malignant ovarian tumor removed Daughter Age: 44 No problems noted. Daughter Age: 41 Bipolar disorder Other FHx: cancer No family history of adverse response to anesthesia Social History Preferred Language: Russian Communication Ability: Effective Social Media Job Titles Required: No Beliefs That Will Affect Care: None marital status: Current Living Situation: Spouse Current Living Situation Comment: Lives with and daughter current occupational status: retired Other Information That Helps Us Care for You: Yes Feels Safe at Home: Yes Safety Concerns: Feels Safe At This Time Smoking Status: Never smoker Do You Dip or Chew Tobacco: No ; Second Hand Exposure: Yes ; Hx Alcohol Use: No Hx Substance Use: No Review of Systems Constitutional: + fatigue Respiratory: + dyspnea on exertion; no cough Gastrointestinal: no abdominal pain, no nausea and no vomiting denies hiccups Genitourinary: + urinary frequency (present but improved since discharge); no dysuria Physical Exam Physical Exam: awake, alert, conversing appropriately Constitutional: well developed and well nourished appears exhausted Respiratory: normal respiratory effort; no respiratory distress and no labored breathing saturating well on supplemental nasal cannula Cardiovascular: Rate/Rhythm: regular rate Gastrointestinal (Abdomen): Inspection/Auscultation: + abdominal surgical incision (clean, dry, intact without drainage. zack previously removed ); abdomen not distended and no abdominal surgical drain present Percussion/Palpation: + guarding (some guarding to palpation) and abdomen soft; abdomen nontender ileostomy in place, appears pink and viable, appliance with brown liquid output Results & Data Vital Signs (Past 12 Hours) Vital Signs Temp Pulse Resp BP Pulse Ox 10/16/18 06:44 36.8 C 99 H 17 125/68 95 10/16/18 03:38 36.6 C 98 H 19 116/67 95 10/15/18 23:26 38.8 C H 87 17 107/64 93 XR chest 1V portable CLINICAL HISTORY: Sepsis COMPARISON STUDY: 10/07/2018 FINDINGS: The heart is enlarged. There is mild pulmonary vascular congestion. There are increasing left lower lobe airspace opacities, focal edema versus pneumonia. Postsurgical changes are present within the cervical spine[ IMPRESSION: 1. Cardiomegaly and mild pulmonary vascular congestion 2. Increasing left lower lung zone airspace opacities, focal edema versus pneumonia. Clinical and radiographic follow-up is recommended Electronically signed by: Darci Cantor M.D. 10/15/2018 1:[address] abd pelvis wo con CLINICAL HISTORY: 73 years-old Male presenting with generalized abdominal pain, Ams, leukocytosis, s/p bowel resection. TECHNIQUE: Multidetector CT of the abdomen and pelvis was performed without the use of intravenous contrast. IV contrast: None. One or more dose lowering techniques were used consistent with the principles of ALARA (as low as reasonably achievable), including automatic exposure control, mA or kV adjustment to individual patient size, and/or use of iterative reconstruction. COMPARISON: 10/04/2018. CT DOSE (mGy.cm): The estimated cumulative dose is 1089.62 mGycm. 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 Lung bases: Normal heart size. Coronary artery and aortic valve calcification. No pericardial or pleural effusion. Extensive solid consolidation in the lower lobes increased from prior. Liver: Normal morphology. Normal density. Well-defined hypodense lesion near the hepatic dome likely hepatic cyst. Biliary: No gross biliary ductal dilatation allowing for noncontrast technique. Normal gallbladder. Pancreas: Mild parenchymal atrophy. Spleen: Normal noncontrast appearance. Adrenal glands: Normal noncontrast appearance. Kidneys and ureters: Mild bilateral perinephric fat infiltration, nonspecific. Normal noncontrast appearance of the renal parenchyma. No nephrolithiasis or hydronephrosis. Ureters nondistended. Bladder: Circumferential bladder wall thickening. Focus of intraluminal gas likely relates to recent catheterization. Pelvic organs: Prostate enlargement likely secondary to benign prostatic hyperplasia. Bowel: Circumferential wall thickening of the mid to lower rectum with diffuse mild fatty infiltration of the nasal: An associated mild fluid in the presacral region and slight fascial thickening of the mesorectal fascia. A end to side or side to side colocolonic anastomosis is noted at the upper rectum. There is mild focal wall thickening in this region along the left lateral aspect (series 3 image [id number]). The colon is diffusely decompressed with a double barrel ileostomy in the right lower quadrant. No bowel obstruction. Peritoneal cavity: Trace free fluid in the pelvis. No free intraperitoneal gas. Lymph nodes: No gross lymphadenopathy allowing for noncontrast technique. Vasculature: Atherosclerosis of the normal caliber abdominal aorta. Abdominal wall: Postsurgical changes of the infraumbilical abdominal wall with mild fluid and inflammatory change within an incision site. The prior surgical drain has been removed as have the skin zack. No well-defined fluid collection to suggest abscess allowing for noncontrast technique. Trace fluid superficial to the peritoneal lining anteriorly in the lower abdomen. Foci of gas in the anterior abdominal wall likely relates to the recent surgical drains. Right mid abdominal double barrel ileostomy as mentioned. Musculoskeletal: Extensive multilevel degenerative changes of the spine. Posterior lumbar fusion hardware. IMPRESSION: 1. Extensive bilateral lower lobe consolidation increased from prior. While this may represent a significant atelectatic component, this is suspicious for underlying pneumonia. Aspiration pneumonia not excluded. 2. Circumferential wall thickening of the mid to lower rectum concerning for proctitis, either infectious or related to prior radiation. 3. Possible wall thickening along the left lateral aspect of the upper rectum at the site of a colocolonic anastomosis. This is indeterminate and an underlying lesion is not excluded. Gastroenterology consultation is recommended on a nonurgent basis. 4. 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 No bowel obstruction. 5. Postsurgical changes of the infra umbilical anterior abdominal wall with extensive fluid and inflammatory change in the incision site as well as soft tissue emphysema in the subcutaneous fat. No discrete abscess allowing for the lack of intravenous contrast. Correlate clinically to exclude incision site infection. 6. 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 Electronically signed by: Jamel Miguel M.D. 10/15/2018 4:29 PM Dictated: 10/15/18 1620 Transcribed: 10/15/18 1620 PG Care Time/CCT Total # of Minutes Spent Total Time Spent with Patient: Total time spent is greater than 50% in coordination of care (as documented) at patient's floor/unit and/or counseling patient:
--- NOTE | 2018-10-16 16:10 | Hospitalist Progress Note ---
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 Possible sepsis 2/2 hospital acquired PNA, possible aspiration -Developed HAP vs. aspiration PNA during previous admission, completed course of zosyn and vanc during admission (started on 10/04) as well as receiving fluconazole from 10/06 to 10/12 -Blood cultures negative for bacteria and antifungal prior to discharge to [facility] -Presented on the day of admission with lethargy and worsening dyspnea on exertion -SBP in 90s-100, HR of 92, leukocytosis of 19. Procalcitonin elevated at 2.62. Lactate level normal on presentation -CXR with increasing left lower lung zone airspace opacities, focal edema versus pneumonia -Blood cultures collected. 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 Roberts -Post op course complicated by ileus, was tolerating low fiber diet prior to discharge -No abdominal pain today, has liquid output from colostomy -CT abd/pelvis with possible wall thickening along the left lateral aspect of the upper rectum at the site of a colocolonic anastomosis. This is indeterminate and an underlying lesion is not excluded. 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 No bowel obstruction. No evidence of abscess -Appreciate surgery input and recommendation -Not for any surgical intervention at this time -C diff ordered Acute kidney injury -Cr elevated at 1.58 (baseline Cr ~0.7) -In setting of poor PO intake and resulting dehydration -Renal ultrasound pending-pending -Gentle fluids, hold lisinopril -Renal function has been normalized Paroxysmal Atrial Tachycardia -Had asymptomatic runs of narrow-complex tachycardia during previous admission -Evaluated by cardiology. Metoprolol increased to 50mg BID on discharge -Will continue metoprolol with hold parameters -Heart rate remains stable Hypertension -BP on lower side with SBP 90s-100s -Hold lisinopril for now, also with NABIL -Blood pressure is stable without the medications none -Likely to need blood pressure medications on improvement DVT Ppx: SQ heparin Code status: FULL PCP: Carolyn Dispo: Observation telemetry. Plan to return home once medically stable. Subjective 10/16 The patient was seen and examined in the telemetry unit He has been complaining of pain in the left lower chest wall especially with breathing and coughing Denies any palpitation or increasing shortness of breath with Denies any significant abdominal pain, distention, nausea and/or vomiting Review of Systems Review of Systems: All systems reviewed and are unremarkable except as noted below Respiratory: + cough, + dyspnea, + pain on inspiration and + pain with cough Gastrointestinal: + abdominal pain, + bloating and + nausea; no vomiting Neurologic: + generalized weakness Physical Exam Physical Exam: Lying in bed with acute distress secondary to left lower chest wall pain Constitutional: well developed, well nourished and + ill appearing Eyes: PERRL, conjunctivae normal, anicteric sclerae ENMT: external ear and nose normal, oropharynx normal Neck: trachea midline, no thyromegaly Respiratory: normal respiratory effort and + respiratory distress Auscultation: + diminished lung sounds (Especially left lower lung with crackles) Cardiovascular: Rate/Rhythm: regular rate and regular rhythm Heart Sounds: no murmur Gastrointestinal (Abdomen): Inspection/Auscultation: normal bowel sounds and + abdominal surgical incision (clean, dry, intact without drainage. zack previously removed ); no abdominal surgical drain present Percussion/Palpation: + abdomen tender and + guarding Colostomy site intact Neurologic: Alert, awake and oriented x3 Lymphatic: no cervical or axillary lymphadenopathy Results & Data Vital Signs (Past 12 Hours) Vital Signs Temp Pulse Resp BP Pulse Ox 10/16/18 15:29 36.9 C 92 H 20 139/68 96 10/16/18 11:22 36.7 C 83 18 121/67 98 10/16/18 06:44 36.8 C 99 H 17 125/68 95 Laboratory Results Short CBC 10/16/18 Range/Units 05:57 WBC 16.23 H (4.8-10.8) K/uL Hgb 9.6 L (14.0-18.0) g/dL Hct 29.0 L (42-52) % Plt Count 495 H (130-400) K/uL BMP 10/16/18 05:57 Sodium 137 Potassium 4.6 Chloride 108 H Carbon Dioxide 21 BUN 28 H Creatinine 1.19 D Glucose 125 H Calcium 8.7 Liver Function 10/16/18 Range/Units 05:57 Total Bilirubin 2.3 H D (0.2-1) mg/dl Direct Bilirubin 1.5 H D (0-0.2) mg/dl AST 21 (15-37) U/L ALT 84 H (12-78) U/L Alkaline Phosphatase 151 H (45-117) U/L Albumin 1.9 L (3.4-5.0) gm/dl Urine 10/15/18 Range/Units 16:00 Urine Color [place] Urine Appearance Clear (Clear) Urine pH 5.0 (4.5-7.5) Ur Specific [place] 1.027 (1.000-1.030) Urine Protein Negative (Negative) Urine Glucose (UA) Negative (Negative) Medications Administered Current Inpatient Medications Acetaminophen (Tylenol) 650 mg PO Q4H PRN PRN Reason: Pain or Fever Stop: 11/14/18 20:09 Last Admin: 10/16/18 14:16 Dose: 650 mg Documented by: Albuterol (Ventolin Hfa) 2 puffs INH Q4 PRN PRN Reason: Shortness Of Breath Stop: 11/14/18 20:09 Albuterol (Duoneb) 3 ml NEB QIDR PRN PRN Reason: Shortness Of Breath Or Wheezing Stop: 11/14/18 20:09 Fluticasone Propionate (Flonase) 2 sprays GIUSEPPE BID [facility] Stop: 11/14/18 20:59 Last Admin: 10/16/18 08:03 Dose: 2 sprays Documented by: Guaifenesin (Mucinex) 600 mg PO BID [facility] Stop: 11/14/18 20:59 Last Admin: 10/16/18 08:03 Dose: 600 mg Documented by: Sodium Chloride (Nss 1000ml) 1,000 mls @ 100 mls/hr IV .Q10H [facility] Stop: 11/14/18 20:09 Last Admin: 10/16/18 05:28 Dose: 100 mls/hr Documented by: Piperacillin Sod/Tazobactam (Sod 3.375 gm/ Dextrose) 115 mls @ 28.75 mls/hr IV Q8H [facility]; Protocol Stop: 10/22/18 21:59 Last Admin: 10/16/18 14:23 Dose: 28 mls/hr Documented by: Vancomycin HCl 1,500 mg/ (Sodium Chloride) 530 mls @ 200 mls/hr IV Q12H [facility] Stop: 10/22/18 16:30 Last Infusion: 10/16/18 08:22 Dose: Infused Documented by: Lansoprazole (Prevacid) 15 mg PO QAM [facility] Stop: 11/15/18 08:59 Last Admin: 10/16/18 08:03 Dose: 15 mg Documented by: Loratadine (Claritin) 10 mg PO QAM [facility] Stop: 11/15/18 08:59 Last Admin: 10/16/18 08:03 Dose: 10 mg Documented by: Metoprolol Tartrate (Lopressor) 50 mg PO BID [facility] Stop: 11/14/18 20:59 Last Admin: 10/16/18 08:03 Dose: 50 mg Documented by: Miscellaneous (Order Awaiting Action) 1 ea N/A QS [facility] Stop: 11/15/18 00:00 Last Admin: 10/16/18 08:03 Dose: Not Given Documented by: Miscellaneous Information (Consult) 1 ea N/A UD PRN PRN Reason: Consult Stop: 11/14/18 20:12 Miscellaneous Information (Consult) 1 ea N/A UD PRN PRN Reason: Consult Stop: 11/14/18 20:13 Montelukast Sodium (Singulair) 10 mg PO PM [facility] Stop: 11/14/18 20:59 Last Admin: 10/15/18 21:16 Dose: 10 mg Documented by: Multivitamins/Minerals (Multivitamin W/ Minerals Tab) [facility] [place] Stop: 11/15/18 08:59 Last Admin: 10/16/18 08:03 Dose: 1 tab Documented by: Ondansetron HCl (Zofran) 4 mg IV Q6H PRN PRN Reason: Nausea Stop: 11/14/18 20:09 Simvastatin (Zocor) 40 mg PO HS [facility] Stop: 11/14/18 20:59 Last Admin: 10/15/18 21:16 Dose: 40 mg Documented by: Triamcinolone Acetonide (Kenalog 0.025%) 1 appln EXT BID [facility] Stop: 11/14/18 20:59 Last Admin: 10/16/18 10:07 Dose: 1 appln Documented by:
--- NOTE | 2018-10-16 17:49 | Ultrasound Report ---
EXAMINATION: RENAL ULTRASOUND CLINICAL HISTORY: Chronic bladder obstruction. Acute renal insufficiency. COMPARISON STUDY: CT scan dated 10/15/2018 FINDINGS: The right kidney measures 12.5 cm. The left kidney measures 11.8 cm. There is no evidence of hydronephrosis. There are no renal masses. Neither ureteral jet was visualized. Although the ultrasound findings are suggestive of a posterior b ladder diverticulum, none was visualized on the recent CT scan. Exam was moderately limited from a technical standpoint. The patient was unable to cooperate with maldonado ath-holding and had limited mobility. IMPRESSION : 1. No renal masses identified 2. No evidence of hydronephrosis Electronically signed by: Darci Cantor M.D. 10/16/2018 5:47 PM
[2018-10-16] MEDS: MONTELUKAST SODIUM 10 MG TABLET PO SCH (21:16)
[2018-10-16] MEDS: SIMVASTATIN 40 MG TAB PO SCH (21:17)
[2018-10-17] MEDS: VANCOMYCIN HCL 1,500 MG in SODIUM CHLORIDE 0.9% 500 ML IV SCH ×2 (03:34→17:33)
[2018-10-17] MEDS: SODIUM CHLORIDE 0.9% 1000ML 1,000 ML IV SCH ×3 (03:34→22:30)
[2018-10-17] MEDS: ACETAMINOPHEN 325 MG TAB PO PRN (05:08)
[2018-10-17] MEDS: PIPERACILLIN/TAZOBACTAM 3.375 GM in DEXTROSE 5% 100 ML IV SCH ×3 (06:15→22:27)
[2018-10-17 06:24] LABS: Hematocrit (blood only) 27.2 % (42-52); Mean Corpuscular Hgb Conc 33.1 g/dL (32-36); Mean Corpuscular Volume 84.5 fL (80-100); Mean Platelet Volume 9.1 fL (7.4-10.4); Platelet Count 483 K/uL (130-400); RDW Coefficient of Variation 14.8 % (11.5-14.5); RDW Standard Deviation 46.2 fL (36.4-46.3); Red Blood Count 3.22 M/uL (4.7-6.1); White Blood Count 10.11 K/uL (4.8-10.8)
[2018-10-17 07:06] LABS: BUN Creatinine Ratio 21.6 (10-20); Calcium 8.4 mg/dl (8.5-10.1); Creatinine Clr Calc Pharmacy 95.1 ml/min; Est GFR (African American) 102.7; Est GFR (Non-African American) 88.6; Potassium 4.1 mmol/L (3.5-5.1)
--- NOTE | 2018-10-17 07:16 | Surgery Progress Note ---
Date of Service October 17, 2018 Assessment & Plan (1) History of low anterior resection of rectum: PAD#2 encouraged pt to maintain nutrition and hydration increase activity monitor closely i and o especially ileostomy output no surgical issues at this time symptoms appears all related to pneumonic process This is a 73y M who presents to [facility] from [facility] with leukocytosis and lethargy one day after his discharge from his hospitalization where he underwent a laparoscopic assisted low anterior resection with protective ileostomy. Work up thus far has revealed worsening bilateral lower lobe opacities concerning for pneumonia as well as a positive urinalysis. Agree with continuing broad spectrum antibiotics for treatment as well as trending WBC. Okay with additional IV hydration for elevated Cr. Continue to monitor output from ileostomy and urine output. From a surgical standpoint patient is tolerating a diet without nausea/vomiting, surgical incisions are healing well without sign of infection, and ostomy is functioning. Would continue supportive care and appreciate Medicine's ongoing input. At this time there are no acute surgical issues and we will continue to follow along with you. This patient was seen and examined with Dr. Roberts. Subjective had a good night occ coughing spell no abd pain lower left chest discomfort tolerated diet Physical Exam Physical Exam: asleep but easily awakened oriented X3 no abdominal findings Results & Data Vital Signs (Past 12 Hours) Vital Signs Temp Pulse Resp BP Pulse Ox 10/17/18 04:59 36.7 C 94 H 17 163/79 H 95 10/16/18 22:46 36.7 C 75 17 124/69 93 10/16/18 19:16 37.1 C 86 18 126/68 95 PG Care Time/CCT Total # of Minutes Spent Total Time Spent with Patient: Total time spent is greater than 50% in coordination of care (as documented) at patient's floor/unit and/or counseling patient:
[2018-10-17 07:57] LABS: Albumin Level 1.8 gm/dl (3.4-5.0); Bilirubin Direct 0.8 mg/dl (0-0.2); Bilirubin,Total 1.4 mg/dl (0.2-1); Total Protein 5.9 gm/dl (6.4-8.2)
[2018-10-17] MEDS: LANSOPRAZOLE 15 MG SOLTAB PO SCH (08:03)
[2018-10-17] MEDS: METOPROLOL TARTRATE 50 MG TAB PO SCH ×2 (08:03→20:07)
[2018-10-17] MEDS: TRIAMCINOLONE ACET 0.025% CR 15 GM TUBE EXT SCH ×2 (08:04→20:03)
[2018-10-17] MEDS: guaiFENesin 600 MG TABCR PO SCH ×2 (08:04→20:07)
[2018-10-17] MEDS: LORATADINE 10 MG TAB PO SCH (08:04)
[2018-10-17] MEDS: FLUTICASONE PROPIONATE NA SPR 16 GM BTL NAE SCH ×2 (08:04→19:57)
[2018-10-17] MEDS: CEROVITE ADV FORMULA TAB PO SCH (08:04)
--- NOTE | 2018-10-17 14:46 | Hospitalist Progress Note ---
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 Possible sepsis 2/2 hospital acquired PNA, possible aspiration -Developed HAP vs. aspiration PNA during previous admission, completed course of zosyn and vanc during admission (started on 10/04) as well as receiving fluconazole from 10/06 to 10/12 -Blood cultures negative for bacteria and antifungal prior to discharge to [facility] -Presented on the day of admission with lethargy and worsening dyspnea on exertion -SBP in 90s-100, HR of 92, leukocytosis of 19. Procalcitonin elevated at 2.62. Lactate level normal on presentation -CXR with increasing left lower lung zone airspace opacities, focal edema versus pneumonia -Blood cultures collected. 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 Roberts -Post op course complicated by ileus, was tolerating low fiber diet prior to discharge -No abdominal pain today, has liquid output from colostomy -CT abd/pelvis with possible wall thickening along the left lateral aspect of the upper rectum at the site of a colocolonic anastomosis. This is indeterminate and an underlying lesion is not excluded. 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 No bowel obstruction. No evidence of abscess -Appreciate surgery input and recommendation -Not for any surgical intervention at this time -C diff ordered - negative Acute kidney injury -Cr elevated at 1.58 (baseline Cr ~0.7) -In setting of poor PO intake and resulting dehydration -Renal ultrasound pending-pending -Gentle fluids, hold lisinopril -Renal function has been normalized Paroxysmal Atrial Tachycardia -Had asymptomatic runs of narrow-complex tachycardia during previous admission -Evaluated by cardiology. Metoprolol increased to 50mg BID on discharge -Will continue metoprolol with hold parameters -Heart rate remains stable Hypertension -BP on lower side with SBP 90s-100s -Hold lisinopril for now, also with NABIL -Blood pressure is stable without the medications none -Likely to need blood pressure medications on improvement DVT Ppx: SQ heparin Code status: FULL PCP: Carolyn Dispo: We will continue current management We will transfer to medical floor Subjective 10/16 The patient was seen and examined in the telemetry unit He has been complaining of pain in the left lower chest wall especially with breathing and coughing Denies any palpitation or increasing shortness of breath with Denies any significant abdominal pain, distention, nausea and/or vomiting 10/17 The patient was seen and examined in the telemetry unit He has been feeling a little bit better Still has some pain with deep breathing mostly involving left lateral lower chest wall No fever and chills No abdominal pain nausea and/or vomiting Review of Systems Review of Systems: All systems reviewed and are unremarkable except as noted below Respiratory: + cough, + dyspnea, + pain on inspiration and + pain with cough Gastrointestinal: + abdominal pain, + bloating and + nausea; no vomiting Neurologic: + generalized weakness Physical Exam Physical Exam: Lying in bed without any distress but looks ill and lethargic Constitutional: + ill appearing; no acute distress Eyes: PERRL, conjunctivae normal, anicteric sclerae ENMT: external ear and nose normal, oropharynx normal Neck: trachea midline, no thyromegaly Respiratory: normal respiratory effort and + respiratory distress Auscultation: + diminished lung sounds (Especially left lower lung with crackles) Cardiovascular: Rate/Rhythm: regular rate and regular rhythm Heart Sounds: no murmur Gastrointestinal (Abdomen): Inspection/Auscultation: normal bowel sounds and + abdominal surgical incision (clean, dry, intact without drainage. zack previously removed ); no abdominal surgical drain present Percussion/Palpation: + abdomen tender and + guarding Colostomy seems to be intact and draining normal Neurologic: moves all extremities Alert, awake and oriented x3. Generally very weak and lethargic Lymphatic: no cervical or axillary lymphadenopathy Results & Data Vital Signs (Past 12 Hours) Vital Signs Temp Pulse Resp BP Pulse Ox 10/17/18 11:37 36.6 C 78 18 135/75 97 10/17/18 07:18 36.6 C 85 16 164/81 H 92 10/17/18 04:59 36.7 C 94 H 17 163/79 H 95 Laboratory Results Short CBC 10/17/18 Range/Units 05:49 WBC 10.11 (4.8-10.8) K/uL Hgb 9.0 L (14.0-18.0) g/dL Hct 27.2 L (42-52) % Plt Count 483 H (130-400) K/uL BMP 10/17/18 05:49 Sodium 137 Potassium 4.1 Chloride 110 H Carbon Dioxide 23 BUN 17 Creatinine 0.80 D Glucose 107 H Calcium 8.4 L Liver Function 10/17/18 Range/Units 05:49 Total Bilirubin 1.4 H (0.2-1) mg/dl Direct Bilirubin 0.8 H (0-0.2) mg/dl AST 91 H (15-37) U/L ALT 151 H (12-78) U/L Alkaline Phosphatase 185 H (45-117) U/L Albumin 1.8 L (3.4-5.0) gm/dl Medications Administered Current Inpatient Medications Acetaminophen (Tylenol) 650 mg PO Q4H PRN PRN Reason: Pain or Fever Stop: 11/14/18 20:09 Last Admin: 10/17/18 05:08 Dose: 650 mg Documented by: Albuterol (Ventolin Hfa) 2 puffs INH Q4 PRN PRN Reason: Shortness Of Breath Stop: 11/14/18 20:09 Albuterol (Duoneb) 3 ml NEB QIDR PRN PRN Reason: Shortness Of Breath Or Wheezing Stop: 11/14/18 20:09 Fluticasone Propionate (Flonase) 2 sprays GIUSEPPE BID [facility] Stop: 11/14/18 20:59 Last Admin: 10/17/18 08:04 Dose: 2 sprays Documented by: Guaifenesin (Mucinex) 600 mg PO BID [facility] Stop: 11/14/18 20:59 Last Admin: 10/17/18 08:04 Dose: 600 mg Documented by: Sodium Chloride (Nss 1000ml) 1,000 mls @ 100 mls/hr IV .Q10H [facility] Stop: 11/14/18 20:09 Last Admin: 10/17/18 13:29 Dose: 100 mls/hr Documented by: Piperacillin Sod/Tazobactam (Sod 3.375 gm/ Dextrose) 115 mls @ 28.75 mls/hr IV Q8H [facility]; Protocol Stop: 10/22/18 21:59 Last Admin: 10/17/18 14:35 Dose: 28 mls/hr Documented by: Vancomycin HCl 1,500 mg/ (Sodium Chloride) 530 mls @ 200 mls/hr IV Q12H [facility] Stop: 10/22/18 16:30 Last Infusion: 10/17/18 06:15 Dose: Infused Documented by: Lansoprazole (Prevacid) 15 mg PO QAM [facility] Stop: 11/15/18 08:59 Last Admin: 10/17/18 08:03 Dose: 15 mg Documented by: Loratadine (Claritin) 10 mg PO QAM [facility] Stop: 11/15/18 08:59 Last Admin: 10/17/18 08:04 Dose: 10 mg Documented by: Metoprolol Tartrate (Lopressor) 50 mg PO BID [facility] Stop: 11/14/18 20:59 Last Admin: 10/17/18 08:03 Dose: 50 mg Documented by: Miscellaneous Information (Consult) 1 ea N/A UD PRN PRN Reason: Consult Stop: 11/14/18 20:12 Miscellaneous Information (Consult) 1 ea N/A UD PRN PRN Reason: Consult Stop: 11/14/18 20:13 Montelukast Sodium (Singulair) 10 mg PO PM [facility] Stop: 11/14/18 20:59 Last Admin: 10/16/18 21:16 Dose: 10 mg Documented by: Multivitamins/Minerals ([facility]ivitamin W/ Minerals Tab) [facility] [place]: 11/15/18 08:59 Last Admin: 10/17/18 08:04 Dose: 1 tab Documented by: Ondansetron HCl (Zofran) 4 mg IV Q6H PRN PRN Reason: Nausea Stop: 11/14/18 20:09 Simvastatin (Zocor) 40 mg PO HS [facility] Stop: 11/14/18 20:59 Last Admin: 10/16/18 21:17 Dose: 40 mg Documented by: Triamcinolone Acetonide (Kenalog 0.025%) 1 appln EXT BID [facility] Stop: 11/14/18 20:59 Last Admin: 10/17/18 08:04 Dose: 1 appln Documented by:
[2018-10-17] MEDS ORDERED: VANCOMYCIN TROUGH ONE (15:30)
[2018-10-17] MEDS: MONTELUKAST SODIUM 10 MG TABLET PO SCH (20:07)
[2018-10-17] MEDS: SIMVASTATIN 40 MG TAB PO SCH (20:08)
--- NOTE | 2018-10-17 22:00 | Pharmacy Report ---
Pharmacy Abx Dose Short Note - Date of Service October 17, 2018 - Assessment & Plan Laboratory Tests 10/17/18 15:22 Vancomycin Trough 13.2 Assessment 73 year old M receiving Vancomycin 1500mg IV q12h and Zosyn 3.375gm IV q8h for treatment of hospital acquired PNA. Blood cultures x2 show no growth. Day #3 of antimicrobial therapy. Plan Vancomycin * Trough level of 13.2 mcg/mL is subtherapeutic * Change to 1500 mg IV every 10 hours * Goal trough level for PNA: 15 to 20 mcg/mL * Trough level ordered for: 10/19/18 at 0730 Pharmacy will continue to follow and will adjust dose/frequency as necessary. Thank you.
[2018-10-18] MEDS: VANCOMYCIN HCL 1,500 MG in SODIUM CHLORIDE 0.9% 500 ML IV SCH ×3 (01:30→21:07)
[2018-10-18] MEDS ORDERED: VANCOMYCIN HCL 1,500 MG in SODIUM CHLORIDE 0.9% 500 ML IV SCH (02:00)
[2018-10-18] MEDS: PIPERACILLIN/TAZOBACTAM 3.375 GM in DEXTROSE 5% 100 ML IV SCH ×3 (05:49→21:07)
--- NOTE | 2018-10-18 07:32 | Surgery Progress Note ---
Date of Service October 18, 2018 Assessment & Plan (1) History of low anterior resection of rectum: Hospital Day #3 from readmission from [facility] for Pneumonia Will follow up AM labs, WBC was downtrending yesterday Had one elevated temp. yesterday of 38.8C, but has since been afebrile Antibiotics for pneumonia per medicine team. Patient currently saturating well on room air. Continue to encourage activity with assistance Monitor urine and ileostomy output for fluid status Patient tolerating a regular diet without n/v/pain No acute postsurgical issues at this time Dr Vigil- pt awake, alert tolerating regular diet and ileostomy output controlled will need significant PT Subjective Patient awake and alert this AM. States that he has been tolerating a regular diet without nausea, vomiting, or abdominal pain. Was out of bed to chair for the majority of the day yesterday. States that he still has some pain of his left side of his lower back/lung region that is improving, but is curious about the status of his pneumonia. States that the medicine team mentioned ordering a CXR today. His cough is improving and he denies any shortness of breath. He has some frequency with urination, but denies any other urinary symptoms. Physical Exam Physical Exam: awake, alert, pleasant Constitutional: cooperative; no acute distress Respiratory: normal respiratory effort; no respiratory distress and no labored breathing Gastrointestinal (Abdomen): Inspection/Auscultation: + abdominal surgical incision (midline incision c/d/i); abdomen not distended Percussion/Palpation: abdomen soft; abdomen nontender ileostomy site viable with brown liquid output Results & Data Vital Signs (Past 12 Hours) Vital Signs Temp Pulse Resp BP Pulse Ox 10/18/18 02:00 36.6 C 82 18 166/84 H 92 10/17/18 23:00 37.4 C 92 H 18 139/70 90 PG Care Time/CCT Total # of Minutes Spent Total Time Spent with Patient: Total time spent is greater than 50% in coordinat ion of care (as documented) at patient's floor/unit and/or counseling patient:
[2018-10-18 07:36] LABS: Basophils # (auto) 0.04 K/uL (0-0.2); Basophils % (auto) 0.5 %; Eosinophils # (auto) 0.31 K/uL (0-0.5); Eosinophils % (auto) 4.2 %; Hemoglobin 8.7 g/dL (14.0-18.0); Immature Granulocytes # (auto) 0.03 K/uL (0.00-0.02); Immature Granulocytes % (auto) 0.4 %; Lymphocytes # (auto) 0.68 K/uL (1.2-3.4); Lymphocytes % (auto) 9.3 %; Mean Corpuscular Hgb Conc 33.5 g/dL (32-36); Mean Corpuscular Volume 83.9 fL (80-100); Mean Platelet Volume 9.4 fL (7.4-10.4); Monocytes # (auto) 1.03 K/uL (0.11-0.59); Monocytes % (auto) 14.1 %; Neutrophils # (auto) 5.23 K/uL (1.4-6.5); Neutrophils % (auto) 71.5 %; Platelet Count 532 K/uL (130-400); RDW Coefficient of Variation 14.4 % (11.5-14.5); RDW Standard Deviation 43.6 fL (36.4-46.3); White Blood Count 7.32 K/uL (4.8-10.8)
[2018-10-18 08:11] LABS: BUN Creatinine Ratio 13.6 (10-20); Calcium 8.8 mg/dl (8.5-10.1); Creatinine Clr Calc Pharmacy 95.1 ml/min; Est GFR (African American) 102.7; Est GFR (Non-African American) 88.6; Magnesium 1.9 mg/dl (1.8-2.4); Phosphorus 2.3 mg/dl (2.5-4.9); Potassium 3.8 mmol/L (3.5-5.1)
[2018-10-18] MEDS: FLUTICASONE PROPIONATE NA SPR 16 GM BTL NAE SCH ×2 (08:18→21:08)
[2018-10-18] MEDS: SODIUM CHLORIDE 0.9% 1000ML 1,000 ML IV SCH ×2 (08:18→17:52)
[2018-10-18] MEDS: guaiFENesin 600 MG TABCR PO SCH ×2 (08:19→21:10)
[2018-10-18] MEDS: LORATADINE 10 MG TAB PO SCH (08:19)
[2018-10-18] MEDS: CEROVITE ADV FORMULA TAB PO SCH (08:19)
[2018-10-18] MEDS: METOPROLOL TARTRATE 50 MG TAB PO SCH ×2 (08:20→21:11)
[2018-10-18] MEDS: LANSOPRAZOLE 15 MG SOLTAB PO SCH (08:20)
[2018-10-18] MEDS: TRIAMCINOLONE ACET 0.025% CR 15 GM TUBE EXT SCH ×2 (08:20→21:10)
--- NOTE | 2018-10-18 09:00 | XRay Report ---
XR chest 1V portable CLINICAL HISTORY: Pneumonia COMPARISON STUDY: 10/15/2018 FINDINGS: The cardiac and mediastinal contours remain stable. There are worsening left lung airspace opacities. There is a suspected small left pleural effusion. The right lung appears clear.[Postsurgic al changes are present within the cervical spine. IMPRESSION: 1. Progressive left lung airspace opacities. Suspected left pleural effusion. Electronically signed by: Darci Cantor M.D. 10/18/2018 8:58 AM
--- NOTE | 2018-10-18 14:34 | Hospitalist Progress Note ---
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 Possible sepsis 2/2 hospital acquired PNA, possible aspiration -Developed HAP vs. aspiration PNA during previous admission, completed course of zosyn and vanc during admission (started on 10/04) as well as receiving fluconazole from 10/06 to 10/12 -Blood cultures negative for bacteria and antifungal prior to discharge to [facility] -Presented on the day of admission with lethargy and worsening dyspnea on exertion -SBP in 90s-100, HR of 92, leukocytosis of 19. Procalcitonin elevated at 2.62. Lactate level normal on presentation -CXR with increasing left lower lung zone airspace opacities, focal edema versus pneumonia -Blood cultures collected. 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 Roberts -Post op course complicated by ileus, was tolerating low fiber diet prior to discharge -No abdominal pain today, has liquid output from colostomy -CT abd/pelvis with possible wall thickening along the left lateral aspect of the upper rectum at the site of a colocolonic anastomosis. This is indeterminate and an underlying lesion is not excluded. 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 No bowel obstruction. No evidence of abscess -Appreciate surgery input and recommendation -Not for any surgical intervention at this time -C diff ordered - negative -No acute surgical intervention as per surgery Acute kidney injury -Cr elevated at 1.58 (baseline Cr ~0.7) -In setting of poor PO intake and resulting dehydration -Renal ultrasound pending-pending -Gentle fluids, hold lisinopril -Renal function has been normalized Paroxysmal Atrial Tachycardia -Had asymptomatic runs of narrow-complex tachycardia during previous admission -Evaluated by cardiology. Metoprolol increased to 50mg BID on discharge -Will continue metoprolol with hold parameters -Heart rate remains stable Hypertension -BP on lower side with SBP 90s-100s -Hold lisinopril for now, also with NABIL -Blood pressure is stable without the medications none -Likely to need blood pressure medications on improvement DVT Ppx: SQ heparin Code status: FULL PCP: Carolyn Dispo: We will continue current management We will keep him in telemetry for now Subjective 10/16 The patient was seen and examined in the telemetry unit He has been complaining of pain in the left lower chest wall especially with breathing and coughing Denies any palpitation or increasing shortness of breath with Denies any significant abdominal pain, distention, nausea and/or vomiting 10/17 The patient was seen and examined in the telemetry unit He has been feeling a little bit better Still has some pain with deep breathing mostly involving left lateral lower chest wall No fever and chills No abdominal pain nausea and/or vomiting 10/18 The patient is seen and examined in telemetry unit He has been feeling a lot better since admission but he still remains extremely weak and tired Pain in the chest wall with coughing has been decreasing Denies any fever and/or chills Denies any abdominal pain nausea and vomiting, Review of Systems Review of Systems: All systems reviewed and are unremarkable except as noted below Constitutional: + fatigue and + weakness Respiratory: + cough, + dyspnea, + pain on inspiration and + pain with cough Gastrointestinal: + bloating and + nausea; no abdominal pain and no vomiting Neurologic: + generalized weakness Physical Exam Physical Exam: Lying in bed comfortably Constitutional: + ill appearing and + thin; + not well nourished, no acute distress and + not appropriately hydrated Eyes: PERRL, conjunctivae normal, anicteric sclerae ENMT: external ear and nose normal, oropharynx normal Neck: trachea midline, no thyromegaly Respiratory: normal respiratory effort and + respiratory distress Auscultation: + diminished lung sounds (Especially left lower lung with crackles) Cardiovascular: Rate/Rhythm: regular rate and regular rhythm Heart Sounds: no murmur Gastrointestinal (Abdomen): Inspection/Auscultation: normal bowel sounds and + abdominal surgical incision (clean, dry, intact without drainage. zack previously removed ); no abdominal surgical drain present Percussion/Palpation: + abdomen tender and + guarding Neurologic: moves all extremities Lymphatic: no cervical or axillary lymphadenopathy Results & Data Vital Signs (Past 12 Hours) Vital Signs Temp Pulse Resp BP Pulse Ox 10/18/18 11:31 36.5 C 82 20 161/67 H 96 10/18/18 08:02 36.2 C L 64 19 163/89 H 92 Laboratory Results Short CBC 10/18/18 Range/Units 06:29 WBC 7.32 (4.8-10.8) K/uL Hgb 8.7 L (14.0-18.0) g/dL Hct 26.0 L (42-52) % Plt Count 532 H (130-400) K/uL BMP 10/18/18 06:29 Sodium 136 Potassium 3.8 Chloride 108 H Carbon Dioxide 21 BUN 11 Creatinine 0.80 Glucose 115 H Calcium 8.8 Medications Administered Current Inpatient Medications Acetaminophen (Tylenol) 650 mg PO Q4H PRN PRN Reason: Pain or Fever Stop: 11/14/18 20:09 Last Admin: 10/17/18 05:08 Dose: 650 mg Documented by: Albuterol (Ventolin Hfa) 2 puffs INH Q4 PRN PRN Reason: Shortness Of Breath Stop: 11/14/18 20:09 Albuterol (Duoneb) 3 ml NEB QIDR PRN PRN Reason: Shortness Of Breath Or Wheezing Stop: 11/14/18 20:09 Fluticasone Propionate (Flonase) 2 sprays GIUSEPPE BID [facility] Stop: 11/14/18 20:59 Last Admin: 10/18/18 08:18 Dose: 2 sprays Documented by: Guaifenesin (Mucinex) 600 mg PO BID [facility] Stop: 11/14/18 20:59 Last Admin: 10/18/18 08:19 Dose: 600 mg Documented by: Sodium Chloride (Nss 1000ml) 1,000 mls @ 100 mls/hr IV .Q10H [facility] Stop: 11/14/18 20:09 Last Admin: 10/18/18 08:18 Dose: 100 mls/hr Documented by: Piperacillin Sod/Tazobactam (Sod 3.375 gm/ Dextrose) 115 mls @ 28.75 mls/hr IV Q8H [facility]; Protocol Stop: 10/22/18 21:59 Last Admin: 10/18/18 14:25 Dose: 28.8 mls/hr Documented by: Vancomycin HCl 1,500 mg/ (Sodium Chloride) 530 mls @ 200 mls/hr IV Q10H [facility] Stop: 10/22/18 16:30 Last Infusion: 10/18/18 14:27 Dose: Infused Documented by: Lansoprazole (Prevacid) 15 mg PO QAM ROBERT Stop: 11/15/18 08:59 Last Admin: 10/18/18 08:20 Dose: 15 mg Documented by: Loratadine (Claritin) 10 mg PO QAM [facility] Stop: 11/15/18 08:59 Last Admin: 10/18/18 08:19 Dose: 10 mg Documented by: Metoprolol Tartrate (Lopressor) 50 mg PO BID [facility] Stop: 11/14/18 20:59 Last Admin: 10/18/18 08:20 Dose: 50 mg Documented by: Miscellaneous Information (Consult) 1 ea N/A UD PRN PRN Reason: Consult Stop: 11/14/18 20:12 Miscellaneous Information (Consult) 1 ea N/A UD PRN PRN Reason: Consult Stop: 11/14/18 20:13 Montelukast Sodium (Singulair) 10 mg PO PM [facility] Stop: 11/14/18 20:59 Last Admin: 10/17/18 20:07 Dose: 10 mg Documented by: Multivitamins/Minerals (Multivitamin W/ Minerals Tab) 1 tab PO QAM ROBERT Stop: 11/15/18 08:59 Last Admin: 10/18/18 08:19 Dose: 1 tab Documented by: Ondansetron HCl (Zofran) 4 mg IV Q6H PRN PRN Reason: Nausea Stop: 11/14/18 20:09 Simvastatin (Zocor) 40 mg PO HS [facility] Stop: 11/14/18 20:59 Last Admin: 10/17/18 20:08 Dose: 40 mg Documented by: Triamcinolone Acetonide (Kenalog 0.025%) 1 appln EXT BID ROBERT Stop: 11/14/18 20:59 Last Admin: 10/18/18 08:20 Dose: 1 appln Documented by:
[2018-10-18] MEDS: ACETAMINOPHEN 325 MG TAB PO PRN (21:07)
[2018-10-18] MEDS: MONTELUKAST SODIUM 10 MG TABLET PO SCH (21:11)
[2018-10-18] MEDS: SIMVASTATIN 40 MG TAB PO SCH (21:11)
[2018-10-19] MEDS: PIPERACILLIN/TAZOBACTAM 3.375 GM in DEXTROSE 5% 100 ML IV SCH ×3 (06:16→22:01)
[2018-10-19] MEDS: SODIUM CHLORIDE 0.9% 1000ML 1,000 ML IV SCH ×2 (06:16→18:49)
[2018-10-19] MEDS ORDERED: VANCOMYCIN TROUGH ONE (07:30)
[2018-10-19] MEDS: VANCOMYCIN HCL 1,500 MG in SODIUM CHLORIDE 0.9% 500 ML IV SCH ×2 (07:44→19:13)
[2018-10-19] MEDS: FLUTICASONE PROPIONATE NA SPR 16 GM BTL NAE SCH ×2 (07:45→20:48)
[2018-10-19 07:46] LABS: Basophils # (auto) 0.05 K/uL (0-0.2); Basophils % (auto) 0.7 %; Eosinophils # (auto) 0.59 K/uL (0-0.5); Eosinophils % (auto) 7.7 %; Hematocrit (blood only) 27.9 % (42-52); Hemoglobin 9.1 g/dL (14.0-18.0); Immature Granulocytes # (auto) 0.06 K/uL (0.00-0.02); Immature Granulocytes % (auto) 0.8 %; Lymphocytes # (auto) 0.83 K/uL (1.2-3.4); Lymphocytes % (auto) 10.8 %; Mean Corpuscular Hgb Conc 32.6 g/dL (32-36); Mean Corpuscular Volume 83.8 fL (80-100); Mean Platelet Volume 8.9 fL (7.4-10.4); Monocytes # (auto) 1.06 K/uL (0.11-0.59); Monocytes % (auto) 13.8 %; Neutrophils % (auto) 66.2 %; Platelet Count 499 K/uL (130-400); RDW Coefficient of Variation 14.5 % (11.5-14.5); RDW Standard Deviation 44.8 fL (36.4-46.3); Red Blood Count 3.33 M/uL (4.7-6.1); White Blood Count 7.69 K/uL (4.8-10.8)
[2018-10-19] MEDS: LORATADINE 10 MG TAB PO SCH (07:46)
[2018-10-19] MEDS: CEROVITE ADV FORMULA TAB PO SCH (07:46)
[2018-10-19] MEDS: LANSOPRAZOLE 15 MG SOLTAB PO SCH (07:47)
[2018-10-19] MEDS: guaiFENesin 600 MG TABCR PO SCH ×2 (07:47→20:50)
[2018-10-19] MEDS: METOPROLOL TARTRATE 50 MG TAB PO SCH ×2 (07:47→20:49)
[2018-10-19] MEDS: TRIAMCINOLONE ACET 0.025% CR 15 GM TUBE EXT SCH ×2 (07:48→20:48)
[2018-10-19 08:21] LABS: BUN Creatinine Ratio 10.3 (10-20); Calcium 8.5 mg/dl (8.5-10.1); Creatinine Clr Calc Pharmacy 93.9 ml/min; Est GFR (African American) 102.2; Est GFR (Non-African American) 88.2; Magnesium 1.8 mg/dl (1.8-2.4); Phosphorus 2.1 mg/dl (2.5-4.9)
--- NOTE | 2018-10-19 08:26 | Surgery Progress Note ---
Date of Service October 19, 2018 Assessment & Plan (1) History of low anterior resection of rectum: Hospital Day #4 readmission from [facility] for Pneumonia abdomen benign continue treatment for pneumonia eventual ileostomy reversal, once he recovers from pneumonia and completes rehab Dr Vigil- slowly improving tolerating diet- good attitude ! agree with above Subjective tolerating diet, cough becoming productive, left chest discomfort resolved Physical Exam Gastrointestinal (Abdomen): Inspection/Auscultation: + abdominal surgical incision (healed); abdomen not distended ileostomy functioning Results & Data Vital Signs (Past 12 Hours) Vital Signs Temp Pulse Pulse Resp BP Pulse Ox 10/19/18 07:09 36.5 C 87 19 169/84 H 92 10/19/18 02:53 36.6 C 79 16 136/75 92 10/18/18 23:59 92 H 10/18/18 23:31 36.7 C 90 20 154/80 H 90 PG Care Time/CCT Total # of Minutes Spent Total Time Spent with Patient: Total time spent is greater than 50% in coordination of care (as documented) at patient's floor/unit and/or counseling patient:
--- NOTE | 2018-10-19 11:55 | Pharmacy Report ---
Pharmacy Abx Dose Short Note - Date of Service October 19, 2018 - Assessment & Plan Assessment 73 year old M receiving vancomycin and Zosyn IV for treatment of hospital- acquired pneumonia (recent ileostomy on 09/30 -> [facility]) Day # 5 of antimicrobial therapy. Blood cultures show no growth to date MRSA nasal screen: positive on 10/15 Plan Vancomycin * Trough level of 14.8 mcg/mL is slightly subtherapeutic * Will continue current regimen of 1500 mg IV q10h - due to clinical improvement and anticipation that this trough will continue to rise over time * Patient is afebrile over the past 24 hours and WBC down to 7.7 from 19 on admission * Goal trough level for HAP : 15 to 20 mcg/mL * Repeat trough level ordered for: 10/20/18 @1330. Will consider dose/frequency adjustment if still subtherapeutic. Zosyn * Continue Zosyn 3.375 g IV q8h - appropriate based on BMI, renal function, and clinical improvement with current regimen Pharmacy will continue to follow and will adjust dose/frequency as necessary. Thank you.
--- NOTE | 2018-10-19 11:58 | Hospitalist Progress Note ---
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 Possible sepsis 2/2 hospital acquired PNA, possible aspiration -Developed HAP vs. aspiration PNA during previous admission, completed course of zosyn and vanc during admission (started on 10/04) as well as receiving fluconazole from 10/06 to 10/12 -Blood cultures negative for bacteria and antifungal prior to discharge to [facility] -Presented on the day of admission with lethargy and worsening dyspnea on exertion -SBP in 90s-100, HR of 92, leukocytosis of 19. Procalcitonin elevated at 2.62. Lactate level normal on presentation -CXR with increasing left lower lung zone airspace opacities, focal edema versus pneumonia -Blood cultures collected. 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 Roberts -Post op course complicated by ileus, was tolerating low fiber diet prior to discharge -No abdominal pain today, has liquid output from colostomy -CT abd/pelvis with possible wall thickening along the left lateral aspect of the upper rectum at the site of a colocolonic anastomosis. This is indeterminate and an underlying lesion is not excluded. 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 No bowel obstruction. No evidence of abscess -Appreciate surgery input and recommendation -Not for any surgical intervention at this time -C diff ordered - negative -No acute surgical intervention as per surgery Acute kidney injury -Cr elevated at 1.58 (baseline Cr ~0.7) -In setting of poor PO intake and resulting dehydration -Renal ultrasound pending-pending -Gentle fluids, hold lisinopril -Renal function has been normalized Paroxysmal Atrial Tachycardia -Had asymptomatic runs of narrow-complex tachycardia during previous admission -Evaluated by cardiology. Metoprolol increased to 50mg BID on discharge -Will continue metoprolol with hold parameters -Heart rate remains stable Hypertension -BP on lower side with SBP 90s-100s -Hold lisinopril for now, also with NABIL -Blood pressure is stable without the medications none -Likely to need blood pressure medications on improvement DVT Ppx: SQ heparin Code status: FULL PCP: Carolyn Dispo: We will continue current management Clinically better and is improving We will get PT and OT evaluation We will transfer him to medical floor with continued care Subjective 10/16 The patient was seen and examined in the telemetry unit He has been complaining of pain in the left lower chest wall especially with breathing and coughing Denies any palpitation or increasing shortness of breath with Denies any significant abdominal pain, distention, nausea and/or vomiting 10/17 The patient was seen and examined in the telemetry unit He has been feeling a little bit better Still has some pain with deep breathing mostly involving left lateral lower chest wall No fever and chills No abdominal pain nausea and/or vomiting 10/18 The patient is seen and examined in telemetry unit He has been feeling a lot better since admission but he still remains extremely weak and tired Pain in the chest wall with coughing has been decreasing Denies any fever and/or chills Denies any abdominal pain nausea and vomiting, 10/19 The patient was seen and examined in telemetry unit He has been feeling much better today and looks brighter He still has some pain in the left lateral chest wall with deep breathing Denies any fever and/or chills Review of Systems Review of Systems: All systems reviewed and are unremarkable except as noted below Constitutional: + fatigue and + weakness Respiratory: + cough, + dyspnea, + pain on inspiration and + pain with cough Gastrointestinal: + bloating and + nausea; no abdominal pain and no vomiting Neurologic: + generalized weakness Physical Exam Physical Exam: Lying in bed comfortably with minimal distress Constitutional: + ill appearing and + thin; + not well nourished, no acute distress and + not appropriately hydrated Eyes: PERRL, conjunctivae normal, anicteric sclerae ENMT: external ear and nose normal, oropharynx normal Neck: trachea midline, no thyromegaly Respiratory: normal respiratory effort and + respiratory distress Auscultation: + diminished lung sounds (Especially left lower lung with crackles) Cardiovascular: Rate/Rhythm: regular rate and regular rhythm Heart Sounds: no murmur Gastrointestinal (Abdomen): Inspection/Auscultation: normal bowel sounds and + abdominal surgical incision (clean, dry, intact without drainage. zack previously removed ); no abdominal surgical drain present Percussion/Palpation: + abdomen tender and + guarding Neurologic: moves all extremities; no focal motor deficits Lymphatic: no cervical or axillary lymphadenopathy Results & Data Vital Signs (Past 12 Hours) Vital Signs Temp Pulse Pulse Resp BP Pulse Ox 10/19/18 10:55 36.7 C 68 18 147/78 H 95 10/19/18 07:09 36.5 C 87 19 169/84 H 92 10/19/18 02:53 36.6 C 79 16 136/75 92 10/18/18 23:59 92 H
[2018-10-19] MEDS ORDERED: NURSING DECISION MEDICATION ONE (18:25)
[2018-10-19] MEDS: ACETAMINOPHEN 325 MG TAB PO PRN (18:52)
[2018-10-19] MEDS ORDERED: MICONAZOLE NITRATE POWDER 43 GM EXT PRN (20:07)
[2018-10-19] MEDS: MONTELUKAST SODIUM 10 MG TABLET PO SCH (20:49)
[2018-10-19] MEDS: SIMVASTATIN 40 MG TAB PO SCH (20:50)
[2018-10-20] MEDS: VANCOMYCIN HCL 1,500 MG in SODIUM CHLORIDE 0.9% 500 ML IV SCH ×3 (04:05→23:58)
[2018-10-20] MEDS: SODIUM CHLORIDE 0.9% 1000ML 1,000 ML IV SCH ×2 (05:06→23:23)
[2018-10-20] MEDS: PIPERACILLIN/TAZOBACTAM 3.375 GM in DEXTROSE 5% 100 ML IV SCH ×3 (05:21→22:20)
--- NOTE | 2018-10-20 07:50 | Surgery Progress Note ---
Date of Service October 20, 2018 Assessment & Plan (1) History of low anterior resection of rectum: Hospital Day #[address] [facility] for Pneumonia Continue treatment for pneumonia Start calorie counts to ensure patient is taking adequate nutrition Continue multivitamin with minerals Continue to work on physical therapy Monitor UOP and ileostomy output. Can check intermittent BMP's to ensure patient is not becoming dehydrated from fluid losses No surgical issues at this time. Eventually will undergo ileostomy reversal, once he recovers from pneumonia and completes rehab. Will need a barium study per rectum as outpatient Patient seen and examined with Dr. Roberts Supervising Physician Co-Signing Physician Notes Patient is a 73 yr male with history of malignant neoplasm of the sigmoid who recently was admitted at [facility], underwent colon resection, treated for multilobular pneumonia, postop ileus and was discharged to rehab facility presents with progressive worsening shortness of breath on exertion, lethargy. Patient was noted to have an elevated white blood cell count and was hypotensive, tachycardic while evaluated at rehab facility. Patient was sent to ED for further evaluation. Please review HPI for complete details of presentation. CT abdomen suggestive of extensive bilateral lower lobe consolidation which is slightly progressed from prior. Also noted findings suggestive of chronic bladder outlet obstruction secondary to prostatomegaly. Labs showed white count of 19 K, procalcitonin elevated at 2.6. Also noted elevated ALT at 136, alkaline phosphatase 208. On exam patient is moderately built and nourished, no apparent distress, normocephalic atraumatic, lungs--coarse breath sounds, basal crackles, S1-S2, no murmur, abdomen soft nontender,+ ostomy bag with feces, no pedal edema, grossly no focal neurological deficits. Patient is admitted for management of sepsis secondary to healthcare associated pneumonia, NABIL. Agree with broad-spectrum antibiotics--Vanco, Zosyn. Blood cultures obtained. IV fluids. Requested speech evaluation for possible aspiration. Also requested surgery evaluation for ostomy site wound check. Avoid nephrotoxic agents as able. Check renal ultrasound to rule out obstruction. Bladder scan PRN. Repeat LFTs in a.m. I personally reviewed the record. Patient is interviewed and examined at bedside. Patient's care is coordinated with Kalpana Vuong PA-C. Please refer to the documentation above for details of patient's presentation and for discussion of other issues. Subjective Patient states he had no significant events from overnight. Tolerating regular diet, eating breakfast/lunch/and dinner. States he is still voiding frequently. Has a cough that is improving. Wishes to continue to work on his physical therapy. Physical Exam Physical Exam: awake/alert Constitutional: comfortable; no acute distress Respiratory: normal respiratory effort; no respiratory distress and no labored breathing Gastrointestinal (Abdomen): ileostomy in place with brown liquid output Results & Data Vital Signs (Past 12 Hours) Vital Signs Temp Pulse Resp BP BP Pulse Ox 10/20/18 07:00 37.2 C 106 H 20 205/102 H 151/77 H 90 10/19/18 20:50 96 H 177/78 H 93 PG Care Time/CCT Total # of Minutes Spent Total Time Spent with Patient: Total time spent is greater than 50% in coordination of care (as documented) at patient's floor/unit and/or counseling patient:
[2018-10-20 07:58] LABS: Basophils # (auto) 0.06 K/uL (0-0.2); Basophils % (auto) 0.7 %; Eosinophils # (auto) 0.56 K/uL (0-0.5); Eosinophils % (auto) 6.5 %; Hematocrit (blood only) 27.2 % (42-52); Immature Granulocytes # (auto) 0.12 K/uL (0.00-0.02); Immature Granulocytes % (auto) 1.4 %; Lymphocytes # (auto) 0.85 K/uL (1.2-3.4); Lymphocytes % (auto) 9.9 %; Mean Corpuscular Hgb Conc 33.1 g/dL (32-36); Monocytes # (auto) 1.11 K/uL (0.11-0.59); Monocytes % (auto) 12.9 %; Neutrophils # (auto) 5.88 K/uL (1.4-6.5); Neutrophils % (auto) 68.6 %; Platelet Count 527 K/uL (130-400); RDW Coefficient of Variation 14.4 % (11.5-14.5); RDW Standard Deviation 44.4 fL (36.4-46.3); Red Blood Count 3.24 M/uL (4.7-6.1); White Blood Count 8.58 K/uL (4.8-10.8)
[2018-10-20] MEDS ORDERED: HydrALAZINE HCL 20 MG/ML VIAL IV PRN (08:26)
[2018-10-20] MEDS: LORATADINE 10 MG TAB PO SCH (08:53)
[2018-10-20] MEDS: LANSOPRAZOLE 15 MG SOLTAB PO SCH (08:53)
[2018-10-20] MEDS: FLUTICASONE PROPIONATE NA SPR 16 GM BTL NAE SCH ×2 (08:54→21:31)
[2018-10-20] MEDS: guaiFENesin 600 MG TABCR PO SCH ×2 (08:54→21:27)
[2018-10-20] MEDS: CEROVITE ADV FORMULA TAB PO SCH (08:54)
[2018-10-20] MEDS: METOPROLOL TARTRATE 50 MG TAB PO SCH ×2 (08:54→21:28)
[2018-10-20] MEDS: TRIAMCINOLONE ACET 0.025% CR 15 GM TUBE EXT SCH ×2 (08:55→21:30)
[2018-10-20 09:09] LABS: BUN Creatinine Ratio 8.4 (10-20); Calcium 8.6 mg/dl (8.5-10.1); Creatinine Clr Calc Pharmacy 98.8 ml/min; Est GFR (African American) 104.3; Magnesium 1.7 mg/dl (1.8-2.4); Phosphorus 2.5 mg/dl (2.5-4.9); Potassium 3.9 mmol/L (3.5-5.1)
[2018-10-20] MEDS: AMLODIPINE BESYLATE 5 MG TAB PO SCH (09:36)
[2018-10-20] MEDS ORDERED: VANCOMYCIN TROUGH ONE ×2 (13:30→19:30)
--- NOTE | 2018-10-20 14:26 | XRay Report ---
XR chest 2V routine CLINICAL HISTORY: Pneumonia COMPARISON STUDY: 10/18/2018 FINDINGS: There is persistent left lower lung zone parenchymal consolidation. There is a suspected le ft pleural effusion. There is no focal parenchymal consolidation on the right. The heart is the upper limits of normal in size.[ IMPRESSION: Persistent left lung parenchymal consolidation with associated left pleural effusion Electronically signed by: Darci Cantor M.D. 10/20/2018 2:25 PM
--- NOTE | 2018-10-20 14:28 | Pharmacy Report ---
Pharmacy Abx Dose Short Note - Date of Service October 20, 2018 - Assessment & Plan Assessment 73 year old M receiving vancomycin and Zosyn for treatment of pulmonary infection Day # 07/21 of antimicrobial therapy. Plan Vancomycin * Trough level of 18 mcg/mL is therapeutic. * Continue dose of 1500 mg IV every 10 hours * Goal trough level for pulmonary infection : 15 to 20 mcg/mL * Trough ordered for: 10/21/18 prior to 2000 dose Pharmacy will continue to follow and will adjust dose/frequency as necessary. Thank you.
[2018-10-20] MEDS: ACETAMINOPHEN 325 MG TAB PO PRN (14:45)
[2018-10-20] MEDS ORDERED: Nursing to Pharmacy Communication ONE ×2 (16:36→20:03)
--- NOTE | 2018-10-20 17:06 | Hospitalist Progress Note ---
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 Possible sepsis 2/2 hospital acquired PNA, possible aspiration -Developed HAP vs. aspiration PNA during previous admission, completed course of zosyn and vanc during admission (started on 10/04) as well as receiving fluconazole from 10/06 to 10/12 -Blood cultures negative for bacteria and antifungal prior to discharge to [facility] -Presented on the day of admission with lethargy and worsening dyspnea on exertion -SBP in 90s-100, HR of 92, leukocytosis of 19. Procalcitonin elevated at 2.62. Lactate level normal on presentation -CXR with increasing left lower lung zone airspace opacities, focal edema versus pneumonia -Blood cultures collected. -Started empirically on vanc and zosyn -Speech eval for aspiration concern-appreciate input and recommendation -MRSA screen is positive -Possible/suspected MRSA pneumonia -Clinically improving and will continue current antibiotics with Vanco and Zosyn -Repeat chest x-ray showed increasing left lower lobe infiltration with possible left pleural effusion -We will continue current antibiotics including intravenous vancomycin and Zosyn -Clinically much better today -We will use incentive spirometry and will increase mobility -Repeat chest x-ray showed increasing effusion on the left lung -We will ask for ultrasound and may need paracentesis 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 Roberts -Post op course complicated by ileus, was tolerating low fiber diet prior to discharge -No abdominal pain today, has liquid output from colostomy -CT abd/pelvis with possible wall thickening along the left lateral aspect of the upper rectum at the site of a colocolonic anastomosis. This is indeterminate and an underlying lesion is not excluded. 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 No bowel obstruction. No evidence of abscess -Appreciate surgery input and recommendation -Not for any surgical intervention at this time -C diff ordered - negative -No acute surgical intervention as per surgery Acute kidney injury -Cr elevated at 1.58 (baseline Cr ~0.7) -In setting of poor PO intake and resulting dehydration -Renal ultrasound pending-pending -Gentle fluids, hold lisinopril -Renal function has been normalized Paroxysmal Atrial Tachycardia -Had asymptomatic runs of narrow-complex tachycardia during previous admission -Evaluated by cardiology. Metoprolol increased to 50mg BID on discharge -Will continue metoprolol with hold parameters -Heart rate remains stable Hypertension -BP on lower side with SBP 90s-100s -Hold lisinopril for now, also with NABIL -Blood pressure is stable without the medications none -Likely to need blood pressure medications on improvement -Blood pressure was noted to be high this morning -Amlodipine 5 mg was given and will be continued -Utilizing IV as needed DVT Ppx: SQ heparin Code status: FULL PCP: Carolyn Dispo: We will continue current management Clinically better and is improving We will get PT and OT evaluation We will transfer him to medical floor with continued care Subjective 10/16 The patient was seen and examined in the telemetry unit He has been complaining of pain in the left lower chest wall especially with breathing and coughing Denies any palpitation or increasing shortness of breath with Denies any significant abdominal pain, distention, nausea and/or vomiting 10/17 The patient was seen and examined in the telemetry unit He has been feeling a little bit better Still has some pain with deep breathing mostly involving left lateral lower chest wall No fever and chills No abdominal pain nausea and/or vomiting 10/18 The patient is seen and examined in telemetry unit He has been feeling a lot better since admission but he still remains extremely weak and tired Pain in the chest wall with coughing has been decreasing Denies any fever and/or chills Denies any abdominal pain nausea and vomiting, 10/19 The patient was seen and examined in telemetry unit He has been feeling much better today and looks brighter He still has some pain in the left lateral chest wall with deep breathing Denies any fever and/or chills 10/20 Patient was seen and examined in medical floor He has been feeling fine without any significant pain and/or cough Denies any fever and/or chills No abdominal symptoms Review of Systems Review of Systems: All systems reviewed and are unremarkable except as noted below Constitutional: + fatigue and + weakness Respiratory: + cough, + dyspnea, + pain on inspiration and + pain with cough Gastrointestinal: + bloating and + nausea; no abdominal pain and no vomiting Neurologic: + generalized weakness Physical Exam Physical Exam: Lying in bed comfortably and looking much better today 10/20 Constitutional: + thin; + not well nourished, no acute distress and + not appropriately hydrated Eyes: PERRL, conjunctivae normal, anicteric sclerae ENMT: external ear and nose normal, oropharynx normal Neck: trachea midline, no thyromegaly Respiratory: normal respiratory effort Auscultation: + diminished lung sounds (Especially left lower lung with crackles) Cardiovascular: Rate/Rhythm: regular rate and regular rhythm Heart Sounds: no murmur Gastrointestinal (Abdomen): Inspection/Auscultation: normal bowel sounds and + abdominal surgical incision (clean, dry, intact without drainage. zack previously removed ); no abdominal surgical drain present Percussion/Palpation: + abdomen tender and + guarding Neurologic: moves all extremities; no focal motor deficits Lymphatic: no cervical or axillary lymphadenopathy Results & Data Vital Signs (Past 12 Hours) Vital Signs Temp Pulse Resp BP BP Pulse Ox 10/20/18 15:17 37.3 C 97 H 147/58 H 93 10/20/18 09:35 136/77 10/20/18 07:00 37.2 C 106 H 20 205/102 H 151/77 H 90 Laboratory Results Short CBC 10/20/18 Range/Units 07:41 WBC 8.58 (4.8-10.8) K/uL Hgb 9.0 L (14.0-18.0) g/dL Hct 27.2 L (42-52) % Plt Count 527 H (130-400) K/uL BMP 10/20/18 07:41 Sodium 137 Potassium 3.9 Chloride 107 Carbon Dioxide 24 BUN 6 L Creatinine 0.77 Glucose 116 H Calcium 8.6 Medications Administered Current Inpatient Medications Acetaminophen (Tylenol) 650 mg PO Q4H PRN PRN Reason: Pain or Fever Stop: 11/14/18 20:09 Last Admin: 10/20/18 14:45 Dose: 650 mg Documented by: Albuterol (Ventolin Hfa) 2 puffs INH Q4 PRN PRN Reason: Shortness Of Breath Stop: 11/14/18 20:09 Albuterol (Duoneb) 3 ml NEB QIDR PRN PRN Reason: Shortness Of Breath Or Wheezing Stop: 11/14/18 20:09 Amlodipine Besylate (Norvasc) 10 mg PO QAM [facility] Stop: 11/19/18 08:59 Last Admin: 10/20/18 09:36 Dose: 10 mg Documented by: Fluticasone Propionate (Flonase) 2 sprays GIUSEPPE BID [facility] Stop: 11/14/18 20:59 Last Admin: 10/20/18 08:54 Dose: 2 sprays Documented by: Guaifenesin (Mucinex) 600 mg PO BID [facility] Stop: 11/14/18 20:59 Last Admin: 10/20/18 08:54 Dose: 600 mg Documented by: Hydralazine HCl (Hydralazine Hcl) 10 mg IV Q6H PRN PRN Reason: Blood Pressure - High Stop: 11/19/18 08:29 Sodium Chloride (Nss 1000ml) 1,000 mls @ 100 mls/hr IV .Q10H [facility] Stop: 11/14/18 20:09 Last Infusion: 10/20/18 05:26 Dose: 0 mls/hr Documented by: Piperacillin Sod/Tazobactam (Sod 3.375 gm/ Dextrose) 115 mls @ 28.75 mls/hr IV Q8H [facility]; Protocol Stop: 10/22/18 21:59 Last Admin: 10/20/18 14:33 Dose: 28.8 mls/hr Documented by: Vancomycin HCl 1,500 mg/ (Sodium Chloride) 530 mls @ 200 mls/hr IV Q10H [facility] Stop: 10/22/18 16:30 Last Admin: 10/20/18 14:33 Dose: 200 mls/hr Documented by: [facility] ([facility]id) [facility] Stop: 11/15/18 08:59 Last Admin: 10/20/18 08:53 Dose: 15 mg Documented by: Loratadine (Claritin) 10 mg PO QAM [facility] Stop: 11/15/18 08:59 Last Admin: 10/20/18 08:53 Dose: 10 mg Documented by: Metoprolol Tartrate (Lopressor) 50 mg PO BID [facility] Stop: 11/14/18 20:59 Last Admin: 10/20/18 08:54 Dose: 50 mg Documented by: Miconazole Nitrate (Desenex) 1 appln EXT PRN PRN PRN Reason: AFFECTED SKIN FOLDS Stop: 11/18/18 20:06 Last Admin: 10/19/18 20:48 Dose: 1 appln Documented by: Miscellaneous Information (Consult) 1 ea N/A UD PRN PRN Reason: Consult Stop: 11/14/18 20:12 Miscellaneous Information (Consult) 1 ea N/A UD PRN PRN Reason: Consult Stop: 11/14/18 20:13 Montelukast Sodium (Singulair) 10 mg PO PM [facility] Stop: 11/14/18 20:59 Last Admin: 10/19/18 20:49 Dose: 10 mg Documented by: Multivitamins/Minerals (Multivitamin W/ Minerals Tab) 1 tab PO QAM [facility] Stop: 11/15/18 08:59 Last Admin: 10/20/18 08:54 Dose: 1 tab Documented by: Ondansetron HCl (Zofran) 4 mg IV Q6H PRN PRN Reason: Nausea Stop: 11/14/18 20:09 Simvastatin (Zocor) 40 mg PO HS [facility] Stop: 11/14/18 20:59 Last Admin: 10/19/18 20:50 Dose: 40 mg Documented by: Triamcinolone Acetonide (Kenalog 0.025%) 1 appln EXT BID [facility] Stop: 11/14/18 20:59 Last Admin: 10/20/18 08:55 Dose: 1 appln Documented by:
--- NOTE | 2018-10-20 18:08 | Ultrasound Report ---
US effusion-chest/mediastinum CLINICAL HISTORY: 73 years-old Male presenting with Pleural effusion. TECHNIQUE: Real-time grayscale ultrasound imaging of the chest was performed for a focused evaluation at the site of clinical concern. COMPARISON: Chest x-ray performed earlier today. FINDINGS: Small left pleural effusion without evidence of septations. The size makes internal assessment diffic ult to possible low level internal echoes may be present suggesting debris or inspissated contents. D ue to the small size, the effusion is difficult to measure but has an approximate calculus in the vol ume of 34.5 mL. No evidence of a right pleural effusion. IMPRESSION: 1. Small left pleural effusion. 2. No right pleural effusion. Electronically signed by: Jamel Miguel M.D. 10/20/2018 6:07 PM
[2018-10-20] MEDS: SIMVASTATIN 40 MG TAB PO SCH (21:26)
[2018-10-20] MEDS: MONTELUKAST SODIUM 10 MG TABLET PO SCH (21:29)
[2018-10-21] MEDS: ACETAMINOPHEN 325 MG TAB PO PRN (01:13)
[2018-10-21] MEDS: PIPERACILLIN/TAZOBACTAM 3.375 GM in DEXTROSE 5% 100 ML IV SCH ×2 (05:38→13:32)
[2018-10-21 07:43] LABS: Basophils # (auto) 0.07 K/uL (0-0.2); Basophils % (auto) 0.8 %; Eosinophils # (auto) 0.47 K/uL (0-0.5); Eosinophils % (auto) 5.5 %; Hematocrit (blood only) 27.7 % (42-52); Immature Granulocytes # (auto) 0.16 K/uL (0.00-0.02); Immature Granulocytes % (auto) 1.9 %; Lymphocytes # (auto) 0.82 K/uL (1.2-3.4); Lymphocytes % (auto) 9.5 %; Mean Corpuscular Hgb Conc 32.5 g/dL (32-36); Mean Corpuscular Volume 83.9 fL (80-100); Mean Platelet Volume 9.4 fL (7.4-10.4); Monocytes # (auto) 1.23 K/uL (0.11-0.59); Monocytes % (auto) 14.3 %; Neutrophils # (auto) 5.86 K/uL (1.4-6.5); Platelet Count 550 K/uL (130-400); RDW Coefficient of Variation 14.5 % (11.5-14.5); RDW Standard Deviation 44.9 fL (36.4-46.3); White Blood Count 8.61 K/uL (4.8-10.8)
[2018-10-21] MEDS: TRIAMCINOLONE ACET 0.025% CR 15 GM TUBE EXT SCH (08:18)
[2018-10-21] MEDS: LORATADINE 10 MG TAB PO SCH (08:18)
[2018-10-21] MEDS: CEROVITE ADV FORMULA TAB PO SCH (08:18)
[2018-10-21] MEDS: FLUTICASONE PROPIONATE NA SPR 16 GM BTL NAE SCH (08:18)
[2018-10-21] MEDS: guaiFENesin 600 MG TABCR PO SCH (08:18)
[2018-10-21] MEDS: METOPROLOL TARTRATE 50 MG TAB PO SCH (08:18)
[2018-10-21] MEDS: AMLODIPINE BESYLATE 5 MG TAB PO SCH (08:20)
[2018-10-21] MEDS: LANSOPRAZOLE 15 MG SOLTAB PO SCH (08:20)
[2018-10-21 08:21] LABS: BUN Creatinine Ratio 8.5 (10-20); Calcium 9.2 mg/dl (8.5-10.1); Creatinine Clr Calc Pharmacy 74.6 ml/min; Est GFR (African American) 84.1; Est GFR (Non-African American) 72.6; Potassium 3.9 mmol/L (3.5-5.1)
[2018-10-21] MEDS: VANCOMYCIN HCL 1,500 MG in SODIUM CHLORIDE 0.9% 500 ML IV SCH (09:17)
[2018-10-21] MEDS: SODIUM CHLORIDE 0.9% 1000ML 1,000 ML IV SCH (12:01)
--- NOTE | 2018-10-21 15:44 | Hospitalist Progress Note ---
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 Possible sepsis 2/2 hospital acquired PNA, possible aspiration -Developed HAP vs. aspiration PNA during previous admission, completed course of zosyn and vanc during admission (started on 10/04) as well as receiving fluconazole from 10/06 to 10/12 -Blood cultures negative for bacteria and antifungal prior to discharge to [facility] -Presented on the day of admission with lethargy and worsening dyspnea on exertion -SBP in 90s-100, HR of 92, leukocytosis of 19. Procalcitonin elevated at 2.62. Lactate level normal on presentation -CXR with increasing left lower lung zone airspace opacities, focal edema versus pneumonia -Blood cultures collected. -Started empirically on vanc and zosyn -Speech eval for aspiration concern-appreciate input and recommendation -MRSA screen is positive -Possible/suspected MRSA pneumonia -Clinically improving and will continue current antibiotics with Vanco and Zosyn -Repeat chest x-ray showed increasing left lower lobe infiltration with possible left pleural effusion -We will continue current antibiotics including intravenous vancomycin and Zosyn -Clinically much better today -Denies any more respiratory symptoms at rest -Ultrasound of the chest did not show any much pleural effusion -Antibiotic changed to oral Augmentin and be continued to cover a total of 14 days 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 Roberts -Post op course complicated by ileus, was tolerating low fiber diet prior to discharge -No abdominal pain today, has liquid output from colostomy -CT abd/pelvis with possible wall thickening along the left lateral aspect of the upper rectum at the site of a colocolonic anastomosis. This is indeterminate and an underlying lesion is not excluded. 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 No bowel obstruction. No evidence of abscess -Appreciate surgery input and recommendation -Not for any surgical intervention at this time -C diff ordered - negative -No acute surgical intervention as per surgery -Medically stable to be discharged Acute kidney injury -Cr elevated at 1.58 (baseline Cr ~0.7) -In setting of poor PO intake and resulting dehydration -Renal ultrasound pending-pending -Gentle fluids, hold lisinopril -Renal function has been normalized Paroxysmal Atrial Tachycardia -Had asymptomatic runs of narrow-complex tachycardia during previous admission -Evaluated by cardiology. Metoprolol increased to 50mg BID on discharge -Will continue metoprolol with hold parameters -Heart rate remains stable Hypertension -BP on lower side with SBP 90s-100s -Hold lisinopril for now, also with NABIL -Blood pressure is stable without the medications none -Likely to need blood pressure medications on improvement -Blood pressure was noted to be high this morning -Amlodipine 5 mg was given and will be continued -Utilizing IV as needed DVT Ppx: SQ heparin Code status: FULL PCP: Carolyn Dispo: We will continue current management Clinically better and is improving We will get PT and OT evaluation Discussed with the nursing automobile assembly supervisor at [facility] Will be transferred to [facility] this afternoon Subjective 10/16 The patient was seen and examined in the telemetry unit He has been complaining of pain in the left lower chest wall especially with breathing and coughing Denies any palpitation or increasing shortness of breath with Denies any significant abdominal pain, distention, nausea and/or vomiting 10/17 The patient was seen and examined in the telemetry unit He has been feeling a little bit better Still has some pain with deep breathing mostly involving left lateral lower chest wall No fever and chills No abdominal pain nausea and/or vomiting 10/18 The patient is seen and examined in telemetry unit He has been feeling a lot better since admission but he still remains extremely weak and tired Pain in the chest wall with coughing has been decreasing Denies any fever and/or chills Denies any abdominal pain nausea and vomiting, 10/19 The patient was seen and examined in telemetry unit He has been feeling much better today and looks brighter He still has some pain in the left lateral chest wall with deep breathing Denies any fever and/or chills 10/20 Patient was seen and examined in medical floor He has been feeling fine without any significant pain and/or cough Denies any fever and/or chills No abdominal symptoms 10/21 The patient was seen and examined in medical unit He has been feeling a lot better and is out of bed on a chair without any symptoms Denies any more chest pain with the cough with deep breathing no abdominal pain nausea no vomiting, Remains afebrile Review of Systems Review of Systems: All systems reviewed and are unremarkable except as noted below Constitutional: + fatigue and + weakness Respiratory: + cough, + dyspnea, + pain on inspiration and + pain with cough Gastrointestinal: + bloating and + nausea; no abdominal pain and no vomiting Neurologic: + generalized weakness Physical Exam Physical Exam: Sitting on a chair out of bed without any distress Constitutional: + thin; + not well nourished, no acute distress and + not appropriately hydrated Eyes: PERRL, conjunctivae normal, anicteric sclerae ENMT: external ear and nose normal, oropharynx normal Neck: trachea midline, no thyromegaly Respiratory: normal respiratory effort Auscultation: + diminished lung sounds (Especially left lower lung with crackles) Cardiovascular: Rate/Rhythm: regular rate and regular rhythm Heart Sounds: no murmur Gastrointestinal (Abdomen): Inspection/Auscultation: normal bowel sounds and + abdominal surgical incision (clean, dry, intact without drainage. zack previously removed ); no abdominal surgical drain present Percussion/Palpation: + abdomen tender and + guarding Colostomy site is intact Neurologic: moves all extremities; no focal motor deficits Lymphatic: no cervical or axillary lymphadenopathy Results & Data Vital Signs (Past 12 Hours) Vital Signs Temp Pulse Resp BP Pulse Ox 10/21/18 07:16 36.8 C 80 18 154/75 H 91 Laboratory Results Short CBC 10/21/18 Range/Units 07:01 WBC 8.61 (4.8-10.8) K/uL Hgb 9.0 L (14.0-18.0) g/dL Hct 27.7 L (42-52) % Plt Count 550 H (130-400) K/uL BMP 10/21/18 07:01 Sodium 142 Potassium 3.9 Chloride 109 H Carbon Dioxide 24 BUN 9 Creatinine 1.02 Glucose 123 H Calcium 9.2 Medications Administered Current Inpatient Medications Acetaminophen (Tylenol) 650 mg PO Q4H PRN PRN Reason: Pain or Fever Stop: 11/14/18 20:09 Last Admin: 10/21/18 01:13 Dose: 650 mg Documented by: Albuterol (Ventolin Hfa) 2 puffs INH Q4 PRN PRN Reason: Shortness Of Breath Stop: 11/14/18 20:09 Albuterol (Duoneb) 3 ml NEB QIDR PRN PRN Reason: Shortness Of Breath Or Wheezing Stop: 11/14/18 20:09 Amlodipine [facility] ([facility]asc) [facility] [place] Stop: 11/19/18 08:59 Last Admin: 10/21/18 08:20 Dose: 10 mg Documented by: Amoxicillin/Clavulanate Potassium (Augmentin 875mg) 1 tab PO BIDM [facility]; Protocol Stop: 10/28/18 16:59 Fluticasone Propionate (Flonase) 2 sprays GIUSEPPE BID [facility] Stop: 11/14/18 20:59 Last Admin: 10/21/18 08:18 Dose: 2 sprays Documented by: Guaifenesin (Mucinex) 600 mg PO BID [facility] Stop: 11/14/18 20:59 Last Admin: 10/21/18 08:18 Dose: 600 mg Documented by: Hydralazine HCl (Hydralazine Hcl) 10 mg IV Q6H PRN PRN Reason: Blood Pressure - High Stop: 11/19/18 08:29 Sodium Chloride (Nss 1000ml) 1,000 mls @ 100 mls/hr IV .Q10H [facility] Stop: 11/14/18 20:09 Last Admin: 10/21/18 12:01 Dose: 100 mls/hr Documented by: Lansoprazole (Prevacid) 15 mg PO [facility] Stop: 11/15/18 08:59 Last Admin: 10/21/18 08:20 Dose: 15 mg Documented by: Loratadine (Claritin) 10 mg PO [facility] Stop: 11/15/18 08:59 Last Admin: 10/21/18 08:18 Dose: 10 mg Documented by: Metoprolol Tartrate (Lopressor) 50 mg PO BID [facility] Stop: 11/14/18 20:59 Last Admin: 10/21/18 08:18 Dose: 50 mg Documented by: Miconazole Nitrate (Desenex) 1 appln EXT PRN PRN PRN Reason: AFFECTED SKIN FOLDS Stop: 11/18/18 20:06 Last Admin: 10/19/18 20:48 Dose: 1 appln Documented by: Montelukast Sodium (Singulair) 10 mg PO PM [facility] Stop: 11/14/18 20:59 Last Admin: 10/20/18 21:29 Dose: 10 mg Documented by: Multivitamins/Minerals (Caltrate Plus) 1 tab PO BID [facility] Stop: 11/20/18 20:59 Ondansetron HCl (Zofran) 4 mg IV Q6H PRN PRN Reason: Nausea Stop: 11/14/18 20:09 Simvastatin (Zocor) 40 mg PO HS [facility] Stop: 11/14/18 20:59 Last Admin: 10/20/18 21:26 Dose: 40 mg Documented by: Triamcinolone Acetonide (Kenalog 0.025%) 1 appln EXT BID [facility] Stop: 11/14/18 20:59 Last Admin: 10/21/18 08:18 Dose: 1 appln Documented by:
[2018-10-21 16:13] VITALS: BP 138/82; PULSE 67; TEMP 97.7; O2SAT 90
[2018-10-21] MEDS ORDERED: AMOXICILLIN/CLAVULANATE 875 MG TAB PO SCH (17:00)
[2018-10-21] MEDS ORDERED: VANCOMYCIN TROUGH ONE (19:30)
[2018-10-21] MEDS ORDERED: CALCIUM 600MG + VIT D 400 IU TAB PO SCH (21:00)
--- NOTE | 2018-10-22 08:06 | Discharge Summary ---
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 Patient was recently admitted from September 30-October 14 for colon resection by Dr. Roberts. Postop course was complicated by ileus and left lobar pneumonia with concern for aspiration, treated with full course of Vanco and Zosyn. During admission, patient was seen by cardiology service for paroxysmal atrial tachycardia and was started on low-dose beta-frederic. Patient was discharged yesterday to [facility] but repeat lab work done at their facility today revealed leukocytosis, tachycardia and low systolic blood pressure in the 90s. Due to abnormal labwork and vitals, along with dyspnea on exertion and lethargy, patient was sent to ED for further evaluation. Patient afebrile with initial BP of 132/78 but now 94/53. HR of 87, leukocytosis of 19, lactic normal at 1.6, procalcitonin elevated 2.62. Creatinine elevated 1.58 (baseline~ 0.7). CXR with increasing left lower lung zone airspace opacities, focal edema versus pneumonia. CT abd/pelvis with possible wall thickening along the left lateral aspect of the upper rectum at the site of a colocolonic anastomosis. This is indeterminate and an underlying lesion is not excluded. 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 No bowel obstruction. No evidence of abscess. Patient's main complaint is fatigue. Also feels short of breath compared to yesterday. Has a nonproductive cough. Denies fever, chills, lightheadedness, visual changes, chest pain, palpitations, nausea, vomiting, abdominal pain, dysuria or lower extremity swelling. Has had liquid output from colostomy bag. Admission Exam Per Admitting Provider Physical Exam: General Appearance: WD/WN, vitals as above, NAD, appears lethargic but opens eyes and answers questions appropriately when asked, conversing easily Head: normocephalic, atraumatic Eyes: normal inspection, PERRL, conjunctivae normal, anicteric sclerae ENT: external ear and nose normal, oropharynx normal (dry mucous membranes) Neck: trachea midline, no thyromegaly normal visual inspection Respiratory: normal respiratory effort, left lower lung with rales, poor air movement throughout lung ramon. No wheezes or rhonchi. No accessory muscle use, O2 sat 92% on room air Cardiovascular: regular rate, rhythm, no murmur, normal peripheral pulses. 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, hypertension Discharge Exam Constitutional + thin; + not well nourished, no acute distress and + not appropriately hydrated Eyes PERRL, conjunctivae normal, anicteric sclerae ENMT external ear and nose normal, oropharynx normal Neck trachea midline, no thyromegaly Respiratory normal respiratory effort Auscultation: + diminished lung sounds (Especially left lower lung with crackles) Cardiovascular Rate/Rhythm: regular rate and regular rhythm Heart Sounds: no murmur Gastrointestinal (Abdomen) Inspection/Auscultation: normal bowel sounds and + abdominal surgical incision (clean, dry, intact without drainage. zack previously removed ); no abdominal surgical drain present Percussion/Palpation: + abdomen tender and + guarding Neurologic moves all extremities; no focal motor deficits Lymphatic no cervical or axillary lymphadenopathy Discharge Data Allergies Allergy/AdvReac Type Severity Reaction Status Date / Time pollen extracts Allergy Unknown Verified 09/30/18 11:44 Consultations 10/15/18 17:13 ED Decision to Admit Stat 10/15/18 20:10 Consult Case Management - Discharge Planning Routine Consult General Surgery Routine Ordered Studies 10/15/18 15:23 CT abd pelvis wo con Stat 10/16/18 20:10 US renal/blad retro comp Routine 10/20/18 17:00 US effusion-chest/mediastinum Routine Hospital Course (1) HAP (hospital-acquired pneumonia): This is a 73 yo M with a PMH of 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 Possible sepsis 2/2 hospital acquired PNA, possible aspiration -Developed HAP vs. aspiration PNA during previous admission, completed course of zosyn and vanc during admission (started on 10/04) as well as receiving fluconazole from 10/06 to 10/12 -Blood cultures negative for bacteria and antifungal prior to discharge to [facility] -Presented on the day of admission with lethargy and worsening dyspnea on exertion -SBP in 90s-100, HR of 92, leukocytosis of 19. Procalcitonin elevated at 2.62. Lactate level normal on presentation -CXR with increasing left lower lung zone airspace opacities, focal edema versus pneumonia -Blood cultures collected. -Started empirically on vanc and zosyn -Speech eval for aspiration concern-appreciate input and recommendation -MRSA screen is positive -Possible/suspected MRSA pneumonia -Clinically improving and will continue current antibiotics with Vanco and Zosyn -Repeat chest x-ray showed increasing left lower lobe infiltration with possible left pleural effusion -We will continue current antibiotics including intravenous vancomycin and Zosyn -Clinically much better today -Denies any more respiratory symptoms at rest -Ultrasound of the chest did not show any much pleural effusion -Antibiotic changed to oral Augmentin and be continued to cover a total of 14 days 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 Roberts -Post op course complicated by ileus, was tolerating low fiber diet prior to discharge -No abdominal pain today, has liquid output from colostomy -CT abd/pelvis with possible wall thickening along the left lateral aspect of the upper rectum at the site of a colocolonic anastomosis. This is indeterminate and an underlying lesion is not excluded. 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 No bowel obstruction. No evidence of abscess -Appreciate surgery input and recommendation -Not for any surgical intervention at this time -C diff ordered - negative -No acute surgical intervention as per surgery -Medically stable to be discharged Acute kidney injury -Cr elevated at 1.58 (baseline Cr ~0.7) -In setting of poor PO intake and resulting dehydration -Renal ultrasound pending-pending -Gentle fluids, hold lisinopril -Renal function has been normalized Paroxysmal Atrial Tachycardia -Had asymptomatic runs of narrow-complex tachycardia during previous admission -Evaluated by cardiology. Metoprolol increased to 50mg BID on discharge -Will continue metoprolol with hold parameters -Heart rate remains stable Hypertension -BP on lower side with SBP 90s-100s -Hold lisinopril for now, also with NABIL -Blood pressure is stable without the medications none -Likely to need blood pressure medications on improvement -Blood pressure was noted to be high this morning -Amlodipine 5 mg was given and will be continued -Utilizing IV as needed DVT Ppx: SQ heparin Code status: FULL PCP: Carolyn Dispo: We will continue current management Clinically better and is improving We will get PT and OT evaluation Discussed with the nursing covering and lining supervisor at [facility] Will be transferred to [facility] this afternoon Total Time Total Time Spent Total Time Spent (In Minutes): 40 minutes Total Time Includes: Examination of the Patient, Discharge Planning, Medication Reconciliation and Communication With Other Providers Discharge Plan Discharge Items Patient Disposition: Transfer Inpatient Rehab Fac Reason For Visit: HAP, LETHARGY Discharge Diagnosis: Hospital-acquired pneumonia, possible aspiration, 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 Webster Prescriptions: New amoxicillin-pot clavulanate 875-125 mg Tablet 1 tab PO BIDM 7 Days Qty: 14 RF: 0 Caltrate 600-D Plus Minerals 600 mg calcium- 800 unit-50 mg Tablet 1 tab PO BID 30 Days Qty: 60 RF: 0 Lactinex 1 million cell tablet,chewable 2 tab PO BID Qty: 30 RF: 0 Continued [id number]-pni C-Mn Capsule 1 cap PO QAM RF: 0 simvastatin 40 mg Tablet 40 mg PO HS RF: 0 lansoprazole 15 mg Capsule,Delayed Release(Dr/Ec) 15 mg PO QAM RF: 0 montelukast 10 mg Tablet 10 mg PO PM RF: 0 azelastine 137 mcg (0.1 %) Aerosol,Dailey 2 spray INTRANASAL Q12H RF: 0 albuterol sulfate [Ventolin HFA] 90 mcg/actuation Hfa Aerosol Inhaler 2 puff INHALATION Q4 PRN (Reason: Shortness Of Breath) RF: 0 fluticasone propionate [Flonase Allergy Relief] 50 mcg/actuation Dailey,Suspension 2 spray INTRANASAL BID RF: 0 loratadine 10 mg Tablet 10 mg PO QAM RF: 0 Centrum Silver Men 300-600-300 mcg Tablet 1 tab PO QAM RF: 0 guaifenesin [Mucinex] 600 mg Tablet Extended Release 12hr 600 mg PO BID RF: 0 triamcinolone acetonide 0.025 % Cream 1 applic EXT BID 30 Days Qty: 1 RF: 0 lisinopril 10 mg Tablet 10 mg PO BID 30 Days Qty: 60 RF: 0 metoprolol tartrate 50 mg Tablet 50 mg PO BID 30 Days Qty: 60 RF: 0 acetaminophen [Tylenol] 325 mg tablet 325 mg PO Q6H PRN (Reason: pain) Qty: 30 RF: 0 Stand-Alone Forms: [facility] Discharge Orders: Discharge Order (Routine); Ordered 10/21/18 Ordered By: Chon Golden Skilled Items Patient informed of condition?: Yes DNR: No Discharge Level of Care: Skilled Communicable Disease: No Discharge Prognosis: Stable Admission Data Admit Date/Time: 10/16/18 11:31 Attending Provider: Chon Golden Admit Provider: Tra Muir Primary Care Provider: [facility] Other Providers: Tra Muir ; Mike Boggs Service: Medical Other Interventions: Discharge Summary Assessment (RN) Last Done: 10/21/18 16:02 DC Date/Time DO NOT enter until pt leaves facility: 10/21/18 17:21
== END 2018-10-21 17:21 | DRG 871 ==
LOC: 2S 12:37 → ED 12:37 → 2S 19:43 → 2W 10-19 12:55
DX: N17.9 Acute kidney failure, unspecified; Z98.890 Other specified postprocedural states; Z85.038 Personal history of other malignant neoplasm of large intestine; I47.1 Supraventricular tachycardia; A41.9 Sepsis, unspecified organism; Z82.49 Family history of ischemic heart disease and other diseases of the circulatory system; J69.0 Pneumonitis due to inhalation of food and vomit; H40.9 Unspecified glaucoma; K21.9 Gastro-esophageal reflux disease without esophagitis; E86.0 Dehydration; N40.0 Benign prostatic hyperplasia without lower urinary tract symptoms; K58.9 Irritable bowel syndrome, unspecified; I10 Essential (primary) hypertension

== ENCOUNTER 2019-01-20 06:22 | Inpatient (IN) ==
--- NOTE | 2019-01-02 09:12 | PAT Medication Instructions ---
Medication Instructions Date of Service January 02, 2019 Home Medications Centrum Silver Men 1 tab PO DAILY albuterol sulfate [Ventolin HFA] 2 puff INHALATION Q4 PRN azelastine 2 spray INTRANASAL Q12H PRN fluticasone propionate [Flonase Allergy Relief] 2 spray INTRANASAL BID loratadine 10 mg PO UD PRN simvastatin 40 mg PO HS acetaminophen [Acetaminophen Extra Strength] 500 mg PO Q4H PRN omeprazole 20 mg PO QAM magnesium chloride 128 mg PO BID metoprolol tartrate 12.5 mg PO QAM montelukast 10 mg PO QPM sodium bicarbonate 1,300 mg PO BID DO NOT take the morning of surgery Centrum Silver Men 1 tab PO DAILY loratadine 10 mg PO UD PRN magnesium chloride 128 mg PO BID sodium bicarbonate 1,300 mg PO BID Take morning of surgery With a small sip of water, OTHERWISE NOTHING TO EAT OR DRINK AFTER MIDNIGHT: albuterol sulfate [Ventolin HFA] 2 puff INHALATION Q4 PRN (use if needed; please bring with you to hospital day of surgery if possible) azelastine 2 spray INTRANASAL Q12H PRN (if needed) fluticasone propionate [Flonase Allergy Relief] 2 spray INTRANASAL BID acetaminophen [Acetaminophen Extra Strength] 500 mg PO Q4H PRN (okay to take up to 4 hours prior to surgery if needed) omeprazole 20 mg PO QAM metoprolol tartrate 12.5 mg PO QAM Take evening before surgery albuterol sulfate [Ventolin HFA] 2 puff INHALATION Q4 PRN (if needed) azelastine 2 spray INTRANASAL Q12H PRN (if needed) fluticasone propionate [Flonase Allergy Relief] 2 spray INTRANASAL BID loratadine 10 mg PO UD PRN (if needed) simvastatin 40 mg PO HS acetaminophen [Acetaminophen Extra Strength] 500 mg PO Q4H PRN (if needed) magnesium chloride 128 mg PO BID montelukast 10 mg PO QPM sodium bicarbonate 1,300 mg PO BID Other Notes If you have any questions please call us at [phone] or [phone] or [phone] or [phone]
--- NOTE | 2019-01-02 09:14 | Anesthesiology Consultation ---
Date of Service January 02, 2019 Assessment & Plan (1) Encounter for pre-operative examination: Cardiology: 12/16/18: Brief, transient dizziness (improved with decreasing metoprolol dose). "Continue low-dose metoprolol succinate. Seven day Zio patch monitor placed assess arrhythmias as well symptoms of mild lightheadedness. Will likely recommend continuing metoprolol unless abnormalities on event monitor at lease [sic] through upcoming planned colostomy reversal." Awaiting summer clerk results ([facility]). Chart Review Chart Review: Patient seen in Pre Admission Testing Teaching & Discussion Pre-Anesthesia Teaching/Discussion Notes: Instructed NPO after midnight before surgery,except medications with 15 cc of water. Medication instructions provide d according to the PAT guidelines. History Surgery Operation Date: 01/20/19 08:20 Proposed Procedures p Open Reversal of Ileostomy - Vivek Roberts MD Height/Weight Height: 6 ft 1 in Weight: 92 kg Allergies Allergy/AdvReac Type Severity Reaction Status Date / Time pollen extracts Allergy SNEEZING, Verified 01/01/19 13:52 WATERY EYES , RUNNY NOSE Medications Home Medications Medication Instructions Recorded Confirmed Last Taken Centrum Silver Men 1 tab PO DAILY 05/19/18 01/01/19 09/28/18 08:00 albuterol sulfate [Ventolin HFA] 2 puff INHALATION Q4 PRN 05/19/18 01/01/19 09/30/18 05:30 azelastine 2 spray INTRANASAL Q12H PRN 05/19/18 01/01/19 09/30/18 05:30 fluticasone propionate [Flonase 2 spray INTRANASAL BID 05/19/18 01/01/1909/30 05:30 Allergy Relief] loratadine 10 mg PO UD PRN 05/19/18 01/01/19 09/29/18 22:00 simvastatin 40 mg PO HS 05/19/18 01/01/19 12/31/18 acetaminophen [Acetaminophen Extra 500 mg PO Q4H PRN 11/11/18 01/01/19 Unknown Strength] omeprazole 20 mg PO QAM 11/11/18 01/01/19 01/01/19 magnesium chloride 128 mg PO BID 01/01/19 01/01/19 Unknown metoprolol tartrate 12.5 mg PO QAM 01/01/19 01/01/1919 montelukast 10 mg PO QPM 01/01/19 01/01/19 12/31/18 sodium bicarbonate 1,300 mg PO BID 01/01/19 01/01/19 01/01/19 Past Medical History Medical History Anemia baseline hgb 9-11 range per chart review Asthma CKD (chronic kidney disease) Colon cancer s/p chemo/xrt (completed 08/2018) Esophageal stricture GERD (gastroesophageal reflux disease) controlled History of acute renal failure 10/2018 "resolved" without need for dialysis History of diverticulitis History of GI bleed intermittent felt 2/2 malignancy, no blood transfusions per pt Hyperlipidemia Hypertension IBS (irritable bowel syndrome) Ileostomy present Malignant neoplasm of rectosigmoid (colon) Osteoarthritis Paroxysmal atrial tachycardia Exercise / Class Metabolic Activity III < 4 Walking/Shop/Light housework (uses walker PRN) Past Family History Family History Grandfather (Maternal) , age 73 of bladder cancer No problems noted. Grandmother (Maternal) , age 83 of GA No problems noted. Grandmother (Paternal) , of heart attack No problems noted. Grandfather (Paternal) , of motor vehicle collision No problems noted. Father , age 69 of heart attack No problems noted. Mother , age 98 of kidney failure No problems noted. Sister Age: 70 Cancer malignant ovarian tumor removed Daughter Age: 45 No problems noted. Daughter Age: 41 Bipolar disorder Other FHx: cancer No family history of adverse response to anesthesia Past Surgical History Surgical History History of colonoscopy History of esophagogastroduodenoscopy (EGD) History of fusion of cervical spine C6-T1 History of lumbar spinal fusion History of lumbar surgery TO REMOVE SPINAL CYST History of tonsillectomy and adenoidectomy History of tooth extraction INFECTED TOOTH POST ROOT CANAL (2002) History of wisdom tooth extraction S/P colon resection Laparoscopic Assisted Low Anterior Resection with Protective Ileostomy, Appendectomy Dr. Roberts 09/30/18: Grade view 3, MAC#3, ETT 7.5 at [facility] Past Anesthesia History No Hx of Anesthesia Complications and No Family Hx of Anesthesia Complications History of PONV No Hx of PONV and No Hx of Motion Sickness Social History Smoking Status: Never smoker (except 2 weeks in college) Do You Dip or Chew Tobacco: No Hx Alcohol Use: No Hx Substance Use: No substance use type: does not use Review of Systems Reflux controlled. Patient denies chest pain, shortness of breath, cough, wheezing, palpitations. Physical Exam Vital Signs VITALS BP 107/71 P 88 TEMP 97.9 SP02 98%RA RESP 16 PHYSICAL Mildly decreased cervical extension s/p cervical fusion Full TMJ range of motion. TMD 3.5 finger breaths Mallampati Score 1 Dentition: intact, crowns several Lungs: clear throughout to auscultation Cardiac: regular rate and rhythm, no murmurs noted Spine: normal Carotid arteries: negative bruit Extremities: no edema Testing Laboratory Results 01/02/19 09:37 01/02/19 09:37 PT 10.3 Seconds (9.0-12.0) 01/02/19 09:37 INR 1.0 (0.9-1.1) 01/02/19 09:37 APTT 25.7 Seconds (21.0-31.0) 01/02/19 09:37 Electrocardiogram Date: 11/11/18 NSR at 77bpm. iRBBB. LAFB. Septal infarct (dating back to at least 05/11/15 EKG [facility]) Chest X-Ray Date: 01/02/19 Chronic and emphysematous change. No acute process. Complete resolution of the previously described left basilar infiltrate. Stress Test Date: 09/24/14 Type: exercise Stress ECHO negative for inducible ischemia. EF 55-60%. Occasional PVC's. Average exercise tolerance. Grade I DD. Mild MR. 10.1 METS. 95% MPHR.
--- NOTE | 2019-01-02 09:57 | XRay Report ---
XR chest 2V PA/lateral CLINICAL HISTORY: PREOP preoperative evaluation COMPARISON STUDY: 11/10/2018 FINDINGS: The lungs are considered clear. Left basilar infiltrate has resolved. Mild emphysematous ch blu. Considerable degenerative change thoracic spine unchanged. IMPRESSION: Chronic and emphysematous change. No acute process. Complete resolution of the previousl y described left basilar infiltrate. The above report was generated using voice recognition software. It may contain grammatical, syntax or spelling errors. Electronically signed by: Cordell Apple M.D. 01/02/2019 9:56 AM
[2019-01-02 10:07] LABS: Basophils # (auto) 0.04 K/uL (0-0.2); Basophils % (auto) 0.8 %; Eosinophils # (auto) 0.48 K/uL (0-0.5); Hematocrit (blood only) 32.3 % (42-52); Hemoglobin 10.6 g/dL (14.0-18.0); Immature Granulocytes # (auto) 0.01 K/uL (0.00-0.02); Immature Granulocytes % (auto) 0.2 %; Lymphocytes # (auto) 1.01 K/uL (1.2-3.4); Mean Corpuscular Hemoglobin 26.2 pg (25-34); Mean Corpuscular Hgb Conc 32.8 g/dL (32-36); Mean Corpuscular Volume 79.8 fL (80-100); Mean Platelet Volume 8.6 fL (7.4-10.4); Monocytes # (auto) 0.59 K/uL (0.11-0.59); Monocytes % (auto) 11.1 %; Neutrophils # (auto) 3.19 K/uL (1.4-6.5); Neutrophils % (auto) 59.9 %; Platelet Count 251 K/uL (130-400); RDW Coefficient of Variation 15.3 % (11.5-14.5); Red Blood Count 4.05 M/uL (4.7-6.1); White Blood Count 5.32 K/uL (4.8-10.8)
[2019-01-02 10:15] LABS: BUN Creatinine Ratio 14.6 (10-20); Calcium 9.7 mg/dl (8.5-10.1); Creatinine Clr Calc Pharmacy 54.3 ml/min; Est GFR (African American) 58.9; Est GFR (Non-African American) 50.8; Potassium 4.7 mmol/L (3.5-5.1)
[2019-01-02 10:23] LABS: Partial Thromboplastin Ratio 0.9; Partial Thromboplastin Time 25.7 Seconds (21.0-31.0); Prothrombin Time 10.3 Seconds (9.0-12.0)
[~2019-01-20 06:22] MED LIST changes: +MIDAZOLAM HCL 1 MG/ML 2ML VIAL ONE; +fentaNYL citrate 100 MCG/2 ML VIAL ONE
[2019-01-20] MEDS ORDERED: ONDANSETRON INJ 2 MG/ML 2 ML VIAL ONE (06:23)
[2019-01-20] MEDS ORDERED: DEXAMETHASONE SOD INJ 4 MG/ML VIAL ONE (06:23)
[2019-01-20] MEDS ORDERED: GLYCOPYRROLATE 0.2 MG/ML VIAL ONE (06:23)
[2019-01-20] MEDS ORDERED: ROCURONIUM BROMIDE 10 MG/ML 5 ML VIAL ONE ×2 (06:23→08:59)
[2019-01-20] MEDS ORDERED: LIDOCAINE HCL 2% 2 ML VIAL/AMP(20MG/ML) INFIL ONE (06:23)
[2019-01-20] MEDS ORDERED: PROPOFOL IV EMULSION 10 MG/ML 20 ML VIAL IV ONE (06:23)
[2019-01-20] MEDS ORDERED: NEOSTIGMINE METHYLSULFATE 5 MG/5 ML SYR ONE (06:23)
--- NOTE | 2019-01-20 06:52 | History & Physical Bridge Note ---
Date of Service January 20, 2019 History & Physical Bridge Note I have examined the patient, reviewed the History & Physical and in the interval since the performance of the History & Physical I have noted the following changes of clinical significance: no changes noted all questions answered, to be here later, will get nasal swab for f/u MRSA
[2019-01-20] MEDS ORDERED: METOCLOPRAMIDE HCL INJ 5 MG/ML 2 ML VIAL IV PRN (07:48)
[2019-01-20] MEDS ORDERED: ATROPINE SULFATE 0.1 MG/ML 10ML SYR IV PRN (07:48)
[2019-01-20] MEDS ORDERED: PROMETHAZINE HCL 12.5 MG in SODIUM CHLORIDE 0.9% 50 ML IV PRN (07:48)
[2019-01-20] MEDS ORDERED: ONDANSETRON INJ 2 MG/ML 2 ML VIAL IV PRN (07:48)
[2019-01-20] MEDS ORDERED: ePHEDrine sulfate 50 MG/ML AMP IV PRN (07:48)
[2019-01-20] MEDS ORDERED: fentaNYL citrate 100 MCG/2 ML VIAL ONE (09:01)
--- NOTE | 2019-01-20 09:37 | Post Operative Brief Note ---
PG Immediate Post Op with CF Date of Surgery January 20, 2019 Pre & Post Diagnosis Operation Date: 01/20/19 08:00 Pre-Op Diagnosis: Rectosgimoid Junction Carcinoma Post-Op Diagnosis: Rectosgimoid Junction Carcinoma I identified the patient and participated in the time-out.: Yes Procedure Operation Date: 01/20/19 08:00 Actual Procedures p Open Closure of Ileostomy(Not Applicable) - Vivek Roberts MD Surgeon Vivek Roberts MD Ground Water Contractor B WOODY CAO Estimated Blood Loss 30 Findings Consistent with Post-Op Diagnosis Specimens Specimen Description: Culture 1. Urine Permanent A. Ileostomy Drains Martines Catheter and [place] Drain
--- NOTE | 2019-01-20 09:54 | Operative Report ---
PG Post Operative Report Pre & Post Diagnosis Operation Date: 01/20/19 08:00 Pre-Op Diagnosis: Rectosgimoid Junction Carcinoma Post-Op Diagnosis: Rectosgimoid Junction Carcinoma I identified the patient and participated in the time-out.: Yes Procedure Operation Date: 01/20/19 08:00 Actual Procedures p Open Closure of Ileostomy(Not Applicable) - Vivek Roberts MD The patient was brought into the operating theater a Martines catheter been inserted since the patient was not able to void prior to going to sleep he had last voided about 6 hours ago this was done after general anesthesia was given the patient's abdomen was prepped Betadine solution properly draped around the ileostomy site after the bag had been removed and we make sure that any skin adhesive was removed systemic antibiotics was given timeout was had patient was identified we made an elliptical incision transversely around the 2 barrel protective ileostomy taken to subcutaneous tissue we used the electrocautery more revised to free up the 2 barrels of the small bowel is a coming out we went down to the abdominal fascia where we were able to dissect out circumferentially elevating the 2 loops more in the abdominal field freeing it up from any adhesion that was under the abdomen. The proximal and there was dilated as expected the distal end was small we then used 2 applications of the MORENA to divide the distal end first which was smaller and then the proximal end the mesentery to this area were ligated with 2-0 silk stay sutures. Once the 2 limbs had been performed we then oversewed with 3-0 interrupted silk closing the mesentery first to avoid any rotation after that we then were able to do a [id number] anastomosis using 3-0 silk our layer 3-0 chromic interlayer the anastomosis accommodate finger breath or so without any difficulty and there was no evidence of any obstruction distally I did notice that the proximal end of the pouch was more dilated and distal to the end of the anastomosis there seems to be an overlap of the small bowel therefore we took off another 2 cm of this area out using another application of the MORENA and similarly oversewn that with 3 interrupted silk. Hemostasis satisfactory was returned intra-abdominally in the abdomen was then closed with interrupted #1 PDS [id number] quarter inch Tripp was placed in the depth of the wound taken either and with 3-0 silk suture 3-0 nylon in vertical mattress for the skin the dressing was applied procedure was tolerated well by the patient estimated blood loss approximately 30 cc patient was taken recovery in good condition addendum Salvatore cao present throughout the procedure helped the retraction exposure and skin closure Surgeon Vivek Roberts MD Strip Presser Ariel CAO Estimated Blood Loss 30 Findings Consistent with Post-Op Diagnosis Specimens ileostomy sgment Description of Procedure merda I attest to the content of the Intraoperative Record and any orders documented therein. Any exceptions are noted below.
[2019-01-20] MEDS: fentaNYL citrate 100 MCG/2 ML VIAL IV PRN ×2 (10:12→10:17)
[2019-01-20] MEDS: HYDROmorphone INJ 2 MG/ML SYR/VIAL IV PRN ×2 (10:22→10:27)
[2019-01-20] MEDS ORDERED: MoRPHine SULFATE 4 MG/ML 1 ML CARP\\VIAL IV PRN (11:14)
[2019-01-20] MEDS ORDERED: ALBUTEROL HFA 8 GM INHALER INH PRN (11:14)
--- NOTE | 2019-01-20 13:08 | Anesthesiology Progress Note ---
Date of Service January 20, 2019 Anesthesia Post Procedure Vital Signs Vital Signs: Temp Pulse Pulse Resp BP BP Pulse Ox 01/20/19 12:05 36.7 C 92 H 14 133/76 98 01/20/19 11:32 36.6 C 88 14 136/77 97 01/20/19 11:00 36.6 C 86 12 130/73 98 01/20/19 10:50 36.6 C 87 12 155/81 H 99 01/20/19 10:40 36.4 C L 86 12 143/83 H 98 01/20/19 10:30 85 20 141/81 H 98 01/20/19 10:20 80 11 L 142/82 H 98 01/20/19 10:10 80 20 135/85 99 01/20/19 10:00 84 16 142/82 H 98 01/20/19 09:51 36.4 C L 92 H 12 150/96 H 98 01/20/19 07:19 36.7 C 83 20 121/75 97 Pain Intensity Abdomen: Pain Intensity: 7 Transfer of Care Handoff Completed per policy Notes Mental Status: alert / awake / arousable and participated in evaluation Patient Amnestic to Procedure: Yes Nausea / Vomiting: adequately controlled Pain: adequately controlled Airway Patency, RR, SpO2: stable & adequate BP & HR: stable & adequate Hydration State: stable & adequate Anesthetic Complications: no major complications apparent
[2019-01-20] MEDS: LACTATED RINGER'S 1,000 ML IV SCH (14:21)
[2019-01-20] MEDS: cefOXitin 2,000 MG in DEXTROSE 5% 50 ML IV SCH ×2 (14:22→20:55)
[2019-01-20] MEDS ORDERED: COUGH DROP (SUGAR FREE) LOZ 24 LOZ/1 BOX BUCCAL ONE (15:41)
[2019-01-20] MEDS: ACETAMINOPHEN 325 MG TAB PO PRN (15:42)
[2019-01-20] MEDS ORDERED: AZELASTINE: ORDER AWAITING ACTION SCH (16:00)
[2019-01-20] MEDS ORDERED: AZELASTINE PRN (16:15)
[2019-01-20] MEDS: MoRPHine SULFATE 2 MG/ML CARP IV PRN ×2 (19:19→23:07)
[2019-01-20] MEDS: FLUTICASONE PROPIONATE NA SPR 16 GM BTL NAE SCH (20:42)
[2019-01-20] MEDS: MAGNESIUM CHLORIDE 64MG DELAYED REL TAB PO SCH (20:44)
[2019-01-20] MEDS: METOPROLOL TARTRATE 25 MG TAB PO SCH (20:44)
[2019-01-20] MEDS: HEPARIN SOD 5,000 UNIT/0.5 ML VIAL SQ SCH (20:49)
[2019-01-20] MEDS: MONTELUKAST SODIUM 10 MG TABLET PO SCH (22:02)
[2019-01-20] MEDS: SIMVASTATIN 40 MG TAB PO SCH (22:03)
[2019-01-21] MEDS: LACTATED RINGER'S 1,000 ML IV SCH ×2 (00:03→10:11)
[2019-01-21] MEDS: cefOXitin 2,000 MG in DEXTROSE 5% 50 ML IV SCH ×2 (01:39→08:09)
[2019-01-21 07:44] LABS: Basophils # (auto) 0.01 K/uL (0-0.2); Basophils % (auto) 0.1 %; Eosinophils # (auto) 0.04 K/uL (0-0.5); Eosinophils % (auto) 0.5 %; Hematocrit (blood only) 32.4 % (42-52); Immature Granulocytes # (auto) 0.02 K/uL (0.00-0.02); Immature Granulocytes % (auto) 0.3 %; Lymphocytes # (auto) 0.95 K/uL (1.2-3.4); Lymphocytes % (auto) 12.8 %; Mean Corpuscular Volume 79.4 fL (80-100); Mean Platelet Volume 8.5 fL (7.4-10.4); Monocytes # (auto) 0.98 K/uL (0.11-0.59); Monocytes % (auto) 13.2 %; Neutrophils # (auto) 5.43 K/uL (1.4-6.5); Neutrophils % (auto) 73.1 %; Platelet Count 239 K/uL (130-400); RDW Coefficient of Variation 15.2 % (11.5-14.5); Red Blood Count 4.08 M/uL (4.7-6.1); White Blood Count 7.43 K/uL (4.8-10.8)
--- NOTE | 2019-01-21 08:04 | Surgery Progress Note ---
Date of Service January 21, 2019 Assessment & Plan (1) Ileostomy in place: POD 1 ileostomy takedown keep on liquids d/c goetz seen with Dr. Roberts Subjective nausea improved, pain control adequate Physical Exam Gastrointestinal (Abdomen): Inspection/Auscultation: + abdominal surgical incision (dressing dry); abdomen not distended Percussion/Palpation: abdomen soft Results & Data Vital Signs (Past 12 Hours) Vital Signs Temp Pulse Resp BP Pulse Ox 01/21/19 07:30 37 C 88 19 147/67 H 93 01/21/19 02:58 36.7 C 88 15 138/67 94 01/20/19 23:09 36.8 C 98 H 16 147/77 H 98 01/20/19 20:30 37.0 C 98 H 16 148/78 H 98 PG Care Time/CCT Total # of Minutes Spent Total Time Spent with Patient: Total time spent is greater than 50% in coordination of care (as documented) at patient's floor/unit and/or counseling patient:
[2019-01-21] MEDS: ACETAMINOPHEN 325 MG TAB PO PRN (08:09)
[2019-01-21] MEDS: HEPARIN SOD 5,000 UNIT/0.5 ML VIAL SQ SCH ×2 (08:10→21:45)
[2019-01-21] MEDS: FLUTICASONE PROPIONATE NA SPR 16 GM BTL NAE SCH ×2 (08:10→21:41)
[2019-01-21] MEDS: PANTOprazole 40 MG TAB PO SCH (08:11)
[2019-01-21 08:21] LABS: BUN Creatinine Ratio 14.2 (10-20); Calcium 9.5 mg/dl (8.5-10.1); Creatinine Clr Calc Pharmacy 49.9 ml/min; Est GFR (African American) 53.2; Est GFR (Non-African American) 45.9; Potassium 4.5 mmol/L (3.5-5.1)
[2019-01-21] MEDS: METOPROLOL TARTRATE 25 MG TAB PO SCH ×2 (09:07→21:47)
[2019-01-21] MEDS: MAGNESIUM CHLORIDE 64MG DELAYED REL TAB PO SCH ×2 (09:07→21:46)
[2019-01-21] MEDS: SODIUM CHLORIDE 0.9% 1000ML 1,000 ML IV SCH ×2 (12:05→21:41)
[2019-01-21] MEDS: ONDANSETRON INJ 2 MG/ML 2 ML VIAL IV PRN (18:08)
[2019-01-21] MEDS: MONTELUKAST SODIUM 10 MG TABLET PO SCH (21:46)
[2019-01-21] MEDS: SIMVASTATIN 40 MG TAB PO SCH (21:48)
[2019-01-21] MEDS ORDERED: PROMETHAZINE HCL 12.5 MG in SODIUM CHLORIDE 0.9% 50 ML IV PRN (22:13)
[2019-01-22] MEDS: ONDANSETRON INJ 2 MG/ML 2 ML VIAL IV PRN ×2 (05:29→19:20)
[2019-01-22 07:11] LABS: Basophils # (auto) 0.01 K/uL (0-0.2); Basophils % (auto) 0.2 %; Eosinophils # (auto) 0.12 K/uL (0-0.5); Eosinophils % (auto) 2.4 %; Hematocrit (blood only) 35.1 % (42-52); Hemoglobin 11.8 g/dL (14.0-18.0); Immature Granulocytes # (auto) 0.01 K/uL (0.00-0.02); Immature Granulocytes % (auto) 0.2 %; Lymphocytes # (auto) 0.74 K/uL (1.2-3.4); Mean Corpuscular Hemoglobin 27.1 pg (25-34); Mean Corpuscular Hgb Conc 33.6 g/dL (32-36); Mean Corpuscular Volume 80.7 fL (80-100); Mean Platelet Volume 8.4 fL (7.4-10.4); Monocytes # (auto) 0.76 K/uL (0.11-0.59); Monocytes % (auto) 15.4 %; Neutrophils # (auto) 3.28 K/uL (1.4-6.5); Neutrophils % (auto) 66.8 %; Platelet Count 256 K/uL (130-400); RDW Coefficient of Variation 15.2 % (11.5-14.5); Red Blood Count 4.35 M/uL (4.7-6.1); White Blood Count 4.92 K/uL (4.8-10.8)
[2019-01-22] MEDS: SODIUM CHLORIDE 0.9% 1000ML 1,000 ML IV SCH ×2 (07:31→16:54)
[2019-01-22] MEDS: ACETAMINOPHEN 325 MG TAB PO PRN ×2 (07:35→19:19)
[2019-01-22 07:47] LABS: BUN Creatinine Ratio 14.6 (10-20); Calcium 9.3 mg/dl (8.5-10.1); Creatinine Clr Calc Pharmacy 55.5 ml/min; Est GFR (African American) 60.5; Est GFR (Non-African American) 52.2; Potassium 4.6 mmol/L (3.5-5.1)
--- NOTE | 2019-01-22 08:26 | Surgery Progress Note ---
Date of Service January 22, 2019 Assessment & Plan (1) Ileostomy in place: pod 2 At this time I asked the patient to hold off eating and see how he does on his last admission of the patient is similar postoperative pattern what he had hiccups for some time although at that time he had a more extensive surgery we will keep his IV going for today's labs noted will hold off placing an NG tube in at this time POD 1 ileostomy takedown keep on liquids d/c goetz seen with Dr. Roberts Subjective 01/22 And hiccups overnight with small emesis no nausea this morning nausea improved, pain control adequate Physical Exam Physical Exam: Is alert coherent no distress occasional hiccup the abdomen is softly distended no localized tenderness Results & Data Vital Signs (Past 12 Hours) Vital Signs Temp Pulse Pulse Resp BP Pulse Ox 01/22/19 07:32 36.8 C 83 18 129/81 92 01/21/19 23:17 36.5 C 99 H 17 147/80 H 92 01/21/19 21:45 100 H 151/83 H PG Care Time/CCT Total # of Minutes Spent Total Time Spent with Patient: Total time spent is greater than 50% in coordination of care (as documented) at patient's floor/unit and/or counseling patient:
[2019-01-22] MEDS: METOPROLOL TARTRATE 25 MG TAB PO SCH ×2 (08:41→20:39)
[2019-01-22] MEDS: FLUTICASONE PROPIONATE NA SPR 16 GM BTL NAE SCH ×2 (08:41→20:39)
[2019-01-22] MEDS: MAGNESIUM CHLORIDE 64MG DELAYED REL TAB PO SCH ×2 (08:42→20:40)
[2019-01-22] MEDS: PANTOprazole 40 MG TAB PO SCH (08:42)
[2019-01-22] MEDS: HEPARIN SOD 5,000 UNIT/0.5 ML VIAL SQ SCH ×2 (08:42→20:39)
[2019-01-22] MEDS: SIMVASTATIN 40 MG TAB PO SCH (20:39)
[2019-01-22] MEDS: MONTELUKAST SODIUM 10 MG TABLET PO SCH (20:40)
[2019-01-23] MEDS: SODIUM CHLORIDE 0.9% 1000ML 1,000 ML IV SCH (03:04)
[2019-01-23] MEDS ORDERED: SODIUM CHLORIDE 0.9% 1000ML 1,000 ML IV ONE (06:26)
[2019-01-23] MEDS ORDERED: ACETAMINOPHEN 1,000 MG/100 ML VIAL IV STA (06:37)
[2019-01-23] MEDS ORDERED: SODIUM CHLORIDE 0.9% 1000ML 2,000 ML IV ONE (06:37)
[2019-01-23 06:38] LABS: Eosinophils # (auto) 0.01 K/uL (0-0.5); Eosinophils % (auto) 0.6 %; Hematocrit (blood only) 31.8 % (42-52); Hemoglobin 10.6 g/dL (14.0-18.0); Immature Granulocytes # (auto) 0.01 K/uL (0.00-0.02); Immature Granulocytes % (auto) 0.6 %; Lymphocytes # (auto) 0.17 K/uL (1.2-3.4); Lymphocytes % (auto) 9.4 %; Mean Corpuscular Hemoglobin 26.9 pg (25-34); Mean Corpuscular Hgb Conc 33.3 g/dL (32-36); Mean Corpuscular Volume 80.7 fL (80-100); Mean Platelet Volume 8.2 fL (7.4-10.4); Monocytes # (auto) 0.17 K/uL (0.11-0.59); Monocytes % (auto) 9.4 %; Neutrophils # (auto) 1.44 K/uL (1.4-6.5); Platelet Count 228 K/uL (130-400); RDW Standard Deviation 44.5 fL (36.4-46.3); Red Blood Count 3.94 M/uL (4.7-6.1)
[2019-01-23] MEDS ORDERED: PIPERACILL/TAZOBAC CONSULT ACTIVE PRN (06:38)
[2019-01-23] MEDS ORDERED: VANCOMYCIN CONSULT ACTIVE PRN (06:38)
[2019-01-23] MEDS ORDERED: PIPERACILLIN/TAZOBACTAM 4.5 GM in DEXTROSE 5% 100 ML IV STA (06:38)
[2019-01-23] MEDS ORDERED: VANCOMYCIN HCL 1,750 MG in SODIUM CHLORIDE 0.9% 500 ML IV ONE (06:38)
[2019-01-23 06:51] LABS: INR 1.1 (0.9-1.1); Prothrombin Time 11.2 Seconds (9.0-12.0)
[2019-01-23] MEDS ORDERED: VANCOMYCIN HCL 2,250 MG in SODIUM CHLORIDE 0.9% 500 ML IV SCH (07:00)
[2019-01-23] MEDS ORDERED: PIPERACILLIN/TAZOBACTAM 4.5 GM in DEXTROSE 5% 100 ML IV ONE (07:00)
[2019-01-23 07:16] LABS: Alanine Aminotransferase 14 U/L (12-78); Albumin Level 2.8 gm/dl (3.4-5.0); Aspartate Aminotransferase 12 U/L (15-37); BUN Creatinine Ratio 16.3 (10-20); Bilirubin Direct 0.3 mg/dl (0-0.2); Blood Urea Nitrogen 28 mg/dl (7-18); Calcium 8.7 mg/dl (8.5-10.1); Carbon Dioxide 24 mmol/L (21-32); Chloride 105 mmol/L (98-107); Creatinine Clr Calc Pharmacy 43.7 ml/min; Est GFR (African American) 45.4; Est GFR (Non-African American) 39.1; Glucose 114 mg/dl (70-99); Magnesium 1.7 mg/dl (1.8-2.4); Potassium 3.9 mmol/L (3.5-5.1); Sodium 137 mmol/L (136-145)
--- NOTE | 2019-01-23 07:17 | XRay Report ---
XR chest 1V portable CLINICAL HISTORY: Tachycardia COMPARISON STUDY: 01/02/2019 FINDINGS: Postsurgical changes are present within the cervical spine. Underlying emphysema is suspect ed. There are diffusely increased right lung markings. Likely diagnostic considerations include asymm etric edema versus a right lung pneumonitis. Clinical and radiographic follow-up will be necessary. T here are no large pleural effusions.[ IMPRESSION: Mild diffuse increase in right lung markings. Likely diagnostic considerations include as ymmetric edema versus a right lung pneumonitis. Clinical and radiographic follow-up is recommended. Electronically signed by: Darci Cantor M.D. 01/23/2019 7:16 AM
--- NOTE | 2019-01-23 07:18 | Communication Note ---
Date of Service: January 23, 2019 Matthew lindsay was called to room 384-2. I happened to be the first provider to arrive. Nursing staff was at bedside patient was noted to be tachycardic and hypotensive. He had confusion as well. He is postop day 3 from open closure of ileostomy. He had been doing well, but did develop intense nausea and vomiting last evening. An NG tube was placed overnight with greater than 3 L output. He subsequently pulled his NG tube earlier this morning and was noted to be confused. Vital signs consistent with tachycardia, hypotension, and hypoxia wit h oxygen saturations in the high 80s. Upon my arrival, the patient is awake and alert. He knows the year is 2018. He is hypotensive with systolic blood pressures in the 70s. He has a fever in exce ss of 39 C. Heart rate is in the 140s. Review of chart was performed by myself. Orders were placed for laboratory assessment including blood cultures, lactic acid, procalcitonin, and CBC. EKG was obtained which demonstrated sinus tachycardia with no other ST/T wave changes appreciated per my impression. Chest x-ray was obtained which demonstrated concerns for RIGHT middle lobe infiltrative change. Patient was hydrated with 3 L of normal saline to match his NG tube output. His heart rate did improve as did his blood pressure. He was started on Zosyn and vancomycin. Nursing staff did speak with surgeon. Medical consult was placed. Resident was present and placed orders for transfer to telemetry floor. On review of patient's chart during prior surgical intervention approximately 4 months ago, the patient had a similar presentation including concerns for aspiration pneumonia, tachycardic events with associated hypotension and hypoxia. On exam today, the patient is awake and alert. He is able to provide his birthday as well as year. He is able to provide the month. He knows that [place]. He has no focal neurological exams. Cranial nerves II to XII grossly intact. No weakness or drift noted. Abdomen has hypoactive bowel sounds. Abdomen is soft with minimal tenderness to palpation. Coarse breath sounds noted. Tachycardic on exam. I have personally spent 35 minutes of critical care time in the direct management of this patient. This is a life/limb threatening event. This includes time spent evaluating patient, direct bedside care, chart review, placing orders, interpretation of diagnostic studies, discussion with consultants, patient, and family members, as well as other required patient management activities. This time is exclusive of all separately billable procedures, and teaching time and separate from and in addition to any other critical care service time.
[2019-01-23 07:34] LABS: Alkaline Phosphatase 68 U/L (45-117); Bilirubin,Total 0.7 mg/dl (0.2-1); Total Protein 6.2 gm/dl (6.4-8.2); Troponin I < 0.015 ng/ml (0-0.045)
[2019-01-23] MEDS: LACTATED RINGER'S 1,000 ML IV SCH ×3 (07:40→19:43)
[2019-01-23] MEDS ORDERED: SODIUM PHOSPHATE 3 MMOL/1 ML INFUSION IV STA (07:48)
[2019-01-23] MEDS ORDERED: SODIUM PHOSPHATE 15 MMOL in SODIUM CHLORIDE 0.9% 250 ML IV ONE (08:15)
[2019-01-23] MEDS ORDERED: LACTATED RINGER'S 500 ML IV ONE ×2 (08:36→09:18)
[2019-01-23] MEDS ORDERED: PHENYLEPHRINE HCL 20 MG in DEXTROSE 5% 500 ML IV SCH (09:18)
--- NOTE | 2019-01-23 09:27 | Critical Care Consultation ---
Date of Consultation January 23, 2019 Assessment & Plan (1) Admitted to intensive care unit: Reason Critically Ill: 73-year-old male here for hypotension status post Ileostomy takedown. 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 Most recently during his colectomy in the immediate postoperative period he developed hiccups, had an aspiration event, and subsequently developed hypotension. After his procedure he was transferred the ICU for further evaluation management requiring some pressor support. His pressures were soft on presentation to the ICU during this admission. He was placed on peripheral phenylephrine and is improving. -Phenylephrine for pressure support wean as tolerated Respiratory: Suspected aspiration pneumonia: Patient has similar presentation during his last admission for colectomy.Demonstrated right lung pneumonitis likely representing an aspiration type pneumonia -PRN O2 as needed, wean as tolerated -Zosyn and vancomycin GI: N.p.o. for now with NG tube in place Surgical site healing well no acute concerns Negative for peritoneal signs at present RENAL/LYTES: - No significant electrolyte derangement. - Replace lytes as needed. NABIL: Patient presented with a creatinine of 1.49, now elevated to 1.77 Baseline creatinine appears to be around 0.8. -Patient is currently status post fluid resuscitation -Gentle hydration as tolerated -Trend daily BMP : - No concerns at this time. ENDO: -Blood sugars well controlled, ICU hypoglycemia protocol in place HEME: - Stable H&H. - Trend daily CBC ID: Sepsis Patient with evidence of aspiration pneumonia on chest x-ray presented to the ICU meeting septic criteria tachycardic, febrile, hypotensive, with elevated white count. Patient is MRSA positive. -Follow-up blood and urine cultures -Started on empiric Zosyn and vancomycin -On phenylephrine for pressor support, wean as tolerated -Trend lactate and PCT INTEGUMENTARY: -No concerns at present LINES/IV ACCESS: -PIVs intact. DVT PROPHYLAXIS: -Heparin 5000 units every 12 h Dispo: ICU can be transferred to the general medical floors when off pressors Thank you for allowing us to be part of this patient's care. Please refer to Dr. Marin's documentation for any further recommendations. (2) Aspiration into airway: (3) Altered mental status: (4) History of low anterior resection of rectum: (5) Tubular adenoma: (6) Prediabetes: (7) BPH with obstruction/lower urinary tract symptoms: (8) Adenocarcinoma of sigmoid colon: Supervising Physician Co-Signing Physician Notes Dr. Vuong was the resident-physician during care of patient. I separately evaluated patient for mcknight portions of the history and the exam. I was present during the critical portion of medical decision making, and I discussed the case with the resident. I generally agree with the findings and plan except for any additions/exceptions noted. P patient has a history of adenocarcinoma and recently underwent a revision of his colostomy 3 days ago. Overnight he had an aspiration event and went into septic shock requiring phenylephrine this morning. He has received approximately 4 L of fluid. He is cogent and lucid. His lactate has been normal. We are continuing vancomycin and Zosyn. Surgery is following the patient. He removed his nasogastric tube yesterday and had an aspiration. We will reinsert his nasogastric tube. He is having some issues with hiccups as he did on his previous admission post surgery. Patient will remain in the ICU today. If he is on prolonged pressors, we will have to place a central venous line. Case discussed personally with Dr. Green of general surgery I have personally spent 40 minutes of critical care time in the direct management of this patient. This is a life/limb threatening event. This includes time spent evaluating patient, direct bedside care, chart review, placing orders, interpretation of diagnostic studies, discussion with consultants, patient, and/or family members regarding treatment decisions, as well as other required patient management activities. This time is exclusive of all separately billable procedures, and teaching time and separate from and in addition to any other critical care service time. 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 Patient was mid to the hospital for the procedure and tolerated procedure well. He did well in the immediate postoperative period per report he began experiencing hiccups on postoperative day 2, during his prior admission when he began experiencing these he subsequently decline and had to be transferred to the ICU. His hiccups progressed throughout the day and became hypotensive & tachycardic overnight. The ICU team was consulted for further evaluation and management of this patient's declining blood pressure. Allergies Allergy/AdvReac Type Severity Reaction Status Date / Time pollen extracts Allergy SNEEZING, Verified 01/20/19 07:11 WATERY EYES , RUNNY NOSE Home Medications Home Medications Medication Instructions Recorded Confirmed Type Centrum Silver Men 1 tab PO DAILY 05/19/18 01/20/19 History albuterol sulfate [Ventolin HFA] 2 puff INHALATION Q4 PRN 05/19/18 01/20/19 History azelastine 2 spray INTRANASAL Q12H PRN 05/19/18 01/20/19 History fluticasone propionate [Flonase 2 spray INTRANASAL BID 05/19/18 01/20/19 History Allergy Relief] loratadine 10 mg PO UD PRN 05/19/18 01/20/19 History simvastatin 40 mg PO HS 05/19/18 01/20/19 History acetaminophen [Acetaminophen Extra 500 mg PO Q4H PRN 11/11/18 01/20/19 History Strength] omeprazole 20 mg PO QAM 11/11/18 01/20/19 History magnesium chloride 128 mg PO BID 01/01/19 01/20/19 History metoprolol tartrate 12.5 mg PO BID 01/01/19 01/20/19 History montelukast 10 mg PO QPM 01/01/19 01/20/19 History sodium bicarbonate 1,300 mg PO BID 01/01/19 01/20/19 History Patient History Medical History Anemia baseline hgb 9-11 range per chart review Asthma CKD (chronic kidney disease) Colon cancer s/p chemo/xrt (completed 08/2018) Esophageal stricture GERD (gastroesophageal reflux disease) controlled History of acute renal failure 10/2018 "resolved" without need for dialysis History of diverticulitis History of GI bleed intermittent felt 2/2 malignancy, no blood transfusions per pt Hyperlipidemia Hypertension IBS (irritable bowel syndrome) Ileostomy present Malignant neoplasm of rectosigmoid (colon) Osteoarthritis Paroxysmal atrial tachycardia Surgical History History of colonoscopy History of colostomy reversal (01/20/19) Open Closure of Ileostomy Dr. Roberts 01/20/19 History of esophagogastroduodenoscopy (EGD) History of fusion of cervical spine C6-T1 History of lumbar spinal fusion History of lumbar surgery TO REMOVE SPINAL CYST History of tonsillectomy and adenoidectomy History of tooth extraction INFECTED TOOTH POST ROOT CANAL (2002) History of wisdom tooth extraction S/P colon resection Laparoscopic Assisted Low Anterior Resection with Protective Ileostomy, Appendectomy Dr. Roberts 09/30/18: Grade view 3, MAC#3, ETT 7.5 at [facility] Family History Grandfather (Maternal) , age 73 of bladder cancer No problems noted. Grandmother (Maternal) , age 83 of [place] No problems noted. Grandmother (Paternal) , of heart attack No problems noted. Grandfather (Paternal) , of motor vehicle collision No problems noted. Father , age 69 of heart attack No problems noted. Mother , age 98 of kidney failure No problems noted. Sister Age: 70 Cancer malignant ovarian tumor removed Daughter Age: 45 No problems noted. 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 Beliefs That Will Affect Care: Jehovah'S Witness Jehovah'S Witness Beliefs: AMISH marital status: Current Living Situation: Spouse and Family Current Living Situation Comment: AND DAUGHTER current occupational status: retired Other Information That Helps Us Care for You: No Feels Safe at Home: Yes and Hesitant to Answer Safety Concerns: Feels Safe At This Time Smoking Status: Never smoker (except 2 weeks in college) Do You Dip or Chew Tobacco: No ; Smoking End Date: SMOKED 2 WEEKS IN COLLEGE AND THAT WAS IT ; Second Hand Exposure: Yes ; Hx Alcohol Use: No Hx Substance Use: No Physical Exam Physical Exam: General: Elderly gentleman in no acute distress HEENT: Normocephalic atraumatic Neck: Normal to visual inspection, no JVD present Cardiac: Regular rate and rhythm, normal S1, normal S2, I did not appreciate any significant murmurs rubs or gallops, negative pedal edema, negative calf tenderness Respiratory: Clear to auscultation bilaterally with symmetrical chest rise without significant wheezes, rales, rhonchi GI: Mildly distended, tender to palpation, surgical site, clean, dry, intact MSK: Moves all extremities Skin: No concerns are present Neuro: Alert and oriented x4, speech a bit slurred, mentation seems a bit slowed. This may represent the patient's baseline Psych: Calm, cooperative, participate in the interview Results & Data Vital Signs (Past 12 Hours) Vital Signs Temp Pulse Resp BP Pulse Ox 01/22/19 23:14 36.7 C 100 H 18 141/79 H 94 Laboratory Results 01/23/19 01/23/19 01/23/19 Range/Units 12:02 11:59 11:59 WBC (4.8-10.8) K/uL RBC (4.7-6.1) M/uL Hgb (14.0-18.0) g/dL Hct (42-52) % MCV (80-100) fL MCH (25-34) pg MCHC (32-36) g/dL RDW Std Deviation (36.4-46.3) fL RDW Coeff of Jean-Claude (11.5-14.5) % Plt Count (130-400) K/uL MPV (7.4-10.4) fL Immature Gran % (Auto) % Neut % (Auto) % Lymph % (Auto) % [place] % (Auto) % Eos % (Auto) % Baso % (Auto) % Immature Gran # (Auto) (0.00-0.02) K/uL Neut # (Auto) (1.4-6.5) K/uL Lymph # (Auto) (1.2-3.4) K/uL [place] # (Auto) (0.11-0.59) K/uL Eos # (Auto) (0-0.5) K/uL Baso # (Auto) (0-0.2) K/uL PT (9.0-12.0) Seconds INR (0.9-1.1) Sodium (136-145) mmol/L Potassium (3.5-5.1) mmol/L Chloride (98-107) mmol/L Carbon Dioxide (21-32) mmol/L Anion Gap (3-11) BUN (7-18) mg/dl Creatinine (0.6-1.4) mg/dl Est Cr Clr Drug Dosing ml/min Est GFR ( Amer) Est GFR (Non-Af Amer) BUN/Creatinine Ratio (10-20) Glucose (70-99) mg/dl POC Glucose 124 H (70-99) Lactate 1.9 (0.4-2.0) mmol/L Calcium (8.5-10.1) mg/dl Phosphorus (2.5-4.9) mg/dl Magnesium (1.8-2.4) mg/dl Total Bilirubin (0.2-1) mg/dl Direct Bilirubin (0-0.2) mg/dl AST (15-37) U/L ALT (12-78) U/L Alkaline Phosphatase (45-117) U/L Ammonia (11-32) umol/L Troponin I (0-0.045) ng/ml Total Protein (6.4-8.2) gm/dl Albumin (3.4-5.0) gm/dl Globulin (2.5-4.0) gm/dl Albumin/Globulin Ratio (0.9-2) Procalcitonin Pending (0-0.5) ng/ml 01/23/19 01/23/19 01/23/19 Range/Units 11:59 10:12 06:40 WBC (4.8-10.8) K/uL RBC (4.7-6.1) M/uL Hgb (14.0-18.0) g/dL Hct (42-52) % MCV (80-100) fL MCH (25-34) pg MCHC (32-36) g/dL RDW Std Deviation (36.4-46.3) fL RDW Coeff of Jean-Claude (11.5-14.5) % Plt Count (130-400) K/uL MPV (7.4-10.4) fL Immature Gran % (Auto) % Neut % (Auto) % Lymph % (Auto) % [place] % (Auto) % Eos % (Auto) % Baso % (Auto) % Immature Gran # (Auto) (0.00-0.02) K/uL Neut # (Auto) (1.4-6.5) K/uL Lymph # (Auto) (1.2-3.4) K/uL [place] # (Auto) (0.11-0.59) K/uL Eos # (Auto) (0-0.5) K/uL Baso # (Auto) (0-0.2) K/uL PT (9.0-12.0) Seconds INR (0.9-1.1) Sodium 138 (136-145) mmol/L Potassium 3.8 (3.5-5.1) mmol/L Chloride 107 (98-107) mmol/L Carbon Dioxide 25 (21-32) mmol/L Anion Gap 6.0 (3-11) BUN 26 H (7-18) mg/dl Creatinine 1.77 H (0.6-1.4) mg/dl Est Cr Clr Drug Dosing 42.0 ml/min Est GFR ( Amer) 43.2 Est GFR (Non-Af Amer) 37.3 BUN/Creatinine Ratio 14.7 (10-20) Glucose 115 H (70-99) mg/dl POC Glucose (70-99) Lactate 1.6 (0.4-2.0) mmol/L Calcium 8.4 L (8.5-10.1) mg/dl Phosphorus (2.5-4.9) mg/dl Magnesium (1.8-2.4) mg/dl Total Bilirubin 0.8 (0.2-1) mg/dl Direct Bilirubin (0-0.2) mg/dl AST 13 L (15-37) U/L ALT 11 L (12-78) U/L Alkaline Phosphatase 58 (45-117) U/L Ammonia 30.0 (11-32) umol/L Troponin I (0-0.045) ng/ml Total Protein 5.8 L (6.4-8.2) gm/dl Albumin 2.6 L (3.4-5.0) gm/dl Globulin 3.2 (2.5-4.0) gm/dl Albumin/Globulin Ratio 0.8 L (0.9-2) Procalcitonin (0-0.5) ng/ml 01/23/19 01/23/19 01/23/19 Range/Units 06:26 06:26 06:26 WBC (4.8-10.8) K/uL RBC (4.7-6.1) M/uL Hgb (14.0-18.0) g/dL Hct (42-52) % MCV (80-100) fL MCH (25-34) pg MCHC (32-36) g/dL RDW Std Deviation (36.4-46.3) fL RDW Coeff of Jean-Claude (11.5-14.5) % Plt Count (130-400) K/uL MPV (7.4-10.4) fL Immature Gran % (Auto) % Neut % (Auto) % Lymph % (Auto) % [place] % (Auto) % Eos % (Auto) % Baso % (Auto) % Immature Gran # (Auto) (0.00-0.02) K/uL Neut # (Auto) (1.4-6.5) K/uL Lymph # (Auto) (1.2-3.4) K/uL [place] # (Auto) (0.11-0.59) K/uL Eos # (Auto) (0-0.5) K/uL Baso # (Auto) (0-0.2) K/uL PT (9.0-12.0) Seconds INR (0.9-1.1) Sodium (136-145) mmol/L Potassium (3.5-5.1) mmol/L Chloride (98-107) mmol/L Carbon Dioxide (21-32) mmol/L Anion Gap (3-11) BUN (7-18) mg/dl Creatinine (0.6-1.4) mg/dl Est Cr Clr Drug Dosing ml/min Est GFR ( Amer) Est GFR (Non-Af Amer) BUN/Creatinine Ratio (10-20) Glucose (70-99) mg/dl POC Glucose (70-99) Lactate 1.4 (0.4-2.0) mmol/L Calcium (8.5-10.1) mg/dl Phosphorus Cancelled (2.5-4.9) mg/dl Magnesium Cancelled (1.8-2.4) mg/dl Total Bilirubin (0.2-1) mg/dl Direct Bilirubin (0-0.2) mg/dl AST (15-37) U/L ALT (12-78) U/L Alkaline Phosphatase (45-117) U/L Ammonia (11-32) umol/L Troponin I Cancelled (0-0.045) ng/ml Total Protein (6.4-8.2) gm/dl Albumin (3.4-5.0) gm/dl Globulin (2.5-4.0) gm/dl Albumin/Globulin Ratio (0.9-2) Procalcitonin 8.52 H (0-0.5) ng/ml 01/23/19 01/23/19 01/23/19 Range/Units 06:26 06:26 06:23 WBC 1.80 L (4.8-10.8) K/uL RBC 3.94 L (4.7-6.1) M/uL Hgb 10.6 L (14.0-18.0) g/dL Hct 31.8 L (42-52) % MCV 80.7 (80-100) fL MCH 26.9 (25-34) pg MCHC 33.3 (32-36) g/dL RDW Std Deviation 44.5 (36.4-46.3) fL RDW Coeff of Jean-Claude 15.0 H (11.5-14.5) % Plt Count 228 (130-400) K/uL MPV 8.2 (7.4-10.4) fL Immature Gran % (Auto) 0.6 % Neut % (Auto) 80.0 % Lymph % (Auto) 9.4 % [place] % (Auto) 9.4 % Eos % (Auto) 0.6 % Baso % (Auto) 0.0 % Immature Gran # (Auto) 0.01 (0.00-0.02) K/uL Neut # (Auto) 1.44 (1.4-6.5) K/uL Lymph # (Auto) 0.17 L (1.2-3.4) K/uL [place] # (Auto) 0.17 (0.11-0.59) K/uL Eos # (Auto) 0.01 (0-0.5) K/uL Baso # (Auto) 0.00 (0-0.2) K/uL PT 11.2 (9.0-12.0) Seconds INR 1.1 (0.9-1.1) Sodium 137 (136-145) mmol/L Potassium 3.9 D (3.5-5.1) mmol/L Chloride 105 (98-107) mmol/L Carbon Dioxide 24 (21-32) mmol/L Anion Gap 8.0 (3-11) BUN 28 H (7-18) mg/dl Creatinine 1.70 H D (0.6-1.4) mg/dl Est Cr Clr Drug Dosing 43.7 ml/min Est GFR ( Amer) 45.4 Est GFR (Non-Af Amer) 39.1 BUN/Creatinine Ratio 16.3 (10-20) Glucose 114 H (70-99) mg/dl POC Glucose (70-99) Lactate (0.4-2.0) mmol/L Calcium 8.7 (8.5-10.1) mg/dl Phosphorus 1.0 L* (2.5-4.9) mg/dl Magnesium 1.7 L (1.8-2.4) mg/dl Total Bilirubin 0.7 (0.2-1) mg/dl Direct Bilirubin 0.3 H (0-0.2) mg/dl AST 12 L (15-37) U/L ALT 14 (12-78) U/L Alkaline Phosphatase 68 (45-117) U/L Ammonia (11-32) umol/L Troponin I < 0.015 (0-0.045) ng/ml Total Protein 6.2 L (6.4-8.2) gm/dl Albumin 2.8 L (3.4-5.0) gm/dl Globulin (2.5-4.0) gm/dl Albumin/Globulin Ratio (0.9-2) Procalcitonin (0-0.5) ng/ml 01/23/19 Range/Units 06:17 WBC (4.8-10.8) K/uL RBC (4.7-6.1) M/uL Hgb (14.0-18.0) g/dL Hct (42-52) % MCV (80-100) fL MCH (25-34) pg MCHC (32-36) g/dL RDW Std Deviation (36.4-46.3) fL RDW Coeff of Jean-Claude (11.5-14.5) % Plt Count (130-400) K/uL MPV (7.4-10.4) fL Immature Gran % (Auto) % Neut % (Auto) % Lymph % (Auto) % [place] % (Auto) % Eos % (Auto) % Baso % (Auto) % Immature Gran # (Auto) (0.00-0.02) K/uL Neut # (Auto) (1.4-6.5) K/uL Lymph # (Auto) (1.2-3.4) K/uL [place] # (Auto) (0.11-0.59) K/uL Eos # (Auto) (0-0.5) K/uL Baso # (Auto) (0-0.2) K/uL PT (9.0-12.0) Seconds INR (0.9-1.1) Sodium (136-145) mmol/L Potassium (3.5-5.1) mmol/L Chloride (98-107) mmol/L Carbon Dioxide (21-32) mmol/L Anion Gap (3-11) BUN (7-18) mg/dl Creatinine (0.6-1.4) mg/dl Est Cr Clr Drug Dosing ml/min Est GFR ( Amer) Est GFR (Non-Af Amer) BUN/Creatinine Ratio (10-20) Glucose (70-99) mg/dl POC Glucose 112 H (70-99) Lactate (0.4-2.0) mmol/L Calcium (8.5-10.1) mg/dl Phosphorus (2.5-4.9) mg/dl Magnesium (1.8-2.4) mg/dl Total Bilirubin (0.2-1) mg/dl Direct Bilirubin (0-0.2) mg/dl AST (15-37) U/L ALT (12-78) U/L Alkaline Phosphatase (45-117) U/L Ammonia (11-32) umol/L Troponin I (0-0.045) ng/ml Total Protein (6.4-8.2) gm/dl Albumin (3.4-5.0) gm/dl Globulin (2.5-4.0) gm/dl Albumin/Globulin Ratio (0.9-2) Procalcitonin (0-0.5) ng/ml Medications Administered Current Inpatient Medications Albuterol (Ventolin Hfa) 2 puffs INH Q4 PRN PRN Reason: Shortness Of Breath Stop: 02/19/19 11:13 Fluticasone Propionate (Flonase) 2 sprays GIUSEPPE BID [facility] Stop: 02/19/19 20:59 Last Admin: 01/23/19 10:19 Dose: 2 sprays Documented by: Heparin Sodium (Porcine) (Heparin Sodium (Porcine)) 5,000 units SQ Q12 ROBERT Stop: 02/19/19 20:59 Last Admin: 01/23/19 10:18 Dose: 5,000 units Documented by: Promethazine HCl 12.5 mg/ (Sodium Chloride) 50.5 mls @ 202 mls/hr IV Q6H PRN PRN Reason: Nausea And Vomiting Stop: 02/20/19 22:12 Last Infusion: 01/21/19 22:45 Dose: Infused Documented by: Lactated Ringer's (Lr) 1,000 mls @ 150 mls/hr IV .Q6H40M [facility] Stop: 02/22/19 06:44 Last Admin: 01/23/19 07:40 Dose: 150 mls/hr Documented by: Vancomycin HCl 1,500 mg/ (Sodium Chloride) 530 mls @ 200 mls/hr IV Q24H [facility] Stop: 01/25/19 09:59 Piperacillin Sod/Tazobactam (Sod 3.375 gm/ Dextrose) 115 mls @ 28.75 mls/hr IV Q8H [facility]; Protocol Stop: 01/25/19 13:59 Phenylephrine HCl 20 mg/ (Dextrose) 502 mls @ 11.181 mls/hr IV .Q24H [facility]; Protocol Stop: 02/22/19 09:17 Last Titration: 01/23/19 13:27 Dose: 0.08 mcg/kg/min, 11.2 mls/hr Documented by: Famotidine 20 mg/ Syringe 5 mls @ 2.5 mls/min IV Q12H [facility] Stop: 02/22/19 10:59 Last Admin: 01/23/19 10:19 Dose: 2.5 mls/min Documented by: Miscellaneous Information (Consult) 1 ea N/A UD PRN PRN Reason: Consult Stop: 02/22/19 06:37 Miscellaneous Information (Consult) 1 ea N/A UD PRN PRN Reason: Consult Stop: 02/22/19 06:37 Ondansetron HCl (Zofran) 4 mg IV Q4H PRN PRN Reason: Nausea And Vomiting Stop: 02/19/19 11:13 Last Admin: 01/22/19 19:20 Dose: 4 mg Documented by: Resident Activity Tracking Resident Involvement: Resident Care Provided Care Provided: Adult Hospital Medicine (1) Altered mental status Altered mental status type: unspecified Qualified Code(s): R41.82 - Altered mental status, unspecified
[2019-01-23] MEDS: HEPARIN SOD 5,000 UNIT/0.5 ML VIAL SQ SCH ×2 (10:18→21:32)
[2019-01-23] MEDS: FAMOTIDINE 20 MG in SYRINGE 3 ML IV SCH ×2 (10:19→23:42)
[2019-01-23] MEDS: FLUTICASONE PROPIONATE NA SPR 16 GM BTL NAE SCH ×2 (10:19→21:31)
--- NOTE | 2019-01-23 11:02 | Billing Data ---
Date of Service January 23, 2019 Coding Level of Care Code Critical Care 1st 30-74 mins Time Spent (min) 40
--- NOTE | 2019-01-23 11:22 | Surgery Progress Note ---
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 Caldwell will be covering the weekend pod 2 At this time I asked the patient to hold off eating and see how he does on his last admission of the patient is similar postoperative pattern what he had hiccups for some time although at that time he had a more extensive surgery we will keep his IV going for today's labs noted will hold off placing an NG tube in at this time POD 1 ileostomy takedown keep on liquids d/c goetz seen with Dr. Roberts Subjective nausea improved, pain control adequate Patient is third postoperative day status post closure and ileostomy events last evening are noted he had vomited and NG tube was inserted approximately 1200 cc was removed this morning nurses report he was hypoxic and hypotensive medicine service was consulted and transferred to unit radiographically it showed possibility of another aspiration Present time patient is alert coherent no distress still has an occasional hiccup Physical Exam Physical Exam: The abdomen is soft minimally distended ileostomy site the [place] drains intact there is no cellulitis or drainage Results & Data Vital Signs (Past 12 Hours) Vital Signs Temp Pulse Resp BP Pulse Ox 01/23/19 10:30 108 H 21 105/64 100 01/23/19 10:15 106 H 16 91/56 L 99 01/23/19 10:00 106 H 16 97/61 L 100 01/23/19 09:45 101 H 14 89/60 L 100 01/23/19 09:30 111 H 16 101/60 99 01/23/19 09:15 115 H 14 87/48 L 99 01/23/19 09:00 114 H 13 85/52 L 94 01/23/19 08:45 116 H 18 84/53 L 97 01/23/19 08:31 114 H 13 77/47 L 100 01/23/19 08:30 105 H 13 74/53 L 100 01/23/19 08:15 120 H 17 86/54 L 100 01/23/19 08:00 114 H 13 83/53 L 100 01/23/19 07:45 117 H 17 89/52 L 99 01/23/19 07:30 37.7 C H 117 H 16 81/49 L 97 01/23/19 07:18 119 H 17 82/49 L 97 PG Care Time/CCT Total # of Minutes Spent Total Time Spent with Patient: Total time spent is greater than 50% in coordination of care (as documented) at patient's floor/unit and/or counseling patient:
--- NOTE | 2019-01-23 12:08 | XRay Report ---
XR KUB/Abdomen 1 view CLINICAL HISTORY: NG tube placement tube position COMPARISON STUDY: 12/18/2018 FINDINGS: Nasogastric tube placed in the mid stomach. All additional findings are unchanged. Nonobstr uctive bowel pattern. IMPRESSION: Nasogastric tube placed in the mid stomach. The above report was generated using voice recognition software. It may contain grammatical, syntax or spelling errors. Electronically signed by: Cordell Apple M.D. 01/23/2019 12:06 PM
[2019-01-23 12:27] LABS: Albumin Level 2.6 gm/dl (3.4-5.0); BUN Creatinine Ratio 14.7 (10-20); Calcium 8.4 mg/dl (8.5-10.1); Est GFR (African American) 43.2; Est GFR (Non-African American) 37.3; Potassium 3.8 mmol/L (3.5-5.1)
[2019-01-23 12:30] LABS: Albumin Globulin Ratio 0.8 (0.9-2); Bilirubin,Total 0.8 mg/dl (0.2-1); Globulin 3.2 gm/dl (2.5-4.0); Total Protein 5.8 gm/dl (6.4-8.2)
--- NOTE | 2019-01-23 13:01 | Hospitalist Consultation ---
Date of Consultation January 23, 2019 Assessment & Plan (1) Aspiration into airway: Likely aspiration event(s) on 01/23 when he had multiple large-volume emesis from ileus. - Started on vanc/Zosyn by overnight team - Transferred to ICU for hypotension - Being managed by ICU team (2) Adenocarcinoma of sigmoid colon: S/p ileostomy reversal on 01/[address] Roberts. Now with post- operative ileus, vomiting, and aspiration. - Post-operative care per surgical team (3) Paroxysmal atrial tachycardia: Prior episode in the setting of pneumonia. - Presently going into and out of atrial tachycardia -> Jumping from ~100 bpm straight to 140 bpm and back again. - Monitor BP with the HR changes, otherwise suppportive care (4) CKD (chronic kidney disease): Baseline Cr ~1.4 from prior labs. - Cr up to 1.8 in the setting of his hypotension and aspiration. - Monitor (5) Hypertension: On metoprolol at home. - Holding for hypotension (6) Asthma: Denies shortness of breath at this time. No wheezing on exam. - Holding Singulair in setting of aspiration. - DuoNebs PRN (7) GERD (gastroesophageal reflux disease): - Holding PPI in setting of aspiration/ileus. - Consider IV if he will be NPO for a prolonged course (8) DVT prophylaxis: Heparin BID History of Present Illness Attending Physician: Vivek Roberts MD History of Present Illness 73yo M w/ hx of adenocarcinoma of the colon who underwent ileostomy reversal with Dr. Roberts on 01/20/2019. He was doing ok, but on 01/23, he had several episodes of significant emesis. He had an NG tube placed with 3L of returned gatric contents (non-bloody, no coffee grounds per report), but then pulled out his NG tube. At some point, he had some level of aspiration with desaturations, hypotension, tachycardia, and confusion. This morning, he is AAOx4. He denies any significant shortness of breath, denies abdominal pain, denies nausea, denies any major pain. His HR is bounding from the 100-110 range straight to the 140s. Pressures are dropping slightly with the higher heart rate. Allergies Allergy/AdvReac Type Severity Reaction Status Date / Time pollen extracts Allergy SNEEZING, Verified 01/20/19 07:11 WATERY EYES , RUNNY NOSE Home Medications Home Medications Medication Instructions Recorded Confirmed Type Centrum Silver Men 1 tab PO DAILY 05/19/18 01/20/19 History albuterol sulfate [Ventolin HFA] 2 puff INHALATION Q4 PRN 05/19/18 01/20/19 History azelastine 2 spray INTRANASAL Q12H PRN 05/19/18 01/20/19 History fluticasone propionate [Flonase 2 spray INTRANASAL BID 05/19/18 01/20/19 History Allergy Relief] loratadine 10 mg PO UD PRN 05/19/18 01/20/19 History simvastatin 40 mg PO HS 05/19/18 01/20/19 History acetaminophen [Acetaminophen Extra 500 mg PO Q4H PRN 11/11/18 01/20/19 History Strength] omeprazole 20 mg PO QAM 11/11/18 01/20/19 History magnesium chloride 128 mg PO BID 01/01/19 01/20/19 History metoprolol tartrate 12.5 mg PO BID 01/01/19 01/20/19 History montelukast 10 mg PO QPM 01/01/19 01/20/19 History sodium bicarbonate 1,300 mg PO BID 01/01/19 01/20/19 History Patient History Medical History Anemia baseline hgb 9-11 range per chart review Asthma CKD (chronic kidney disease) Colon cancer s/p chemo/xrt (completed 08/2018) Esophageal stricture GERD (gastroesophageal reflux disease) controlled History of acute renal failure 10/2018 "resolved" without need for dialysis History of diverticulitis History of GI bleed intermittent felt 2/2 malignancy, no blood transfusions per pt Hyperlipidemia Hypertension IBS (irritable bowel syndrome) Ileostomy present Malignant neoplasm of rectosigmoid (colon) Osteoarthritis Paroxysmal atrial tachycardia Surgical History History of colonoscopy History of colostomy reversal (01/20/19) Open Closure of Ileostomy Dr. Roberts 01/20/19 History of esophagogastroduodenoscopy (EGD) History of fusion of cervical spine C6-T1 History of lumbar spinal fusion History of lumbar surgery TO REMOVE SPINAL CYST History of tonsillectomy and adenoidectomy History of tooth extraction INFECTED TOOTH POST ROOT CANAL (2002) History of wisdom tooth extraction S/P colon resection Laparoscopic Assisted Low Anterior Resection with Protective Ileostomy, Appendectomy Dr. Roberts 09/30/18: Grade view 3, MAC#3, ETT 7.5 at [facility] Family History Grandfather (Maternal) , age 73 of bladder cancer No problems noted. Grandmother (Maternal) , age 83 of MD No problems noted. Grandmother (Paternal) , of heart attack No problems noted. Grandfather (Paternal) , of motor vehicle collision No problems noted. Father , age 69 of heart attack No problems noted. Mother , age 98 of kidney failure No problems noted. Sister Age: 70 Cancer malignant ovarian tumor removed Daughter Age: 45 No problems noted. Daughter Age: 42 Bipolar disorder Other FHx: cancer No family history of adverse response to anesthesia Social History Preferred Language: Cypriot Communication Ability: Effective Smoke Eater Required: No Beliefs That Will Affect Care: Adventism Adventism Beliefs: ORIENTAL ORTHODOX marital status: Current Living Situation: Spouse and Family Current Living Situation Comment: AND DAUGHTER current occupational status: retired Other Information That Helps Us Care for You: No Feels Safe at Home: Yes and Hesitant to Answer Safety Concerns: Feels Safe At This Time Smoking Status: Never smoker (except 2 weeks in college) Do You Dip or Chew Tobacco: No ; Smoking End Date: SMOKED 2 WEEKS IN COLLEGE AND THAT WAS IT ; Second Hand Exposure: Yes ; Hx Alcohol Use: No Hx Substance Use: No Review of Systems Review of Systems: All systems reviewed & are unremarkable except as noted in HPI & below Physical Exam Constitutional: WD/WN, vitals as above Eyes: EOM intact bilaterally; no conjunctival abnormality ENMT: external ear and nose normal, oropharynx normal Neck: trachea midline, no thyromegaly normal visual inspection Respiratory: normal respiratory effort, lungs clear to auscultation no respiratory distress Cardiovascular: Rate/Rhythm: regular rhythm and + tachycardic Vessels: no JVD Extremities: no edema Gastrointestinal (Abdomen): Inspection/Auscultation: abdomen not distended and + abnormal bowel sounds Percussion/Palpation: abdomen soft; abdomen nontender, no guarding and abdomen not rigid Musculoskeletal: no cyanosis or clubbing, extremities motor strength 5/5 Skin: no rashes, warm and dry Neurologic: moves all extremities and awake Psychiatric: Orientation: alert, oriented to person and cooperative Results & Data Vital Signs (Past 12 Hours) Vital Signs Temp Pulse Resp BP Pulse Ox 01/23/19 12:00 36.7 C 113 H 15 97/60 L 92 01/23/19 11:30 111 H 14 112/67 93 01/23/19 11:15 111 H 17 111/62 93 01/23/19 11:00 105 H 21 95/59 L 100 01/23/19 10:45 106 H 18 106/67 100 01/23/19 10:30 108 H 21 105/64 100 01/23/19 10:15 106 H 16 91/56 L 99 01/23/19 10:00 106 H 16 97/61 L 100 01/23/19 09:45 101 H 14 89/60 L 100 01/23/19 09:30 111 H 16 101/60 99 01/23/19 09:15 115 H 14 87/48 L 99 01/23/19 09:00 114 H 13 85/52 L 94 01/23/19 08:45 116 H 18 84/53 L 97 01/23/19 08:31 114 H 13 77/47 L 100 01/23/19 08:30 105 H 13 74/53 L 100 01/23/19 08:15 120 H 17 86/54 L 100 01/23/19 08:00 114 H 13 83/53 L 100 01/23/19 07:45 117 H 17 89/52 L 99 01/23/19 07:30 37.7 C H 117 H 16 81/49 L 97 01/23/19 07:18 119 H 17 82/49 L 97 PG Care Time/CCT Total # of Minutes Spent Total Time Spent with Patient: Total time spent is greater than 50% in coordination of care (as documented) at patient's floor/unit and/or counseling patient:
--- NOTE | 2019-01-23 14:00 | Pharmacy Report ---
Pharmacy Abx Dose Short Note - Date of Service January 23, 2019 - Assessment & Plan Assessment * 73 year old M admitted to ICU for large volume aspiration, and hypotension in the setting of recent reversal of ileostomy + post-op ileus * 48 hrs of empiric VANCOMYCIN + ZOSYN therapy has been ordered * NABIL may be developing per labs (SCr up to 1.7 today), pressor support required to keep MAPs > 65, sats in 90s, + tachycardia * +MRSA nares * Plan Vancomycin * Loading dose: 2250mg (~24mg/kg) IV x 1 * Maint dose: 1500mg (~16mg/kg) IV Q 24 hrs * Goal trough level for sepsis : 15 to 20 mcg/mL * Therapy has only been ordered for 48 hrs, a trough level has not been ordered, however if therapy is continued a level should be checked w/ the 3rd or 4th dose. Zosyn * BMI < 35 * eCrCl > 20 * 4.5gm 30min infusion given this AM, will then begin 3.375gm ext-infusion IV Q 8 hrs Pharmacy will continue to follow and will adjust dose/frequency as necessary. Thank you.
[2019-01-23] MEDS ORDERED: ICU PROTOCOL FOR HYPERGLYCEMIA PRN (14:15)
[2019-01-23] MEDS: PIPERACILLIN/TAZOBACTAM 3.375 GM in DEXTROSE 5% 100 ML IV SCH ×2 (14:18→21:33)
[2019-01-24] MEDS: LACTATED RINGER'S 1,000 ML IV SCH ×4 (01:21→15:46)
[2019-01-24] MEDS: PIPERACILLIN/TAZOBACTAM 3.375 GM in DEXTROSE 5% 100 ML IV SCH ×3 (06:05→22:59)
[2019-01-24] MEDS: FLUTICASONE PROPIONATE NA SPR 16 GM BTL NAE SCH ×2 (08:14→22:59)
[2019-01-24] MEDS: HEPARIN SOD 5,000 UNIT/0.5 ML VIAL SQ SCH ×2 (08:14→23:32)
[2019-01-24] MEDS: ONDANSETRON INJ 2 MG/ML 2 ML VIAL IV PRN (08:18)
--- NOTE | 2019-01-24 08:28 | Surgery Progress Note ---
Date of Service January 24, 2019 Assessment & Plan (1) Status post reversal of ileostomy: At this point I will obtain a KUB. If he has dilated loops of bowel we will probably preemptively replace the NG tube. If his KUB looks pretty good we might give him a few hours today to see how he does. Awaiting return of his bowel function before initiating any sort of diet. His pain is currently controlled. No other postoperative issues at this point. Subjective Patient doing okay. Continues to have hiccups. His NG tube accidentally got dislodged this morning. So far he has no nausea. Denies abdominal pain. Physical Exam Physical Exam: Alert and oriented no acute distress No respiratory distress Abdomen is soft. Nondistended. Incision is clean dry intact without sign of infection or drainage. Results & Data Vital Signs (Past 12 Hours) Vital Signs Temp Pulse Pulse Resp BP BP Pulse Ox 01/24/19 07:52 36.8 C 92 H 20 114/68 92 01/24/19 04:00 37.2 C 93 H 19 141/74 H 93 01/23/19 23:33 37.7 C H 98 H 20 118/58 L 95 PG Care Time/CCT Total # of Minutes Spent Total Time Spent with Patient: Total time spent is greater than 50% in coordination of care (as documented) at patient's floor/unit and/or counseling patient:
--- NOTE | 2019-01-24 08:45 | XRay Report ---
JASMIN CLINICAL HISTORY: s/p closure of ileostomy COMPARISON STUDY: KUAriel January 23, 2019. FINDINGS: Nasogastric tube is no longer visualized. Oral contrast within the right colon is noted. Tu bular right lower quadrant density likely reflects a Tripp drain. Several loops of moderately dilat ed small bowel are noted. Spine surgical hardware is noted. IMPRESSION: 1. Several loops of moderately dilated small bowel which favor an ileus given recent surgery. A small bowel obstruction could appear similar. 2. Nasogastric tube no longer identified. Electronically signed by: Masood Villanueva M.D. 01/24/2019 8:43 AM
[2019-01-24 09:41] LABS: Hematocrit (blood only) 25.5 % (42-52); Hemoglobin 8.4 g/dL (14.0-18.0); Mean Corpuscular Hemoglobin 27.1 pg (25-34); Mean Corpuscular Hgb Conc 32.9 g/dL (32-36); Mean Corpuscular Volume 82.3 fL (80-100); Mean Platelet Volume 8.2 fL (7.4-10.4); Platelet Count 178 K/uL (130-400); RDW Coefficient of Variation 15.4 % (11.5-14.5); RDW Standard Deviation 46.5 fL (36.4-46.3); White Blood Count 7.19 K/uL (4.8-10.8)
[2019-01-24 09:56] LABS: Calcium 8.8 mg/dl (8.5-10.1); Creatinine Clr Calc Pharmacy 51.6 ml/min; Est GFR (African American) 55.4; Est GFR (Non-African American) 47.8; Magnesium 1.8 mg/dl (1.8-2.4)
[2019-01-24] MEDS ORDERED: VANCOMYCIN HCL 1,500 MG in SODIUM CHLORIDE 0.9% 500 ML IV SCH (10:00)
[2019-01-24] MEDS: FAMOTIDINE 20 MG in SYRINGE 3 ML IV SCH ×2 (10:29→22:59)
--- NOTE | 2019-01-24 14:00 | Hospitalist Progress Note ---
Date of Service January 24, 2019 Assessment & Plan (1) Adenocarcinoma of sigmoid colon: S/p ileostomy reversal on 01/[address] Roberts. - Post-operative care per surgical team - On 01/24, still has post-operative ileus without any flatus or BM. However, no longer any vomiting or nausea. NG was in until 01/23; now pulled. Awaiting return of bowel function. (2) Aspiration into airway: Likely aspiration event(s) on 01/23 when he had multiple large-volume emesis from ileus. - Started on vanc/Zosyn by overnight team - Transferred to ICU for hypotension - On pressors for only about 6 hours. Off by 01/23 and transferred out of the ICU. - Continue abx for a 7-day HAP course. (End date: 01/30) (3) Paroxysmal atrial tachycardia: Prior episode years ago in the setting of pneumonia. - Had a recurrence in the setting of his aspiration. He was clearly jumping from ~100 bpm straight to 140 bpm and back again. - By 01/24, he is back to normal sinus rhythm. (4) Anemia: Baseline hgb 9-11. - Down to 8.4 on 01/24; no signs of bleeding. Likely dilutional from tons of IV fluids he's received in the last 24 hours. - Anemia labs tomorrow AM (5) CKD (chronic kidney disease): Baseline Cr ~1.4 from prior labs. - Cr up to 1.8 in the setting of his hypotension and aspiration. - Back to baseline by 01/24 (6) Hypertension: On metoprolol at home. - Holding for hypotension - Will restart when able to take PO. Presently normotensive. (7) Asthma: Denies shortness of breath at this time. No wheezing on exam. - Holding Singulair in setting of aspiration. - DuoNebs PRN (8) GERD (gastroesophageal reflux disease): - Holding PPI in setting of aspiration/ileus. - On famotidine IV while NPO (9) DVT prophylaxis: Heparin BID Subjective Doing very well today. BP has normalized. He feels well. Some mild cough, but otherwise reports no fevers/chills, chest pain, shortness of breath, abdominal pain, nausea, or vomiting. Not passing any gas yet. Physical Exam Constitutional: WD/WN, vitals as above Eyes: EOM intact bilaterally; no conjunctival abnormality ENMT: external ear and nose normal, oropharynx normal Neck: trachea midline, no thyromegaly normal visual inspection Respiratory: normal respiratory effort, lungs clear to auscultation no respiratory distress Cardiovascular: Rate/Rhythm: regular rhythm Heart Sounds: normal S1 and normal S2 Vessels: no JVD Extremities: no edema Gastrointestinal (Abdomen): Inspection/Auscultation: + hypoactive bowel sounds (None at present); abdomen not distended and + abnormal bowel sounds Percussion/Palpation: abdomen soft; abdomen nontender, no guarding and abdomen not rigid Musculoskeletal: no cyanosis or clubbing, extremities motor strength 5/5 Skin: no rashes, warm and dry Neurologic: moves all extremities and awake Psychiatric: Orientation: alert, oriented to person and cooperative Results & Data Vital Signs (Past 12 Hours) Vital Signs Temp Pulse Pulse Pulse Resp BP BP 01/24/19 11:20 36.6 C 87 18 132/74 01/24/19 07:52 36.8 C 92 H 20 114/68 01/24/19 04:00 37.2 C 93 H 19 141/74 H Pulse Ox 01/24/19 11:20 91 01/24/19 07:52 92 01/24/19 04:00 93 PG Care Time/CCT Total # of Minutes Spent Total Time Spent with Patient: Total time spent is greater than 50% in coordination of care (as documented) at patient's floor/unit and/or counseling patient:
[2019-01-24] MEDS: ACETAMINOPHEN 1,000 MG/100 ML VIAL IV PRN (22:59)
[2019-01-25] MEDS: LACTATED RINGER'S 1,000 ML IV SCH ×2 (05:15→17:43)
[2019-01-25] MEDS ORDERED: VANCOMYCIN HCL 1,500 MG in SODIUM CHLORIDE 0.9% 500 ML IV SCH (06:00)
[2019-01-25] MEDS: PIPERACILLIN/TAZOBACTAM 3.375 GM in DEXTROSE 5% 100 ML IV SCH ×3 (06:34→22:05)
--- NOTE | 2019-01-25 07:40 | XRay Report ---
XR KUB/Abdomen 1 view CLINICAL HISTORY: 73 years-old Male presenting with s/p reversal of ileostomy. TECHNIQUE: Single supine view of the abdomen was obtained. COMPARISON: 01/24/2019. FINDINGS: Nasogastric tube terminates in the gastric body with side hole also within the gastric lumen. Oral co ntrast again noted in the right colon. There is significantly distended small bowel in the left abdom en with an apparent diameter of over 5 cm though this may be affected by magnification. The distended small bowel loops have a stacked configuration. There is no gross pneumoperitoneum. Numerous externa l leads overlie the left abdomen to grating evaluation. Allowing for bowel gas and stool, no calcifications to suggest nephrolithiasis. Posterior lumbar fusion hardware as well as multilevel degenerative changes of the spine. IMPRESSION: 1. Persistent distended small bowel with a stacked configuration. Obstruction cannot be excluded. Co ntinued follow-up advised. 2. Appropriately positioned nasogastric tube. Electronically signed by: Jamel Miguel M.D. 01/25/2019 7:39 AM
[2019-01-25] MEDS: FLUTICASONE PROPIONATE NA SPR 16 GM BTL NAE SCH ×2 (07:42→22:04)
[2019-01-25] MEDS: HEPARIN SOD 5,000 UNIT/0.5 ML VIAL SQ SCH ×2 (07:42→22:04)
[2019-01-25 08:35] LABS: Hematocrit (blood only) 26.2 % (42-52); Hemoglobin 8.6 g/dL (14.0-18.0); Mean Corpuscular Hgb Conc 32.8 g/dL (32-36); Mean Corpuscular Volume 82.4 fL (80-100); Mean Platelet Volume 8.5 fL (7.4-10.4); Platelet Count 211 K/uL (130-400); RDW Coefficient of Variation 15.2 % (11.5-14.5); RDW Standard Deviation 45.7 fL (36.4-46.3); Red Blood Count 3.18 M/uL (4.7-6.1); White Blood Count 6.74 K/uL (4.8-10.8)
[2019-01-25 09:10] LABS: BUN Creatinine Ratio 15.7 (10-20); Calcium 8.6 mg/dl (8.5-10.1); Creatinine Clr Calc Pharmacy 66.4 ml/min; Est GFR (African American) 66.4; Est GFR (Non-African American) 57.3; Magnesium 1.9 mg/dl (1.8-2.4); Potassium 3.9 mmol/L (3.5-5.1)
[2019-01-25 09:18] LABS: Ferritin 410.3 ng/ml (8-388); Phosphorus 2.2 mg/dl (2.5-4.9)
--- NOTE | 2019-01-25 10:13 | Surgery Progress Note ---
Date of Service January 25, 2019 Assessment & Plan (1) Status post reversal of ileostomy: Continue current care. Keep NG tube and IV fluids. If no return of bowel function in the next couple of days may need to consider supplemental nutrition. Subjective Patient seen. No real changes from yesterday. Feels fine but continues to have relatively high NG tube outputs. No bowel movements or flatus yet. Pain is controlled. Physical Exam Physical Exam: Alert and oriented no acute distress Abdomen is soft with minimal distention. Results & Data Vital Signs (Past 12 Hours) Vital Signs Temp Pulse Pulse Resp BP BP Pulse Ox 01/25/19 07:00 37.2 C 86 16 152/78 H 94 01/25/19 04:00 37.6 C H 60 19 138/69 93 01/24/19 23:13 37.4 C 85 18 136/71 98 PG Care Time/CCT Total # of Minutes Spent Total Time Spent with Patient: Total time spent is greater than 50% in coordination of care (as documented) at patient's floor/unit and/or counseling patient:
[2019-01-25] MEDS ORDERED: POTASSIUM PHOS 3 MMOL/1 ML INFUSION IV STA (11:12)
[2019-01-25] MEDS ORDERED: METOCLOPRAMIDE HCL INJ 5 MG/ML 2 ML VIAL IV PRN (11:14)
[2019-01-25] MEDS ORDERED: POTASSIUM PHOSPHATE 21 MMOL in SODIUM CHLORIDE 0.9% 500 ML IV ONE (11:30)
[2019-01-25] MEDS ORDERED: METOPROLOL TARTRATE 1 MG/ML VIAL IV PRN (12:12)
[2019-01-25] MEDS ORDERED: METOPROLOL TARTRATE 1 MG/ML VIAL IV ONE (12:14)
[2019-01-25] MEDS: FAMOTIDINE 20 MG in SYRINGE 3 ML IV SCH ×2 (12:16→22:37)
[2019-01-25] MEDS: METOPROLOL TARTRATE 1 MG/ML VIAL IV PRN ×3 (12:40→22:47)
--- NOTE | 2019-01-25 12:50 | Hospitalist Progress Note ---
Date of Service January 25, 2019 Assessment & Plan (1) Paroxysmal atrial tachycardia: Prior episode years ago in the setting of pneumonia. - Had a recurrence in the setting of his aspiration. He was clearly jumping from ~100 bpm straight to 140 bpm and back again. - By 01/24, he was back to normal sinus rhythm, but then went back into a fast atrial tachycardia again on 01/25. - Metoprolol 5mg IV Q30m for HR > 110 - Cardiology consult with Dr. López, his outpatient building services supervisor - Discussed; he will go see him now. (2) Adenocarcinoma of sigmoid colon: S/p ileostomy reversal on 01/[address] Roberts. - Post-operative care per surgical team - On 01/24, still has post-operative ileus without any flatus or BM. However, no longer any vomiting or nausea. NG was in until 01/23; now pulled. Awaiting return of bowel function. (3) Aspiration into airway: Likely aspiration event(s) on 01/23 when he had multiple large-volume emesis from ileus. - Started on vanc/Zosyn on 01/23 - Transferred to ICU for hypotension - On pressors for only about 6 hours. Off by 01/23 and transferred out of the ICU. - Continue abx for a 7-day HAP course. (End date: 01/30) (4) Anemia: Baseline hgb 9-11. - Down to 8.4 on 01/24; no signs of bleeding. Likely dilutional from tons of IV fluids he's received in the last 24 hours. - Anemia labs indicate combination of chronic disease and iron deficiency - Monitor (5) CKD (chronic kidney disease): Baseline Cr ~1.4 from prior labs. - Cr up to 1.8 in the setting of his hypotension and aspiration. - Back to baseline by 01/24 (6) Hypertension: On metoprolol at home. - Holding for ileus - Metoprolol 5mg IV Q30m for HR > 110 given the above tachycardia (7) Asthma: Denies shortness of breath at this time. No wheezing on exam. - Holding Singulair in setting of ileus. - DuoNebs PRN (8) GERD (gastroesophageal reflux disease): - Holding PPI in setting of aspiration/ileus. - On famotidine IV while NPO (9) DVT prophylaxis: Heparin BID Subjective Still having hiccups. On the way back to the bathroom, he went into another atrial tachycardia again. He is asymptomatic with a stable BP. However, HR is in the 160 range. Reports no fevers/chills, chest pain, shortness of breath, abdominal pain, nausea, or vomiting. Physical Exam Constitutional: WD/WN, vitals as above Eyes: EOM intact bilaterally; no conjunctival abnormality ENMT: external ear and nose normal, oropharynx normal Neck: trachea midline, no thyromegaly normal visual inspection Respiratory: normal respiratory effort, lungs clear to auscultation no respiratory distress Cardiovascular: Rate/Rhythm: + tachycardic Heart Sounds: normal S1 and normal S2 Vessels: no JVD Extremities: no edema Gastrointestinal (Abdomen): Inspection/Auscultation: + hypoactive bowel sounds (None at present); abdomen not distended and + abnormal bowel sounds Percussion/Palpation: abdomen soft; abdomen nontender, no guarding and abdomen not rigid Musculoskeletal: no cyanosis or clubbing, extremities motor strength 5/5 Skin: no rashes, warm and dry Neurologic: moves all extremities and awake Psychiatric: Orientation: alert, oriented to person and cooperative Results & Data Vital Signs (Past 12 Hours) Vital Signs Temp Pulse Pulse Pulse Pulse Resp BP 01/25/19 12:40 161 H 01/25/19 12:38 162 H 152/89 H 01/25/19 12:15 165 H 01/25/19 11:53 166 H 01/25/19 11:51 149/101 H 01/25/19 11:38 36.7 C 195 H 22 93/60 L 01/25/19 07:00 37.2 C 86 16 152/78 H 01/25/19 04:00 37.6 C H 60 19 138/69 Pulse Ox 01/25/19 12:40 01/25/19 12:38 01/25/19 12:15 01/25/19 11:53 01/25/19 11:51 01/25/19 11:38 97 01/25/19 07:00 94 01/25/19 04:00 93 PG Care Time/CCT Total # of Minutes Spent Total Time Spent with Patient: Total time spent is greater than 50% in coordination of care (as documented) at patient's floor/unit and/or counseling patient:
[2019-01-25] MEDS ORDERED: ADENOSINE IV SOLN 3 MG/ML 2 ML VIAL IV STA ×2 (13:33)
--- NOTE | 2019-01-25 14:12 | Cardiology Consultation ---
Date of Consultation January 25, 2019 Assessment & Plan (1) Atrial fibrillation with rapid ventricular response: Records reviewed and telemetry reviewed with telemetry demonstrating intermittent atrial tachycardia with lapsed into atrial fibrillation recently. Rhythm confirmed by adenosine injection demonstrating coarse atrial fibrillation Discussed in detail with the patient Plan initiate further medical therapies for rate control. Anticoagulation relatively contraindicated and patient with chads vas 2 score of 1-2. Will not initiate anticoagulation at this time Metoprolol IV ordered 5 mg IV every 4 hours (2) Paroxysmal atrial tachycardia: Patient with dual atrial arrhythmias (3) Status post reversal of ileostomy: Bowel at rest prohibiting use of oral medication (4) Aspiration into airway: (5) CKD (chronic kidney disease): History of Present Illness Reason for Consultation: Atrial tachycardia Requesting Physician: Dr. Delgado Attending Physician: Vivek Roberts MD History of Present Illness Patient is a 73-year-old male now status post reversal of prior colostomy his underlying medical issues which include 1.Hypertension 2. Chronic left anterior fascicular block on EKG 3. Hyperlipidemia on therapy 4. Paroxysmal atrial tachycardia in the setting of postsurgical pneumonia and electrolyte abnormalities 5. Acute renal failure , multifactorial November 10, 2018 with return to near baseline after fluid resuscitation and hydration Patient seen this admission having undergone reversal of colostomy on 01/21/2019. Patient has had postoperative ileus with emesis possible aspiration with bowel slow to recover. Medications were held due to transient hypotension during clinical course. Patient is gradually recovering however continues to have elevated heart rates with atrial tachycardia now findings of atrial fibrillation with elevated ventricular response. Patient overall asymptomatic from cardiac standpoint. Denies any chest pains tachypalpitations dizziness or lightheadedness. Is not aware of elevated heart rates. Notes no shortness of breath though does become fatigued on ambulation to the bathroom. NG remains in place with patient at bowel rest. No recent bleeding difficulties with past history of microcytic anemia Allergies Allergy/AdvReac Type Severity Reaction Status Date / Time pollen extracts Allergy SNEEZING, Verified 01/20/19 07:11 WATERY EYES , RUNNY NOSE Home Medications Home Medications Medication Instructions Recorded Confirmed Type Centrum Silver Men 1 tab PO DAILY 05/19/18 01/20/19 History albuterol sulfate [Ventolin HFA] 2 puff INHALATION Q4 PRN 05/19/18 01/20/19 History azelastine 2 spray INTRANASAL Q12H PRN 05/19/18 01/20/19 History fluticasone propionate [Flonase 2 spray INTRANASAL BID 05/19/18 01/20/19 History Allergy Relief] loratadine 10 mg PO UD PRN 05/19/18 01/20/19 History simvastatin 40 mg PO HS 05/19/18 01/20/19 History acetaminophen [Acetaminophen Extra 500 mg PO Q4H PRN 11/11/18 01/20/19 History Strength] omeprazole 20 mg PO QAM 11/11/18 01/20/19 History magnesium chloride 128 mg PO BID 01/01/19 01/20/19 History metoprolol tartrate 12.5 mg PO BID 01/01/19 01/20/19 History montelukast 10 mg PO QPM 01/01/19 01/20/19 History sodium bicarbonate 1,300 mg PO BID 01/01/19 01/20/19 History Patient History Medical History Anemia baseline hgb 9-11 range per chart review Asthma CKD (chronic kidney disease) Colon cancer s/p chemo/xrt (completed 08/2018) Esophageal stricture GERD (gastroesophageal reflux disease) controlled History of acute renal failure 10/2018 "resolved" without need for dialysis History of diverticulitis History of GI bleed intermittent felt 2/2 malignancy, no blood transfusions per pt Hyperlipidemia Hypertension IBS (irritable bowel syndrome) Ileostomy present Malignant neoplasm of rectosigmoid (colon) Osteoarthritis Paroxysmal atrial tachycardia Surgical History History of colonoscopy History of colostomy reversal (01/20/19) Open Closure of Ileostomy Dr. Roberts 01/20/19 History of esophagogastroduodenoscopy (EGD) History of fusion of cervical spine C6-T1 History of lumbar spinal fusion History of lumbar surgery TO REMOVE SPINAL CYST History of tonsillectomy and adenoidectomy History of tooth extraction INFECTED TOOTH POST ROOT CANAL (2002) History of wisdom tooth extraction S/P colon resection Laparoscopic Assisted Low Anterior Resection with Protective Ileostomy, Appendectomy Dr. Roberts 09/30/18: Grade view 3, MAC#3, ETT 7.5 at [facility] Family History Grandfather (Maternal) , age 73 of bladder cancer No problems noted. Grandmother (Maternal) , age 83 of [address] No problems noted. Grandmother (Paternal) , of heart attack No problems noted. Grandfather (Paternal) , of motor vehicle collision No problems noted. Father , age 69 of heart attack No problems noted. Mother , age 98 of kidney failure No problems noted. Sister Age: 70 Cancer malignant ovarian tumor removed Daughter Age: 45 No problems noted. Daughter Age: 42 Bipolar disorder Other FHx: cancer No family history of adverse response to anesthesia Social History Preferred Language: Kazakh Communication Ability: Effective Personal Financial Planner Required: No Beliefs That Will Affect Care: Congregational Congregational Beliefs: LATTER DAY marital status: Current Living Situation: Spouse and Family Current Living Situation Comment: AND DAUGHTER current occupational status: retired Other Information That Helps Us Care for You: No Feels Safe at Home: Yes and Hesitant to Answer Safety Concerns: Feels Safe At This Time Smoking Status: Never smoker (except 2 weeks in college) Do You Dip or Chew Tobacco: No ; Smoking End Date: SMOKED 2 WEEKS IN COLLEGE AND THAT WAS IT ; Second Hand Exposure: Yes ; Hx Alcohol Use: No Hx Substance Use: No Review of Systems Review of Systems: All systems reviewed & are unremarkable except as noted in HPI & below Physical Exam Constitutional: + ill appearing; no acute distress Eyes: PERRL, conjunctivae normal, anicteric sclerae ENMT: external ear and nose normal, oropharynx normal NG in place Neck: trachea midline, no thyromegaly Respiratory: Auscultation: + diminished lung sounds (But clear no rhonchi or wheeze) Cardiovascular: Rate/Rhythm: regular rate, regular rhythm and + tachycardic Heart Sounds: normal S1 and normal S2; no gallop and no murmur Palpation: normal PMI Vessels: normal carotid upstroke and radial pulses present; no JVD and no carotid bruit Extremities: no edema Gastrointestinal (Abdomen): Inspection/Auscultation: + abdomen distended Percussion/Palpation: abdomen nontender Musculoskeletal: no cyanosis or clubbing, extremities motor strength 5/5 Skin: no rashes, warm and dry Neurologic: PERRL, EOMI, accommodation nl, no face palsy, no dysarthria Psychiatric: A+Ox3, euthymic affect Results & Data Vital Signs (Past 12 Hours) Vital Signs Temp Pulse Pulse Pulse Pulse Resp BP 01/25/19 13:56 153 H 127/88 01/25/19 13:53 159 H 160/80 H 01/25/19 12:40 161 H 01/25/19 12:38 162 H 152/89 H 01/25/19 12:15 165 H 01/25/19 11:53 166 H 01/25/19 11:51 149/101 H 01/25/19 11:38 36.7 C 195 H 22 93/60 L 01/25/19 07:00 37.2 C 86 16 152/78 H 01/25/19 04:00 37.6 C H 60 19 138/69 Pulse Ox 01/25/19 13:56 01/25/19 13:53 01/25/19 12:40 01/25/19 12:38 01/25/19 12:15 01/25/19 11:53 01/25/19 11:51 01/25/19 11:38 97 01/25/19 07:00 94 01/25/19 04:00 93 Laboratory Results Laboratory Results - last 24 hr 01/25/19 01/25/19 08:24 08:24 WBC 6.74 RBC 3.18 L Hgb 8.6 L Hct 26.2 L MCV 82.4 MCH 27.0 MCHC 32.8 RDW Std Deviation 45.7 RDW Coeff of Jean-Claude 15.2 H Plt Count 211 MPV 8.5 Sodium 139 Potassium 3.9 Chloride 107 Carbon Dioxide 25 Anion Gap 6.0 BUN 20 H Creatinine 1.24 Est Cr Clr Drug Dosing 66.4 Est GFR ( Amer) 66.4 Est GFR (Non-Af Amer) 57.3 BUN/Creatinine Ratio 15.7 Glucose 89 Calcium 8.6 Phosphorus 2.2 L Magnesium 1.9 Iron 18 L TIBC 177 L Ferritin 410.3 H
[2019-01-25] MEDS: METOPROLOL TARTRATE 1 MG/ML VIAL IV SCH ×3 (16:09→23:45)
[2019-01-25] MEDS: ONDANSETRON INJ 2 MG/ML 2 ML VIAL IV PRN (20:14)
[2019-01-25] MEDS: VANCOMYCIN HCL 1,500 MG in SODIUM CHLORIDE 0.9% 500 ML IV SCH (22:05)
[2019-01-25] MEDS: ACETAMINOPHEN 1,000 MG/100 ML VIAL IV PRN (22:12)
[2019-01-26] MEDS: METOPROLOL TARTRATE 1 MG/ML VIAL IV PRN (00:32)
[2019-01-26] MEDS ORDERED: dilTIAZem HCl 5 MG/ML 5 ML VIAL IV STA ×3 (01:23→04:52)
[2019-01-26] MEDS: METOPROLOL TARTRATE 1 MG/ML VIAL IV SCH ×7 (04:07→22:21)
[2019-01-26] MEDS ORDERED: ALBUMIN 25% 50 ML IV ONE ×2 (05:21→05:31)
[2019-01-26] MEDS ORDERED: LABETALOL HCL IV 5 MG/ML 20ML IV STA ×2 (05:22→23:27)
[2019-01-26] MEDS ORDERED: SODIUM CHLORIDE 0.9% 1000ML 500 ML IV SCH (05:30)
[2019-01-26 05:35] LABS: Hematocrit (blood only) 29.7 % (42-52); Hemoglobin 9.6 g/dL (14.0-18.0); Mean Corpuscular Hemoglobin 26.7 pg (25-34); Mean Corpuscular Hgb Conc 32.3 g/dL (32-36); Mean Corpuscular Volume 82.7 fL (80-100); Mean Platelet Volume 8.6 fL (7.4-10.4); Platelet Count 256 K/uL (130-400); RDW Coefficient of Variation 15.3 % (11.5-14.5); RDW Standard Deviation 46.6 fL (36.4-46.3); Red Blood Count 3.59 M/uL (4.7-6.1); White Blood Count 7.82 K/uL (4.8-10.8)
[2019-01-26] MEDS: PIPERACILLIN/TAZOBACTAM 3.375 GM in DEXTROSE 5% 100 ML IV SCH ×3 (05:43→22:12)
[2019-01-26 06:04] LABS: BUN Creatinine Ratio 16.6 (10-20); Calcium 8.5 mg/dl (8.5-10.1); Creatinine Clr Calc Pharmacy 69.7 ml/min; Est GFR (African American) 70.5; Est GFR (Non-African American) 60.9; Potassium 4.2 mmol/L (3.5-5.1)
[2019-01-26 06:22] LABS: Phosphorus 3.1 mg/dl (2.5-4.9)
[2019-01-26] MEDS: FLUTICASONE PROPIONATE NA SPR 16 GM BTL NAE SCH ×2 (07:48→20:32)
[2019-01-26] MEDS: HEPARIN SOD 5,000 UNIT/0.5 ML VIAL SQ SCH ×2 (07:49→20:22)
[2019-01-26] MEDS: LACTATED RINGER'S 1,000 ML IV SCH ×2 (08:06→22:11)
[2019-01-26] MEDS: ACETAMINOPHEN 1,000 MG/100 ML VIAL IV PRN ×2 (08:07→15:43)
--- NOTE | 2019-01-26 10:31 | Surgery Progress Note ---
Date of Service January 26, 2019 Assessment & Plan (1) Status post reversal of ileostomy: POD#6 ileostomy reversal NGT with 150cc output, will continue to leave in place today Awaiting return of bowel function Hamer drain removed today at bedside Activity as tolerates Appreciate medicine and cardiology recommendations Patient was seen and examined by Dr. Roberts Subjective Patient says he had a restless night, had episodes of afib requiring frequent interruption in his sleep. Otherwise he is feeling okay. Has some mild nausea and some incisional soreness. He denies any flatus or bowel movements at this time. Physical Exam Physical Exam: awake/alert Respiratory: normal respiratory effort Gastrointestinal (Abdomen): Inspection/Auscultation: + abdomen distended (mild) and + abdominal surgical incision (c/d/i) Percussion/Palpation: abdomen soft NGT with bilious output Results & Data Vital Signs (Past 12 Hours) Vital Signs Temp Pulse Pulse Pulse Pulse Resp BP 01/26/19 07:48 155 H 156/96 H 01/26/19 07:34 36.3 C L 154 H 22 01/26/19 06:15 153 H 01/26/19 05:57 01/26/19 05:40 01/26/19 05:12 36.3 C L 154 H 20 01/26/19 05:07 153 H 01/26/19 02:52 01/26/19 01:43 155 H 01/26/19 00:32 155 H 135/97 01/26/19 00:30 155 H 01/25/19 23:45 142 H 117/80 01/25/19 23:43 36.5 C 142 H 16 01/25/19 22:47 141 H 119/81 BP BP Pulse Ox 01/26/19 07:48 01/26/19 07:34 156/96 H 95 01/26/19 06:15 140/100 01/26/19 05:57 133/93 01/26/19 05:40 156/101 H 01/26/19 05:12 135/91 91 01/26/19 05:07 154/83 H 01/26/19 02:52 136/77 01/26/19 01:43 150/87 H 01/26/19 00:32 01/26/19 00:30 135/97 01/25/19 23:45 01/25/19 23:43 117/88 96 01/25/19 22:47 PG Care Time/CCT Total # of Minutes Spent Total Time Spent with Patient: Total time spent is greater than 50% in coordination of care (as documented) at patient's floor/unit and/or counseling patient:
--- NOTE | 2019-01-26 12:04 | Cardiology Progress Note ---
Date of Service January 26, 2019 Assessment & Plan (1) Atrial fibrillation with rapid ventricular response: Records reviewed and telemetry reviewed with telemetry demonstrating intermittent atrial tachycardia with lapsed into atrial fibrillation recently. Rhythm confirmed by adenosine injection demonstrating coarse atrial fibrillation Discussed in detail with the patient Plan initiate further medical therapies for rate control. Anticoagulation relatively contraindicated and patient with chads vas 2 score of 1-2. Will not initiate anticoagulation at this time Heart rate little controlled on current dosing metoprolol increase metoprolol to 5 mg IV every 3 hours. Consider adding digoxin to her regimen cautiously given underlying conduction abnormalities. Calcium channel blockers being avoided given slow bowel transit (2) Paroxysmal atrial tachycardia: Patient with dual atrial arrhythmias (3) Status post reversal of ileostomy: Bowel at rest prohibiting use of oral medication (4) Aspiration into airway: (5) CKD (chronic kidney disease): Subjective Patient seen and examined, chart, medications, telemetry reviewed. Did not sleep well last evening. Heart rate remains elevated and with little effect with current dosing of IV beta-frederic. Blood pressures normal to elevated Minimal bowel activity but no discomfort Physical Exam Constitutional: + ill appearing; no acute distress Eyes: PERRL, conjunctivae normal, anicteric sclerae ENMT: external ear and nose normal, oropharynx normal Neck: trachea midline, no thyromegaly Respiratory: Auscultation: + diminished lung sounds (But clear no rhonchi or wheeze) Cardiovascular: Rate/Rhythm: regular rate, regular rhythm and + tachycardic Heart Sounds: normal S1 and normal S2; no gallop and no murmur Palpation: normal PMI Vessels: normal carotid upstroke and radial pulses present; no JVD and no carotid bruit Extremities: no edema Gastrointestinal (Abdomen): normal bowel sounds, soft, nontender, no hepatosplenomegaly Inspection/Auscultation: + abdomen distended Percussion/Palpation: abdomen nontender Musculoskeletal: no cyanosis or clubbing, extremities motor strength 5/5 Skin: no rashes, warm and dry Neurologic: PERRL, EOMI, accommodation nl, no face palsy, no dysarthria Psychiatric: A+Ox3, euthymic affect Results & Data Vital Signs (Past 12 Hours) Vital Signs Temp Pulse Pulse Pulse Pulse Resp BP 01/26/19 11:22 36.6 C 151 H 01/26/19 07:48 155 H 156/96 H 01/26/19 07:34 36.3 C L 154 H 22 01/26/19 06:15 153 H 01/26/19 05:57 01/26/19 05:40 01/26/19 05:12 36.3 C L 154 H 20 01/26/19 05:07 153 H 01/26/19 02:52 01/26/19 01:43 155 H 01/26/19 00:32 155 H 135/97 01/26/19 00:30 155 H BP BP Pulse Ox 01/26/19 11:22 136/111 H 94 01/26/19 07:48 01/26/19 07:34 156/96 H 95 01/26/19 06:15 140/100 01/26/19 05:57 133/93 01/26/19 05:40 156/101 H 01/26/19 05:12 135/91 91 01/26/19 05:07 154/83 H 01/26/19 02:52 136/77 01/26/19 01:43 150/87 H 01/26/19 00:32 01/26/19 00:30 135/97 Laboratory Results Laboratory Results - last 24 hr 01/26/19 01/26/19 01/26/19 05:21 05:21 11:19 WBC 7.82 RBC 3.59 L Hgb 9.6 L Hct 29.7 L MCV 82.7 MCH 26.7 MCHC 32.3 RDW Std Deviation 46.6 H RDW Coeff of Jean-Claude 15.3 H Plt Count 256 MPV 8.6 Sodium 138 Potassium 4.2 Chloride 106 Carbon Dioxide 25 Anion Gap 7.0 BUN 20 H Creatinine 1.18 Est Cr Clr Drug Dosing 69.7 Est GFR ( Amer) 70.5 Est GFR (Non-Af Amer) 60.9 BUN/Creatinine Ratio 16.6 Glucose 92 POC Glucose 106 H Calcium 8.5 Phosphorus 3.1 Magnesium 2.0
[2019-01-26] MEDS: FAMOTIDINE 20 MG in SYRINGE 3 ML IV SCH ×2 (12:14→22:12)
[2019-01-26] MEDS ORDERED: VANCOMYCIN TROUGH ONE (13:30)
--- NOTE | 2019-01-26 15:23 | Pharmacy Report ---
Pharmacy Abx Dose Short Note - Date of Service January 26, 2019 - Assessment & Plan Assessment 73 year old M receiving vancomycin/zosyn for treatment of pulmonary source. Day #4/7 of antimicrobial therapy. Her renal fxn has steadily improved this admission. We will shorten her vancomycin dosing interval to more closely mirror her baseline renal fxn. Baseline renal fxn: ~65cc/min, ke; 0.0583, t1/2-11hrs Plan Vancomycin * Trough level of 13.8 mcg/mL is subtherapeutic * Change to vancomycin 1500 mg IV every 12 hours * Goal trough level for pulm source : 15-20 mcg/mL * Trough or random level ordered for: 01/28 @0330 Zosyn * appropriate based on renal fxn and eCrCl Pharmacy will continue to follow and will adjust dose/frequency as necessary. Thank you.
[2019-01-26] MEDS: VANCOMYCIN HCL 1,500 MG in SODIUM CHLORIDE 0.9% 500 ML IV SCH ×2 (15:45→15:53)
--- NOTE | 2019-01-26 16:19 | Cardiology Progress Note ---
Date of Service January 26, 2019 Subjective Patient still in atrial fibrillation but tachycardic rates and blood pressure both increasing. We will continue IV metoprolol Add digoxin 0.25 mg IV x2 Volume status significantly positive will give 10 mg IV furosemide as well Add topical nitrates 1/2 inch every 6 for blood pressure control may be removed if blood pressure improves Results & Data Vital Signs (Past 12 Hours) Vital Signs Temp Pulse Pulse Pulse Resp BP BP 01/26/19 15:25 36.9 C 165 H 18 160/105 H 01/26/19 14:30 165 H 160/105 H 01/26/19 14:00 152 H 01/26/19 11:30 160 H 129/91 01/26/19 11:22 36.6 C 151 H 136/111 H 01/26/19 07:48 155 H 156/96 H 01/26/19 07:34 36.3 C L 154 H 22 01/26/19 06:15 153 H 01/26/19 05:57 133/93 01/26/19 05:40 01/26/19 05:12 36.3 C L 154 H 20 135/91 01/26/19 05:07 153 H BP Pulse Ox 01/26/19 15:25 95 01/26/19 14:30 01/26/19 14:00 01/26/19 11:30 01/26/19 11:22 94 01/26/19 07:48 01/26/19 07:34 156/96 H 95 01/26/19 06:15 140/100 01/26/19 05:57 01/26/19 05:40 156/101 H 01/26/19 05:12 91 01/26/19 05:07 154/83 H
[2019-01-26] MEDS ORDERED: DIGOXIN 250 MCG in SYRINGE 9 ML IV ONE ×2 (16:30→20:00)
[2019-01-26] MEDS ORDERED: FUROSEMIDE 10 MG in SYRINGE 0 ML IV ONE (16:30)
[2019-01-26] MEDS: NITROGLYCERIN 2% OINTMENT 30GM TUBE EXT SCH ×2 (17:13→22:12)
--- NOTE | 2019-01-26 23:34 | Hospitalist Progress Note ---
Date of Service January 26, 2019 Assessment & Plan (1) Paroxysmal atrial tachycardia: Prior episode years ago in the setting of pneumonia. - Had a recurrence in the setting of his aspiration. He was clearly jumping from ~100 bpm straight to 140 bpm and back again. - By 01/24, he was back to normal sinus rhythm, but then went back into a fast atrial tachycardia again on 01/25. -throughout day of 01/26, HR has been elevatd at 150s. -D/W cardiology, trial of icreasing metoprolol to q3h; no change to HR -Added dig, will monitor. -cardio not too overly concerned as patient is asymptomatic. (2) Adenocarcinoma of sigmoid colon: S/p ileostomy reversal on 01/[address] Roberts. - Post-operative care per surgical team - On 01/26, still has post-operative ileus without any flatus or BM. However, no longer any vomiting or nausea. NG was in until 01/23; now pulled. Awaiting return of bowel function. (3) Aspiration into airway: Likely aspiration event(s) on 01/23 when he had multiple large-volume emesis from ileus. - Started on vanc/Zosyn on 01/23 - Transferred to ICU for hypotension - On pressors for only about 6 hours. Off by 01/23 and transferred out of the ICU. - Continue abx for a 7-day HAP course. (End date: 01/30) (4) Anemia: Baseline hgb 9-11. - Down to 8.4 on 01/24; no signs of bleeding. Likely dilutional from tons of IV fluids he's received in the last 24 hours. - Anemia labs indicate combination of chronic disease and iron deficiency - Monitor (5) CKD (chronic kidney disease): Baseline Cr ~1.4 from prior labs. - Cr up to 1.8 in the setting of his hypotension and aspiration. - Back to baseline by 01/24 (6) Hypertension: On metoprolol at home. - Holding for ileus - Metoprolol 5mg IV Q30m for HR > 110 given the above tachycardia (7) Asthma: Denies shortness of breath at this time. No wheezing on exam. - Holding Singulair in setting of ileus. - DuoNebs PRN (8) GERD (gastroesophageal reflux disease): - Holding PPI in setting of aspiration/ileus. - On famotidine IV while NPO (9) DVT prophylaxis: Heparin BID Subjective Patient reports no new symptoms. Review of Systems Review of Systems: All systems reviewed & are unremarkable except as noted in HPI & below Physical Exam Physical Exam: Constitutional: WD/WN, vitals as above Eyes: EOM intact bilaterally; no conjunctival abnormality ENMT: external ear and nose normal, oropharynx normal Neck: trachea midline, no thyromegaly normal visual inspection Respiratory: normal respiratory effort, lungs clear to auscultation no respiratory distress Cardiovascular: Rate/Rhythm: + tachycardic Heart Sounds: normal S1 and normal S2 Vessels: no JVD Extremities: no edema Gastrointestinal (Abdomen): Inspection/Auscultation: + hypoactive bowel sounds (None at present); abdomen not distended and + abnormal bowel sounds Percussion/Palpation: abdomen soft; abdomen nontender, no guarding and abdomen not rigid Musculoskeletal: no cyanosis or clubbing, extremities motor strength 5/5 Skin: no rashes, warm and dry Neurologic: moves all extremities and awake Psychiatric: Orientation: alert, oriented to person and cooperative Results & Data Vital Signs (Past 12 Hours) Vital Signs Temp Pulse Pulse Pulse Resp BP BP 01/26/19 23:19 36.7 C 160 H 19 01/26/19 22:21 156 H 151/106 H 01/26/19 20:31 153 H 134/96 01/26/19 20:22 153 H 01/26/19 19:22 36.6 C 153 H 18 01/26/19 17:49 154 H 158/89 H 01/26/19 17:04 165 H 01/26/19 16:59 155 H 01/26/19 15:25 36.9 C 165 H 18 160/105 H 01/26/19 14:30 165 H 160/105 H 01/26/19 14:00 152 H BP Pulse Ox 01/26/19 23:19 154/121 H 91 01/26/19 22:21 01/26/19 20:31 01/26/19 20:22 01/26/19 19:22 134/96 93 01/26/19 17:49 01/26/19 17:04 01/26/19 16:59 01/26/19 15:25 95 01/26/19 14:30 01/26/19 14:00 PG Care Time/CCT Total # of Minutes Spent Total Time Spent with Patient: Total time spent is greater than 50% in coordination of care (as documented) at patient's floor/unit and/or counseling patient:
[2019-01-27] MEDS: METOPROLOL TARTRATE 1 MG/ML VIAL IV SCH ×8 (02:15→22:48)
[2019-01-27] MEDS ORDERED: dilTIAZem HCl 5 MG/ML 5 ML VIAL IV STA ×2 (02:55→23:54)
[2019-01-27] MEDS: VANCOMYCIN HCL 1,500 MG in SODIUM CHLORIDE 0.9% 500 ML IV SCH ×2 (05:03→16:49)
[2019-01-27] MEDS: NITROGLYCERIN 2% OINTMENT 30GM TUBE EXT SCH ×4 (05:04→20:38)
[2019-01-27] MEDS: PIPERACILLIN/TAZOBACTAM 3.375 GM in DEXTROSE 5% 100 ML IV SCH ×3 (05:27→22:52)
--- NOTE | 2019-01-27 06:41 | Surgery Progress Note ---
Date of Service January 27, 2019 Assessment & Plan (1) Status post reversal of ileostomy: POD #7 Patient is feeling much better states have had multiple bowel movements during the night also recorded by the nurses The NG output 650 cc recorded at 630 this morning but that was approximately 18- hour total The abdomen is softer although still slightly distended Patient is slightly confused main issue still tachycardia diuresis started yesterday Patient has no further hiccups and at this point will DC the NG tube and start him on some water sips today and if he continues to do well will increase him to a diet tomorrow Lab is pending at this time POD#6 ileostomy reversal NGT with 150cc output, will continue to leave in place today Awaiting return of bowel function Dolliver drain removed today at bedside Activity as tolerates Appreciate medicine and cardiology recommendations Patient was seen and examined by Dr. Roberts Subjective Patient still in atrial fibrillation but tachycardic rates and blood pressure both increasing. We will continue IV metoprolol Add digoxin 0.25 mg IV x2 Volume status significantly positive will give 10 mg IV furosemide as well Add topical nitrates 1/2 inch every 6 for blood pressure control may be removed if blood pressure improves Results & Data Vital Signs (Past 12 Hours) Vital Signs Temp Pulse Pulse Resp BP BP Pulse Ox 01/27/19 05:04 163 H 150/101 H 01/27/19 03:37 150/103 H 01/27/19 03:36 37.6 C H 159 H 20 154/109 H 93 01/27/19 02:15 160 H 159/105 H 01/27/19 00:13 156 H 167/100 H 01/26/19 23:19 36.7 C 160 H 19 154/121 H 91 01/26/19 22:21 156 H 151/106 H 01/26/19 20:31 153 H 134/96 01/26/19 20:22 153 H 01/26/19 19:22 36.6 C 153 H 18 134/96 93 PG Care Time/CCT Total # of Minutes Spent Total Time Spent with Patient: Total time spent is greater than 50% in coordination of care (as documented) at patient's floor/unit and/or counseling patient:
[2019-01-27 07:39] LABS: Hematocrit (blood only) 28.8 % (42-52); Hemoglobin 9.6 g/dL (14.0-18.0); Mean Corpuscular Hemoglobin 27.1 pg (25-34); Mean Corpuscular Hgb Conc 33.3 g/dL (32-36); Mean Corpuscular Volume 81.4 fL (80-100); Platelet Count 307 K/uL (130-400); RDW Coefficient of Variation 15.3 % (11.5-14.5); RDW Standard Deviation 45.8 fL (36.4-46.3); Red Blood Count 3.54 M/uL (4.7-6.1); White Blood Count 8.84 K/uL (4.8-10.8)
[2019-01-27 08:04] LABS: Basophils # (auto) 0.02 K/uL (0-0.2); Basophils % (auto) 0.2 %; Eosinophils # (auto) 0.19 K/uL (0-0.5); Eosinophils % (auto) 2.1 %; Immature Granulocytes # (auto) 0.54 K/uL (0.00-0.02); Immature Granulocytes % (auto) 6.1 %; Lymphocytes # (auto) 0.98 K/uL (1.2-3.4); Lymphocytes % (auto) 11.1 %; Monocytes # (auto) 1.51 K/uL (0.11-0.59); Monocytes % (auto) 17.1 %; Neutrophils % (auto) 63.4 %; Toxic Granulation 1+
[2019-01-27 08:05] LABS: BUN Creatinine Ratio 14.9 (10-20); Calcium 8.9 mg/dl (8.5-10.1); Creatinine Clr Calc Pharmacy 75.9 ml/min; Est GFR (African American) 76.8; Est GFR (Non-African American) 66.2; Potassium 3.8 mmol/L (3.5-5.1)
[2019-01-27] MEDS: HEPARIN SOD 5,000 UNIT/0.5 ML VIAL SQ SCH ×2 (08:19→20:37)
[2019-01-27] MEDS: FLUTICASONE PROPIONATE NA SPR 16 GM BTL NAE SCH ×2 (08:19→20:37)
[2019-01-27] MEDS ORDERED: FUROSEMIDE 10 MG in SYRINGE 0 ML IV ONE (09:30)
[2019-01-27] MEDS ORDERED: DIGOXIN 250 MCG in SYRINGE 9 ML IV STA (10:57)
[2019-01-27] MEDS ORDERED: FUROSEMIDE 40 MG in SYRINGE 0 ML IV ONE (11:00)
[2019-01-27] MEDS: LACTATED RINGER'S 1,000 ML IV SCH (11:08)
[2019-01-27] MEDS: FAMOTIDINE 20 MG in SYRINGE 3 ML IV SCH ×2 (11:31→22:52)
--- NOTE | 2019-01-27 13:50 | Cardiology Progress Note ---
Date of Service January 27, 2019 Assessment & Plan (1) Atrial fibrillation with rapid ventricular response: Records reviewed and telemetry reviewed with telemetry demonstrating intermittent atrial tachycardia with lapsed into atrial fibrillation recently. Rhythm confirmed by adenosine injection demonstrating coarse atrial fibrillation Discussed in detail with the patient Plan initiate further medical therapies for rate control. Anticoagulation relatively contraindicated and patient with chads vas 2 score of 1-2. Will not initiate anticoagulation at this time Heart rate little controlled on current dosing metoprolol increase metoprolol to 7.5 5 mg IV every 3 hours. Give additional dose of digoxin Furosemide 40 mg IV to be given with IV fluids to be stopped Nitropaste increased to 1 inch every 6 for further blood pressure control (2) Paroxysmal atrial tachycardia: Patient with dual atrial arrhythmias (3) Status post reversal of ileostomy: Bowel at rest prohibiting use of oral medication (4) Aspiration into airway: (5) CKD (chronic kidney disease): Subjective Patient seen and examined, chart, medications, telemetry reviewed. Patient says he is feeling better with predominantly through noted increased bowel activity. Remains tachycardic in atrial fibrillation rates 150 with poor response to medical therapies Volume status remains overloaded with markedly positive I's and O's Physical Exam Constitutional: + ill appearing; no acute distress Eyes: PERRL, conjunctivae normal, anicteric sclerae ENMT: external ear and nose normal, oropharynx normal Neck: trachea midline, no thyromegaly Respiratory: Auscultation: + diminished lung sounds (But clear no rhonchi or wheeze) Cardiovascular: Rate/Rhythm: regular rate, regular rhythm and + tachycardic Heart Sounds: normal S1 and normal S2; no gallop and no murmur Palpation: normal PMI Vessels: normal carotid upstroke and radial pulses present; no JVD and no carotid bruit Extremities: no edema Gastrointestinal (Abdomen): Inspection/Auscultation: + abdomen distended and normal bowel sounds Percussion/Palpation: abdomen nontender Musculoskeletal: no cyanosis or clubbing, extremities motor strength 5/5 Skin: no rashes, warm and dry Neurologic: PERRL, EOMI, accommodation nl, no face palsy, no dysarthria Psychiatric: A+Ox3, euthymic affect Results & Data Vital Signs (Past 12 Hours) Vital Signs Temp Pulse Pulse Resp BP BP Pulse Ox 01/27/19 11:38 158 H 01/27/19 11:31 60 01/27/19 11:30 160 H 01/27/19 08:18 154 H 153/109 H 01/27/19 08:00 160 H 01/27/19 07:26 36.8 C 154 H 20 153/109 H 95 01/27/19 05:04 163 H 150/101 H 01/27/19 03:37 150/103 H 01/27/19 03:36 37.6 C H 159 H 20 154/109 H 93 01/27/19 02:15 160 H 159/105 H Laboratory Results Laboratory Results - last 24 hr 01/26/19 01/27/19 01/27/19 13:36 00:01 07:17 WBC 8.84 RBC 3.54 L Hgb 9.6 L Hct 28.8 L MCV 81.4 MCH 27.1 MCHC 33.3 RDW Std Deviation 45.8 RDW Coeff of Jean-Claude 15.3 H Plt Count 307 MPV 9.0 Immature Gran % (Auto) 6.1 Neut % (Auto) 63.4 Lymph % (Auto) 11.1 [place] % (Auto) 17.1 Eos % (Auto) 2.1 Baso % (Auto) 0.2 Immature Gran # (Auto) 0.54 H Neut # (Auto) 5.60 Lymph # (Auto) 0.98 L [place] # (Auto) 1.51 H Eos # (Auto) 0.19 Baso # (Auto) 0.02 Toxic Granulation 1+ Sodium Potassium Chloride Carbon Dioxide Anion Gap BUN Creatinine Est Cr Clr Drug Dosing Est GFR ( Amer) Est GFR (Non-Af Amer) BUN/Creatinine Ratio Glucose POC Glucose 108 H Calcium Vancomycin Trough 13.8 01/27/19 07:17 WBC RBC Hgb Hct MCV MCH MCHC RDW Std Deviation RDW Coeff of Jean-Claude Plt Count MPV Immature Gran % (Auto) Neut % (Auto) Lymph % (Auto) [place] % (Auto) Eos % (Auto) Baso % (Auto) Immature Gran # (Auto) Neut # (Auto) Lymph # (Auto) [place] # (Auto) Eos # (Auto) Baso # (Auto) Toxic Granulation Sodium 139 Potassium 3.8 Chloride 106 Carbon Dioxide 23 Anion Gap 10.0 BUN 16 Creatinine 1.10 Est Cr Clr Drug Dosing 75.9 Est GFR ( Amer) 76.8 Est GFR (Non-Af Amer) 66.2 BUN/Creatinine Ratio 14.9 Glucose 113 H POC Glucose Calcium 8.9 Vancomycin Trough
[2019-01-27] MEDS: METOPROLOL TARTRATE 1 MG/ML VIAL IV PRN (18:19)
[2019-01-28] MEDS ORDERED: MAGNESIUM SULFATE / D5W 1 GM/100 ML BAG IV ONE ×2 (00:15→01:30)
[2019-01-28 00:24] LABS: Hematocrit (blood only) 30.3 % (42-52); Hemoglobin 9.9 g/dL (14.0-18.0); Mean Corpuscular Hemoglobin 26.8 pg (25-34); Mean Corpuscular Hgb Conc 32.7 g/dL (32-36); Mean Corpuscular Volume 82.1 fL (80-100); Mean Platelet Volume 8.6 fL (7.4-10.4); Platelet Count 324 K/uL (130-400); RDW Coefficient of Variation 15.1 % (11.5-14.5); RDW Standard Deviation 45.1 fL (36.4-46.3); Red Blood Count 3.69 M/uL (4.7-6.1); White Blood Count 8.08 K/uL (4.8-10.8)
[2019-01-28] MEDS: POTASSIUM CHLORIDE / WTR 10 MEQ/100 ML PLCT IV SCH ×9 (00:31→11:41)
[2019-01-28] MEDS ORDERED: XOPENEX/ATROVENT 1.25mg/0.5MG NEB COMBO NEB PRN (00:38)
[2019-01-28 00:41] LABS: BUN Creatinine Ratio 13.9 (10-20); Calcium 8.5 mg/dl (8.5-10.1); Creatinine Clr Calc Pharmacy 75.2 ml/min; Est GFR (African American) 75.9; Est GFR (Non-African American) 65.5; Magnesium 1.7 mg/dl (1.8-2.4); Potassium 3.4 mmol/L (3.5-5.1)
--- NOTE | 2019-01-28 00:42 | Communication Note ---
Date of Service: January 28, 2019 Made aware by RN of change of service from an [facility] [place] [facility] for medical management. Patient PCP is Dr. Leon. Rapid A. fib uncontrolled by current beta-frederic Rx as per RN. Short-lived response to 2 Cardizem boluses. Initiate Cardizem drip. Will relay to AM provider.
[2019-01-28 00:45] LABS: Basophils # (auto) 0.01 K/uL (0-0.2); Basophils % (auto) 0.1 %; Eosinophils # (auto) 0.32 K/uL (0-0.5); Immature Granulocytes % (auto) 7.4 %; Lymphocytes # (auto) 1.06 K/uL (1.2-3.4); Lymphocytes % (auto) 13.1 %; Monocytes # (auto) 1.54 K/uL (0.11-0.59); Monocytes % (auto) 19.1 %; Neutrophils # (auto) 4.55 K/uL (1.4-6.5); Neutrophils % (auto) 56.3 %
[2019-01-28] MEDS ORDERED: LEVALBUTEROL 1.25MG/0.5ML NEB INH PRN (00:45)
[2019-01-28] MEDS ORDERED: IPRATROPIUM BROMIDE NEB SOLN 0.02% 2.5 ML VIAL INH PRN (00:45)
[2019-01-28] MEDS ORDERED: dilTIAZem HCl 5 MG/ML 5 ML VIAL IV STA ×2 (00:57→03:05)
[2019-01-28] MEDS: NITROGLYCERIN 2% OINTMENT 30GM TUBE EXT SCH ×4 (01:44→19:47)
[2019-01-28] MEDS: METOPROLOL TARTRATE 1 MG/ML VIAL IV SCH ×5 (01:50→13:17)
[2019-01-28] MEDS ORDERED: dilTIAZem HCL 125 MG in DEXTROSE 5% 100 ML IV SCH (03:15)
[2019-01-28] MEDS ORDERED: VANCOMYCIN TROUGH ONE (03:30)
[2019-01-28] MEDS: dilTIAZem HCL 125 MG in DEXTROSE 5% 100 ML IV SCH ×2 (03:47→18:43)
[2019-01-28] MEDS: VANCOMYCIN HCL 1,500 MG in SODIUM CHLORIDE 0.9% 500 ML IV SCH (04:05)
[2019-01-28] MEDS: PIPERACILLIN/TAZOBACTAM 3.375 GM in DEXTROSE 5% 100 ML IV SCH ×3 (05:30→21:37)
--- NOTE | 2019-01-28 08:04 | Surgery Progress Note ---
Date of Service January 28, 2019 Assessment & Plan (1) Status post reversal of ileostomy: POD 8 bowel function returning will start clears, advance slowly HR improved seen with Dr. Roberts Subjective loose BM x6, no nausea, still having hiccups Physical Exam Gastrointestinal (Abdomen): Inspection/Auscultation: + abdominal surgical incision (no erythema, dry); abdomen not distended Percussion/Palpation: abdomen soft Results & Data Vital Signs (Past 12 Hours) Vital Signs Temp Pulse Pulse Pulse Resp BP BP 01/28/19 07:50 37.0 C 119 H 20 164/81 H 01/28/19 06:29 131 H 165/78 H 01/28/19 05:05 82 144/74 H 01/28/19 04:48 160 H 146/88 H 01/28/19 04:47 160 H 146/88 H 01/28/19 04:23 163 H 125/84 01/28/19 04:00 37.1 C 162 H 12 01/28/19 03:58 160 H 01/28/19 01:50 85 155/79 H 01/28/19 01:37 85 01/28/19 00:56 147 H 131/79 01/28/19 00:30 74 133/61 01/27/19 23:13 37.2 C 148 H 20 160/100 H 01/27/19 22:48 153 H 167/104 H 01/27/19 21:49 162 H 01/27/19 20:36 161 H 150/89 H BP Pulse Ox 01/28/19 07:50 94 01/28/19 06:29 01/28/19 05:05 01/28/19 04:48 01/28/19 04:47 01/28/19 04:23 01/28/19 04:00 140/85 93 01/28/19 03:58 174/78 H 01/28/19 01:50 01/28/19 01:37 155/79 H 01/28/19 00:56 01/28/19 00:30 01/27/19 23:13 93 01/27/19 22:48 01/27/19 21:49 01/27/19 20:36 PG Care Time/CCT Total # of Minutes Spent Total Time Spent with Patient: Total time spent is greater than 50% in coordination of care (as documented) at patient's floor/unit and/or counseling patient:
--- NOTE | 2019-01-28 08:07 | Pharmacy Report ---
Pharmacy Abx Dose Short Note - Date of Service January 28, 2019 - Assessment & Plan Assessment 73 year old M receiving vancomycin and zosyn for treatment of HAP * Aspiration into airway: Likely aspiration event(s) on 01/23 when he had multiple large-volume emesis from ileus * Pt was transferred to the ICU on 01/23 due to hypotension requiring short term pressor support. Transferred out of ICU the same day. * Day # 6 of antimicrobial therapy Plan Vancomycin * Trough level of 21.1 mcg/mL is slightly supratherapeutic * Decrease vancomycin dose by ~16%. New dose: 1250 mg (13 mg/kg) IV every 12 hours * No further levels will be ordered per patient will complete 7 day course on 12/20 AM. Zosyn * 3.375 g IV every 8 hours (ext. infusion) Pharmacy will continue to follow and will adjust dose/frequency as necessary. Thank you.
[2019-01-28] MEDS: HEPARIN SOD 5,000 UNIT/0.5 ML VIAL SQ SCH ×2 (08:24→19:47)
[2019-01-28] MEDS: FLUTICASONE PROPIONATE NA SPR 16 GM BTL NAE SCH ×2 (08:24→19:46)
[2019-01-28] MEDS: FAMOTIDINE 20 MG in SYRINGE 3 ML IV SCH ×2 (10:42→23:27)
--- NOTE | 2019-01-28 13:36 | Cardiology Progress Note ---
Date of Service January 28, 2019 Assessment & Plan (1) Atrial fibrillation with rapid ventricular response: Records reviewed and telemetry reviewed with telemetry demonstrating intermittent atrial tachycardia with lapsed into atrial fibrillation recently. Rhythm confirmed by adenosine injection demonstrating coarse atrial fibrillation Discussed in detail with the patient Plan initiate further medical therapies for rate control. Anticoagulation relatively contraindicated and patient with chads vas 2 score of 1-2. Will not initiate anticoagulation at this time Heart rate little controlled on current dosing metoprolol increase metoprolol to 7.5 5 mg IV every 3 hours. Give additional dose of digoxin Rhythm atrial fibrillation flutter being driven by underlying volume overload. Patient has responded to medications with rate control but on substantial IV medications to do so Appears to be approaching the point where he can begin switching to medications to oral will follow Will need further diuresis (2) Paroxysmal atrial tachycardia: Patient with dual atrial arrhythmias (3) Status post reversal of ileostomy: Bowel at rest prohibiting use of oral medication (4) Aspiration into airway: (5) CKD (chronic kidney disease): Subjective Patient seen and examined, chart, medications, telemetry reviewed. Was begun on IV diltiazem last night because of persistently elevated heart rates on monitor patient asymptomatic. Heart rate slowed on diltiazem however remains in atrial fibrillation flutter (rhythm regular) Patient did respond to initial diuresis though fluid balance once again positive Potassium being replaced Diet now being advanced there with persistent hiccups present Physical Exam Constitutional: no acute distress ENMT: external ear and nose normal, oropharynx normal NG tube out Neck: trachea midline, no thyromegaly Respiratory: Auscultation: + diminished lung sounds (But clear no rhonchi or wheeze) Cardiovascular: Rate/Rhythm: regular rhythm, + tachycardic and + irregularly irregular Heart Sounds: normal S1 and normal S2; no gallop and no murmur Palpation: normal PMI Vessels: normal carotid upstroke and radial pulses present; no JVD and no carotid bruit Extremities: no edema Gastrointestinal (Abdomen): normal bowel sounds, soft, nontender, no hepatosplenomegaly Inspection/Auscultation: + abdomen distended and normal bowel sounds Percussion/Palpation: abdomen nontender Musculoskeletal: no cyanosis or clubbing, extremities motor strength 5/5 Skin: no rashes, warm and dry Neurologic: PERRL, EOMI, accommodation nl, no face palsy, no dysarthria Psychiatric: A+Ox3, euthymic affect Results & Data Vital Signs (Past 12 Hours) Vital Signs Temp Pulse Pulse Pulse Resp BP BP 01/28/19 11:08 37.6 C H 83 20 138/76 01/28/19 08:24 135 H 01/28/19 08:00 90 01/28/19 07:50 37.0 C 119 H 20 164/81 H 01/28/19 06:29 131 H 165/78 H 01/28/19 05:05 82 144/74 H 01/28/19 04:48 160 H 146/88 H 01/28/19 04:47 160 H 146/88 H 01/28/19 04:23 163 H 125/84 01/28/19 04:00 37.1 C 162 H 12 01/28/19 03:58 160 H 01/28/19 01:50 85 155/79 H 01/28/19 01:37 85 BP Pulse Ox 01/28/19 11:08 92 01/28/19 08:24 01/28/19 08:00 01/28/19 07:50 94 01/28/19 06:29 01/28/19 05:05 01/28/19 04:48 01/28/19 04:47 01/28/19 04:23 01/28/19 04:00 140/85 93 01/28/19 03:58 174/78 H 01/28/19 01:50 01/28/19 01:37 155/79 H
[2019-01-28] MEDS: METOPROLOL TARTRATE 1 MG/ML VIAL IV PRN ×3 (14:59→21:43)
--- NOTE | 2019-01-28 16:20 | Cardiology Progress Note ---
Date of Service January 28, 2019 Subjective Patient increase diet today to liquids with good tolerance hiccups have resolved bowels continue to move no GI upset or indigestion or pain Plan begin to mobilize fluids as well as minimize fluid intake switch cardiac medications to from IV to p.o. Results & Data Vital Signs (Past 12 Hours) Vital Signs Temp Pulse Pulse Pulse Resp BP BP 01/28/19 15:23 37.0 C 82 19 01/28/19 14:59 130 H 01/28/19 12:00 124 H 01/28/19 11:08 37.6 C H 83 20 138/76 01/28/19 08:24 135 H 01/28/19 08:00 90 01/28/19 07:50 37.0 C 119 H 20 164/81 H 01/28/19 06:29 131 H 165/78 H 01/28/19 05:05 82 144/74 H 01/28/19 04:48 160 H 146/88 H 01/28/19 04:47 160 H 146/88 H 01/28/19 04:23 163 H 125/84 BP Pulse Ox 01/28/19 15:23 132/71 92 01/28/19 14:59 01/28/19 12:00 01/28/19 11:08 92 01/28/19 08:24 01/28/19 08:00 01/28/19 07:50 94 01/28/19 06:29 01/28/19 05:05 01/28/19 04:48 01/28/19 04:47 01/28/19 04:23
[2019-01-28] MEDS ORDERED: FUROSEMIDE 20 MG in SYRINGE 0 ML IV ONE (16:30)
[2019-01-28] MEDS: dilTIAZem HCL 30 MG TAB PO SCH ×2 (16:55→19:46)
[2019-01-28] MEDS: VANCOMYCIN HCL 1,250 MG in SODIUM CHLORIDE 0.9% 250 ML IV SCH (16:56)
[2019-01-28] MEDS: METOPROLOL TARTRATE 25 MG TAB PO SCH ×2 (16:56→23:27)
--- NOTE | 2019-01-28 17:31 | Hospitalist Progress Note ---
Date of Service January 28, 2019 Assessment & Plan (1) Atrial fibrillation with rapid ventricular response: Atrial fibrillation with RVR Atrial Flutter on Rhythm No anticoagulation Continue diltiazem 30 mg TID Wean off of diltiazem ggt as able Also on Metoprolol 25mg PO Q6H Appreciate Cardiology Input Monitor electrolytes and replace as needed Adenocarcinoma of sigmoid colon: S/p ileostomy reversal on 01/[address] Roberts. Postoperative ileus-- improved Advance diet as tolerated Appreciate surgery input Aspiration into airway: Likely aspiration event on 01/23 Hypotension resolved, Off pressors On IV vanc/Zosyn on 01/23 To complete 7 day course of Abx Anemia: Baseline hgb 9-11. Likely anemia of chronic disease and iron deficiency Monitor NABIL on CKD II--Resolved Cr back to baseline Received IV fluids Hypertension: Continue current medications Hypokalemia Replace as needed Asthma: No signs of exacerbation Nebs PRN GERD Change IV TO PO Pepcid as able DVT Px: Heparin SQ Subjective Patient is seen and examined at bedside Minimal incisional pain of the abdomen Denies any chest pain, shortness of breath, nausea, dizziness Had bowel movement Start on clear liquid diet Heart rate is controlled On diltiazem drip Review of Systems Review of Systems: All systems reviewed & are unremarkable except as noted in HPI & below Physical Exam Physical Exam: Physical Exam: Vitals signs as noted above General Appearance:Moderately built and nourished, no apparent distress Head: normocephalic, Atraumatic Eyes: normal inspection, EOMI Neck: supple, Trachea midline Respiratory/Chest: Normal breath sounds, CTA Cardiovascular: Irregularly Irregular, No murmur Abdomen/GI:Soft, mild tender, Surgical site in dressing, Bowel sounds present Extremities/Musculoskelatal:normal inspection, no edema Neurologic/Psych:AAOX3, grossly no focal neurological deficits Skin: normal color, warm Results & Data Vital Signs (Past 12 Hours) Vital Signs Temp Pulse Pulse Pulse Resp BP BP 01/28/19 15:23 37.0 C 82 19 132/71 01/28/19 14:59 130 H 01/28/19 12:00 124 H 01/28/19 11:08 37.6 C H 83 20 138/76 01/28/19 08:24 135 H 01/28/19 08:00 90 01/28/19 07:50 37.0 C 119 H 20 164/81 H 01/28/19 06:29 131 H 165/78 H Pulse Ox 01/28/19 15:23 92 01/28/19 14:59 01/28/19 12:00 01/28/19 11:08 92 01/28/19 08:24 01/28/19 08:00 01/28/19 07:50 94 01/28/19 06:29 Laboratory Results Short CBC 01/28/19 Range/Units 00:15 WBC 8.08 (4.8-10.8) K/uL Hgb 9.9 L (14.0-18.0) g/dL Hct 30.3 L (42-52) % Plt Count 324 (130-400) K/uL BMP 01/28/19 00:15 Sodium 138 Potassium 3.4 L Chloride 106 Carbon Dioxide 26 BUN 15 Creatinine 1.11 Glucose 104 H Calcium 8.5
[2019-01-29] MEDS: ACETAMINOPHEN 325 MG TAB PO PRN ×2 (01:45→22:12)
[2019-01-29] MEDS: NITROGLYCERIN 2% OINTMENT 30GM TUBE EXT SCH ×4 (02:48→19:59)
[2019-01-29] MEDS: METOPROLOL TARTRATE 1 MG/ML VIAL IV PRN ×3 (02:48→08:37)
[2019-01-29 03:16] LABS: Appearance Urine Cloudy (Clear); Bacteria Urine Automated Negative (Negative); Bilirubin Urine Negative (Negative); Blood Urine 2+ (Negative); Color Urine Dark Yellow; Glucose Urine UA Negative (Negative); Ketones Urine Negative (Negative); Leukocyte Esterase Urine Negative (Negative); Nitrite Urine Negative (Negative); Protein Urine 2+ (Negative); Specific Gravity Urine 1.031 (1.000-1.030); Urobilinogen Urine Negative (Negative)
[2019-01-29 03:37] LABS: Cast Urine Automated 0 /lpf (0-5)
[2019-01-29 03:39] LABS: Uric Acid Crystals Urine Present (None Prsent)
[2019-01-29] MEDS: VANCOMYCIN HCL 1,250 MG in SODIUM CHLORIDE 0.9% 250 ML IV SCH ×2 (06:18→16:44)
[2019-01-29] MEDS: PIPERACILLIN/TAZOBACTAM 3.375 GM in DEXTROSE 5% 100 ML IV SCH ×3 (06:18→21:52)
[2019-01-29] MEDS: METOPROLOL TARTRATE 25 MG TAB PO SCH ×4 (06:19→23:42)
[2019-01-29 07:21] LABS: Hematocrit (blood only) 26.9 % (42-52); Hemoglobin 8.9 g/dL (14.0-18.0); Mean Corpuscular Hemoglobin 27.6 pg (25-34); Mean Corpuscular Hgb Conc 33.1 g/dL (32-36); Mean Corpuscular Volume 83.3 fL (80-100); Mean Platelet Volume 8.6 fL (7.4-10.4); Platelet Count 325 K/uL (130-400); RDW Coefficient of Variation 15.4 % (11.5-14.5); RDW Standard Deviation 47.1 fL (36.4-46.3); Red Blood Count 3.23 M/uL (4.7-6.1); White Blood Count 10.49 K/uL (4.8-10.8)
[2019-01-29] MEDS: dilTIAZem HCL 30 MG TAB PO SCH ×3 (07:47→20:00)
[2019-01-29] MEDS: HEPARIN SOD 5,000 UNIT/0.5 ML VIAL SQ SCH ×3 (07:48→20:01)
[2019-01-29] MEDS: FLUTICASONE PROPIONATE NA SPR 16 GM BTL NAE SCH ×2 (07:48→20:00)
[2019-01-29 07:56] LABS: BUN Creatinine Ratio 9.7 (10-20); Calcium 8.5 mg/dl (8.5-10.1); Creatinine Clr Calc Pharmacy 59.5 ml/min; Est GFR (African American) 58.9; Est GFR (Non-African American) 50.8; Magnesium 1.9 mg/dl (1.8-2.4); Potassium 3.4 mmol/L (3.5-5.1)
[2019-01-29] MEDS ORDERED: POTASSIUM CHLORIDE 20 MEQ/15 ML UDC PO ONE (09:15)
--- NOTE | 2019-01-29 09:30 | Surgery Progress Note ---
Date of Service January 29, 2019 Assessment & Plan (1) Status post reversal of ileostomy: POD 9 slowly improving can try full liquids seen with Dr. Roberts Subjective multiple loose BM, some N/V after breakfast he thinks from broth, also given 40 meq po potassium Physical Exam Gastrointestinal (Abdomen): Inspection/Auscultation: abdomen not distended Percussion/Palpation: abdomen soft Results & Data Vital Signs (Past 12 Hours) Vital Signs Temp Pulse Pulse Pulse Pulse Resp BP 01/29/19 08:37 125 H 132/75 01/29/19 07:44 36.8 C 94 H 20 01/29/19 04:43 127 H 115/72 01/29/19 03:58 37.2 C 85 19 01/29/19 03:11 128 H 01/29/19 03:07 88 01/29/19 02:50 37.2 C 01/29/19 02:48 120 H 158/65 H 01/29/19 02:14 98 H 01/28/19 23:51 38.3 C H 91 H 20 01/28/19 23:26 110 H 01/28/19 21:43 134 H 109/63 BP BP Pulse Ox 01/29/19 08:37 01/29/19 07:44 121/70 92 01/29/19 04:43 01/29/19 03:58 116/73 97 01/29/19 03:11 98/64 L 01/29/19 03:07 121/69 01/29/19 02:50 01/29/19 02:48 01/29/19 02:14 01/28/19 23:51 129/69 90 01/28/19 23:26 139/73 01/28/19 21:43 PG Care Time/CCT Total # of Minutes Spent Total Time Spent with Patient: Total time spent is greater than 50% in coordination of care (as documented) at patient's floor/unit and/or counseling patient:
--- NOTE | 2019-01-29 09:33 | Cardiology Progress Note ---
Date of Service January 29, 2019 Assessment & Plan (1) Atrial fibrillation with rapid ventricular response: Rates now coming under much better control on oral regimen. Mildly nauseated this morning possibly secondary to medications and diet. Still with active bowel sounds and bowel movements Will continue metoprolol and oral diltiazem Eventually will begin anticoagulation but not began at this time Gradually increase activities Volume status appears compensated current (2) Paroxysmal atrial tachycardia: Patient with dual atrial arrhythmias (3) Status post reversal of ileostomy: (4) Aspiration into airway: (5) CKD (chronic kidney disease): Physical Exam Constitutional: no acute distress Eyes: PERRL, conjunctivae normal, anicteric sclerae ENMT: external ear and nose normal, oropharynx normal Neck: trachea midline, no thyromegaly Respiratory: Auscultation: + diminished lung sounds (But clear no rhonchi or wheeze) Cardiovascular: Rate/Rhythm: + irregularly irregular Heart Sounds: normal S1 and normal S2; no gallop and no murmur Palpation: normal PMI Vessels: normal carotid upstroke and radial pulses present; no JVD and no carotid bruit Extremities: no edema Gastrointestinal (Abdomen): normal bowel sounds, soft, nontender, no hepatosplenomegaly Inspection/Auscultation: normal bowel sounds Percussion/Palpation: abdomen nontender Musculoskeletal: no cyanosis or clubbing, extremities motor strength 5/5 Skin: no rashes, warm and dry Neurologic: PERRL, EOMI, accommodation nl, no face palsy, no dysarthria Psychiatric: A+Ox3, euthymic affect Results & Data Vital Signs (Past 12 Hours) Vital Signs Temp Pulse Pulse Pulse Pulse Resp BP 01/29/19 08:37 125 H 132/75 01/29/19 07:44 36.8 C 94 H 20 01/29/19 04:43 127 H 115/72 01/29/19 03:58 37.2 C 85 19 01/29/19 03:11 128 H 01/29/19 03:07 88 01/29/19 02:50 37.2 C 01/29/19 02:48 120 H 158/65 H 01/29/19 02:14 98 H 01/28/19 23:51 38.3 C H 91 H 20 01/28/19 23:26 110 H 01/28/19 21:43 134 H 109/63 BP BP Pulse Ox 01/29/19 08:37 01/29/19 07:44 121/70 92 01/29/19 04:43 01/29/19 03:58 116/73 97 01/29/19 03:11 98/64 L 01/29/19 03:07 121/69 01/29/19 02:50 01/29/19 02:48 01/29/19 02:14 01/28/19 23:51 129/69 90 01/28/19 23:26 139/73 01/28/19 21:43 Laboratory Results Laboratory Results - last 24 hr 01/29/19 01/29/19 01/29/19 03:00 07:03 07:03 WBC 10.49 RBC 3.23 L Hgb 8.9 L Hct 26.9 L MCV 83.3 MCH 27.6 MCHC 33.1 RDW Std Deviation 47.1 H RDW Coeff of Jean-Claude 15.4 H Plt Count 325 MPV 8.6 Sodium 137 Potassium 3.4 L Chloride 104 Carbon Dioxide 28 Anion Gap 5.0 BUN 13 Creatinine 1.37 Est Cr Clr Drug Dosing 59.5 Est GFR ( Amer) 58.9 Est GFR (Non-Af Amer) 50.8 BUN/Creatinine Ratio 9.7 L Glucose 130 H Calcium 8.5 Magnesium 1.9 Urine Color Dark Yellow Urine Appearance Cloudy A Urine pH 6.0 Ur Specific [place] 1.031 H Urine Protein 2+ H Urine Glucose (UA) Negative Urine Ketones Negative Urine Blood 2+ H Urine Nitrite Negative Urine Bilirubin Negative Urine Urobilinogen Negative Ur Leukocyte Esterase Negative Urine WBC (Auto) 5-10 H Urine RBC (Auto) 10-30 H U Hyaline Cast (Auto) 0 U Epithel Cells (Auto) 5-10 H Urine Bacteria (Auto) Negative Urine Crystals Not Reportable Uric Acid Crystals Present A Urine Yeast Not Reportable Diagnostic Findings 29-JAN-2019 06:44:51 [facility]U ROUTINE RETRIEVAL Atrial fibrillation Left axis deviation Abnormal ECG When compared with ECG of 25-JAN-2019 11:46, Vent. rate has decreased BY 89 BPM Criteria for Septal infarct are no longer Present ST no longer depressed in Lateral leads
[2019-01-29] MEDS: FAMOTIDINE 20 MG in SYRINGE 3 ML IV SCH (09:53)
[2019-01-29] MEDS: ONDANSETRON INJ 2 MG/ML 2 ML VIAL IV PRN (13:47)
--- NOTE | 2019-01-29 18:20 | Hospitalist Progress Note ---
Date of Service January 29, 2019 Assessment & Plan (1) Atrial fibrillation with rapid ventricular response: Atrial fibrillation with RVR Atrial Flutter on Rhythm No anticoagulation for now Continue diltiazem 30 mg TID Also on Metoprolol 25mg PO Q6H Appreciate Cardiology Input Monitor electrolytes and replace as needed Adenocarcinoma of sigmoid colon: S/p ileostomy reversal on 01/[address] Roberts. Postoperative ileus Appreciate surgery input Has not tolerated food today due to nausea vomiting KUB in a.m. Surgery following Keep him n.p.o. for now Aspiration into airway: Likely aspiration event on 01/23 Hypotension resolved, Off pressors On IV vanc/Zosyn on 01/23 To complete 7 day course of Abx tomorrow Anemia: Baseline hgb 9-11. Likely anemia of chronic disease and iron deficiency Monitor NABIL on CKD II--Resolved Cr back to baseline Received IV fluids Hypertension: Continue current medications Hypokalemia Replace electrolytes as needed Asthma: No signs of exacerbation Nebs PRN GERD On Pepcid DVT Px: Heparin SQ Subjective Patient is seen and examined at bedside Had nausea vomiting earlier this morning Continues to have bowel movement Denies having any significant abdominal pain Heart rate is better controlled Denies any chest pain, shortness of breath, nausea, dizziness Review of Systems Review of Systems: All systems reviewed & are unremarkable except as noted in HPI & below Physical Exam Physical Exam: Physical Exam: Vitals signs as noted above General Appearance:Moderately built and nourished, no apparent distress Head: normocephalic, Atraumatic Eyes: normal inspection, EOMI Neck: supple, Trachea midline Respiratory/Chest: Normal breath sounds, CTA Cardiovascular: Irregularly Irregular, No murmur Abdomen/GI:Soft, mild tender, Surgical site in dressing, Bowel sounds present Extremities/Musculoskelatal:normal inspection, no edema Neurologic/Psych:AAOX3, grossly no focal neurological deficits Skin: normal color, warm Results & Data Vital Signs (Past 12 Hours) Vital Signs Temp Pulse Pulse Resp BP BP BP 01/29/19 15:40 36.8 C 81 18 144/79 H 01/29/19 11:02 37.2 C 86 22 138/85 01/29/19 08:37 125 H 132/75 01/29/19 07:44 36.8 C 94 H 20 121/70 Pulse Ox 01/29/19 15:40 93 01/29/19 11:02 95 01/29/19 08:37 01/29/19 07:44 92 Laboratory Results Short CBC 01/29/19 Range/Units 07:03 WBC 10.49 (4.8-10.8) K/uL Hgb 8.9 L (14.0-18.0) g/dL Hct 26.9 L (42-52) % Plt Count 325 (130-400) K/uL BMP 01/29/19 07:03 Sodium 137 Potassium 3.4 L Chloride 104 Carbon Dioxide 28 BUN 13 Creatinine 1.37 Glucose 130 H Calcium 8.5 Urine 01/29/19 Range/Units 03:00 Urine Color Dark Yellow Urine Appearance Cloudy A (Clear) Urine pH 6.0 (4.5-7.5) Ur Specific [place] 1.031 H (1.000-1.030) Urine Protein 2+ H (Negative) Urine Glucose (UA) Negative (Negative)
[2019-01-29] MEDS: FAMOTIDINE 20 MG TAB PO SCH (20:01)
[2019-01-30] MEDS: NITROGLYCERIN 2% OINTMENT 30GM TUBE EXT SCH ×4 (02:04→20:13)
[2019-01-30] MEDS: ACETAMINOPHEN 325 MG TAB PO PRN (03:03)
[2019-01-30] MEDS: ONDANSETRON INJ 2 MG/ML 2 ML VIAL IV PRN (03:24)
[2019-01-30] MEDS: PIPERACILLIN/TAZOBACTAM 3.375 GM in DEXTROSE 5% 100 ML IV SCH (05:54)
[2019-01-30] MEDS: METOPROLOL TARTRATE 25 MG TAB PO SCH ×2 (05:54→13:33)
[2019-01-30 06:11] LABS: Hematocrit (blood only) 26.3 % (42-52); Hemoglobin 8.5 g/dL (14.0-18.0)
[2019-01-30 06:48] LABS: BUN Creatinine Ratio 9.4 (10-20); Calcium 8.3 mg/dl (8.5-10.1); Creatinine Clr Calc Pharmacy 65.6 ml/min; Est GFR (African American) 66.4; Est GFR (Non-African American) 57.3; Magnesium 1.9 mg/dl (1.8-2.4); Potassium 3.5 mmol/L (3.5-5.1)
--- NOTE | 2019-01-30 08:18 | XRay Report ---
KUB HISTORY: Nausea, Vomiting COMPARISON: KUB 01/25/2019. FINDINGS: There are again noted multiple dilated gas-filled loops of small bowel seen throughout the abdomen measuring up to 5 cm in diameter. There is borderline dilated gas-filled colon. Postoperative changes within the lower lumbar spine. No renal calculi. No ureteral calculi. No pneumoperitoneum or pneumatosis. IMPRESSION: Multiple dilated gas-filled loops of small bowel seen throughout the abdomen are overall similar comp ared to the prior study. There is borderline dilated gas-filled colon. This could represent a partial small bowel obstruction or ileus. ACT 112: Negative or not required by law. Electronically signed by: Raymond Laura M.D. 01/30/2019 8:17 AM
[2019-01-30] MEDS: dilTIAZem HCL 30 MG TAB PO SCH (08:31)
[2019-01-30] MEDS: HEPARIN SOD 5,000 UNIT/0.5 ML VIAL SQ SCH ×2 (08:32→20:54)
[2019-01-30] MEDS: FAMOTIDINE 20 MG TAB PO SCH ×2 (08:32→20:57)
[2019-01-30] MEDS: FLUTICASONE PROPIONATE NA SPR 16 GM BTL NAE SCH ×2 (08:33→20:54)
--- NOTE | 2019-01-30 09:18 | Surgery Progress Note ---
Date of Service January 30, 2019 Assessment & Plan (1) Status post reversal of ileostomy: POD 10 bowel function slow as during previous LAR NPO overnight, can try clears as maria luisa seen with Dr. Roberts HR improved K+ 3.5 XR with small bowel distention, some gas in right colon Subjective vomited yesterday, no nausea or hiccups today, continues to have loose BMs Physical Exam Gastrointestinal (Abdomen): Inspection/Auscultation: + abdomen distended (mild) Percussion/Palpation: abdomen soft Results & Data Vital Signs (Past 12 Hours) Vital Signs Temp Pulse Pulse Pulse Pulse Resp BP 01/30/19 07:36 37.0 C 84 84 H 143/72 H 01/30/19 05:54 86 143/79 H 01/30/19 04:02 82 01/30/19 03:30 37.1 C 80 20 130/69 01/30/19 00:03 86 01/29/19 23:46 37.1 C 84 20 129/71 01/29/19 22:20 86 01/29/19 21:40 86 Pulse Ox 01/30/19 07:36 94 01/30/19 05:54 89 L 01/30/19 04:02 01/30/19 03:30 93 01/30/19 00:03 01/29/19 23:46 92 01/29/19 22:20 01/29/19 21:40 PG Care Time/CCT Total # of Minutes Spent Total Time Spent with Patient: Total time spent is greater than 50% in coordination of care (as documented) at patient's floor/unit and/or counseling patient:
--- NOTE | 2019-01-30 13:14 | Cardiology Progress Note ---
Date of Service January 30, 2019 Assessment & Plan (1) Atrial fibrillation with rapid ventricular response: Has converted to sinus rhythm Concerned that diltiazem is contributing to slow bowel function Will discontinue diltiazem at risk of returning of atrial fibrillation, continue topical nitrates for blood pressure management Increase metoprolol to 50 mg p.o. 3 times daily, supplement potassium Ultimate plan: Initiate oral anticoagulation once full bowel function and stability assured (2) Paroxysmal atrial tachycardia: Patient with dual atrial arrhythmias (3) Status post reversal of ileostomy: (4) Aspiration into airway: (5) CKD (chronic kidney disease): Subjective Patient seen and examined, chart, medications, telemetry reviewed Still with somewhat slow bowel function Physical Exam Constitutional: no acute distress Eyes: PERRL, conjunctivae normal, anicteric sclerae ENMT: external ear and nose normal, oropharynx normal Neck: trachea midline, no thyromegaly Respiratory: Auscultation: + diminished lung sounds (But clear no rhonchi or wheeze) Cardiovascular: Rate/Rhythm: + irregularly irregular Heart Sounds: normal S1 and normal S2; no gallop and no murmur Palpation: normal PMI Vessels: normal carotid upstroke and radial pulses present; no JVD and no carotid bruit Extremities: no edema Gastrointestinal (Abdomen): Inspection/Auscultation: + abdomen distended (Mild) and normal bowel sounds Percussion/Palpation: abdomen nontender Musculoskeletal: no cyanosis or clubbing, extremities motor strength 5/5 Skin: no rashes, warm and dry Neurologic: PERRL, EOMI, accommodation nl, no face palsy, no dysarthria Psychiatric: A+Ox3, euthymic affect Results & Data Vital Signs (Past 12 Hours) Vital Signs Temp Pulse Pulse Pulse Resp BP Pulse Ox 01/30/19 11:10 36.4 C L 78 20 146/74 H 93 01/30/19 07:36 37.0 C 84 84 H 143/72 H 94 01/30/19 05:54 86 143/79 H 89 L 01/30/19 04:02 82 01/30/19 03:30 37.1 C 80 20 130/69 93 Laboratory Results Laboratory Results - last 24 hr 01/30/19 01/30/19 01/30/19 05:42 05:42 08:49 Hgb 8.5 L Hct 26.3 L Sodium 137 Potassium 3.5 Chloride 105 Carbon Dioxide 27 Anion Gap 5.0 BUN 12 Creatinine 1.24 Est Cr Clr Drug Dosing 65.6 Est GFR ( Amer) 66.4 Est GFR (Non-Af Amer) 57.3 BUN/Creatinine Ratio 9.4 L Glucose 106 H Calcium 8.3 L Magnesium 1.9 Stl C. diff Tox B Gene Negative Cdiff Gene
[2019-01-30] MEDS: METOPROLOL TARTRATE 50 MG TAB PO SCH ×2 (14:36→20:56)
[2019-01-30] MEDS: POTASSIUM CHLORIDE / WTR 10 MEQ/100 ML PLCT IV SCH ×2 (14:36→16:34)
--- NOTE | 2019-01-30 17:39 | Hospitalist Progress Note ---
Date of Service January 30, 2019 Assessment & Plan (1) Atrial fibrillation with rapid ventricular response: Atrial fibrillation with RVR Converted to sinus rhythm Diltiazem discontinued--concern for stroke bowel function Metoprolol increased to 50mg TID Appreciate Cardiology Input Monitor electrolytes and replace as needed Plan to start on anticoagulation once bowel function improves Adenocarcinoma of sigmoid colon: S/p ileostomy reversal on 01/[address] Roberts. Postoperative ileus Appreciate surgery input Repeat KUB: Suggestive of partial SBO or ileus Surgery following Clear liquid as tolerated Aspiration into airway: Likely aspiration event on 01/23 Hypotension resolved, Off pressors On IV vanc/Zosyn on 01/23 Completed 7-day course of antibiotics Anemia: Baseline hgb 9-11. Likely anemia of chronic disease and iron deficiency Monitor NABIL on CKD II--Resolved Cr back to baseline Received IV fluids Hypertension: Continue current medications Hypokalemia Replace electrolytes as needed Asthma: No signs of exacerbation Nebs PRN GERD On Pepcid DVT Px: Heparin SQ Subjective Patient is seen and examined at bedside Denies any nausea, vomiting, abdominal pain today Has loose BMs Also denies any chest pain, shortness of breath, nausea, dizziness No family at bedside Converted to sinus rhythm Review of Systems Review of Systems: All systems reviewed & are unremarkable except as noted in HPI & below Physical Exam Physical Exam: Physical Exam: Vitals signs as noted above General Appearance:Moderately built and nourished, no apparent distress Head: normocephalic, Atraumatic Eyes: normal inspection, EOMI Neck: supple, Trachea midline Respiratory/Chest: Normal breath sounds, CTA Cardiovascular: S1, S2, No murmur Abdomen/GI:Soft, non tender, Surgical site in dressing, Bowel sounds present Extremities/Musculoskelatal:normal inspection, no edema Neurologic/Psych:AAOX3, grossly no focal neurological deficits Skin: normal color, warm Results & Data Vital Signs (Past 12 Hours) Vital Signs Temp Pulse Pulse Resp BP Pulse Ox 01/30/19 14:41 36.4 C L 79 20 141/81 H 92 01/30/19 11:10 36.4 C L 78 20 146/74 H 93 01/30/19 07:36 37.0 C 84 84 H 143/72 H 94 01/30/19 05:54 86 143/79 H 89 L Laboratory Results Short CBC 12/20/19 Range/Units 05:42 Hgb 8.5 L (14.0-18.0) g/dL Hct 26.3 L (42-52) % BMP 01/30/19 05:42 Sodium 137 Potassium 3.5 Chloride 105 Carbon Dioxide 27 BUN 12 Creatinine 1.24 Glucose 106 H Calcium 8.3 L
[2019-01-31] MEDS: NITROGLYCERIN 2% OINTMENT 30GM TUBE EXT SCH ×4 (02:40→20:06)
[2019-01-31 07:24] LABS: Hematocrit (blood only) 26.4 % (42-52); Hemoglobin 8.5 g/dL (14.0-18.0)
[2019-01-31 07:56] LABS: BUN Creatinine Ratio 10.2 (10-20); Calcium 8.3 mg/dl (8.5-10.1); Est GFR (African American) 78.5; Est GFR (Non-African American) 67.7; Potassium 3.5 mmol/L (3.5-5.1)
--- NOTE | 2019-01-31 09:31 | Surgery Progress Note ---
Date of Service January 31, 2019 Assessment & Plan (1) Status post reversal of ileostomy: ileus improving begin fulls increase activity Subjective patient with good day yesterday two BMs yesterday no abdominal pain no nausea or vomiting Review of Systems Constitutional: no fever and no chills Respiratory: no cough and no dyspnea Cardiovascular: no chest pain Gastrointestinal: + change in bowel habits (+ BMs); no abdominal pain, no nausea and no vomiting Genitourinary: no dysuria Musculoskeletal: no back pain Physical Exam Constitutional: well developed and well nourished Neck: trachea midline Respiratory: normal respiratory effort, lungs clear to auscultation Cardiovascular: RRR, no murmur, no edema Gastrointestinal (Abdomen): Inspection/Auscultation: abdomen normal to inspection, + abdomen distended (slight) and normal bowel sounds Percussion/Palpation: abdomen nontender Musculoskeletal: Head/Neck/Chest: normocephalic and head atraumatic Skin: no rashes, warm and dry Results & Data Vital Signs (Past 12 Hours) Vital Signs Temp Pulse Pulse Pulse Resp BP Pulse Ox 01/31/19 07:45 36.8 C 82 22 153/77 H 92 01/31/19 03:15 36.8 C 81 22 145/77 H 95 01/31/19 00:00 79 01/30/19 23:35 37.4 C 79 18 152/75 H 96
[2019-01-31] MEDS: METOPROLOL TARTRATE 50 MG TAB PO SCH ×3 (09:38→21:52)
[2019-01-31] MEDS: FAMOTIDINE 20 MG TAB PO SCH ×2 (09:38→21:52)
[2019-01-31] MEDS: FLUTICASONE PROPIONATE NA SPR 16 GM BTL NAE SCH ×2 (09:38→21:52)
[2019-01-31] MEDS: HEPARIN SOD 5,000 UNIT/0.5 ML VIAL SQ SCH ×2 (09:39→21:53)
--- NOTE | 2019-01-31 16:28 | Hospitalist Progress Note ---
Date of Service January 31, 2019 Assessment & Plan (1) Atrial fibrillation with rapid ventricular response: Atrial fibrillation with RVR Converted to sinus rhythm Diltiazem discontinued--concern for stroke bowel function Metoprolol increased to 50mg TID Appreciate Cardiology Input Monitor electrolytes and replace as needed Plan to start on anticoagulation once bowel function improves Continue current medications Adenocarcinoma of sigmoid colon: S/p ileostomy reversal on 01/[address] Roberts. Postoperative ileus Appreciate surgery input Repeat KUB: Suggestive of partial SBO or ileus Surgery following Ileus slowly improving Advance to full liquid diet Encourage ambulation Aspiration into airway: Likely aspiration event on 01/23 Hypotension resolved, Off pressors On IV vanc/Zosyn on 01/23 Completed 7-day course of antibiotics Anemia: Baseline hgb 9-11. Likely anemia of chronic disease and iron deficiency Monitor NABIL on CKD II--Resolved Cr back to baseline Received IV fluids Hypertension: Continue current medications Hypokalemia Replace electrolytes as needed Asthma: No signs of exacerbation Nebs PRN GERD On Pepcid DVT Px: Heparin SQ Subjective Patient is seen and examined at bedside Had big bowel movement overnight Tolerating diet Advance to full liquid diet today Denies any nausea, vomiting, abdominal pain, chest pain, shortness of breath, dizziness Has generalized weakness Review of Systems Review of Systems: All systems reviewed & are unremarkable except as noted in HPI & below Physical Exam Physical Exam: Physical Exam: Vitals signs as noted above General Appearance:Moderately built and nourished, no apparent distress Head: normocephalic, Atraumatic Eyes: normal inspection, EOMI Neck: supple, Trachea midline Respiratory/Chest: Normal breath sounds, CTA Cardiovascular: S1, S2, No murmur Abdomen/GI:Soft, non tender, Surgical site in dressing, Bowel sounds present Extremities/Musculoskelatal:normal inspection, no edema Neurologic/Psych:AAOX3, grossly no focal neurological deficits Skin: normal color, warm Results & Data Vital Signs (Past 12 Hours) Vital Signs Temp Pulse Pulse Resp BP Pulse Ox 01/31/19 15:16 36.9 C 85 18 164/76 H 98 01/31/19 11:36 85 01/31/19 10:57 36.9 C 81 20 138/76 94 01/31/19 07:45 36.8 C 82 22 153/77 H 92 Laboratory Results Short CBC 01/31/19 Range/Units 06:51 Hgb 8.5 L (14.0-18.0) g/dL Hct 26.4 L (42-52) % BMP 01/31/19 06:51 Sodium 137 Potassium 3.5 Chloride 106 Carbon Dioxide 26 BUN 11 Creatinine 1.08 Glucose 94 Calcium 8.3 L
[2019-01-31] MEDS: ACETAMINOPHEN 325 MG TAB PO PRN (16:43)
[2019-01-31] MEDS: DICLOFENAC SOD 1% GEL 100 GM TUBE EXT PRN (17:49)
[2019-02-01] MEDS ORDERED: LOPERAMIDE HCL 2 MG CAP PO PRN (01:17)
[2019-02-01] MEDS: NITROGLYCERIN 2% OINTMENT 30GM TUBE EXT SCH ×3 (02:07→13:53)
[2019-02-01] MEDS: DICLOFENAC SOD 1% GEL 100 GM TUBE EXT PRN ×2 (02:30→13:53)
[2019-02-01] MEDS: ACETAMINOPHEN 325 MG TAB PO PRN ×2 (02:57→09:06)
[2019-02-01] MEDS: FLUTICASONE PROPIONATE NA SPR 16 GM BTL NAE SCH ×2 (09:02→21:24)
[2019-02-01] MEDS: METOPROLOL TARTRATE 50 MG TAB PO SCH ×3 (09:02→21:25)
[2019-02-01] MEDS: FAMOTIDINE 20 MG TAB PO SCH ×2 (09:02→21:25)
[2019-02-01] MEDS: HEPARIN SOD 5,000 UNIT/0.5 ML VIAL SQ SCH ×2 (09:02→21:23)
--- NOTE | 2019-02-01 13:00 | Hospitalist Progress Note ---
Date of Service February 01, 2019 Assessment & Plan (1) Atrial fibrillation with rapid ventricular response: Atrial fibrillation with RVR Converted to sinus rhythm Diltiazem discontinued--concern for slowing bowel function Metoprolol increased to 50mg TID Appreciate Cardiology Input Monitor electrolytes and replace as needed Plan to start on anticoagulation once bowel function improves Rate is controlled Adenocarcinoma of sigmoid colon: S/p ileostomy reversal on 01/[address] Roberts. Postoperative ileus Appreciate surgery input Repeat KUB: Suggestive of partial SBO or ileus Surgery following Ileus improved Tolerating full liquid diet Encourage ambulation Aspiration into airway: Likely aspiration event on 01/23 Hypotension resolved, Off pressors Received IV vanc/Zosyn Completed 7-day course of IV antibiotics Anemia: Baseline hgb 9-11. Likely anemia of chronic disease and iron deficiency Monitor NABIL on CKD II--Resolved Cr back to baseline Received IV fluids Hypertension: Continue current medications Hypokalemia Replace electrolytes as needed Asthma: No signs of exacerbation Nebs PRN GERD On Pepcid DVT Px: Heparin SQ Subjective Patient is seen and examined at bedside Reports mild right shoulder pain since yesterday which is improved No other complaints Continues to have small BMs Tolerating diet Denies any nausea, vomiting, abd pain, chest pain, SOB, dizziness Review of Systems Review of Systems: All systems reviewed & are unremarkable except as noted in HPI & below Physical Exam Physical Exam: Physical Exam: Vitals signs as noted above General Appearance:Moderately built and nourished, no apparent distress Head: normocephalic, Atraumatic Eyes: normal inspection, EOMI Neck: supple, Trachea midline Respiratory/Chest: Normal breath sounds, CTA Cardiovascular: S1, S2, No murmur Abdomen/GI:Soft, non tender, Surgical site in dressing, Bowel sounds present Extremities/Musculoskelatal:normal inspection, no edema Neurologic/Psych:AAOX3, grossly no focal neurological deficits Skin: normal color, warm Results & Data Vital Signs (Past 12 Hours) Vital Signs Temp Pulse Pulse Pulse Resp BP Pulse Ox 02/01/19 11:07 77 16 143/74 H 99 02/01/19 09:00 71 02/01/19 07:21 36.5 C 77 18 147/81 H 98 02/01/19 02:39 37 C 80 20 148/71 H 96
--- NOTE | 2019-02-01 13:47 | Surgery Progress Note ---
Date of Service February 01, 2019 Assessment & Plan (1) Status post reversal of ileostomy: good progress ambulate with PT advance diet maybe in AM Subjective feels well good day tolerating fulls and wants to stay here liquid BMs Review of Systems Constitutional: no fever and no chills Respiratory: no dyspnea Cardiovascular: no chest pain Gastrointestinal: + abdominal pain and + diarrhea/loose stools; no nausea and no vomiting Genitourinary: no dysuria Musculoskeletal: no back pain Physical Exam Constitutional: not ill appearing Neck: trachea midline Respiratory: normal respiratory effort, lungs clear to auscultation Cardiovascular: RRR, no murmur, no edema Gastrointestinal (Abdomen): Inspection/Auscultation: normal bowel sounds; abdomen not distended Percussion/Palpation: abdomen soft; abdomen nontender Musculoskeletal: Head/Neck/Chest: normocephalic and head atraumatic Skin: no rashes, warm and dry Results & Data Vital Signs (Past 12 Hours) Vital Signs Temp Pulse Pulse Pulse Resp BP Pulse Ox 02/01/19 11:07 77 16 143/74 H 99 02/01/19 09:00 71 02/01/19 07:21 36.5 C 77 18 147/81 H 98 02/01/19 02:39 37 C 80 20 148/71 H 96
[2019-02-02 06:41] LABS: Hematocrit (blood only) 26.3 % (42-52); Hemoglobin 8.5 g/dL (14.0-18.0)
[2019-02-02 06:59] LABS: BUN Creatinine Ratio 7.7 (10-20); Calcium 8.4 mg/dl (8.5-10.1); Creatinine Clr Calc Pharmacy 79.2 ml/min; Est GFR (African American) 82.2; Est GFR (Non-African American) 70.9; Potassium 3.4 mmol/L (3.5-5.1)
[2019-02-02] MEDS: FLUTICASONE PROPIONATE NA SPR 16 GM BTL NAE SCH ×2 (08:14→21:06)
[2019-02-02] MEDS: METOPROLOL TARTRATE 50 MG TAB PO SCH ×3 (08:15→21:07)
[2019-02-02] MEDS: FAMOTIDINE 20 MG TAB PO SCH ×2 (08:15→21:12)
[2019-02-02] MEDS: HEPARIN SOD 5,000 UNIT/0.5 ML VIAL SQ SCH ×2 (08:17→21:34)
--- NOTE | 2019-02-02 08:20 | Surgery Progress Note ---
Date of Service February 02, 2019 Assessment & Plan (1) Status post reversal of ileostomy: 02/02/19; s/p ileostomy reversal Patient tolerating full liquid diet over the weekend Having + bowel function (loose stool) Abdominal exam benign Temp to 38.2C today, will obtain CXR Replete lytes as needed Encourage activity as tolerated Will discuss keeping patient on fulls vs adv to low fiber Dr Vigil-saw patient in his room sitting up in his bed awake and alert, he just finished all of his breakfast and feels like he is making progress Reading comfortably, his abdomen is soft with good bowel sounds and his incision is intact without any erythema or induration He does have his Martines in place. He does not have any significant complaints except he is relatively weak and will need at least several more days in the hospital We will check a chest x-ray, Martines catheter is to be removed, we will advance his diet We will also check his mag and Phos Subjective Patient states he feels okay this AM. Has been tolerating a full liquid diet o jovanna the weekend with only minimal nausea. He denies any bouts of emesis or abdominal pain. He is passing flatus and having BM's. Physical Exam Physical Exam: awake Gastrointestinal (Abdomen): Inspection/Auscultation: + abdominal surgical incision (c/d/i with sutures in place; no sign of infection) Percussion/Palpation: abdomen soft; abdomen nontender Results & Data Vital Signs (Past 12 Hours) Vital Signs Temp Pulse Pulse Resp BP Pulse Ox 02/02/19 07:36 38.2 C H 91 H 18 124/70 92 02/01/19 23:00 37.1 C 84 18 146/81 H 98 02/01/19 21:21 82 152/63 H PG Care Time/CCT Total # of Minutes Spent Total Time Spent with Patient: Total time spent is greater than 50% in coordination of care (as documented) at patient's floor/unit and/or counseling patient:
[2019-02-02] MEDS ORDERED: POTASSIUM CHLORIDE 20 MEQ TABCR PO STA (08:43)
--- NOTE | 2019-02-02 08:46 | XRay Report ---
XR chest 1V portable HISTORY: 73 years-old Male low grade temp acute fever COMPARISON: Chest radiograph 01/23/2019 TECHNIQUE: Portable AP view of the chest FINDINGS: Cardiac silhouette is enlarged, unchanged. Pulmonary vascular congestion with mild interstitial coars ening persists. There is blunting of the costophrenic angles. Minimal bibasilar opacities. No pneumot horax, large pleural effusion or new focal airspace consolidation. Degenerative changes of the should ers and spine. IMPRESSION: 1. Cardiomegaly with suggestion of mild pulmonary edema. 2. Trace pleural effusions with mild bibasilar opacities suggestive of probable atelectasis. Pneumoni a considered less likely. ACT 112: Negative or not required by law. The above report was generated using voice recognition software. It may contain grammatical, syntax o r spelling errors. Electronically signed by: Julio Thakur M.D. 02/02/2019 8:44 AM
[2019-02-02 09:05] LABS: Magnesium 1.7 mg/dl (1.8-2.4); Phosphorus 2.6 mg/dl (2.5-4.9)
[2019-02-02] MEDS ORDERED: MAGNESIUM SULFATE / D5W 1 GM/100 ML BAG IV ONE (10:45)
--- NOTE | 2019-02-02 11:35 | Ultrasound Report ---
ULTRASOUND BILATERAL LOWER EXTREMITY VENOUS CLINICAL HISTORY: Leg pain. COMPARISON STUDY: Bilateral lower extremity venous ultrasound dated 10/06/2018. TECHNIQUE: Real-time, grayscale, and color Doppler sonography of the deep veins of the right and left lower extremity was performed from the inguinal crease to the calf. Compression and augmentation wer e utilized. FINDINGS: There is no sonographic evidence of deep venous thrombosis identified in the right or left lower extremity. The common femoral, superficial femoral, and popliteal veins are patent and normally compressible bilaterally. The greater saphenous vein and the profunda femoris vein at the junction w ith the common femoral vein are clear in both legs. There is a short segment of occlusive superficial venous thrombus identified within the intramuscular vein and the right gastrocnemius. This measures 2.6 cm in length. The visualized calf veins are patent bilaterally. IMPRESSION: 1. There is no sonographic evidence of deep venous thrombosis identified in the right or left lower e xtremity. 2. There is a short segment of age indeterminant and occlusive superficial venous thrombus within th e right gastrocnemius muscle behind the knee. ACT 112: Positive. There are findings on this exam that require communication between the performing entity and the patient following Patient Test Result Information Act ([place] Act 112) guidelines. Electronically signed by: Akash Chopra M.D. 02/02/2019 11:34 AM
--- NOTE | 2019-02-02 18:25 | Hospitalist Progress Note ---
Date of Service February 02, 2019 Assessment & Plan (1) Atrial fibrillation with rapid ventricular response: Atrial fibrillation with RVR Converted to sinus rhythm Diltiazem discontinued--concern for slowing bowel function Metoprolol increased to 50mg TID Appreciate Cardiology Input Monitor electrolytes and replace as needed Plan to start on anticoagulation once bowel function normalizes Rate is controlled Heparin SQ for now Adenocarcinoma of sigmoid colon: S/p ileostomy reversal on 01/[address] Roberts. Postoperative ileus Appreciate surgery input Repeat KUB: Suggestive of partial SBO or ileus Surgery following Ileus improved Tolerating low fiber diet Encourage ambulation PT/OT Aspiration into airway: Likely aspiration event on 01/23 Hypotension resolved, Off pressors Received IV vanc/Zosyn Completed 7-day course of IV antibiotics Anemia: Baseline hgb 9-11. Likely anemia of chronic disease and iron deficiency Monitor NABIL on CKD II--Resolved Cr back to baseline Received IV fluids Hypertension: Continue current medications Hypokalemia Replace electrolytes as needed Asthma: No signs of exacerbation Nebs PRN GERD On Pepcid DVT Px: Heparin SQ Subjective Patient is seen and examined at bedside Febrile this morning Tolerating low fiber diet Had BM overnight Denies any nausea, vomiting, abd pain, chest pain, SOB, dizziness Reports generalized weakness Review of Systems Review of Systems: All systems reviewed & are unremarkable except as noted in HPI & below Physical Exam Physical Exam: Physical Exam: Vitals signs as noted above General Appearance:Moderately built and nourished, no apparent distress Head: normocephalic, Atraumatic Eyes: normal inspection, EOMI Neck: supple, Trachea midline Respiratory/Chest: Normal breath sounds, CTA Cardiovascular: S1, S2, No murmur Abdomen/GI:Soft, non tender, Surgical site in dressing, Bowel sounds present Extremities/Musculoskelatal:normal inspection, LE edema Neurologic/Psych:AAOX3, grossly no focal neurological deficits Skin: normal color, warm Results & Data Vital Signs (Past 12 Hours) Vital Signs Temp Pulse Resp BP Pulse Ox 02/02/19 15:03 36.8 C 86 16 121/75 98 02/02/19 09:05 36.8 C 02/02/19 07:36 38.2 C H 91 H 18 124/70 92 Laboratory Results Short CBC 02/02/19 Range/Units 06:07 Hgb 8.5 L (14.0-18.0) g/dL Hct 26.3 L (42-52) % [facility] 02/02/19 06:07 Sodium 138 Potassium 3.4 L Chloride 105 Carbon Dioxide 29 BUN 8 Creatinine 1.04 Glucose 122 H Calcium 8.4 L
[2019-02-02] MEDS ORDERED: POTASSIUM CHLORIDE 20 MEQ TABCR PO SCH (21:00)
[2019-02-03 07:09] LABS: BUN Creatinine Ratio 9.7 (10-20); Calcium 8.5 mg/dl (8.5-10.1); Creatinine Clr Calc Pharmacy 80.8 ml/min; Est GFR (African American) 86.2; Est GFR (Non-African American) 74.3; Magnesium 1.9 mg/dl (1.8-2.4); Potassium 3.2 mmol/L (3.5-5.1)
[2019-02-03] MEDS: FLUTICASONE PROPIONATE NA SPR 16 GM BTL NAE SCH ×2 (09:03→21:37)
[2019-02-03] MEDS: METOPROLOL TARTRATE 50 MG TAB PO SCH ×3 (09:03→21:39)
[2019-02-03] MEDS: HEPARIN SOD 5,000 UNIT/0.5 ML VIAL SQ SCH ×2 (09:04→21:42)
--- NOTE | 2019-02-03 09:06 | Surgery Progress Note ---
Date of Service February 03, 2019 Assessment & Plan (1) Status post reversal of ileostomy: 02/03/19 Patient overall doing well Tolerating low fiber diet + bowel function Will remove abdominal sutures today Continue to work on activity as tolerates Appreciate medicine following along Case management working on dispo. planning to rehab facility [facility] covering tomorrow as above. clinically doing well. maria luisa diet. d/c planning. Subjective No issues from overnight. Patient is tolerating his diet. Working on increasing his activity and says he is planning to go to rehab at discharge prior to going home. Physical Exam Physical Exam: awake/alert Gastrointestinal (Abdomen): Inspection/Auscultation: + abdominal surgical incision (c/d/i, no signs of infection) Results & Data Vital Signs (Past 12 Hours) Vital Signs Temp Pulse Resp BP BP Pulse Ox 02/03/19 07:49 36.7 C 81 18 141/71 H 93 02/02/19 23:05 37 C 79 18 136/76 94 PG Care Time/CCT Total # of Minutes Spent Total Time Spent with Patient: Total time spent is greater than 50% in coordination of care (as documented) at patient's floor/unit and/or counseling patient:
[2019-02-03] MEDS ORDERED: POTASSIUM CHLORIDE 20 MEQ TABCR PO STA (09:21)
[2019-02-03] MEDS: FAMOTIDINE 20 MG TAB PO SCH ×2 (10:13→21:41)
--- NOTE | 2019-02-03 16:07 | Hospitalist Progress Note ---
Date of Service February 03, 2019 Assessment & Plan (1) Atrial fibrillation with rapid ventricular response: Atrial fibrillation with RVR Converted to sinus rhythm Diltiazem discontinued--concern for slowing bowel function Metoprolol increased to 50mg TID Appreciate Cardiology Input Monitor electrolytes and replace as needed Plan to start on anticoagulation once bowel function normalizes Rate is controlled Continue Heparin SQ for now Adenocarcinoma of sigmoid colon: S/p ileostomy reversal on 01/[address] Roberts. Postoperative ileus Appreciate surgery input Repeat KUB: Suggestive of partial SBO or ileus Surgery following Tolerating low fiber diet Encourage ambulation PT/OT Clinically improved May need Rehab placement Aspiration into airway: Likely aspiration event on 01/23 Hypotension resolved, Off pressors Received IV vanc/Zosyn Completed 7-day course of IV antibiotics Anemia: Baseline hgb 9-11. Likely anemia of chronic disease and iron deficiency Monitor NABIL on CKD II--Resolved Cr back to baseline Received IV fluids Hypertension: Continue current medications Hypokalemia Replace electrolytes as needed Asthma: No signs of exacerbation Nebs PRN GERD On Pepcid DVT Px: Heparin SQ Disposition As per Primary Team Subjective Patient is seen and examined at bedside Doing well today Tolerating low fiber diet Had BM overnight Denies any nausea, vomiting, abd pain, chest pain, SOB, dizziness Family at bedside Review of Systems Review of Systems: All systems reviewed & are unremarkable except as noted in HPI & below Physical Exam Physical Exam: Physical Exam: Vitals signs as noted above General Appearance:Moderately built and nourished, no apparent distress Head: normocephalic, Atraumatic Eyes: normal inspection, EOMI Neck: supple, Trachea midline Respiratory/Chest: Normal breath sounds, CTA Cardiovascular: S1, S2, No murmur Abdomen/GI:Soft, non tender, Surgical site in dressing, Bowel sounds present Extremities/Musculoskelatal:normal inspection, LE edema Neurologic/Psych:AAOX3, grossly no focal neurological deficits Skin: normal color, warm Results & Data Vital Signs (Past 12 Hours) Vital Signs Temp Pulse Pulse Resp BP Pulse Ox 02/03/19 15:20 37.0 C 78 18 148/83 H 98 02/03/19 13:10 81 145/81 H 02/03/19 07:49 36.7 C 81 18 141/71 H 93 Laboratory Results [facility] 02/03/19 06:12 Sodium 139 Potassium 3.2 L Chloride 106 Carbon Dioxide 28 BUN 10 Creatinine 1.00 Glucose 104 H Calcium 8.5
[2019-02-04] MEDS: ACETAMINOPHEN 325 MG TAB PO PRN ×2 (02:09→22:00)
[2019-02-04 07:59] LABS: BUN Creatinine Ratio 9.2 (10-20); Calcium 8.9 mg/dl (8.5-10.1); Creatinine Clr Calc Pharmacy 74.2 ml/min; Est GFR (African American) 77.6; Magnesium 1.8 mg/dl (1.8-2.4); Potassium 3.5 mmol/L (3.5-5.1)
[2019-02-04] MEDS: METOPROLOL TARTRATE 50 MG TAB PO SCH ×3 (09:06→20:33)
[2019-02-04] MEDS: FLUTICASONE PROPIONATE NA SPR 16 GM BTL NAE SCH ×2 (09:07→20:33)
[2019-02-04] MEDS: HEPARIN SOD 5,000 UNIT/0.5 ML VIAL SQ SCH ×2 (09:07→20:35)
--- NOTE | 2019-02-04 10:51 | Surgery Progress Note ---
Date of Service pt is doing fine, no abdominal pain, he tolerated diet, February 04, 2019 Assessment & Plan (1) Status post reversal of ileostomy: good progress ambulate with PT advance diet maybe in AM 02/04/2019 10:50AM doing fine, rehab tomorrow, Supervising Physician Co-Signing Physician Notes Dr. Vuong was the resident-physician during care of patient. I separately evaluated patient for mcknight portions of the history and the exam. I was present during the critical portion of medical decision making, and I discussed the case with the resident. I generally agree with the findings and plan except for any additions/exceptions noted. P patient has a history of adenocarcinoma and recently underwent a revision of his colostomy 3 days ago. Overnight he had an aspiration event and went into septic shock requiring phenylephrine this morning. He has received approximately 4 L of fluid. He is cogent and lucid. His lactate has been normal. We are continuing vancomycin and Zosyn. Surgery is following the patient. He removed his nasogastric tube yesterday and had an aspiration. We will reinsert his nasogastric tube. He is having some issues with hiccups as he did on his previous admission post surgery. Patient will remain in the ICU today. If he is on prolonged pressors, we will have to place a central venous line. Case discussed personally with Dr. Green of general surgery I have personally spent 40 minutes of critical care time in the direct management of this patient. This is a life/limb threatening event. This includes time spent evaluating patient, direct bedside care, chart review, placing orders, interpretation of diagnostic studies, discussion with consultants, patient, and/or family members regarding treatment decisions, as well as other required patient management activities. This time is exclusive of all separately billable procedures, and teaching time and separate from and in addition to any other critical care service time. Subjective Patient is seen and examined at bedside Doing well today Tolerating low fiber diet Had BM overnight Denies any nausea, vomiting, abd pain, chest pain, SOB, dizziness Family at bedside Physical Exam Constitutional: WD/WN, vitals as above well developed and well nourished Neck: trachea midline, no thyromegaly Respiratory: normal respiratory effort, lungs clear to auscultation Cardiovascular: Heart Sounds: normal S1 and normal S2 Gastrointestinal (Abdomen): Percussion/Palpation: abdomen soft NT, ND, incision heals well, Skin: no rashes, warm and dry Neurologic: awake Psychiatric: Orientation: alert and oriented x 3 Results & Data Vital Signs (Past 12 Hours) Vital Signs Temp Pulse Resp BP BP Pulse Ox 02/04/19 08:12 36.9 C 78 18 155/81 H 02/03/19 23:13 37.0 C 81 16 163/83 H 92 Laboratory Results Abnormal lab results 02/04/19 Range/Units 06:57 Chloride 108 H (98-107) mmol/L BUN/Creatinine Ratio 9.2 L (10-20)
[2019-02-04] MEDS: FAMOTIDINE 20 MG TAB PO SCH ×2 (14:23→20:33)
--- NOTE | 2019-02-04 16:03 | Hospitalist Progress Note ---
Date of Service February 04, 2019 Assessment & Plan (1) Atrial fibrillation with rapid ventricular response: Atrial fibrillation with RVR Converted to sinus rhythm Diltiazem discontinued due to concern for slowing bowel function Metoprolol increased to 50mg TID Cardiology recommendations noted. Discussed with patient about need for anticoagulation now that he is tolerating po. 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 Informed Dr Barber who is on consult today. Continue Heparin SQ for now (2) Adenocarcinoma of sigmoid colon: S/p ileostomy reversal on 01/[address] Roberts. Postoperative ileus Improving Management per Primary Surgery team Encourage ambulation PT/OT recommends inpt rehab (3) Aspiration into airway: Likely aspiration event on 01/23 Hypotension resolved, Off pressors Received IV vanc/Zosyn Completed 7-day course of IV antibiotics (4) Anemia: Baseline hgb 9-11. Likely anemia of chronic disease and iron deficiency Monitor (5) NABIL on CKD II--Resolved Cr back to baseline Received IV fluids (6) Hypertension: Continue current medications (7) Hypokalemia Replace electrolytes as needed K is 3.5 today (8) Asthma: No signs of exacerbation Nebs PRN (9) GERD Stable On Pepcid (10) DVT Prophylaxis Heparin SQ Disposition As per Primary Team Subjective Patient seen and examined today Reports generalized weakness Denied any abdominal pain, nausea, vomiting Denied chest pain, palpitation, dizziness, shortness of breath, cough Reported bowel movement overnight Review of Systems Review of Systems: All systems reviewed and unremarkable except for mentioned above. Physical Exam Physical Exam: General: Well nourished, no acute distress Eyes: PERRL, conjunctivae normal, not pale, anicteric sclerae, EOM intact bilaterally ENMT: External ear and nose normal, oropharynx normal Neck: Normal visual inspection, no tracheal deviation, no swelling noted Respiratory: Normal respiratory effort, no respiratory distress, lungs clear to auscultation, no crackles and no wheezes Cardiovascular: Pulse is RRR. S1 S2 Chest (Breasts): Chest: normal inspection of chest Gastrointestinal (Abdomen): Abdomen is not distended, surgical scar, soft, non- tender to palpation, no guarding, no palpable hepatosplenomegaly, normal bowel sounds Musculoskeletal: No cyanosis or clubbing, no edema Neurologic: Alert and oriented x 3, No focal weakness, sensation grossly intact Psychiatric: Euthymic affect, no depressed affect Lymphatic: No cervical and axillary lymphadenopathy Results & Data Vital Signs (Past 12 Hours) Vital Signs Temp Pulse Resp BP BP Pulse Ox 02/04/19 15:20 36.7 C 73 16 153/80 H 98 02/04/19 14:16 77 150/75 H 02/04/19 08:12 36.9 C 78 18 155/81 H Laboratory Results Laboratory Results - last 24 hr 02/04/19 06:57 Sodium 141 Potassium 3.5 Chloride 108 H Carbon Dioxide 27 Anion Gap 6.0 BUN 10 Creatinine 1.09 Est Cr Clr Drug Dosing 74.2 Est GFR ( Amer) 77.6 Est GFR (Non-Af Amer) 67.0 BUN/Creatinine Ratio 9.2 L Glucose 98 Calcium 8.9 Magnesium 1.8
[2019-02-04 23:00] VITALS: PULSE 72
[2019-02-05 05:03] LABS: Hematocrit (blood only) 24.3 % (42-52); Hemoglobin 7.8 g/dL (14.0-18.0); Mean Corpuscular Hemoglobin 26.7 pg (25-34); Mean Corpuscular Hgb Conc 32.1 g/dL (32-36); Mean Corpuscular Volume 83.2 fL (80-100); Mean Platelet Volume 8.3 fL (7.4-10.4); Platelet Count 473 K/uL (130-400); RDW Standard Deviation 45.8 fL (36.4-46.3); Red Blood Count 2.92 M/uL (4.7-6.1); White Blood Count 4.66 K/uL (4.8-10.8)
[2019-02-05 05:27] LABS: BUN Creatinine Ratio 11.5 (10-20); Calcium 8.5 mg/dl (8.5-10.1); Creatinine Clr Calc Pharmacy 77.7 ml/min; Est GFR (African American) 82.2; Est GFR (Non-African American) 70.9; Potassium 3.6 mmol/L (3.5-5.1)
[2019-02-05 07:35] VITALS: TEMP 97.5; O2SAT 93
--- NOTE | 2019-02-05 08:39 | Surgery Progress Note ---
Date of Service February 05, 2019 Assessment & Plan (1) Status post reversal of ileostomy: awaiting rehab placement K+ 3.[address] Caldwell as above. doing well. ok for d/c to rehab facility when bed available. Subjective tolerating diet Physical Exam Gastrointestinal (Abdomen): Inspection/Auscultation: + abdominal surgical in cision (clean, dry, sutures removed); abdomen not distended Percussion/Palpation: abdomen soft Results & Data Vital Signs (Past 12 Hours) Vital Signs Temp Pulse Resp BP BP Pulse Ox 02/05/19 07:34 36.4 C L 72 16 166/84 H 93 02/04/19 22:59 36.7 C 72 16 161/87 H 92 PG Care Time/CCT Total # of Minutes Spent Total Time Spent with Patient: Total time spent is greater than 50% in coordination of care (as documented) at patient's floor/unit and/or counseling patient:
[2019-02-05] MEDS: FAMOTIDINE 20 MG TAB PO SCH (08:51)
[2019-02-05] MEDS: HEPARIN SOD 5,000 UNIT/0.5 ML VIAL SQ SCH (08:51)
[2019-02-05] MEDS: FLUTICASONE PROPIONATE NA SPR 16 GM BTL NAE SCH (08:51)
[2019-02-05] MEDS: METOPROLOL TARTRATE 50 MG TAB PO SCH ×2 (08:51→13:40)
--- NOTE | 2019-02-05 09:47 | Hospitalist Progress Note ---
Date of Service February 05, 2019 Assessment & Plan (1) Atrial fibrillation with rapid ventricular response: Atrial fibrillation with RVR Converted to sinus rhythm Diltiazem discontinued due to concern for slowing bowel function Metoprolol increased to 50mg TID Daron Vasc - 2. Patient wanted to discuss with information lead about anticoagulation before he can make a decision I informed Dr. Tapia the information lead discussed with the patient Patient does not want anticoagulation at this time. Can be discharged on current dose of metoprolol to follow-up with Dr. López outpatient (2) Adenocarcinoma of sigmoid colon: S/p ileostomy reversal on 01/[address] Roberts. Postoperative ileus Resolved (3) Aspiration into airway: Likely aspiration event on 01/23 Hypotension resolved, Off pressors Received IV vanc/Zosyn Completed 7-day course of IV antibiotics (4) Anemia: Baseline hgb 9-11. Likely anemia of chronic disease and iron deficiency Follow-up with PCP and continue monitoring (5) NABIL on CKD II Resolved Cr back to baseline Received IV fluids (6) Hypertension: Continue current medications (7) Asthma: No signs of exacerbation Nebs PRN (8) GERD Stable On Pepcid Subjective Has no complaints today. Reports tolerating diet well and moving bowels without any problems Denied any abdominal pain, nausea vomiting Review of Systems Review of Systems: All systems reviewed and unremarkable except for mentioned above. Physical Exam Physical Exam: General: Well nourished, no acute distress Eyes: PERRL, conjunctivae normal, EOM intact bilaterally ENMT: External ear and nose normal, oropharynx normal Neck: Normal visual inspection, no tracheal deviation, no swelling noted Respiratory: Normal respiratory effort, no respiratory distress, lungs clear to auscultation, no crackles and no wheezes Cardiovascular: Pulse is RRR. S1 S2 Gastrointestinal (Abdomen): Abdomen is not distended, surgical scar, soft, non- tender to palpation, no guarding, no palpable hepatosplenomegaly, normal bowel sounds Musculoskeletal: No cyanosis or clubbing, no edema Neurologic: Alert and oriented x 3, No focal weakness, sensation grossly intact Psychiatric: Euthymic affect, no depressed affect Results & Data Vital Signs (Past 12 Hours) Vital Signs Temp Pulse Resp BP BP Pulse Ox 02/05/19 07:34 36.4 C L 72 16 166/84 H 93 02/04/19 22:59 36.7 C 72 16 161/87 H 92 Laboratory Results Abnormal lab results 02/05/19 02/05/19 Range/Units 04:44 04:44 WBC 4.66 L (4.8-10.8) K/uL RBC 2.92 L (4.7-6.1) M/uL Hgb 7.8 L (14.0-18.0) g/dL Hct 24.3 L (42-52) % RDW Coeff of Jean-Claude 15.0 H (11.5-14.5) % Plt Count 473 H (130-400) K/uL Chloride 108 H (98-107) mmol/L
[2019-02-05 10:35] VITALS: BP 161/87
--- NOTE | 2019-02-05 11:15 | Cardiology Progress Note ---
Date of Service February 05, 2019 Assessment & Plan (1) Atrial fibrillation with rapid ventricular response: (2) Anemia: (3) Status post reversal of ileostomy: (4) Hypertension: (5) CKD (chronic kidney disease): (6) Paroxysmal atrial tachycardia: History of asymptomatic paroxysmal atrial tachycardia Status post reversal of colostomy on 01/21/2019 Postoperative ileus, emesis with possible aspiration. Medications held due to transient hypotension Lapsed into asymptomatic atrial fibrillation with a rapid ventricular response around 01/23/2019 Status post spontaneous conversion back to sinus rhythm without over clinical sequela. Hemoglobin 7.8 g/dL this morning, 8.5 g/dL on 02/02/2019 [id number] Score 2 points (age 65-74, hypertension) Patient seen and examined. Currently in sinus by auscultation On Lopressor 50 mg three times per day Risks and benefits of anticoagulation discussed Patient hesitant to initiate oral anticoagulation at this time and I agree Continue metoprolol as prescribed. Outpatient follow-up with Dr. Sunil López to discuss further, as requested Subjective Asked to reevaluate the patient and discuss the risks and benefits of anticoagulation Review of Systems Review of Systems: All systems reviewed & are unremarkable except as noted in HPI & below Physical Exam Physical Exam: General: A&Ox3. NAD. HEENT: Normocephalic. Atraumatic. PER. Conjunctiva pink, sclera clear. Neck: No overt JVD. Heart: RRR. No murmur. Lungs: Clear to auscultation. Abdomen: +BS. Extremities: No edema. Limited neurological examination is without focal deficits. Results & Data Vital Signs (Past 12 Hours) Vital Signs Temp Pulse Pulse Pulse Pulse Pulse Resp 02/05/19 10:33 36.4 C L 80 84 81 72 80 16 02/05/19 07:34 36.4 C L 72 16 BP BP Pulse Ox 02/05/19 10:33 161/87 H 166/84 H 93 02/05/19 07:34 166/84 H 93 Laboratory Results Laboratory Results - last 24 hr 02/05/19 02/05/19 04:44 04:44 WBC 4.66 L RBC 2.92 L Hgb 7.8 L Hct 24.3 L MCV 83.2 MCH 26.7 MCHC 32.1 RDW Std Deviation 45.8 RDW Coeff of Jean-Claude 15.0 H Plt Count 473 H MPV 8.3 Sodium 141 Potassium 3.6 Chloride 108 H Carbon Dioxide 28 Anion Gap 5.0 BUN 12 Creatinine 1.04 Est Cr Clr Drug Dosing 77.7 Est GFR ( Amer) 82.2 Est GFR (Non-Af Amer) 70.9 BUN/Creatinine Ratio 11.5 Glucose 96 Calcium 8.5 Diagnostic Findings Telemetry: Nonmonitored bed EKG dated and time 29-JAN-2019 @ 14:08:48: Normal sinus rhythm at 84 bpm. Left axis deviation. When compared with ECG of 29-JAN-2019 06:44, Sinus rhythm has replaced atrial fibrillation
--- NOTE | 2019-02-10 14:01 | Discharge Summary ---
PRIMARY DISCHARGE DIAGNOSES: 1. 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 2. Postoperative ileus. 3. Acute kidney injury in the setting of chronic kidney disease. 4. Sepsis secondary to aspiration pneumonia. 5. Atrial fibrillation with rapid ventricular response. 6. Asthma. PROCEDURE PERFORMED: Closure of ileostomy. CONSULTATIONS: 1. [facility] Cardiology. 2. [facility] retort load expediter. 3. [facility] hospitalist. HOSPITAL COURSE: The patient is a 73-year-old male with a history of pelvic radiation and low anterior resection with protective ileostomy now taken back to the operating room for ileostomy closure. At his initial resection he had a prolonged stay due to postoperative ileus and developed the same during this admission. On postoperative day 1, he had developed nausea and persistent hiccups. This continued over day 2 and by that evening, he had been vomiting, became hypotensive, and developed a septic picture secondary to aspiration pneumonia. He was transferred to the ICU where he required pressor support for about 6 hours and stabilized by the next morning. NG tube had been placed. He had some atrial tachycardia and went into atrial fibrillation with rapid ventricular response on postoperative day 5. This was controlled with IV metoprolol. He made some progress over the next 48 hours. He was transferred out of ICU. Nasogastric drainage was decreasing. His hiccups have resolved by day #7. The NG tube was removed. He was having multiple loose bowel movements by day 8. He was started on a liquid diet, but when advanced to full liquids again became nauseous and was made n.p.o. for a short time. By postoperative day 11, his abdominal symptoms had resolved. He continued to have loose bowel movements. He was able to tolerate a full liquid diet. He was working with physical and occupational therapy. His metoprolol was changed to p.o. as he was able to tolerate advancing diet to a low fiber on day 13. His surgical incision was healing well. Sutures were removed 2 weeks postoperatively. He continued to make slow, but steady progress over the next few days, but needed additional therapy. On postoperative day 16, he was stable for transfer to [facility] for additional rehabilitation. DISCHARGE EXAM: His abdomen is soft, nondistended. His ileostomy wound in the right lower quadrant is well healed. DISCHARGE INSTRUCTIONS: Discharged to rehab. Follow-up with Dr. Roberts in 1 week. Follow-up with cardiology in 2-3 weeks. DISCHARGE MEDICATIONS: Will be to discontinue his home metoprolol which was 12.5 mg b.i.d., will begin metoprolol tartrate 50 mg p.o. t.i.d. Continue his other previous home medications. Tylenol as needed for pain, albuterol 2 puffs as needed. Nasal spray 2 sprays every 12 hours as needed, daily multivitamin, Flonase nasal spray b.i.d., loratadine 10 mg daily, magnesium chloride 128 mg b.i.d., Singulair 10 mg daily, omeprazole 20 mg daily, simvastatin 40 mg daily, sodium bicarbonate 1300 mg p.o. b.i.d. MTDD
--- NOTE | 2019-02-13 10:28 | Coding Query ---
CODING QUERY To promote full compliance with coding requirements relating to patient care, provider participation is requested in all cases of drive in teller uncertainty. Please assist us with the question(s) below: Coding Question(s): Patient admitted for ileostomy closure. Developed postoperative ileus. Please check below the phrase that describes the postoperative ileus. Thank you ! NAHED Esquivel [facility] Physician's Response(s): __x___ Postoperative ileus was an expected outcome status post Ileostomy closure Postoperative ileus was a complication status post Ileostomy closure Unable to determine if Postoperative ileus was a complication or expected outcome of post ileostomy closure Other/ Please document: Principal Diagnosis: "that condition established after study, to be chiefly responsible for occasioning the admission of the patient to the hospital for care." Co-Existing Principal Diagnosis: "when two or more diagnoses equally meet the criteria for principal diagnosis as determined by the circumstances of admission, diagnostic work up, and/or therapy provided, and the Alphabetic Index, Tabular List, or another coding guideline does not provide sequencing direction, any one of the diagnoses may be sequenced first." "When the physician has documented what appears to be a current diagnosis in the body of the record, but has not included the diagnosis in the final diagnostic statement, the physician should be asked whether the diagnosis should be added." (Source [facility]oding [facility] 2 QTR90. p3-4) MICHELLE
== END 2019-02-05 16:07 | DRG 329 ==
LOC: ASU 06:22 → 3N 10:03 → 1E 01-23 07:16 → 2S 01-23 21:52 → 3W 02-01 15:01